=== PATIENT | female | born 1950 | race Two or more races ===

== ENCOUNTER 2018-05-22 12:09 | Inpatient (IN) | payer MEDICARE, MEDICAID ==
[~2018-05-22] VITALS: Ht 152.4 cm; Wt 59.0 kg
[2018-05-22 14:00] VITALS: BP 118/68
[2018-05-22 14:36] LABS: HEMATOCRIT 35.3 % (37.0-47.0); HEMOGLOBIN 11.3 G/DL (12.0-16.0); MEAN CORPUSCULAR VOLUME 72 FL (80-99); PLATELET COUNT 372 K/UL (150-450); RED BLOOD COUNT 4.89 M/UL (4.20-5.40); RED CELL DISTRIBUTION WIDTH 15.4 % (11.6-14.8); WHITE BLOOD COUNT 19.4 K/UL (4.8-10.8)
[2018-05-22 14:47] LABS: ANION GAP 14 mmol/L (5-15); BLOOD UREA NITROGEN 39 mg/dL (7-18); CALCIUM 9.2 MG/DL (8.5-10.1); CARBON DIOXIDE 22 MMOL/L (21-32); CHLORIDE 100 MMOL/L (98-107); CREATININE 1.3 MG/DL (0.55-1.30); POTASSIUM 4.2 MMOL/L (3.5-5.1); SODIUM 136 MMOL/L (136-145)
[2018-05-22 14:55] LABS: APPEARANCE,URINE SLIGHTLY CLOUDY; BILIRUBIN, URINE 1+ (NEGATIVE); COLOR,URINE BROWN; GLUCOSE, URINE (UA) 1+ (NEGATIVE); KETONES,URINE 4+ (NEGATIVE); LEUKOCYTE ESTERASE ,URINE 2+ (NEGATIVE); NITRITE,URINE NEGATIVE (NEGATIVE); PH,URINE 5 (4.5-8.0); PROTEIN,URINE 1+ (NEGATIVE); UROBILINOGEN,URINE 4 MG/DL (0.0-1.0)
[2018-05-22 15:03] LABS: ALANINE AMINOTRANSFERASE 20 U/L (12-78); ALBUMIN 2.8 G/DL (3.4-5.0); ALBUMIN/GLOBULIN RATIO 0.6 (1.0-2.7); ALKALINE PHOSPHATASE 122 U/L (46-116); ASPARTATE AMINO TRANSFERASE 12 U/L (15-37); BILIRUBIN,TOTAL 0.7 MG/DL (0.2-1.0); CKMB 0.8 NG/ML (0.0-3.6); CREATINE KINASE 18 U/L (26-308)
[2018-05-22] MEDS ORDERED: Meropenem 1 GM in NS 55 ML IVPB ONE (15:30)
--- NOTE | 2018-05-22 16:00 | Emergency Room Report ---
History of Present Illness General Chief Complaint: General Complaint Source: Patient, EMS Present Illness HPI This patient presents from a half-way facility. History is obtained from EMS and from the patient's medical record. The patient is unable to give any type of history. The patient does have a history of schizophrenia. Patient presents for altered mental status from baseline, congestion and generalized weakness. The patient is confused and unable to give any sort of history. Allergies: Coded Allergies: No Known Allergies (Unverified , 05/22/18) Patient History Past Medical History: see triage record, old chart reviewed, GERD, dementia, psych hx - schizophrenia, other - HLP Social History: Denies: smoking, alcohol use, drug use Last Menstrual Period: N/A Reviewed Nursing Documentation: PMH: Agreed; PSxH: Agreed Nursing Documentation-PMH Past Medical History: No History, Except For Hx Hypertension: Yes Hx Pacemaker: No - HYPERLIPIDEMIA, DYSPHAGIA, ANEMIA, GERD, CATARAT, Hx Diabetes: Yes History Of Psychiatric Problem: Yes - BIPOLAR, ANXIETY, MAJOR DEPRESSIVE DISORDER Review of Systems All Other Systems: limited Physical Exam Vital Signs Date Time Temp Pulse Resp B/P (MAP) Pulse Ox O2 Delivery O2 Flow Rate FiO2 05/22/18 12:24 96.9 80 18 118/68 90 Room Air 97.0 Sp02 EP Interpretation: reviewed, normal General Appearance: no apparent distress, alert, GCS 15, non-toxic Head: normocephalic, atraumatic Eyes: bilateral eye normal inspection, bilateral eye PERRL ENT: hearing grossly normal, normal pharynx, no angioedema, normal voice Neck: full range of motion, supple/symm/no masses Respiratory: chest non-tender, lungs clear, normal breath sounds, no respiratory distress, no retraction, no accessory muscle use Cardiovascular #1: regular rate, rhythm, no edema Gastrointestinal: normal bowel sounds, non tender, soft, non-distended, no guarding, no rebound Rectal: deferred Musculoskeletal: back normal, gait/station normal, normal range of motion, non- tender Neurologic: alert, responsive, speech normal, other - unable to fully assess, overall non-focal., grossly normal Psychiatric: anxious Skin: normal color, no rash, warm/dry, well hydrated Medical Decision Making Diagnostic Impression: Primary Impression: Sepsis ER Course This patient with schizophrenia and inability to give any type of focused history, is found to have an elevated white blood cell count at 19. Also, per report the patient is more confused than usual. I am unsure of this patient's baseline. There is no evidence of pneumonia or urinary tract infection. Possibly this patient could have bacteremia or viral syndrome some sort. There is report of congestion. Regardless, given the patient's baseline and inability to localize symptoms I felt that this patient should be admitted for observation and monitoring. Patient was given broad-spectrum antibiotics and IV fluids as a precaution. She is admitted for further evaluation and treatment. See electronic medical record EKG Diagnostic Results Rate: normal Rhythm: NSR ST Segments: no acute changes Rhythm Strip Diag. Results EP Interpretation: yes Rate: 80's Rhythm: NSR, no PVC's, no ectopy Chest X-Ray Diagnostic Results Chest X-Ray Diagnostic Results : Chest X-Ray Ordered: Yes # of Views/Limited/Complete: 1 View Indication: Other Interpretation: no consolidation, no effusion, no pneumothorax, no acute cardiopulmonary disease Impression: No acute disease Electronically Signed by: Amanda Last Vital Signs Date Time Temp Pulse Resp B/P (MAP) Pulse Ox O2 Delivery O2 Flow Rate FiO2 05/22/18 14:00 97.0 18 118/68 90 Room Air 97.0 05/22/18 12:24 80 Disposition: ADMITTED INPATIENT Condition: Stable Referrals: Jose Cortés DO (PCP) Santa Al DO May 22, 2018 16:00
[2018-05-22 16:05] VITALS: BP 123/70
[2018-05-22] MEDS ORDERED: Aspirin Baby 81mg ORAL ONE (16:15)
[2018-05-22] MEDS ORDERED: Albuterol/Ipratropium 3ml neb HHN PRN (17:00)
[2018-05-22] MEDS ORDERED: Morphine Sulfate 2mg/ml Inj IVP PRN (17:00)
[2018-05-22] MEDS ORDERED: Miralax 17gm pkt ORAL PRN (17:00)
[2018-05-22] MEDS ORDERED: Nitroglycerin Subl 0.4mg tab SL PRN (17:00)
--- NOTE | 2018-05-22 17:36 | Diagnostic Imaging Report ---
Indication: Altered mental status Technique: One view of the chest Comparison: none Findings: No acute infiltrates, effusions, or congestion. Tortuous calcified aorta. Normal heart size. Upper mediastinum unremarkable. Impression: No acute process.
[2018-05-22 18:00] VITALS: BP 122/75
[2018-05-22] MEDS ORDERED: OXYBUTYNIN CHLOR5 M1 ORAL (18:26)
[2018-05-22] MEDS ORDERED: DEPAKOTE250 MG PO (18:26)
[2018-05-22] MEDS ORDERED: ASPIRIN81 MG ORAL (18:26)
[2018-05-22] MEDS ORDERED: DOCUSATE SODIU100 MG ORAL (18:26)
[2018-05-22] MEDS ORDERED: FERROUS SULFAT325 MG ORAL (18:27)
[2018-05-22] MEDS ORDERED: METFORMIN HCL500 M1 ORAL (18:27)
[2018-05-22] MEDS ORDERED: Vancomycin 1250mg/D5W 250ml IVPB ONE (18:30)
[2018-05-22] MEDS ORDERED: AMLODIPINE BESY10 MG ORAL (18:32)
[2018-05-22] MEDS ORDERED: ATORVASTATIN CA10 MG ORAL (18:32)
[2018-05-22] MEDS ORDERED: ACETAMINOPHEN325 M1 ORAL (18:32)
[2018-05-22] MEDS ORDERED: PROBIOTIC1 EAC2 PO (18:32)
[2018-05-22] MEDS ORDERED: VITAMIN D1000 UNI1 ORAL (18:33)
[2018-05-22] MEDS ORDERED: SERTRALINE HCL25 MG ORAL (18:33)
[2018-05-22] MEDS ORDERED: ADVANCED ANTAC355 ML ORAL (18:36)
[2018-05-22] MEDS ORDERED: MILK OF MA400 MG/51 ORAL (18:38)
[2018-05-22] MEDS ORDERED: BISACODYL10 M1 RC (18:38)
[2018-05-22] MEDS ORDERED: ABILIFY10 MG ORAL (18:38)
[2018-05-22] MEDS ORDERED: BENZTROPINE ME0.5 MG HEMO (18:40)
[2018-05-22] MEDS ORDERED: [UNRECOGNIZED DRUG - OTHER] IVPB ONE (18:41)
[2018-05-22] MEDS ORDERED: VANCOMYCIN IVPB ONE (18:41)
[2018-05-22 19:00] VITALS: BP 134/42
[2018-05-22 20:00] VITALS: BP 167/87
--- NOTE | 2018-05-22 20:05 | Cardiology Progress Note ---
Assessment/Plan Assessment/Plan The patient is seen and examined, full consult note will be dictated shortly. Objective Last 24 Hour Vital Signs Date Time Temp Pulse Resp B/P (MAP) Pulse Ox O2 Delivery O2 Flow Rate FiO2 05/22/18 19:00 98.2 82 20 134/42 95 Room Air 98.2 05/22/18 19:00 98.2 82 20 134/42 95 Room Air 98.2 05/22/18 18:00 98.2 75 23 122/75 96 Room Air 98.2 05/22/18 16:05 97.9 88 16 123/70 98 Room Air 97.9 05/22/18 14:00 97.0 18 118/68 90 Room Air 97.0 05/22/18 12:24 96.9 80 18 118/68 90 Room Air 97.0 Laboratory Tests Test 05/22/18 14:15 05/22/18 14:35 05/22/18 15:30 White Blood Count 19.4 K/UL (4.8-10.8) H Red Blood Count 4.89 M/UL (4.20-5.40) Hemoglobin 11.3 G/DL (12.0-16.0) L Hematocrit 35.3 % (37.0-47.0) L Mean Corpuscular Volume 72 FL (80-99) L Mean Corpuscular Hemoglobin 23.2 PG (27.0-31.0) L Mean Corpuscular Hemoglobin Concent 32.1 G/DL (32.0-36.0) Red Cell Distribution Width 15.4 % (11.6-14.8) H Platelet Count 372 K/UL (150-450) Mean Platelet Volume 6.6 FL (6.5-10.1) Neutrophils (%) (Auto) % (45.0-75.0) Lymphocytes (%) (Auto) % (20.0-45.0) Monocytes (%) (Auto) % (1.0-10.0) Eosinophils (%) (Auto) % (0.0-3.0) Basophils (%) (Auto) % (0.0-2.0) Differential Total Cells Counted 100 Neutrophils % (Manual) 94 % (45-75) H Lymphocytes % (Manual) 3 % (20-45) L Monocytes % (Manual) 2 % (1-10) Eosinophils % (Manual) 0 % (0-3) Basophils % (Manual) 1 % (0-2) Band Neutrophils 0 % (0-8) Platelet Estimate Adequate Platelet Morphology Normal Polychromasia 1+ Poikilocytosis 1+ Anisocytosis 1+ Microcytosis 1+ Prothrombin Time 10.5 SEC (9.30-11.50) Prothromb Time International Ratio 1.0 (0.9-1.1) Activated Partial Thromboplast Time 28 SEC (23-33) Sodium Level 136 MMOL/L (136-145) Potassium Level 4.2 MMOL/L (3.5-5.1) Chloride Level 100 MMOL/L (98-107) Carbon Dioxide Level 22 MMOL/L (21-32) Anion Gap 14 mmol/L (5-15) Blood Urea Nitrogen 39 mg/dL (7-18) H Creatinine 1.3 MG/DL (0.55-1.30) Estimat Glomerular Filtration Rate 40.5 mL/min (>60) Glucose Level 115 MG/DL (74-106) H Lactic Acid Level 2.10 mmol/L (0.4-2.0) H 1.70 mmol/L (0.66-2.22) Calcium Level 9.2 MG/DL (8.5-10.1) Total Bilirubin 0.7 MG/DL (0.2-1.0) Aspartate Amino Transf (AST/SGOT) 12 U/L (15-37) L Alanine Aminotransferase (ALT/SGPT) 20 U/L (12-78) Alkaline Phosphatase 122 U/L (46-116) H Total Creatine Kinase 18 U/L (26-308) L Creatine Kinase MB 0.8 NG/ML (0.0-3.6) Creatine Kinase MB Relative Index 4.4 Troponin I 0.108 ng/mL (0.000-0.056) Total Protein 7.3 G/DL (6.4-8.2) Albumin 2.8 G/DL (3.4-5.0) L Globulin 4.5 g/dL Albumin/Globulin Ratio 0.6 (1.0-2.7) L Urine Color Brown Urine Appearance Slightly cloudy Urine pH 5 (4.5-8.0) Urine Specific [place] 1.020 (1.005-1.035) Urine Protein 1+ (NEGATIVE) H Urine Glucose (UA) 1+ (NEGATIVE) H Urine Ketones 4+ (NEGATIVE) H Urine Blood 1+ (NEGATIVE) H Urine Nitrite Negative (NEGATIVE) Urine Bilirubin 1+ (NEGATIVE) H Urine Ictotest Positive (NEGATIVE) Urine Urobilinogen 4 MG/DL (0.0-1.0) H Urine Leukocyte Esterase 2+ (NEGATIVE) H Urine RBC 0-2 /HPF (0 - 2) Urine WBC 5-10 /HPF (0 - 2) H Urine Squamous Epithelial Cells Occasional /LPF Urine Bacteria Few /HPF (NONE) Urine Mucus Occasional /LPF Microbiology Date/Time Source Procedure Growth Status 05/22/18 15:35 Nasal Nares Influenza Types A,B Antigen (TIESHA) - Final Complete Tristan Yanes MD May 22, 2018 20:05
[2018-05-22] MEDS: Atorvastatin 20mg tab ORAL SCH (21:00)
[2018-05-22] MEDS: Metoprolol 25mg tab ORAL SCH (21:00)
[2018-05-22] MEDS: Aspirin Baby 81mg ORAL SCH (21:00)
[2018-05-22] MEDS: Heparin 5000 units/ml inj SUBQ SCH (21:07)
[2018-05-22] MEDS: LORazepam Inj 2mg/ml 1ml IV PRN (22:43)
[2018-05-23] VITALS: BP 130/59
[2018-05-23] MEDS ORDERED: Vancomycin 1 GM in D5W 275 ML IV SCH (00:30)
[2018-05-23] MEDS: Cefepime HCl 2 GM in D5W 110 ML IV SCH ×2 (01:04→21:44)
[2018-05-23 04:00] VITALS: BP 127/45
--- NOTE | 2018-05-23 04:00 | Consultation ---
DATE OF CONSULTATION: 05/22/2018 CONSULTING PHYSICIAN: Tristan Yanes M.D. REFERRING PHYSICIAN: Jose Cortés D.O. REASON FOR CONSULTATION: Management of [id number] myocardial infarction. HISTORY OF PRESENT ILLNESS: The patient is a very unfortunate 68-year-old female, who is nonverbal, who was brought in to this facility by private ambulance from [facility] with generalized weakness, chest congestion, and increased confusion. The patient is under care of Dr. Jose Cortés in that facility. At time of arrival to the hospital, blood pressure was 118/68 mmHg and heart rate was 80. A 12-lead electrocardiogram did not show any acute ST and T-wave abnormalities. The initial laboratory finding was significant for elevation of troponin I level at 0.108 as well as evidence of BUN and creatinine elevation of 39 and 1.3 respectively. The patient was admitted to telemetry for further evaluation and management. She also showed evidence of urinary tract infection with associated leukocytosis and left shift. Cardiology consultation was made at request of Dr. Cortés. PAST MEDICAL HISTORY: Includes, 1. History of hyperlipidemia. 2. History of dysphagia. 3. History of anemia. 4. History of GERD. 5. History of cataract. 6. History of hypertension. 7. History of bipolar disorder. 8. History of anxiety. 9. History of major depressive disorder. 10. History of diabetes mellitus. 11. History of psychiatric problems. SOCIAL HISTORY: No history of tobacco, alcohol, or illicit drug use. PAST SURGICAL HISTORY: None. ALLERGIES: No known drug allergies. LIST OF MEDICATIONS FROM THE FACILITY: Include, acetaminophen 650 mg oral q.4 h. p.r.n. pain and temperature above 100.5 degrees Fahrenheit, aspirin 81 mg p.o. daily, Abilify 5 mg p.o. twice daily, amlodipine 10 mg p.o. daily, atorvastatin 10 mg p.o. nightly, Cogentin 1 mg twice daily, bisacodyl 10 mg rectal daily p.r.n. constipation, vitamin D 2000 units p.o. daily, Depakote 250 mg twice daily, Colace 100 mg twice daily, ferrous sulfate 325 mg daily, probiotic one tablet p.o. twice daily, milk of magnesia 30 mL oral q.4 h. p.r.n. GI upset, milk of magnesia 30 mL nightly p.r.n. constipation, metformin 500 mg twice daily, oxybutynin 5 mg p.o. daily p.r.n. bladder spasm, and sertraline 25 mg p.o. daily. REVIEW OF SYSTEMS: A 12-system review cannot be done due to the patient's nonverbal status. PHYSICAL EXAMINATION: VITAL SIGNS: Blood pressure at time of arrival to the hospital 118/68, pulse of 80, respirations of 18, O2 saturation 90% on room air, and temperature 96.9 degrees Fahrenheit. GENERAL: The patient is a very unfortunate 68-year-old female, in no apparent respiratory distress, moaning, and nonverbal. HEENT: Atraumatic and normocephalic. Anicteric. Pupils are equal, round, and reactive to light and accommodation. Extraocular muscles intact. NECK: JVP less than 5 cm. No carotid bruit. Carotid upstrokes 2+ bilaterally CARDIOVASCULAR: Normal S1 and S2. Regular rate and rhythm, distant. I do not appreciate any murmur, gallop, or rubs. LUNGS: Clear to auscultation bilaterally. ABDOMEN: Soft, nontender, and nondistended. No hepatosplenomegaly. Positive bowel sounds. EXTREMITIES: No evidence of edema, clubbing, or cyanosis. LABORATORY FINDINGS: WBC was 19.4, hemoglobin of 11.3, hematocrit of 35.3, and platelet count is 372,000. Chemistry showed sodium 136, potassium was 4.2, chloride 100, bicarbonate 22, BUN 39, creatinine 1.3, glucose 115, and calcium was 9.2. Troponin I was 0.108. INR was 1.0. IMAGING STUDY: Showed chest x-ray, which showed no acute cardiopulmonary disease. A 12-lead electrocardiogram, sinus rhythm at [address] and T-wave abnormalities. ASSESSMENT AND PLAN: The patient is a very unfortunate 68-year-old lady, who is seen in Cardiology consultation at request of Dr. Cortés. 1. [id number] myocardial infarction. I would like to start the patient on aspirin, metoprolol, and atorvastatin 80 mg. I do not believe that the patient has acute coronary syndrome, but we will protect her with standard anti-ischemic medication. No heparin derivatives indicated at this point. We will continue with serial troponin I level measurements and 2D echocardiography versus LV systolic function. 2. Dementia. 3. History of diabetes mellitus. 4. History of hypertension. We will start with beta-son. If needed, the patient will be placed on ACACIA inhibitors. I would like to thank, Dr. Cortés, for allowing me to participate in the care of this patient. Tristan Yanes M.D. DR: JAVED JOB#: [id number] CC:
[2018-05-23] MEDS: LORazepam Inj 2mg/ml 1ml IV PRN (05:21)
[2018-05-23 08:00] VITALS: BP 122/53
--- NOTE | 2018-05-23 08:46 | Diagnostic Imaging Report ---
Indication: Dyspnea Technique: One view of the chest Comparison: 05/22/2018 Findings: No acute infiltrates, effusions, or congestion. Tortuous calcified aorta. Normal heart size. Upper mediastinum unremarkable. That the patient's chin obscures the upper most mediastinum. There is no significant interim change Impression: No acute process.
[2018-05-23] MEDS: Heparin 5000 units/ml inj SUBQ SCH ×4 (08:54→21:58)
[2018-05-23] MEDS: Aspirin Baby 81mg ORAL SCH (08:54)
[2018-05-23] MEDS: Metoprolol 25mg tab ORAL SCH ×2 (08:58→21:00)
[2018-05-23] MEDS ORDERED: LORazepam Inj 2mg/ml 1ml IV PRN ×2 (10:45→14:20)
--- NOTE | 2018-05-23 11:24 | Consultation ---
History of Present Illness General Date patient seen: May 23, 2018 Chief Complaint: General Complaint Present Illness HPI 68 y/o F with hx of HLD, dysphagia, anemia, Dementia, GERD, cataract, HTN, Bipolar disorder, Anxiety/MDD, DM2, non verbal presents to ED on 05/22 with generalized weakness, chest congestion, increased confusion. Upon admission found to have elevated troponin, BUN and Cr and WBC. ID consulted for concern for UTI. Allergies: Coded Allergies: No Known Allergies (Unverified , 05/22/18) Medication History Scheduled Amlodipine Besylate* (Amlodipine Besylate*), 10 MG ORAL DAILY, (Reported) Aripiprazole* (Abilify*), 5 MG ORAL BID, (Reported) Aspirin* (Aspirin*), 81 MG ORAL DAILY, (Reported) Atorvastatin Calcium* (Lipitor*), 10 MG ORAL BEDTIME, (Reported) Benztropine Mesylate* (Cogentin*), 1 MG HEMO BID, (Reported) Cholecalciferol (Vitamin D3)* (Vitamin D*), 2,000 UNITS ORAL DAILY, (Reported) Divalproex Sodium* (Depakote*), 250 MG PO BID, (Reported) Docusate Sodium* (Docusate Sodium*), 100 MG ORAL TWICE A DAY, (Reported) Ferrous Sulfate* (Ferrous Sulfate*), 325 MG ORAL DAILY, (Reported) Lactobacillus Acidophilus (Probiotic), 1 EACH PO BID, (Reported) Metformin Hcl* (Metformin Hcl*), 500 MG ORAL TWICE A DAY, (Reported) Sertraline Hcl* (Sertraline Hcl*), 25 MG ORAL DAILY, (Reported) Scheduled PRN Acetaminophen* (Acetaminophen 325MG Tablet*), 650 MG ORAL Q4H PRN for Mild Pain/ Temp > 100.5, (Reported) Bisacodyl (Bisacodyl), 10 MG RC DAILY PRN for Constipation, (Reported) Mag Hydrox/Al Hydrox/Simeth* (Advanced Antacid Liquid*), 30 ML ORAL Q4HR PRN for GI UPSET, (Reported) Magnesium Hydroxide* (Milk Of Magnesia*), 30 ML ORAL QHS PRN for Constipation, ( Reported) Oxybutynin Chloride (Oxybutynin Chloride), 5 MG ORAL DAILY PRN for BLADDER SPASM , (Reported) Patient History Healthcare decision maker Resuscitation status Full Code Advanced Directive on File No Patient History Narrative Pmhx: as above Shx: No history of tobacco, alcohol, or illicit drug use. Fhx: non contributory Review of Systems ROS Narrative unable to obtain Physical Exam Physical Exam Narrative GENERAL: The patient is a very unfortunate 68-year-old female, in no apparent respiratory distress, moaning, and nonverbal. HEENT: Atraumatic and normocephalic. Anicteric. Pupils are equal, round, and reactive to light and accommodation. Extraocular muscles intact. NECK: JVP less than 5 cm. No carotid bruit. Carotid upstrokes 2+ bilaterally CARDIOVASCULAR: Normal S1 and S2. Regular rate and rhythm, distant. I do not appreciate any murmur, gallop, or rubs. LUNGS: Clear to auscultation bilaterally. ABDOMEN: Soft, nontender, and nondistended. No hepatosplenomegaly. Positive bowel sounds. EXTREMITIES: No evidence of edema, clubbing, or cyanosis. L plantar foot blister Last 24 Hour Vital Signs Date Time Temp Pulse Resp B/P (MAP) Pulse Ox O2 Delivery O2 Flow Rate FiO2 05/23/18 09:00 Room Air 05/23/18 08:58 66 122/53 05/23/18 08:00 97.0 69 18 122/53 (76) 97 97.0 05/23/18 04:00 68 05/23/18 04:00 97.0 70 20 127/45 (72) 96 97.0 05/23/18 00:00 98.0 78 20 130/59 (82) 99 98.0 05/23/18 00:00 68 05/22/18 20:00 60 05/22/18 20:00 97.0 71 20 167/87 (113) 100 97.0 05/22/18 19:23 83 05/22/18 19:00 Room Air 05/22/18 19:00 98.2 82 20 134/42 95 Room Air 98.2 05/22/18 19:00 98.2 82 20 134/42 95 Room Air 98.2 05/22/18 18:00 98.2 75 23 122/75 96 Room Air 98.2 05/22/18 16:05 97.9 88 16 123/70 98 Room Air 97.9 05/22/18 14:00 97.0 18 118/68 90 Room Air 97.0 05/22/18 12:24 96.9 80 18 68 90 Room Air 97.0 Intake and Output 05/22/18 05/23/18 19:00 07:00 Intake Total 1855 ml 480 ml Balance 1855 ml 480 ml Intake Oral 120 ml IV Total 1855 ml 360 ml # Voids 1 2 Laboratory Tests Test 05/22/18 14:15 05/22/18 14:35 05/22/18 15:30 White Blood Count 19.4 K/UL (4.8-10.8) H Red Blood Count 4.89 M/UL (4.20-5.40) Hemoglobin 11.3 G/DL (12.0-16.0) L Hematocrit 35.3 % (37.0-47.0) L Mean Corpuscular Volume 72 FL (80-99) L Mean Corpuscular Hemoglobin 23.2 PG (27.0-31.0) L Mean Corpuscular Hemoglobin Concent 32.1 G/DL (32.0-36.0) Red Cell Distribution Width 15.4 % (11.6-14.8) H Platelet Count 372 K/UL (150-450) Mean Platelet Volume 6.6 FL (6.5-10.1) Neutrophils (%) (Auto) % (45.0-75.0) Lymphocytes (%) (Auto) % (20.0-45.0) Monocytes (%) (Auto) % (1.0-10.0) Eosinophils (%) (Auto) % (0.0-3.0) Basophils (%) (Auto) % (0.0-2.0) Differential Total Cells Counted 100 Neutrophils % (Manual) 94 % (45-75) H Lymphocytes % (Manual) 3 % (20-45) L Monocytes % (Manual) 2 % (1-10) Eosinophils % (Manual) 0 % (0-3) Basophils % (Manual) 1 % (0-2) Band Neutrophils 0 % (0-8) Platelet Estimate Adequate Platelet Morphology Normal Polychromasia 1+ Poikilocytosis 1+ Anisocytosis 1+ Microcytosis 1+ Prothrombin Time 10.5 SEC (9.30-11.50) Prothromb Time International Ratio 1.0 (0.9-1.1) Activated Partial Thromboplast Time 28 SEC (23-33) Sodium Level 136 MMOL/L (136-145) Potassium Level 4.2 MMOL/L (3.5-5.1) Chloride Level 100 MMOL/L (98-107) Carbon Dioxide Level 22 MMOL/L (21-32) Anion Gap 14 mmol/L (5-15) Blood Urea Nitrogen 39 mg/dL (7-18) H Creatinine 1.3 MG/DL (0.55-1.30) Estimat Glomerular Filtration Rate 40.5 mL/min (>60) Glucose Level 115 MG/DL (74-106) H Lactic Acid Level 2.10 mmol/L (0.4-2.0) H 1.70 mmol/L (0.66-2.22) Calcium Level 9.2 MG/DL (8.5-10.1) Total Bilirubin 0.7 MG/DL (0.2-1.0) Aspartate Amino Transf (AST/SGOT) 12 U/L (15-37) L Alanine Aminotransferase (ALT/SGPT) 20 U/L (12-78) Alkaline Phosphatase 122 U/L (46-116) H Total Creatine Kinase 18 U/L (26-308) L Creatine Kinase MB 0.8 NG/ML (0.0-3.6) Creatine Kinase MB Relative Index 4.4 Troponin I 0.108 ng/mL (0.000-0.056) Total Protein 7.3 G/DL (6.4-8.2) Albumin 2.8 G/DL (3.4-5.0) L Globulin 4.5 g/dL Albumin/Globulin Ratio 0.6 (1.0-2.7) L Urine Color Brown Urine Appearance Slightly cloudy Urine pH 5 (4.5-8.0) Urine Specific [place] 1.020 (1.005-1.035) Urine Protein 1+ (NEGATIVE) H Urine Glucose (UA) 1+ (NEGATIVE) H Urine Ketones 4+ (NEGATIVE) H Urine Blood 1+ (NEGATIVE) H Urine Nitrite Negative (NEGATIVE) Urine Bilirubin 1+ (NEGATIVE) H Urine Ictotest Positive (NEGATIVE) Urine Urobilinogen 4 MG/DL (0.0-1.0) H Urine Leukocyte Esterase 2+ (NEGATIVE) H Urine RBC 0-2 /HPF (0 - 2) Urine WBC 5-10 /HPF (0 - 2) H Urine Squamous Epithelial Cells Occasional /LPF Urine Bacteria Few /HPF (NONE) Urine Mucus Occasional /LPF Microbiology Date/Time Source Procedure Growth Status 05/22/18 15:35 Nasal Nares Influenza Types A,B Antigen (TIESHA) - Final Complete Height (Feet): 5 Weight (Pounds): 130 Medications Current Medications Medications (Trade) Dose Ordered Sig/Analilia Route PRN Reason Start Time Stop Time Status Last Admin Dose Admin Acetaminophen (Tylenol) 650 mg Q4H PRN ORAL fever 05/22/18 17:00 06/21/18 16:59 Albuterol/ Ipratropium (Albuterol/ Ipratropium) 3 ml Q4H PRN HHN Shortness of Breath 05/22/18 17:00 05/27/18 16:59 Aspirin (ASA) 81 mg DAILY ORAL 05/22/18 21:00 06/21/18 20:59 05/23/18 08:54 Atorvastatin Calcium (Lipitor) 20 mg BEDTIME ORAL 05/22/18 21:00 06/21/18 20:59 Cefepime HCl 2 gm/ Dextrose 110 ml @ 220 mls/hr Q24H IV 05/22/18 21:00 05/29/18 20:59 05/23/18 01:04 Fluphenazine Decanoate (Prolixin Deconate) 25 mg ONCE ONCE IM 05/23/18 12:00 05/23/18 12:01 Heparin Sodium (Porcine) (Heparin 5000 units/ml) 5,000 units EVERY 12 HOURS SUBQ 05/22/18 21:00 06/21/18 20:59 05/22/18 21:07 Lorazepam (Ativan 2mg/ml 1ml) 2 mg Q4H PRN IV Agitation 05/23/18 10:45 05/30/18 10:44 05/23/18 10:50 Metoprolol Tartrate (Lopressor) 25 mg Q12HR ORAL 05/22/18 21:00 06/21/18 20:59 05/23/18 08:58 Morphine Sulfate (Morphine Sulfate) 2 mg Q4H PRN IVP Moderate Pain (Pain Scale 4-6) 05/22/18 17:00 05/29/18 16:59 Nitroglycerin (Ntg) 0.4 mg Q5M PRN SL Prn Chest Pain 05/22/18 17:00 06/21/18 16:59 Ondansetron HCl (Zofran) 4 mg Q6H PRN IVP Nausea & Vomiting 05/22/18 17:00 06/21/18 16:59 Polyethylene Glycol (Miralax) 17 gm DAILYPRN PRN ORAL Constipation 05/22/18 17:00 06/21/18 16:59 Risperidone (RisperDAL) 2 mg BEDTIME ORAL 05/23/18 21:00 06/22/18 20:59 Valproic Acid (Depakene) 1,000 mg BEDTIME ORAL 05/23/18 21:00 06/22/18 20:59 Vancomycin HCl (Vanco rx to dose) 1 ea DAILY PRN MISC . 05/22/18 17:30 06/21/18 17:29 Vancomycin HCl 500 mg/Dextrose 110 ml @ 110 mls/hr Q24H IVPB 05/23/18 18:00 05/28/18 17:59 Assessment/Plan Assessment/Plan Abx: IV Vanco 05/22- Cefepime 05/22- Meropenem x1 05/22 Assessment: Probable UTI -u/a wbc 5-10,nit neg, leuk +2; ucx p LEukocytosis -CXR: no acute cardiopulmonary -Bcx p NSTEMI CAMRON L plantar foot blister HLD dysphagia anemia Dementia GERD cataract HTN Bipolar disorder Anxiety/MDD DM2 non verbal Plan: -D/c IV vanco #2 and continue Cefepime #2 pending urine culture -f/u cx -Monitor CBC/CMP, temperatures -CBC, CMP am -aspiration precautions -wound care/prevention per hospital protocol Thank you for this consultation. Will continue to follow along with you. Discussed with Shanda Patel M.D. May 23, 2018 11:24
[2018-05-23 11:57] VITALS: BP 112/51
[2018-05-23] MEDS ORDERED: FLUPHENAZINE DECANOATE 25 MG/ML IM ONE ×2 (12:00→13:30)
--- NOTE | 2018-05-23 12:03 | Consultation ---
History of Present Illness General Date patient seen: May 23, 2018 Chief Complaint: General Complaint Present Illness HPI 68 year old female with hx of DM, bipoar, brought in by ambulance from [facility] with CC of weakness, confusion and congestion. Pt was awake but confused, doesn't follow commands. No respiratory distress. She was diagnosed to have sepsis and admitted to telemetry for further evaluation. Allergies: Coded Allergies: No Known Allergies (Unverified , 05/22/18) Medication History Scheduled Amlodipine Besylate* (Amlodipine Besylate*), 10 MG ORAL DAILY, (Reported) Aripiprazole* (Abilify*), 5 MG ORAL BID, (Reported) Aspirin* (Aspirin*), 81 MG ORAL DAILY, (Reported) Atorvastatin Calcium* (Lipitor*), 10 MG ORAL BEDTIME, (Reported) Benztropine Mesylate* (Cogentin*), 1 MG HEMO BID, (Reported) Cholecalciferol (Vitamin D3)* (Vitamin D*), 2,000 UNITS ORAL DAILY, (Reported) Divalproex Sodium* (Depakote*), 250 MG PO BID, (Reported) Docusate Sodium* (Docusate Sodium*), 100 MG ORAL TWICE A DAY, (Reported) Ferrous Sulfate* (Ferrous Sulfate*), 325 MG ORAL DAILY, (Reported) Lactobacillus Acidophilus (Probiotic), 1 EACH PO BID, (Reported) Metformin Hcl* (Metformin Hcl*), 500 MG ORAL TWICE A DAY, (Reported) Sertraline Hcl* (Sertraline Hcl*), 25 MG ORAL DAILY, (Reported) Scheduled PRN Acetaminophen* (Acetaminophen 325MG Tablet*), 650 MG ORAL Q4H PRN for Mild Pain/ Temp > 100.5, (Reported) Bisacodyl (Bisacodyl), 10 MG RC DAILY PRN for Constipation, (Reported) Mag Hydrox/Al Hydrox/Simeth* (Advanced Antacid Liquid*), 30 ML ORAL Q4HR PRN for GI UPSET, (Reported) Magnesium Hydroxide* (Milk Of Magnesia*), 30 ML ORAL QHS PRN for Constipation, ( Reported) Oxybutynin Chloride (Oxybutynin Chloride), 5 MG ORAL DAILY PRN for BLADDER SPASM , (Reported) Patient History Healthcare decision maker Resuscitation status Full Code Advanced Directive on File No Past Medical/Surgical History Past Medical/Surgical History: (1) Depression (2) Anxiety (3) Dysphagia (4) Bipolar disorder (5) Schizophrenia (6) Essential hypertension (7) Diabetes mellitus Review of Systems All Other Systems: negative except mentioned in HPI Physical Exam General Appearance: WD/WN, no apparent distress Lines, tubes and drains: peripheral HEENT: normocephalic, atraumatic Neck: non-tender, normal alignment Respiratory/Chest: chest wall non-tender, lungs clear Cardiovascular/Chest: normal peripheral pulses, normal rate Abdomen: normal bowel sounds, non tender Genitourinary/Rectal: normal genital exam Extremities: normal range of motion Skin Exam: normal pigmentation Last 24 Hour Vital Signs Date Time Temp Pulse Resp B/P (MAP) Pulse Ox O2 Delivery O2 Flow Rate FiO2 05/23/18 09:00 Room Air 05/23/18 08:58 66 122/53 05/23/18 08:00 97.0 69 18 122/53 (76) 97 97.0 05/23/18 04:00 68 05/23/18 04:00 97.0 70 20 127/45 (72) 96 97.0 05/23/18 00:00 98.0 78 20 130/59 (82) 99 98.0 05/23/18 00:00 68 05/22/18 20:00 60 05/22/18 20:00 97.0 71 20 167/87 (113) 100 97.0 05/22/18 19:23 83 05/22/18 19:00 Room Air 05/22/18 19:00 98.2 82 20 134/42 95 Room Air 98.2 05/22/18 19:00 98.2 82 20 134/42 95 Room Air 98.2 05/22/18 18:00 98.2 75 23 122/75 96 Room Air 98.2 05/22/18 16:05 97.9 88 16 123/70 98 Room Air 97.9 05/22/18 14:00 97.0 18 118/68 90 Room Air 97.0 05/22/18 12:24 96.9 80 18 118/68 90 Room Air 97.0 Intake and Output 05/22/18 05/23/18 19:00 07:00 Intake Total 1855 ml 480 ml Balance 1855 ml 480 ml Intake Oral 120 ml IV Total 1855 ml 360 ml # Voids 1 2 Laboratory Tests Test 05/22/18 14:15 05/22/18 14:35 05/22/18 15:30 White Blood Count 19.4 K/UL (4.8-10.8) H Red Blood Count 4.89 M/UL (4.20-5.40) Hemoglobin 11.3 G/DL (12.0-16.0) L Hematocrit 35.3 % (37.0-47.0) L Mean Corpuscular Volume 72 FL (80-99) L Mean Corpuscular Hemoglobin 23.2 PG (27.0-31.0) L Mean Corpuscular Hemoglobin Concent 32.1 G/DL (32.0-36.0) Red Cell Distribution Width 15.4 % (11.6-14.8) H Platelet Count 372 K/UL (150-450) Mean Platelet Volume 6.6 FL (6.5-10.1) Neutrophils (%) (Auto) % (45.0-75.0) Lymphocytes (%) (Auto) % (20.0-45.0) Monocytes (%) (Auto) % (1.0-10.0) Eosinophils (%) (Auto) % (0.0-3.0) Basophils (%) (Auto) % (0.0-2.0) Differential Total Cells Counted 100 Neutrophils % (Manual) 94 % (45-75) H Lymphocytes % (Manual) 3 % (20-45) L Monocytes % (Manual) 2 % (1-10) Eosinophils % (Manual) 0 % (0-3) Basophils % (Manual) 1 % (0-2) Band Neutrophils 0 % (0-8) Platelet Estimate Adequate Platelet Morphology Normal Polychromasia 1+ Poikilocytosis 1+ Anisocytosis 1+ Microcytosis 1+ Prothrombin Time 10.5 SEC (9.30-11.50) Prothromb Time International Ratio 1.0 (0.9-1.1) Activated Partial Thromboplast Time 28 SEC (23-33) Sodium Level 136 MMOL/L (136-145) Potassium Level 4.2 MMOL/L (3.5-5.1) Chloride Level 100 MMOL/L (98-107) Carbon Dioxide Level 22 MMOL/L (21-32) Anion Gap 14 mmol/L (5-15) Blood Urea Nitrogen 39 mg/dL (7-18) H Creatinine 1.3 MG/DL (0.55-1.30) Estimat Glomerular Filtration Rate 40.5 mL/min (>60) Glucose Level 115 MG/DL (74-106) H Lactic Acid Level 2.10 mmol/L (0.4-2.0) H 1.70 mmol/L (0.66-2.22) Calcium Level 9.2 MG/DL (8.5-10.1) Total Bilirubin 0.7 MG/DL (0.2-1.0) Aspartate Amino Transf (AST/SGOT) 12 U/L (15-37) L Alanine Aminotransferase (ALT/SGPT) 20 U/L (12-78) Alkaline Phosphatase 122 U/L (46-116) H Total Creatine Kinase 18 U/L (26-308) L Creatine Kinase MB 0.8 NG/ML (0.0-3.6) Creatine Kinase MB Relative Index 4.4 Troponin I 0.108 ng/mL (0.000-0.056) Total Protein 7.3 G/DL (6.4-8.2) Albumin 2.8 G/DL (3.4-5.0) L Globulin 4.5 g/dL Albumin/Globulin Ratio 0.6 (1.0-2.7) L Urine Color Brown Urine Appearance Slightly cloudy Urine pH 5 (4.5-8.0) Urine Specific [place] 1.020 (1.005-1.035) Urine Protein 1+ (NEGATIVE) H Urine Glucose (UA) 1+ (NEGATIVE) H Urine Ketones 4+ (NEGATIVE) H Urine Blood 1+ (NEGATIVE) H Urine Nitrite Negative (NEGATIVE) Urine Bilirubin 1+ (NEGATIVE) H Urine Ictotest Positive (NEGATIVE) Urine Urobilinogen 4 MG/DL (0.0-1.0) H Urine Leukocyte Esterase 2+ (NEGATIVE) H Urine RBC 0-2 /HPF (0 - 2) Urine WBC 5-10 /HPF (0 - 2) H Urine Squamous Epithelial Cells Occasional /LPF Urine Bacteria Few /HPF (NONE) Urine Mucus Occasional /LPF Microbiology Date/Time Source Procedure Growth Status 05/22/18 15:35 Nasal Nares Influenza Types A,B Antigen (TIESHA) - Final Complete Height (Feet): 5 Weight (Pounds): 130 Medications Current Medications Medications (Trade) Dose Ordered Sig/Analilia Route PRN Reason Start Time Stop Time Status Last Admin Dose Admin Acetaminophen (Tylenol) 650 mg Q4H PRN ORAL fever 05/22/18 17:00 06/21/18 16:59 Albuterol/ Ipratropium (Albuterol/ Ipratropium) 3 ml Q4H PRN HHN Shortness of Breath 05/22/18 17:00 05/27/18 16:59 Aspirin (ASA) 81 mg DAILY ORAL 05/22/18 21:00 06/21/18 20:59 05/23/18 08:54 Atorvastatin Calcium (Lipitor) 20 mg BEDTIME ORAL 05/22/18 21:00 06/21/18 20:59 Cefepime HCl 2 gm/ Dextrose 110 ml @ 220 mls/hr Q24H IV 05/22/18 21:00 05/29/18 20:59 05/23/18 01:04 Fluphenazine Decanoate (Prolixin Deconate) 25 mg ONCE ONCE IM 05/23/18 12:00 05/23/18 12:01 Heparin Sodium (Porcine) (Heparin 5000 units/ml) 5,000 units EVERY 12 HOURS SUBQ 05/22/18 21:00 06/21/18 20:59 05/22/18 21:07 Lorazepam (Ativan 2mg/ml 1ml) 2 mg Q4H PRN IV Agitation 05/23/18 10:45 05/30/18 10:44 05/23/18 10:50 Metoprolol Tartrate (Lopressor) 25 mg Q12HR ORAL 05/22/18 21:00 06/21/18 20:59 05/23/18 08:58 Morphine Sulfate (Morphine Sulfate) 2 mg Q4H PRN IVP Moderate Pain (Pain Scale 4-6) 05/22/18 17:00 05/29/18 16:59 Nitroglycerin (Ntg) 0.4 mg Q5M PRN SL Prn Chest Pain 05/22/18 17:00 06/21/18 16:59 Ondansetron HCl (Zofran) 4 mg Q6H PRN IVP Nausea & Vomiting 05/22/18 17:00 06/21/18 16:59 Polyethylene Glycol (Miralax) 17 gm DAILYPRN PRN ORAL Constipation 05/22/18 17:00 10/31/18 16:59 Risperidone (RisperDAL) 2 mg BEDTIME ORAL 05/23/18 21:00 06/22/18 20:59 Valproic Acid (Depakene) 1,000 mg BEDTIME ORAL 05/23/18 21:00 06/22/18 20:59 Assessment/Plan Problem List: (1) Sepsis ICD Codes: A41.9 - Sepsis, unspecified organism SNOMED: 91068204 (2) Diabetes mellitus ICD Codes: E11.9 - Type 2 diabetes mellitus without complications SNOMED: 82568646 (3) Essential hypertension ICD Codes: I10 - Essential (primary) hypertension SNOMED: 80975071 (4) Schizophrenia ICD Codes: F20.9 - Schizophrenia, unspecified SNOMED: 60439849 (5) Bipolar disorder ICD Codes: F31.9 - Bipolar disorder, unspecified SNOMED: 65210259 (6) Dysphagia ICD Codes: R13.10 - Dysphagia, unspecified SNOMED: 26896105, 630722244 (7) Anxiety ICD Codes: F41.9 - Anxiety disorder, unspecified SNOMED: 83106509 (8) Depression ICD Codes: F32.9 - Major depressive disorder, single episode, unspecified SNOMED: 16067992 Assessment/Plan iv fluids iv abx check electrolytes echo cardiac monitoring dvt prophylaxis Jaimie Delacruz MD May 23, 2018 12:03
--- NOTE | 2018-05-23 13:27 | Consultation ---
History of Present Illness General Date patient seen: May 23, 2018 Chief Complaint: General Complaint Present Illness HPI 68-year-old female, with hx of schizoaffective or bipolar to er. the pt has been agitated and hypersexual. the pt is delusional and confused. the pt was wandering around the unit and was unable to provide hx. Allergies: Coded Allergies: No Known Allergies (Unverified , 05/22/18) Medication History Scheduled Amlodipine Besylate* (Amlodipine Besylate*), 10 MG ORAL DAILY, (Reported) Aripiprazole* (Abilify*), 5 MG ORAL BID, (Reported) Aspirin* (Aspirin*), 81 MG ORAL DAILY, (Reported) Atorvastatin Calcium* (Lipitor*), 10 MG ORAL BEDTIME, (Reported) Benztropine Mesylate* (Cogentin*), 1 MG HEMO BID, (Reported) Cholecalciferol (Vitamin D3)* (Vitamin D*), 2,000 UNITS ORAL DAILY, (Reported) Divalproex Sodium* (Depakote*), 250 MG PO BID, (Reported) Docusate Sodium* (Docusate Sodium*), 100 MG ORAL TWICE A DAY, (Reported) Ferrous Sulfate* (Ferrous Sulfate*), 325 MG ORAL DAILY, (Reported) Lactobacillus Acidophilus (Probiotic), 1 EACH PO BID, (Reported) Metformin Hcl* (Metformin Hcl*), 500 MG ORAL TWICE A DAY, (Reported) Sertraline Hcl* (Sertraline Hcl*), 25 MG ORAL DAILY, (Reported) Scheduled PRN Acetaminophen* (Acetaminophen 325MG Tablet*), 650 MG ORAL Q4H PRN for Mild Pain/ Temp > 100.5, (Reported) Bisacodyl (Bisacodyl), 10 MG RC DAILY PRN for Constipation, (Reported) Mag Hydrox/Al Hydrox/Simeth* (Advanced Antacid Liquid*), 30 ML ORAL Q4HR PRN for GI UPSET, (Reported) Magnesium Hydroxide* (Milk Of Magnesia*), 30 ML ORAL QHS PRN for Constipation, ( Reported) Oxybutynin Chloride (Oxybutynin Chloride), 5 MG ORAL DAILY PRN for BLADDER SPASM , (Reported) Patient History Limited by: medical condition History Provided By: Patient, Medical Record Healthcare decision maker Resuscitation status Full Code Advanced Directive on File No Past Medical/Surgical History Past Medical/Surgical History: (1) Sepsis (2) Diabetes mellitus (3) Essential hypertension (4) Anemia (5) Schizophrenia (6) Bipolar disorder (7) Dysphagia (8) Anxiety (9) Depression Review of Systems Psychiatric: Reports: prior hx, anxiety, depressed feelings, hallucinations Physical Exam General Appearance: alert, confused, severe distress, agitated Last 24 Hour Vital Signs Date Time Temp Pulse Resp B/P (MAP) Pulse Ox O2 Delivery O2 Flow Rate FiO2 05/23/18 11:57 97.2 68 18 112/51 (71) 96 97.2 05/23/18 09:00 Room Air 05/23/18 08:58 66 122/53 05/23/18 08:00 97.0 69 18 122/53 (76) 97 97.0 05/23/18 04:00 68 05/23/18 04:00 97.0 70 20 127/45 (72) 96 97.0 05/23/18 00:00 98.0 78 20 130/59 (82) 99 98.0 05/23/18 00:00 68 05/22/18 20:00 60 05/22/18 20:00 97.0 71 20 167/87 (113) 100 97.0 05/22/18 19:23 83 05/22/18 19:00 Room Air 05/22/18 19:00 98.2 82 20 134/42 95 Room Air 98.2 05/22/18 19:00 98.2 82 20 134/42 95 Room Air 98.2 05/22/18 18:00 98.2 75 23 122/75 96 Room Air 98.2 05/22/18 16:05 97.9 88 16 123/70 98 Room Air 97.9 05/22/18 14:00 97.0 18 118/68 90 Room Air 97.0 Intake and Output 05/22/18 05/23/18 19:00 07:00 Intake Total 1855 ml 480 ml Balance 1855 ml 480 ml Intake Oral 120 ml IV Total 1855 ml 360 ml # Voids 1 2 Laboratory Tests Test 05/22/18 14:15 05/22/18 14:35 05/22/18 15:30 White Blood Count 19.4 K/UL (4.8-10.8) H Red Blood Count 4.89 M/UL (4.20-5.40) Hemoglobin 11.3 G/DL (12.0-16.0) L Hematocrit 35.3 % (37.0-47.0) L Mean Corpuscular Volume 72 FL (80-99) L Mean Corpuscular Hemoglobin 23.2 PG (27.0-31.0) L Mean Corpuscular Hemoglobin Concent 32.1 G/DL (32.0-36.0) Red Cell Distribution Width 15.4 % (11.6-14.8) H Platelet Count 372 K/UL (150-450) Mean Platelet Volume 6.6 FL (6.5-10.1) Neutrophils (%) (Auto) % (45.0-75.0) Lymphocytes (%) (Auto) % (20.0-45.0) Monocytes (%) (Auto) % (1.0-10.0) Eosinophils (%) (Auto) % (0.0-3.0) Basophils (%) (Auto) % (0.0-2.0) Differential Total Cells Counted 100 Neutrophils % (Manual) 94 % (45-75) H Lymphocytes % (Manual) 3 % (20-45) L Monocytes % (Manual) 2 % (1-10) Eosinophils % (Manual) 0 % (0-3) Basophils % (Manual) 1 % (0-2) Band Neutrophils 0 % (0-8) Platelet Estimate Adequate Platelet Morphology Normal Polychromasia 1+ Poikilocytosis 1+ Anisocytosis 1+ Microcytosis 1+ Prothrombin Time 10.5 SEC (9.30-11.50) Prothromb Time International Ratio 1.0 (0.9-1.1) Activated Partial Thromboplast Time 28 SEC (23-33) Sodium Level 136 MMOL/L (136-145) Potassium Level 4.2 MMOL/L (3.5-5.1) Chloride Level 100 MMOL/L (98-107) Carbon Dioxide Level 22 MMOL/L (21-32) Anion Gap 14 mmol/L (5-15) Blood Urea Nitrogen 39 mg/dL (7-18) H Creatinine 1.3 MG/DL (0.55-1.30) Estimat Glomerular Filtration Rate 40.5 mL/min (>60) Glucose Level 115 MG/DL (74-106) H Lactic Acid Level 2.10 mmol/L (0.4-2.0) H 1.70 mmol/L (0.66-2.22) Calcium Level 9.2 MG/DL (8.5-10.1) Total Bilirubin 0.7 MG/DL (0.2-1.0) Aspartate Amino Transf (AST/SGOT) 12 U/L (15-37) L Alanine Aminotransferase (ALT/SGPT) 20 U/L (12-78) Alkaline Phosphatase 122 U/L (46-116) H Total Creatine Kinase 18 U/L (26-308) L Creatine Kinase MB 0.8 NG/ML (0.0-3.6) Creatine Kinase MB Relative Index 4.4 Troponin I 0.108 ng/mL (0.000-0.056) Total Protein 7.3 G/DL (6.4-8.2) Albumin 2.8 G/DL (3.4-5.0) L Globulin 4.5 g/dL Albumin/Globulin Ratio 0.6 (1.0-2.7) L Urine Color Brown Urine Appearance Slightly cloudy Urine pH 5 (4.5-8.0) Urine Specific [place] 1.020 (1.005-1.035) Urine Protein 1+ (NEGATIVE) H Urine Glucose (UA) 1+ (NEGATIVE) H Urine Ketones 4+ (NEGATIVE) H Urine Blood 1+ (NEGATIVE) H Urine Nitrite Negative (NEGATIVE) Urine Bilirubin 1+ (NEGATIVE) H Urine Ictotest Positive (NEGATIVE) Urine Urobilinogen 4 MG/DL (0.0-1.0) H Urine Leukocyte Esterase 2+ (NEGATIVE) H Urine RBC 0-2 /HPF (0 - 2) Urine WBC 5-10 /HPF (0 - 2) H Urine Squamous Epithelial Cells Occasional /LPF Urine Bacteria Few /HPF (NONE) Urine Mucus Occasional /LPF Microbiology Date/Time Source Procedure Growth Status 05/22/18 15:35 Nasal Nares Influenza Types A,B Antigen (TIESHA) - Final Complete Height (Feet): 5 Weight (Pounds): 130 Medications Current Medications Medications (Trade) Dose Ordered Sig/Analilia Route PRN Reason Start Time Stop Time Status Last Admin Dose Admin Acetaminophen (Tylenol) 650 mg Q4H PRN ORAL fever 05/22/18 17:00 06/21/18 16:59 Albuterol/ Ipratropium (Albuterol/ Ipratropium) 3 ml Q4H PRN HHN Shortness of Breath 05/22/18 17:00 05/27/18 16:59 Aspirin (ASA) 81 mg DAILY ORAL 05/22/18 21:00 06/21/18 20:59 05/23/18 08:54 Atorvastatin Calcium (Lipitor) 20 mg BEDTIME ORAL 05/22/18 21:00 06/21/18 20:59 Cefepime HCl 2 gm/ Dextrose 110 ml @ 220 mls/hr Q24H IV 05/22/18 21:00 05/29/18 20:59 05/23/18 01:04 Fluphenazine Decanoate (Prolixin Deconate) 25 mg ONCE ONCE IM 05/23/18 13:30 05/23/18 13:31 05/23/18 12:52 Heparin Sodium (Porcine) (Heparin 5000 units/ml) 5,000 units EVERY 12 HOURS SUBQ 05/22/18 21:00 06/21/18 20:59 05/22/18 21:07 Lorazepam (Ativan 2mg/ml 1ml) 2 mg Q4H PRN IV Agitation 05/23/18 10:45 05/30/18 10:44 05/23/18 10:50 Metoprolol Tartrate (Lopressor) 25 mg Q12HR ORAL 05/22/18 21:00 06/21/18 20:59 05/23/18 08:58 Morphine Sulfate (Morphine Sulfate) 2 mg Q4H PRN IVP Moderate Pain (Pain Scale 4-6) 05/22/18 17:00 05/29/18 16:59 Nitroglycerin (Ntg) 0.4 mg Q5M PRN SL Prn Chest Pain 05/22/18 17:00 06/21/18 16:59 Ondansetron HCl (Zofran) 4 mg Q6H PRN IVP Nausea & Vomiting 05/22/18 17:00 06/21/18 16:59 Permethrin (Elimite) 1 applic ONCE TOPIC 05/23/18 12:15 05/23/18 23:59 Polyethylene Glycol (Miralax) 17 gm DAILYPRN PRN ORAL Constipation 05/22/18 17:00 06/21/18 16:59 Risperidone (RisperDAL) 2 mg BEDTIME ORAL 05/23/18 21:00 06/22/18 20:59 Valproic Acid (Depakene) 1,000 mg BEDTIME ORAL 05/23/18 21:00 06/22/18 20:59 Assessment/Plan Status: unchanged Assessment/Plan schizoaffective d/o bipolar type depakote 1000mg qhs risperdal 2mg qhs ativan prn prolexin Urvashi Zuniga MD May 23, 2018 13:27
[2018-05-23 16:00] VITALS: BP 104/51
[2018-05-23] MEDS ORDERED: Vancomycin 500mg/D5W 110ml IVPB SCH ×2 (18:00)
--- NOTE | 2018-05-23 18:57 | Cardiology Report ---
APPROVED REPORT EXAM: Two-dimensional and M-mode echocardiogram with Doppler and color Doppler. INDICATION Acute OK M-Mode DIMENSIONS IVSd1.0 (0.7-1.1cm)Left Atrium (MM)2.5 (1.6-4.0cm) LVDd3.9 (3.5-5.6cm)Aortic Root2.7 (2.0-3.7cm) PWd1.2 (0.7-1.1cm)Aortic Cusp Exc.1.6 (1.5-2.0cm) LVDs2.2 (2.5-4.0cm) PWs1.7 cm Limited 2-D Echo study due to pts strong resistance. No apicla images to evaluate spaulding Normal left ventricular chamber size, hyperdynamic systolic function and wall motion septum and posterioir wall Left ventricular ejection fraction cannot be estimated Study quality precludes accurate assessment of regional wall motion. No evidence of left ventricular hypertrophy. Anterior Echo-free space, may be due to pericardial fat or effusion. All other cardiac chamber sizes appear to be within normal limits. Anterior Echo-free space, may be due to pericardial fat or effusion. Mild focal aortic valve sclerosis with adequate cusp excursion. Mildly thickened mitral valve leaflets with normal excursion. Mitral annulus and aortic root calcification.
--- NOTE | 2018-05-23 19:04 | Cardiology Report ---
APPROVED REPORT EKG Measurement Heart [id number] Normal sinus rhythm Normal ECG
[2018-05-23 20:00] VITALS: BP 104/41
[2018-05-23] MEDS: Atorvastatin 20mg tab ORAL SCH (21:00)
--- NOTE | 2018-05-23 23:34 | Cardiology Progress Note ---
Assessment/Plan Assessment/Plan 1. [id number] myocardial infarction, continue aspirin, metoprolol, and atorvastatin 80 mg. Echo demonstrated normal LV systolic function. 2. Dementia. 3. History of diabetes mellitus. 4. History of hypertension, well controlled, continue blockers. Objective Last 24 Hour Vital Signs Date Time Temp Pulse Resp B/P (MAP) Pulse Ox O2 Delivery O2 Flow Rate FiO2 05/23/18 21:00 53 104/41 05/23/18 21:00 Room Air 05/23/18 20:00 55 05/23/18 20:00 98.2 53 18 104/41 (62) 96 98.2 05/23/18 16:00 68 05/23/18 16:00 97.0 59 18 104/51 (68) 97 97.0 05/23/18 11:57 97.2 68 18 112/51 (71) 96 97.2 05/23/18 09:00 Room Air 05/23/18 08:58 66 122/53 05/23/18 08:00 97.0 69 18 122/53 (76) 97 97.0 05/23/18 04:00 68 05/23/18 04:00 97.0 70 20 127/45 (72) 96 97.0 05/23/18 00:00 98.0 78 20 130/59 (82) 99 98.0 05/23/18 00:00 68 Intake and Output 05/22/18 05/23/18 19:00 07:00 Intake Total 1855 ml 480 ml Balance 1855 ml 480 ml Intake Oral 120 ml IV Total 1855 ml 360 ml # Voids 1 2 Microbiology Date/Time Source Procedure Growth Status 05/22/18 15:35 Nasal Nares Influenza Types A,B Antigen (TIESHA) - Final Complete Objective HEENT: Atraumatic and normocephalic. Anicteric. Pupils are equal, round, and reactive to light and accommodation. Extraocular muscles intact. NECK: JVP less than 5 cm. No carotid bruit. Carotid upstrokes 2+ bilaterally CARDIOVASCULAR: Normal S1 and S2. Regular rate and rhythm, distant. I do not appreciate any murmur, gallop, or rubs. LUNGS: Clear to auscultation bilaterally. ABDOMEN: Soft, nontender, and nondistended. No hepatosplenomegaly. Positive bowel sounds. EXTREMITIES: No evidence of edema, clubbing, or cyanosis. Tristan Yanes MD May 23, 2018 23:33
[2018-05-24] VITALS: BP 101/43
--- NOTE | 2018-05-24 01:30 | History and Physical Report ---
DATE OF ADMISSION: 05/23/2018 TIME SEEN: At 2 p.m. CONSULTANTS: 1. Jaimie Delacruz M.D. 2. Ronnie Christianson M.D. 3. Tristan Yanes M.D. 4. Bibi Rodriguez M.D. CHIEF COMPLAINT: Weakness, sepsis, elevated troponin, and confusion. BRIEF HISTORY: This is a 68-year-old female from [facility], who presented with the above-mentioned diagnoses, admitted to telemetry for further care. Currently, confused in bed, not talking much. PAST MEDICAL HISTORY: Includes hypertension, schizophrenia, anemia, diabetes, and depression. PAST SURGICAL HISTORY: Unknown. ALLERGIES: Denies. MEDICATIONS: Depakene, Risperdal, vancomycin, Ativan, cefepime, heparin, aspirin, metoprolol, atorvastatin, albuterol, morphine, and Zofran. SOCIAL HISTORY: Unable to obtain secondary to the patient's condition. REVIEW OF SYSTEMS: Unavailable. PHYSICAL EXAMINATION: GENERAL: Confused in bed, disoriented x3, in no acute distress. VITAL SIGNS: Temperature is 97 degrees, pulse 60, respirations 18, and blood pressure 112/51. CARDIOVASCULAR: No murmur. LUNGS: Poor air exchange. ABDOMEN: Bowel sounds distant. EXTREMITIES: No cyanosis, clubbing, or edema. NEUROLOGIC: The patient moves all extremities and slightly weak. LABORATORY DATA: Labs at this time show hemoglobin 11.3, white count 19.4, otherwise CBC is normal. BMP shows BUN 39, glucose 112, lactic acid 2.1, alkaline phosphatase 112. Troponin 0.108. Albumin 2.8. INR is 1.0, PTT is 28. Urinalysis shows 2+ leukocyte esterase. ASSESSMENT: 1. Weakness. 2. UTI. 3. Sepsis. 4. Elevated troponin. 5. Malnutrition. 6. Confusion. 7. Anemia. 8. Hypertension. 9. Schizophrenia. 10. Diabetes. 11. Depression. PLAN: 1. Continue previous medications. 2. Blood pressure and blood sugar control. 3. Antibiotics per Infectious Disease. 4. Dietary followup. 5. Wound care. 6. CBC and BMP in the morning. Jose Cortés D.O. DR: YARELIS JOB#: [id number] CC:
--- NOTE | 2018-05-24 02:15 | Consultation ---
DATE OF CONSULTATION: 05/23/2018 CONSULTING PHYSICIAN: Michael Mtz M.D. HISTORY OF PRESENT ILLNESS: This is a 68-year-old female patient who was admitted to [facility] secondary to sepsis and generalized weakness. She originally came to the hospital complaining of sepsis and generalized weakness, but she has a diagnosis of schizoaffective, bipolar type, and this patient came in confused, disorganized, and mood labile. She has no logical plan for her own self-care. The patient is a 68-year-old female patient, seen and assessed in her room. The reason for her admission into the hospital is she came in basically for sepsis and generalized weakness but she also had altered mental status and confusion. Her cognition had declined below baseline. Her attending physician has requested daily psychiatric consultation as she has confusion, has disorganized thought process and her cognition has declined below baseline. ALLERGIES: She has no known drug allergies. PAST MEDICAL HISTORY: She has history of diabetes, hyperlipidemia, and hypertension. SUBSTANCE ABUSE HISTORY: No known history of any drug or alcohol use. FAMILY PSYCHIATRIC HISTORY: Denies. PAIN ASSESSMENT: 0/10. DEVELOPMENTAL PROBLEMS: Denies. SOCIAL HISTORY: The patient lives in [facility]. She is financially supported by [employer] and Medicare. STRENGTHS: She is motivated to get better and she has a place to live. WEAKNESSES: Impulsive and has no support system. MENTAL STATUS EXAMINATION: This is a 68-year-old female. Appearance is disheveled. Attitude, irritable and agitated. Affect, guarded and restricted. Intellect poor because she has no current events. Mood, depressed and anxious. Motor activity, psychomotor retardation. Attention span is poor because she is unable to spell the word world backwards, that is how I tested it. Orientation x2, she is oriented to person and place, but not to time or situation. Speech is low volume and slurred. Thought process, disorganized. Perception is poor, she has perceptual disturbances. Abstract reasoning is poor. She is unable to understand proverbs. Insight is poor because she does not recognize her mental disorder. Judgment is poor because she does not recognize consequences of her behavior and actions. Short-term memory is 0/3 after 3-word recall, so poor short-term memory. Long-term memory is poor because she is unable to recall long-term events in her life such as high school that she went to. DIAGNOSES: 1. Major depressive disorder with psychotic features. Rule out dementia with psychosis. 2. Schizoaffective, bipolar type. Rule out depression with psychotic features. Rule out pseudodementia. PLAN: Treated with medication regimen consisting of actually Prolixin 25 mg IM every month, Risperdal 2 mg nightly, Depakote 1000 mg nightly, and Ativan 1 mg every 4 hours IV p.r.n. anxiety and agitation. Provided 20 minutes of supportive psychotherapy and encouraged to interact appropriately with staff and other patients. Chart reviewed. Discussed with staff. Dr. Bibi Rodriguez, attending physician, is doing a consultation. Psychiatric consultation from Dr. Hernandez at the request of Dr. Jose Cortés. The patient's attending physician has requested the patient to be followed daily by Psychiatry, requested by Dr. Jose Cortés. I would like to thank Dr. Jose Cortés for this interesting consultation. Chart reviewed and discussed with staff. The patient is seen and assessed at bedside. Bibi Rodriguez M.D. DR: EPIFANIO JOB#: [id number] CC:
[2018-05-24 04:00] VITALS: BP 110/55
[2018-05-24 05:31] LABS: BASOPHILS % (AUTO) 1.3 % (0.0-2.0); EOSINOPHILS % (AUTO) 4.9 % (0.0-3.0); HEMATOCRIT 32.7 % (37.0-47.0); LYMPHOCYTES % (AUTO) 20.9 % (20.0-45.0); MEAN CORPUSCULAR VOLUME 73 FL (80-99); MONOCYTES % (AUTO) 4.2 % (1.0-10.0); NEUTROPHILS % (AUTO) 68.8 % (45.0-75.0); PLATELET COUNT 251 K/UL (150-450); RED BLOOD COUNT 4.48 M/UL (4.20-5.40); RED CELL DISTRIBUTION WIDTH 15.4 % (11.6-14.8); WHITE BLOOD COUNT 9.4 K/UL (4.8-10.8)
[2018-05-24 05:43] LABS: ALANINE AMINOTRANSFERASE 14 U/L (12-78); ALBUMIN 2.3 G/DL (3.4-5.0); ALBUMIN/GLOBULIN RATIO 0.6 (1.0-2.7); ALKALINE PHOSPHATASE 101 U/L (46-116); ANION GAP 11 mmol/L (5-15); ASPARTATE AMINO TRANSFERASE 15 U/L (15-37); BILIRUBIN,TOTAL 0.5 MG/DL (0.2-1.0); BLOOD UREA NITROGEN 34 mg/dL (7-18); CALCIUM 8.9 MG/DL (8.5-10.1); CARBON DIOXIDE 21 MMOL/L (21-32); CHLORIDE 107 MMOL/L (98-107); CREATININE 0.9 MG/DL (0.55-1.30); POTASSIUM 4.1 MMOL/L (3.5-5.1); SODIUM 139 MMOL/L (136-145)
[2018-05-24 08:00] VITALS: BP 125/58
[2018-05-24] MEDS: Metoprolol 25mg tab ORAL SCH ×2 (09:00→20:52)
[2018-05-24] MEDS: Heparin 5000 units/ml inj SUBQ SCH ×2 (09:00→20:54)
[2018-05-24] MEDS: Aspirin Baby 81mg ORAL SCH (09:34)
--- NOTE | 2018-05-24 11:57 | Pulmonology Progress Note ---
Assessment/Plan Problems: (1) Sepsis (2) Diabetes mellitus (3) Essential hypertension (4) Schizophrenia (5) Bipolar disorder (6) Dysphagia (7) Anxiety (8) Depression Assessment/Plan doing better sliding scale monitor BP f/u cardio recommendations psych f/u dvt prophylaxis Subjective ROS Limited/Unobtainable: No Constitutional: Reports: no symptoms HEENT: Repors: no symptoms Respiratory: Reports: no symptoms Allergies: Coded Allergies: No Known Allergies (Unverified , 05/22/18) Objective Last 24 Hour Vital Signs Date Time Temp Pulse Resp B/P (MAP) Pulse Ox O2 Delivery O2 Flow Rate FiO2 05/24/18 09:00 56 125/58 05/24/18 08:00 46 05/24/18 08:00 97.5 57 18 125/58 (80) 95 97.5 05/24/18 04:00 97.7 47 18 110/55 (73) 94 97.7 05/24/18 03:38 50 05/24/18 00:00 96.6 58 18 101/43 (62) 95 96.6 05/23/18 23:44 50 05/23/18 21:00 53 104/41 05/23/18 21:00 Room Air 05/23/18 20:00 55 05/23/18 20:00 98.2 53 18 104/41 (62) 96 98.2 05/23/18 16:00 68 05/23/18 16:00 97.0 59 18 104/51 (68) 97 97.0 05/23/18 11:57 97.2 68 18 112/51 (71) 96 97.2 Intake and Output 05/23/18 05/24/18 19:00 07:00 Intake Total 120 ml 110 ml Balance 120 ml 110 ml Intake Oral 120 ml IV Total 110 ml # Voids 2 2 General Appearance: WD/WN HEENT: normocephalic, atraumatic Respiratory/Chest: chest wall non-tender, lungs clear Breasts: no masses Cardiovascular: normal peripheral pulses Abdomen: normal bowel sounds, no organomegaly Genitourinary: normal external genitalia Extremities: no clubbing Skin: no rash Microbiology Date/Time Source Procedure Growth Status 05/22/18 14:20 Blood Blood Culture - Preliminary NO GROWTH AFTER 24 HOURS Resulted 05/22/18 14:15 Blood Blood Culture - Preliminary NO GROWTH AFTER 24 HOURS Resulted 05/22/18 15:35 Nasal Nares Influenza Types A,B Antigen (TIESHA) - Final Complete 05/22/18 14:58 Nasal Nares MRSA Culture - Final NO METHICILLIN RESISTANT STAPH AUREUS... Complete 05/22/18 14:58 Rectum VRE Culture - Final NO VANCOMYCIN RESISTANT ENTEROCOCCUS ... Complete 05/22/18 14:58 Rectum - Final NO CARBAPENEM-RESISTANT ENTEROBACTERI... Complete Laboratory Tests 05/24/18 00:18: White Blood Count 9.4#, Red Blood Count 4.48, Hemoglobin 10.0L, Hematocrit 32.7L , Mean Corpuscular Volume 73L, Mean Corpuscular Hemoglobin 22.4L, Mean Corpuscular Hemoglobin Concent 30.6L, Red Cell Distribution Width 15.4H, Platelet Count 251, Mean Platelet Volume 5.4L, Neutrophils (%) (Auto) 68.8, Lymphocytes (%) (Auto) 20.9, Monocytes (%) (Auto) 4.2, Eosinophils (%) (Auto) 4.9H, Basophils (%) (Auto) 1.3, Sodium Level 139, Potassium Level 4.1, Chloride Level 107, Carbon Dioxide Level 21, Anion Gap 11, Blood Urea Nitrogen 34H, Creatinine 0.9, Estimat Glomerular Filtration Rate > 60, Glucose Level 143H, Calcium Level 8.9, Total Bilirubin 0.5, Aspartate Amino Transf (AST/SGOT) 15, Alanine Aminotransferase (ALT/SGPT) 14, Alkaline Phosphatase 101, Total Protein 6.2L, Albumin 2.3L, Globulin 3.9, Albumin/Globulin Ratio 0.6L, Valproic Acid ( Depakene) Level < 3L 05/24/18 01:01: Troponin I 0.022 Current Medications Medications (Trade) Dose Ordered Sig/Analilia Route PRN Reason Start Time Stop Time Status Last Admin Dose Admin Acetaminophen (Tylenol) 650 mg Q4H PRN ORAL fever 05/22/18 17:00 06/21/18 16:59 Albuterol/ Ipratropium (Albuterol/ Ipratropium) 3 ml Q4H PRN HHN Shortness of Breath 05/22/18 17:00 05/27/18 16:59 Aspirin (ASA) 81 mg DAILY ORAL 05/22/18 21:00 06/21/18 20:59 05/24/18 09:34 Atorvastatin Calcium (Lipitor) 20 mg BEDTIME ORAL 05/22/18 21:00 06/21/18 20:59 Cefepime HCl 2 gm/ Dextrose 110 ml @ 220 mls/hr Q24H IV 05/22/18 21:00 05/29/18 20:59 05/23/18 21:44 Heparin Sodium (Porcine) (Heparin 5000 units/ml) 5,000 units EVERY 12 HOURS SUBQ 05/22/18 21:00 06/21/18 20:59 05/23/18 21:58 Lorazepam (Ativan 2mg/ml 1ml) 1 mg Q4H PRN IV Agitation 05/23/18 14:20 05/30/18 14:19 Metoprolol Tartrate (Lopressor) 25 mg Q12HR ORAL 05/22/18 21:00 06/21/18 20:59 05/23/18 08:58 Morphine Sulfate (Morphine Sulfate) 2 mg Q4H PRN IVP Moderate Pain (Pain Scale 4-6) 05/22/18 17:00 05/29/18 16:59 Nitroglycerin (Ntg) 0.4 mg Q5M PRN SL Prn Chest Pain 05/22/18 17:00 06/21/18 16:59 Ondansetron HCl (Zofran) 4 mg Q6H PRN IVP Nausea & Vomiting 05/22/18 17:00 06/21/18 16:59 Polyethylene Glycol (Miralax) 17 gm DAILYPRN PRN ORAL Constipation 05/22/18 17:00 06/21/18 16:59 Risperidone (RisperDAL) 2 mg BEDTIME ORAL 05/23/18 21:00 06/22/18 20:59 Valproic Acid (Depakene) 1,000 mg BEDTIME ORAL 05/23/18 21:00 06/22/18 20:59 Jaimie Delacruz MD May 24, 2018 11:57
[2018-05-24 12:00] VITALS: BP 101/59
--- NOTE | 2018-05-24 13:38 | General Progress Note ---
Assessment/Plan Problem List: (1) Malnutrition ICD Codes: E46 - Unspecified protein-calorie malnutrition SNOMED: 95433939 (2) Elevated troponin ICD Codes: R74.8 - Abnormal levels of other serum enzymes SNOMED: 449702817, 808586423, 718942561 (3) Sepsis ICD Codes: A41.9 - Sepsis, unspecified organism SNOMED: 26583751 (4) Diabetes mellitus ICD Codes: E11.9 - Type 2 diabetes mellitus without complications SNOMED: 11603215 (5) Essential hypertension ICD Codes: I10 - Essential (primary) hypertension SNOMED: 02734167 (6) Anemia ICD Codes: D64.9 - Anemia, unspecified SNOMED: 480889584 (7) Schizophrenia ICD Codes: F20.9 - Schizophrenia, unspecified SNOMED: 28937979 Status: unchanged Assessment/Plan ot pt diet abx cardio f/u psyc tx cbc bmp am Subjective Constitutional: Reports: weakness Allergies: Coded Allergies: No Known Allergies (Unverified , 05/22/18) All Systems: reviewed and negative except above Subjective sleepy calm Objective Last 24 Hour Vital Signs Date Time Temp Pulse Resp B/P (MAP) Pulse Ox O2 Delivery O2 Flow Rate FiO2 05/24/18 12:00 51 05/24/18 09:00 56 125/58 05/24/18 08:00 46 05/24/18 08:00 97.5 57 18 125/58 (80) 95 97.5 05/24/18 04:00 97.7 47 18 110/55 (73) 94 97.7 05/24/18 03:38 50 05/24/18 00:00 96.6 58 18 101/43 (62) 95 96.6 05/23/18 23:44 50 05/23/18 21:00 53 104/41 05/23/18 21:00 Room Air 05/23/18 20:00 55 05/23/18 20:00 98.2 53 18 104/41 (62) 96 98.2 05/23/18 16:00 68 05/23/18 16:00 97.0 59 18 104/51 (68) 97 97.0 Intake and Output 05/23/18 05/24/18 19:00 07:00 Intake Total 120 ml 110 ml Balance 120 ml 110 ml Intake Oral 120 ml IV Total 110 ml # Voids 2 2 Laboratory Tests 05/24/18 00:18: White Blood Count 9.4#, Red Blood Count 4.48, Hemoglobin 10.0L, Hematocrit 32.7L , Mean Corpuscular Volume 73L, Mean Corpuscular Hemoglobin 22.4L, Mean Corpuscular Hemoglobin Concent 30.6L, Red Cell Distribution Width 15.4H, Platelet Count 251, Mean Platelet Volume 5.4L, Neutrophils (%) (Auto) 68.8, Lymphocytes (%) (Auto) 20.9, Monocytes (%) (Auto) 4.2, Eosinophils (%) (Auto) 4.9H, Basophils (%) (Auto) 1.3, Sodium Level 139, Potassium Level 4.1, Chloride Level 107, Carbon Dioxide Level 21, Anion Gap 11, Blood Urea Nitrogen 34H, Creatinine 0.9, Estimat Glomerular Filtration Rate > 60, Glucose Level 143H, Calcium Level 8.9, Total Bilirubin 0.5, Aspartate Amino Transf (AST/SGOT) 15, Alanine Aminotransferase (ALT/SGPT) 14, Alkaline Phosphatase 101, Total Protein 6.2L, Albumin 2.3L, Globulin 3.9, Albumin/Globulin Ratio 0.6L, Valproic Acid ( Depakene) Level < 3L 05/24/18 01:01: Troponin I 0.022 Height (Feet): 5 Weight (Pounds): 130 General Appearance: lethargic Neck: normal alignment Cardiovascular: normal peripheral pulses, normal rate, regular rhythm Respiratory/Chest: chest wall non-tender, lungs clear, normal breath sounds Abdomen: normal bowel sounds, non tender, soft Extremities: normal inspection Edema: no edema noted Arm (L), no edema noted Arm (R), no edema noted Leg (L), no edema noted Leg (R), no edema noted Pedal (L), no edema noted Pedal (R), no edema noted Generalized Neurologic: motor weakness Skin: normal pigmentation, warm/dry Jose Cortés DO May 24, 2018 13:38
--- NOTE | 2018-05-24 15:05 | Infectious Diseases Prog Note ---
Assessment/Plan Assessment/Plan Abx: IV Vanco 05/22- Cefepime 05/22- Meropenem x1 05/22 Assessment: Probable UTI -u/a wbc 5-10,nit neg, leuk +2; ucx p LEukocytosis -CXR: no acute cardiopulmonary -Bcx p NSTEMI CAMRON L plantar foot blister HLD dysphagia anemia Dementia GERD cataract HTN Bipolar disorder Anxiety/MDD DM2 non verbal Plan: -Continue Cefepime #3 pending urine culture -05/23 SP IV vanco #2 -05/22 SP Meropenem x1 -f/u cx -Monitor CBC/CMP, temperatures -aspiration precautions -wound care/prevention per hospital protocol Thank you for this consultation. Will continue to follow along with you. Discussed with RN. Subjective Allergies: Coded Allergies: No Known Allergies (Unverified , 05/22/18) Subjective afebrile leukocytosis resolved Bcx NTD ucx p Objective Vital Signs Last 24 Hour Vital Signs Date Time Temp Pulse Resp B/P (MAP) Pulse Ox O2 Delivery O2 Flow Rate FiO2 05/24/18 12:00 51 05/24/18 09:00 56 125/58 05/24/18 09:00 Room Air 05/24/18 08:00 46 05/24/18 08:00 97.5 57 18 125/58 (80) 95 97.5 05/24/18 04:00 97.7 47 18 110/55 (73) 94 97.7 05/24/18 03:38 50 05/24/18 00:00 96.6 58 18 101/43 (62) 95 96.6 05/23/18 23:44 50 05/23/18 21:00 53 104/41 05/23/18 21:00 Room Air 05/23/18 20:00 55 05/23/18 20:00 98.2 53 18 104/41 (62) 96 98.2 05/23/18 16:00 68 05/23/18 16:00 97.0 59 18 104/51 (68) 97 97.0 Height (Feet): 5 Weight (Pounds): 130 Objective GENERAL: The patient is a very unfortunate 68-year-old female, in no apparent respiratory distress, moaning, and nonverbal. HEENT: Atraumatic and normocephalic. Anicteric. Pupils are equal, round, and reactive to light and accommodation. Extraocular muscles intact. NECK: JVP less than 5 cm. No carotid bruit. Carotid upstrokes 2+ bilaterally CARDIOVASCULAR: Normal S1 and S2. Regular rate and rhythm, distant. I do not appreciate any murmur, gallop, or rubs. LUNGS: Clear to auscultation bilaterally. ABDOMEN: Soft, nontender, and nondistended. No hepatosplenomegaly. Positive bowel sounds. EXTREMITIES: No evidence of edema, clubbing, or cyanosis. L plantar foot blister Microbiology Date/Time Source Procedure Growth Status 05/22/18 14:20 Blood Blood Culture - Preliminary NO GROWTH AFTER 24 HOURS Resulted 05/22/18 14:15 Blood Blood Culture - Preliminary NO GROWTH AFTER 24 HOURS Resulted 05/22/18 15:35 Nasal Nares Influenza Types A,B Antigen (TIESHA) - Final Complete 05/22/18 14:58 Nasal Nares MRSA Culture - Final NO METHICILLIN RESISTANT STAPH AUREUS... Complete 05/22/18 14:58 Rectum VRE Culture - Final NO VANCOMYCIN RESISTANT ENTEROCOCCUS ... Complete 05/22/18 14:58 Rectum - Final NO CARBAPENEM-RESISTANT ENTEROBACTERI... Complete Laboratory Tests Test 05/24/18 00:18 05/24/18 01:01 White Blood Count 9.4 K/UL (4.8-10.8) # Red Blood Count 4.48 M/UL (4.20-5.40) Hemoglobin 10.0 G/DL (12.0-16.0) L Hematocrit 32.7 % (37.0-47.0) L Mean Corpuscular Volume 73 FL (80-99) L Mean Corpuscular Hemoglobin 22.4 PG (27.0-31.0) L Mean Corpuscular Hemoglobin Concent 30.6 G/DL (32.0-36.0) L Red Cell Distribution Width 15.4 % (11.6-14.8) H Platelet Count 251 K/UL (150-450) Mean Platelet Volume 5.4 FL (6.5-10.1) L Neutrophils (%) (Auto) 68.8 % (45.0-75.0) Lymphocytes (%) (Auto) 20.9 % (20.0-45.0) Monocytes (%) (Auto) 4.2 % (1.0-10.0) Eosinophils (%) (Auto) 4.9 % (0.0-3.0) H Basophils (%) (Auto) 1.3 % (0.0-2.0) Sodium Level 139 MMOL/L (136-145) Potassium Level 4.1 MMOL/L (3.5-5.1) Chloride Level 107 MMOL/L (98-107) Carbon Dioxide Level 21 MMOL/L (21-32) Anion Gap 11 mmol/L (5-15) Blood Urea Nitrogen 34 mg/dL (7-18) H Creatinine 0.9 MG/DL (0.55-1.30) Estimat Glomerular Filtration Rate > 60 mL/min (>60) Glucose Level 143 MG/DL (74-106) H Calcium Level 8.9 MG/DL (8.5-10.1) Total Bilirubin 0.5 MG/DL (0.2-1.0) Aspartate Amino Transf (AST/SGOT) 15 U/L (15-37) Alanine Aminotransferase (ALT/SGPT) 14 U/L (12-78) Alkaline Phosphatase 101 U/L (46-116) Total Protein 6.2 G/DL (6.4-8.2) L Albumin 2.3 G/DL (3.4-5.0) L Globulin 3.9 g/dL Albumin/Globulin Ratio 0.6 (1.0-2.7) L Valproic Acid (Depakene) Level < 3 MCG/ML (50-100) L Troponin I 0.022 ng/mL (0.000-0.056) Current Medications Medications (Trade) Dose Ordered Sig/Analilia Route PRN Reason Start Time Stop Time Status Last Admin Dose Admin Acetaminophen (Tylenol) 650 mg Q4H PRN ORAL fever 05/22/18 17:00 06/21/18 16:59 Albuterol/ Ipratropium (Albuterol/ Ipratropium) 3 ml Q4H PRN HHN Shortness of Breath 05/22/18 17:00 05/27/18 16:59 Aspirin (ASA) 81 mg DAILY ORAL 05/22/18 21:00 06/21/18 20:59 05/24/18 09:34 Atorvastatin Calcium (Lipitor) 20 mg BEDTIME ORAL 05/22/18 21:00 06/21/18 20:59 Cefepime HCl 2 gm/ Dextrose 110 ml @ 220 mls/hr Q24H IV 05/22/18 21:00 05/29/18 20:59 05/23/18 21:44 Heparin Sodium (Porcine) (Heparin 5000 units/ml) 5,000 units EVERY 12 HOURS SUBQ 05/22/18 21:00 06/21/18 20:59 05/23/18 21:58 Lorazepam (Ativan 2mg/ml 1ml) 1 mg Q4H PRN IV Agitation 05/23/18 14:20 05/30/18 14:19 Metoprolol Tartrate (Lopressor) 25 mg Q12HR ORAL 05/22/18 21:00 06/21/18 20:59 05/23/18 08:58 Morphine Sulfate (Morphine Sulfate) 2 mg Q4H PRN IVP Moderate Pain (Pain Scale 4-6) 05/22/18 17:00 05/29/18 16:59 Nitroglycerin (Ntg) 0.4 mg Q5M PRN SL Prn Chest Pain 05/22/18 17:00 06/21/18 16:59 Ondansetron HCl (Zofran) 4 mg Q6H PRN IVP Nausea & Vomiting 05/22/18 17:00 06/21/18 16:59 Polyethylene Glycol (Miralax) 17 gm DAILYPRN PRN ORAL Constipation 05/22/18 17:00 06/21/18 16:59 Risperidone (RisperDAL) 2 mg BEDTIME ORAL 05/23/18 21:00 06/22/18 20:59 Valproic Acid (Depakene) 1,000 mg BEDTIME ORAL 05/23/18 21:00 06/22/18 20:59 Shanda Murphy M.D. May 24, 2018 15:05
[2018-05-24 16:00] VITALS: BP 115/60
[2018-05-24 20:00] VITALS: BP 104/40
[2018-05-24] MEDS: Cefepime HCl 2 GM in D5W 110 ML IV SCH (20:50)
[2018-05-24] MEDS: Atorvastatin 20mg tab ORAL SCH (20:51)
--- NOTE | 2018-05-24 23:32 | Cardiology Progress Note ---
Assessment/Plan Assessment/Plan 1. [id number] myocardial infarction, continue aspirin, metoprolol, and atorvastatin 80 mg. Echo demonstrated normal LV systolic function. 2. Dementia. 3. History of diabetes mellitus. 4. History of hypertension, well controlled, continue blockers. Subjective Subjective Sinus rhythm at 65. Objective Last 24 Hour Vital Signs Date Time Temp Pulse Resp B/P (MAP) Pulse Ox O2 Delivery O2 Flow Rate FiO2 05/24/18 21:00 Room Air 05/24/18 20:52 64 110/56 05/24/18 20:00 97.3 65 20 104/40 (61) 95 97.3 05/24/18 19:00 64 05/24/18 16:00 98.0 59 18 115/60 (78) 96 98.0 05/24/18 16:00 61 05/24/18 12:00 51 05/24/18 12:00 98.1 58 18 101/59 (73) 100 98.1 05/24/18 09:00 56 125/58 05/24/18 09:00 Room Air 05/24/18 08:00 46 05/24/18 08:00 97.5 57 18 125/58 (80) 95 97.5 05/24/18 04:00 97.7 47 18 110/55 (73) 94 97.7 05/24/18 03:38 50 05/24/18 00:00 96.6 58 18 101/43 (62) 95 96.6 05/23/18 23:44 50 Intake and Output 05/23/18 05/24/18 19:00 07:00 Intake Total 120 ml 110 ml Balance 120 ml 110 ml Intake Oral 120 ml IV Total 110 ml # Voids 2 2 2D Echo: Normal LVEF, limited images. Laboratory Tests Test 05/24/18 00:18 05/24/18 01:01 White Blood Count 9.4 K/UL (4.8-10.8) # Red Blood Count 4.48 M/UL (4.20-5.40) Hemoglobin 10.0 G/DL (12.0-16.0) L Hematocrit 32.7 % (37.0-47.0) L Mean Corpuscular Volume 73 FL (80-99) L Mean Corpuscular Hemoglobin 22.4 PG (27.0-31.0) L Mean Corpuscular Hemoglobin Concent 30.6 G/DL (32.0-36.0) L Red Cell Distribution Width 15.4 % (11.6-14.8) H Platelet Count 251 K/UL (150-450) Mean Platelet Volume 5.4 FL (6.5-10.1) L Neutrophils (%) (Auto) 68.8 % (45.0-75.0) Lymphocytes (%) (Auto) 20.9 % (20.0-45.0) Monocytes (%) (Auto) 4.2 % (1.0-10.0) Eosinophils (%) (Auto) 4.9 % (0.0-3.0) H Basophils (%) (Auto) 1.3 % (0.0-2.0) Sodium Level 139 MMOL/L (136-145) Potassium Level 4.1 MMOL/L (3.5-5.1) Chloride Level 107 MMOL/L (98-107) Carbon Dioxide Level 21 MMOL/L (21-32) Anion Gap 11 mmol/L (5-15) Blood Urea Nitrogen 34 mg/dL (7-18) H Creatinine 0.9 MG/DL (0.55-1.30) Estimat Glomerular Filtration Rate > 60 mL/min (>60) Glucose Level 143 MG/DL (74-106) H Calcium Level 8.9 MG/DL (8.5-10.1) Total Bilirubin 0.5 MG/DL (0.2-1.0) Aspartate Amino Transf (AST/SGOT) 15 U/L (15-37) Alanine Aminotransferase (ALT/SGPT) 14 U/L (12-78) Alkaline Phosphatase 101 U/L (46-116) Total Protein 6.2 G/DL (6.4-8.2) L Albumin 2.3 G/DL (3.4-5.0) L Globulin 3.9 g/dL Albumin/Globulin Ratio 0.6 (1.0-2.7) L Valproic Acid (Depakene) Level < 3 MCG/ML (50-100) L Troponin I 0.022 ng/mL (0.000-0.056) Microbiology Date/Time Source Procedure Growth Status 05/22/18 14:20 Blood Blood Culture - Preliminary NO GROWTH AFTER 24 HOURS Resulted 05/22/18 14:15 Blood Blood Culture - Preliminary NO GROWTH AFTER 24 HOURS Resulted 05/22/18 15:35 Nasal Nares Influenza Types A,B Antigen (TIESHA) - Final Complete 05/22/18 14:58 Nasal Nares MRSA Culture - Final NO METHICILLIN RESISTANT STAPH AUREUS... Complete 05/22/18 14:58 Rectum VRE Culture - Final NO VANCOMYCIN RESISTANT ENTEROCOCCUS ... Complete 05/22/18 14:58 Rectum - Final NO CARBAPENEM-RESISTANT ENTEROBACTERI... Complete Objective HEENT: Atraumatic and normocephalic. Anicteric. Pupils are equal, round, and reactive to light and accommodation. Extraocular muscles intact. NECK: JVP less than 5 cm. No carotid bruit. Carotid upstrokes 2+ bilaterally CARDIOVASCULAR: Normal S1 and S2. Regular rate and rhythm, distant. I do not appreciate any murmur, gallop, or rubs. LUNGS: Clear to auscultation bilaterally. ABDOMEN: Soft, nontender, and nondistended. No hepatosplenomegaly. Positive bowel sounds. EXTREMITIES: No evidence of edema, clubbing, or cyanosis. Tristan Yanes MD May 24, 2018 23:32
[2018-05-25] VITALS: BP 121/56
[2018-05-25 04:00] VITALS: BP 129/69
--- NOTE | 2018-05-25 06:45 | Progress Note ---
DATE: 05/24/2018 NOTE: "VERY POOR AUDIO QUALITY" SUBJECTIVE: The patient is a 68-year-old female patient. She has sepsis, respiratory insufficiency, but this is causing her to have increased mood lability, agitation, and decline in cognition below baseline. That is why her attending has requested this consultation for this patient mood lability, excessive irritability, so that is why she does require inpatient psychiatric consultation. MENTAL STATUS EXAMINATION: The patient is a 68-year-old female patient. Appearance disheveled. Attitude, irritable and agitated. Affect, guarded and restricted. Intellect poor. Mood depressed and anxious. Motor activity, psychomotor agitation. Orientation x2. Speech is low volume and slurred. Thought process, disorganized and illogical. Thought content, she auditory hallucinations and paranoid delusions. Insight and judgment is poor. DIAGNOSIS: Schizoaffective, bipolar type. PLAN: Treat with Prolixin 25 mg IM q.month, Risperdal 2 mg nightly, and Depakote 1000 mg nightly. Provided 20 minutes of supportive psychotherapy and encouraged to interact appropriately with staff and other patients. Chart reviewed. Discussed which staff. The patient was seen and assessed in her room. Bibi Rodriguez M.D. DR: Eriberto JOB#: [id number] CC:
[2018-05-25 07:28] LABS: BASOPHILS % (AUTO) 1.1 % (0.0-2.0); EOSINOPHILS % (AUTO) 3.9 % (0.0-3.0); HEMATOCRIT 33.3 % (37.0-47.0); HEMOGLOBIN 10.4 G/DL (12.0-16.0); LYMPHOCYTES % (AUTO) 24.9 % (20.0-45.0); MEAN CORPUSCULAR VOLUME 73 FL (80-99); MONOCYTES % (AUTO) 3.6 % (1.0-10.0); NEUTROPHILS % (AUTO) 66.5 % (45.0-75.0); PLATELET COUNT 291 K/UL (150-450); RED BLOOD COUNT 4.56 M/UL (4.20-5.40); RED CELL DISTRIBUTION WIDTH 15.1 % (11.6-14.8); WHITE BLOOD COUNT 8.2 K/UL (4.8-10.8)
--- NOTE | 2018-05-25 07:31 | Infectious Diseases Prog Note ---
Assessment/Plan Assessment/Plan Assessment: Probable UTI -u/a wbc 5-10,nit neg, leuk +2; ucx p Leukocytosis, SP flu Sc : neg NSTEMI CAMRON L plantar foot blister HLD dysphagia anemia Dementia GERD cataract HTN Bipolar disorder Anxiety/MDD DM2 non verbal Plan: -Continue Cefepime # 4 / pending urine culture -05/23 SP IV vanco #2 -05/22 SP Meropenem x1 -f/u cx ( Bl, Ur ) -Monitor CBC/CMP, temperatures -aspiration precautions -wound care/prevention per hospital protocol Subjective Allergies: Coded Allergies: No Known Allergies (Unverified , 05/22/18) Subjective comfortable Afebrile Objective Vital Signs Last 24 Hour Vital Signs Date Time Temp Pulse Resp B/P (MAP) Pulse Ox O2 Delivery O2 Flow Rate FiO2 05/25/18 04:00 97.0 67 21 129/69 (89) 98 97.0 05/25/18 03:34 44 05/25/18 00:00 97.2 61 20 121/56 (77) 98 97.2 05/24/18 23:31 56 05/24/18 21:00 Room Air 05/24/18 20:52 64 110/56 05/24/18 20:00 97.3 65 20 104/40 (61) 95 97.3 05/24/18 19:00 64 05/24/18 16:00 98.0 59 18 115/60 (78) 96 98.0 05/24/18 16:00 61 05/24/18 12:00 51 05/24/18 12:00 98.1 58 18 101/59 (73) 100 98.1 05/24/18 09:00 56 125/58 05/24/18 09:00 Room Air 05/24/18 08:00 46 05/24/18 08:00 97.5 57 18 125/58 (80) 95 97.5 Height (Feet): 5 Weight (Pounds): 130 HEENT: anicteric Respiratory/Chest: normal breath sounds Cardiovascular: normal rate Abdomen: no organomegaly Microbiology Date/Time Source Procedure Growth Status 05/22/18 14:20 Blood Blood Culture - Preliminary NO GROWTH AFTER 48 HOURS Resulted 05/22/18 14:15 Blood Blood Culture - Preliminary NO GROWTH AFTER 48 HOURS Resulted 05/22/18 15:35 Nasal Nares Influenza Types A,B Antigen (TIESHA) - Final Complete 05/22/18 14:58 Nasal Nares MRSA Culture - Final NO METHICILLIN RESISTANT STAPH AUREUS... Complete 05/22/18 14:58 Rectum VRE Culture - Final NO VANCOMYCIN RESISTANT ENTEROCOCCUS ... Complete 05/22/18 14:58 Rectum - Final NO CARBAPENEM-RESISTANT ENTEROBACTERI... Complete Laboratory Tests Test 05/25/18 06:10 White Blood Count Pending Red Blood Count Pending Hemoglobin Pending Hematocrit Pending Mean Corpuscular Volume Pending Mean Corpuscular Hemoglobin Pending Mean Corpuscular Hemoglobin Concent Pending Red Cell Distribution Width Pending Platelet Count Pending Mean Platelet Volume Pending Neutrophils (%) (Auto) Pending Lymphocytes (%) (Auto) Pending Monocytes (%) (Auto) Pending Eosinophils (%) (Auto) Pending Basophils (%) (Auto) Pending Erythrocyte Sedimentation Rate Pending Sodium Level Pending Potassium Level Pending Chloride Level Pending Carbon Dioxide Level Pending Blood Urea Nitrogen Pending Creatinine Pending Estimat Glomerular Filtration Rate Pending Glucose Level Pending Calcium Level Pending Phosphorus Level Pending Magnesium Level Pending Total Bilirubin Pending Aspartate Amino Transf (AST/SGOT) Pending Alanine Aminotransferase (ALT/SGPT) Pending Alkaline Phosphatase Pending C-Reactive Protein, Quantitative Pending Total Protein Pending Albumin Pending Globulin Pending Current Medications Medications (Trade) Dose Ordered Sig/Analilia Route PRN Reason Start Time Stop Time Status Last Admin Dose Admin Acetaminophen (Tylenol) 650 mg Q4H PRN ORAL fever 05/22/18 17:00 06/21/18 16:59 Albuterol/ Ipratropium (Albuterol/ Ipratropium) 3 ml Q4H PRN HHN Shortness of Breath 05/22/18 17:00 05/27/18 16:59 Aspirin (ASA) 81 mg DAILY ORAL 05/22/18 21:00 06/21/18 20:59 05/24/18 09:34 Atorvastatin Calcium (Lipitor) 20 mg BEDTIME ORAL 05/22/18 21:00 06/21/18 20:59 05/24/18 20:51 Cefepime HCl 2 gm/ Dextrose 110 ml @ 220 mls/hr Q24H IV 05/22/18 21:00 05/29/18 20:59 05/24/18 20:50 Heparin Sodium (Porcine) (Heparin 5000 units/ml) 5,000 units EVERY 12 HOURS SUBQ 05/22/18 21:00 06/21/18 20:59 05/24/18 20:54 Lorazepam (Ativan 2mg/ml 1ml) 1 mg Q4H PRN IV Agitation 05/23/18 14:20 05/30/18 14:19 Metoprolol Tartrate (Lopressor) 25 mg Q12HR ORAL 05/22/18 21:00 06/21/18 20:59 05/24/18 20:52 Morphine Sulfate (Morphine Sulfate) 2 mg Q4H PRN IVP Moderate Pain (Pain Scale 4-6) 05/22/18 17:00 05/29/18 16:59 Nitroglycerin (Ntg) 0.4 mg Q5M PRN SL Prn Chest Pain 05/22/18 17:00 06/21/18 16:59 Ondansetron HCl (Zofran) 4 mg Q6H PRN IVP Nausea & Vomiting 05/22/18 17:00 06/21/18 16:59 Polyethylene Glycol (Miralax) 17 gm DAILYPRN PRN ORAL Constipation 05/22/18 17:00 06/21/18 16:59 Risperidone (RisperDAL) 2 mg BEDTIME ORAL 05/23/18 21:00 06/22/18 20:59 05/24/18 20:52 Valproic Acid (Depakene) 1,000 mg BEDTIME ORAL 05/23/18 21:00 06/22/18 20:59 05/24/18 20:53 Ronnie Christianson MD May 25, 2018 07:30
[2018-05-25 07:46] LABS: ALANINE AMINOTRANSFERASE 14 U/L (12-78); ALBUMIN 2.2 G/DL (3.4-5.0); ALBUMIN/GLOBULIN RATIO 0.6 (1.0-2.7); ALKALINE PHOSPHATASE 98 U/L (46-116); ANION GAP 8 mmol/L (5-15); ASPARTATE AMINO TRANSFERASE 9 U/L (15-37); BILIRUBIN,TOTAL 0.3 MG/DL (0.2-1.0); BLOOD UREA NITROGEN 26 mg/dL (7-18); CALCIUM 8.5 MG/DL (8.5-10.1); CARBON DIOXIDE 26 MMOL/L (21-32); CHLORIDE 106 MMOL/L (98-107); CREATININE 0.8 MG/DL (0.55-1.30); PHOSPHORUS 2.1 MG/DL (2.5-4.9); POTASSIUM 4.1 MMOL/L (3.5-5.1); SODIUM 139 MMOL/L (136-145)
[2018-05-25 08:00] VITALS: BP 129/54
[2018-05-25] MEDS: Heparin 5000 units/ml inj SUBQ SCH ×3 (09:00→22:34)
[2018-05-25] MEDS: Metoprolol 25mg tab ORAL SCH ×2 (09:00→22:33)
[2018-05-25] MEDS: Aspirin Baby 81mg ORAL SCH (10:23)
[2018-05-25 12:00] VITALS: BP 129/61
--- NOTE | 2018-05-25 12:19 | Pulmonology Progress Note ---
Assessment/Plan Problems: (1) Sepsis (2) Diabetes mellitus (3) Essential hypertension (4) Schizophrenia (5) Bipolar disorder (6) Dysphagia (7) Anxiety (8) Depression Assessment/Plan doing better sliding scale monitor BP f/u cardio recommendations psych f/u dvt prophylaxis all noted, med/surg Subjective ROS Limited/Unobtainable: No Interval Events: awake, comfortrable Allergies: Coded Allergies: No Known Allergies (Unverified , 05/22/18) Objective Last 24 Hour Vital Signs Date Time Temp Pulse Resp B/P (MAP) Pulse Ox O2 Delivery O2 Flow Rate FiO2 05/25/18 09:00 59 129/54 05/25/18 04:00 97.0 67 21 129/69 (89) 98 97.0 05/25/18 03:34 44 05/25/18 00:00 97.2 61 20 121/56 (77) 98 97.2 05/24/18 23:31 56 05/24/18 21:00 Room Air 05/24/18 20:52 64 110/56 05/24/18 20:00 97.3 65 20 104/40 (61) 95 97.3 05/24/18 19:00 64 05/24/18 16:00 98.0 59 18 115/60 (78) 96 98.0 05/24/18 16:00 61 Intake and Output 05/24/18 05/25/18 19:00 07:00 Intake Total 240 ml 220 ml Output Total 0 ml Balance 240 ml 220 ml IV Total 220 ml Other 240 ml Output Urine Total 0 ml # Voids 2 General Appearance: WD/WN HEENT: normocephalic, atraumatic Respiratory/Chest: chest wall non-tender, lungs clear Cardiovascular: normal peripheral pulses, normal rate Abdomen: normal bowel sounds, soft, non tender Genitourinary: normal external genitalia Extremities: no cyanosis Skin: no ulcers Neurologic/Psychiatric: no motor/sensory deficits, abnormal gait Microbiology Date/Time Source Procedure Growth Status 05/22/18 14:20 Blood Blood Culture - Preliminary NO GROWTH AFTER 48 HOURS Resulted 05/22/18 14:15 Blood Blood Culture - Preliminary NO GROWTH AFTER 48 HOURS Resulted 05/22/18 15:35 Nasal Nares Influenza Types A,B Antigen (TIESHA) - Final Complete 05/22/18 14:58 Nasal Nares MRSA Culture - Final NO METHICILLIN RESISTANT STAPH AUREUS... Complete 05/22/18 14:58 Rectum VRE Culture - Final NO VANCOMYCIN RESISTANT ENTEROCOCCUS ... Complete 05/22/18 14:58 Rectum - Final NO CARBAPENEM-RESISTANT ENTEROBACTERI... Complete Laboratory Tests 05/25/18 06:10: White Blood Count 8.2, Red Blood Count 4.56, Hemoglobin 10.4L, Hematocrit 33.3L , Mean Corpuscular Volume 73L, Mean Corpuscular Hemoglobin 22.7L, Mean Corpuscular Hemoglobin Concent 31.1L, Red Cell Distribution Width 15.1H, Platelet Count 291, Mean Platelet Volume 6.5, Neutrophils (%) (Auto) 66.5, Lymphocytes (%) (Auto) 24.9, Monocytes (%) (Auto) 3.6, Eosinophils (%) (Auto) 3.9H, Basophils (%) (Auto) 1.1, Erythrocyte Sedimentation Rate 33H, Sodium Level 139, Potassium Level 4.1, Chloride Level 106, Carbon Dioxide Level 26, Anion Gap 8, Blood Urea Nitrogen 26H, Creatinine 0.8, Estimat Glomerular Filtration Rate > 60, Glucose Level 148H, Calcium Level 8.5, Phosphorus Level 2.1L, Magnesium Level 1.7L, Total Bilirubin 0.3, Aspartate Amino Transf (AST/ SGOT) 9L, Alanine Aminotransferase (ALT/SGPT) 14, Alkaline Phosphatase 98, C- Reactive Protein, Quantitative 2.5H, Total Protein 6.1L, Albumin 2.2L, Globulin 3.9, Albumin/Globulin Ratio 0.6L Current Medications Medications (Trade) Dose Ordered Sig/Analilia Route PRN Reason Start Time Stop Time Status Last Admin Dose Admin Acetaminophen (Tylenol) 650 mg Q4H PRN ORAL fever 05/22/18 17:00 06/21/18 16:59 Albuterol/ Ipratropium (Albuterol/ Ipratropium) 3 ml Q4H PRN HHN Shortness of Breath 05/22/18 17:00 05/27/18 16:59 Aspirin (ASA) 81 mg DAILY ORAL 05/22/18 21:00 06/21/18 20:59 05/25/18 10:23 Atorvastatin Calcium (Lipitor) 20 mg BEDTIME ORAL 05/22/18 21:00 06/21/18 20:59 05/24/18 20:51 Cefepime HCl 2 gm/ Dextrose 110 ml @ 220 mls/hr Q24H IV 05/22/18 21:00 05/29/18 20:59 05/24/18 20:50 Heparin Sodium (Porcine) (Heparin 5000 units/ml) 5,000 units EVERY 12 HOURS SUBQ 05/22/18 21:00 06/21/18 20:59 05/24/18 20:54 Lorazepam (Ativan 2mg/ml 1ml) 1 mg Q4H PRN IV Agitation 05/23/18 14:20 05/30/18 14:19 Magnesium Sulfate 100 ml @ 100 mls/hr Q1H IVPB 05/25/18 13:00 05/25/18 14:59 Metoprolol Tartrate (Lopressor) 25 mg Q12HR ORAL 05/22/18 21:00 06/21/18 20:59 05/24/18 20:52 Morphine Sulfate (Morphine Sulfate) 2 mg Q4H PRN IVP Moderate Pain (Pain Scale 4-6) 05/22/18 17:00 05/29/18 16:59 Nitroglycerin (Ntg) 0.4 mg Q5M PRN SL Prn Chest Pain 05/22/18 17:00 06/21/18 16:59 Ondansetron HCl (Zofran) 4 mg Q6H PRN IVP Nausea & Vomiting 05/22/18 17:00 06/21/18 16:59 Polyethylene Glycol (Miralax) 17 gm DAILYPRN PRN ORAL Constipation 05/22/18 17:00 06/21/18 16:59 Risperidone (RisperDAL) 2 mg BEDTIME ORAL 05/23/18 21:00 06/22/18 20:59 05/24/18 20:52 Valproic Acid (Depakene) 1,000 mg BEDTIME ORAL 05/23/18 21:00 06/22/18 20:59 05/24/18 20:53 Jaimie Delacruz MD May 25, 2018 12:19
--- NOTE | 2018-05-25 14:15 | General Progress Note ---
Assessment/Plan Problem List: (1) Malnutrition ICD Codes: E46 - Unspecified protein-calorie malnutrition SNOMED: 29800168 (2) Elevated troponin ICD Codes: R74.8 - Abnormal levels of other serum enzymes SNOMED: 644706391, 445269660, 634973786 (3) Sepsis ICD Codes: A41.9 - Sepsis, unspecified organism SNOMED: 66486414 (4) Diabetes mellitus ICD Codes: E11.9 - Type 2 diabetes mellitus without complications SNOMED: 14140589 (5) Essential hypertension ICD Codes: I10 - Essential (primary) hypertension SNOMED: 69951622 (6) Anemia ICD Codes: D64.9 - Anemia, unspecified SNOMED: 973655485 (7) Schizophrenia ICD Codes: F20.9 - Schizophrenia, unspecified SNOMED: 48009712 Status: stable, progressing Assessment/Plan ot pt diet abx cardio f/u psyc tx cbc bmp am dc plan Subjective Constitutional: Reports: weakness Allergies: Coded Allergies: No Known Allergies (Unverified , 05/22/18) All Systems: reviewed and negative except above Subjective sleepy calm Objective Last 24 Hour Vital Signs Date Time Temp Pulse Resp B/P (MAP) Pulse Ox O2 Delivery O2 Flow Rate FiO2 05/25/18 12:00 97.6 77 18 129/61 (83) 97 97.6 05/25/18 09:00 59 129/54 05/25/18 08:00 97.5 59 18 129/54 (79) 97 97.5 05/25/18 04:00 97.0 67 21 129/69 (89) 98 97.0 05/25/18 03:34 44 05/25/18 00:00 97.2 61 20 121/56 (77) 98 97.2 05/24/18 23:31 56 05/24/18 21:00 Room Air 05/24/18 20:52 64 110/56 05/24/18 20:00 97.3 65 20 104/40 (61) 95 97.3 05/24/18 19:00 64 05/24/18 16:00 98.0 59 18 115/60 (78) 96 98.0 05/24/18 16:00 61 Intake and Output 05/24/18 05/25/18 19:00 07:00 Intake Total 240 ml 220 ml Output Total 0 ml Balance 240 ml 220 ml IV Total 220 ml Other 240 ml Output Urine Total 0 ml # Voids 2 Laboratory Tests 05/25/18 06:10: White Blood Count 8.2, Red Blood Count 4.56, Hemoglobin 10.4L, Hematocrit 33.3L , Mean Corpuscular Volume 73L, Mean Corpuscular Hemoglobin 22.7L, Mean Corpuscular Hemoglobin Concent 31.1L, Red Cell Distribution Width 15.1H, Platelet Count 291, Mean Platelet Volume 6.5, Neutrophils (%) (Auto) 66.5, Lymphocytes (%) (Auto) 24.9, Monocytes (%) (Auto) 3.6, Eosinophils (%) (Auto) 3.9H, Basophils (%) (Auto) 1.1, Erythrocyte Sedimentation Rate 33H, Sodium Level 139, Potassium Level 4.1, Chloride Level 106, Carbon Dioxide Level 26, Anion Gap 8, Blood Urea Nitrogen 26H, Creatinine 0.8, Estimat Glomerular Filtration Rate > 60, Glucose Level 148H, Calcium Level 8.5, Phosphorus Level 2.1L, Magnesium Level 1.7L, Total Bilirubin 0.3, Aspartate Amino Transf (AST/ SGOT) 9L, Alanine Aminotransferase (ALT/SGPT) 14, Alkaline Phosphatase 98, C- Reactive Protein, Quantitative 2.5H, Total Protein 6.1L, Albumin 2.2L, Globulin 3.9, Albumin/Globulin Ratio 0.6L Height (Feet): 5 Weight (Pounds): 130 General Appearance: lethargic EENT: normal ENT inspection Neck: normal alignment Cardiovascular: normal peripheral pulses, normal rate, regular rhythm Respiratory/Chest: chest wall non-tender, lungs clear, normal breath sounds Abdomen: normal bowel sounds, non tender, soft Extremities: normal inspection Edema: no edema noted Arm (L), no edema noted Arm (R), no edema noted Leg (L), no edema noted Leg (R), no edema noted Pedal (L), no edema noted Pedal (R), no edema noted Generalized Neurologic: motor weakness Skin: normal pigmentation, warm/dry Jose Cortés DO May 25, 2018 14:15
[2018-05-25 16:00] VITALS: BP 135/65
--- NOTE | 2018-05-25 18:30 | Progress Note ---
SUBJECTIVE: The patient is a female patient, 68 years old. Still confused, disorganized, and mood labile. She has no logical plan for her own self-care due to sepsis, confusion, and altered mental status. MENTAL STATUS EXAMINATION: The patient is a 68-year-old female speech and altered mental status suicidal ideations. Thought process, no logical plan for her own self-care. DIAGNOSIS: Schizoaffective, bipolar type. PLAN: Plan is to treat her with Prolixin 25 mg IM q.month, Risperdal 2 mg nightly, and Depakote 1000 mg nightly. Provided 20 minutes of supportive psychotherapy. . Chart reviewed. Discussed which staff. Seen and assessed at the bedside. Bibi Rodriguez M.D. DR: AMPARO JOB#: [id number] CC:
[2018-05-25 20:00] VITALS: BP 142/65
[2018-05-25] MEDS ORDERED: Nitroglycerin Subl 0.4mg tab SL PRN (21:05)
--- NOTE | 2018-05-25 22:29 | Cardiology Progress Note ---
Assessment/Plan Assessment/Plan 1. [id number] myocardial infarction, continue aspirin, metoprolol, and atorvastatin 80 mg. Echo demonstrated normal LV systolic function. 2. Dementia. 3. History of diabetes mellitus. 4. History of hypertension, well controlled, continue blockers. Subjective Subjective Transferred to the med-surg unit. No cardiac events noted. Objective Last 24 Hour Vital Signs Date Time Temp Pulse Resp B/P (MAP) Pulse Ox O2 Delivery O2 Flow Rate FiO2 05/25/18 21:30 Room Air 05/25/18 20:00 97.3 69 21 142/65 (90) 98 97.3 05/25/18 16:00 56 05/25/18 16:00 97.5 67 20 135/65 (88) 95 97.5 05/25/18 12:00 58 05/25/18 12:00 97.6 77 18 129/61 (83) 97 97.6 05/25/18 09:00 59 129/54 05/25/18 09:00 Room Air 05/25/18 08:00 87 05/25/18 08:00 97.5 59 18 129/54 (79) 97 97.5 05/25/18 04:00 97.0 67 21 129/69 (89) 98 97.0 05/25/18 03:34 44 05/25/18 00:00 97.2 61 20 121/56 (77) 98 97.2 05/24/18 23:31 56 Intake and Output 05/24/18 05/25/18 19:00 07:00 Intake Total 240 ml 220 ml Output Total 0 ml Balance 240 ml 220 ml IV Total 220 ml Other 240 ml Output Urine Total 0 ml # Voids 2 2D Echo: Normal LVEF, limited images. Laboratory Tests Test 05/25/18 06:10 White Blood Count 8.2 K/UL (4.8-10.8) Red Blood Count 4.56 M/UL (4.20-5.40) Hemoglobin 10.4 G/DL (12.0-16.0) L Hematocrit 33.3 % (37.0-47.0) L Mean Corpuscular Volume 73 FL (80-99) L Mean Corpuscular Hemoglobin 22.7 PG (27.0-31.0) L Mean Corpuscular Hemoglobin Concent 31.1 G/DL (32.0-36.0) L Red Cell Distribution Width 15.1 % (11.6-14.8) H Platelet Count 291 K/UL (150-450) Mean Platelet Volume 6.5 FL (6.5-10.1) Neutrophils (%) (Auto) 66.5 % (45.0-75.0) Lymphocytes (%) (Auto) 24.9 % (20.0-45.0) Monocytes (%) (Auto) 3.6 % (1.0-10.0) Eosinophils (%) (Auto) 3.9 % (0.0-3.0) H Basophils (%) (Auto) 1.1 % (0.0-2.0) Erythrocyte Sedimentation Rate 33 MM/HR (0-30) H Sodium Level 139 MMOL/L (136-145) Potassium Level 4.1 MMOL/L (3.5-5.1) Chloride Level 106 MMOL/L (98-107) Carbon Dioxide Level 26 MMOL/L (21-32) Anion Gap 8 mmol/L (5-15) Blood Urea Nitrogen 26 mg/dL (7-18) H Creatinine 0.8 MG/DL (0.55-1.30) Estimat Glomerular Filtration Rate > 60 mL/min (>60) Glucose Level 148 MG/DL (74-106) H Calcium Level 8.5 MG/DL (8.5-10.1) Phosphorus Level 2.1 MG/DL (2.5-4.9) L Magnesium Level 1.7 MG/DL (1.8-2.4) L Total Bilirubin 0.3 MG/DL (0.2-1.0) Aspartate Amino Transf (AST/SGOT) 9 U/L (15-37) L Alanine Aminotransferase (ALT/SGPT) 14 U/L (12-78) Alkaline Phosphatase 98 U/L (46-116) C-Reactive Protein, Quantitative 2.5 mg/dL (0.00-0.90) H Total Protein 6.1 G/DL (6.4-8.2) L Albumin 2.2 G/DL (3.4-5.0) L Globulin 3.9 g/dL Albumin/Globulin Ratio 0.6 (1.0-2.7) L Objective HEENT: Atraumatic and normocephalic. Anicteric. Pupils are equal, round, and reactive to light and accommodation. Extraocular muscles intact. NECK: JVP less than 5 cm. No carotid bruit. Carotid upstrokes 2+ bilaterally CARDIOVASCULAR: Normal S1 and S2. Regular rate and rhythm, distant. I do not appreciate any murmur, gallop, or rubs. LUNGS: Clear to auscultation bilaterally. ABDOMEN: Soft, nontender, and nondistended. No hepatosplenomegaly. Positive bowel sounds. EXTREMITIES: No evidence of edema, clubbing, or cyanosis. Tristan Yanes MD May 25, 2018 22:29
[2018-05-25] MEDS ORDERED: LORazepam Inj 2mg/ml 1ml IV PRN (22:30)
[2018-05-25] MEDS: Atorvastatin 20mg tab ORAL SCH (22:33)
[2018-05-26] VITALS (7 sets, daily range): BP systolic 117–158; BP diastolic 58–75
[2018-05-26] MEDS ORDERED: Albuterol/Ipratropium 3ml neb HHN PRN (01:00)
[2018-05-26] MEDS ORDERED: Morphine Sulfate 2mg/ml Inj IVP PRN (01:00)
[2018-05-26 08:27] LABS: BASOPHILS % (AUTO) 1.1 % (0.0-2.0); EOSINOPHILS % (AUTO) 1.6 % (0.0-3.0); HEMATOCRIT 38.4 % (37.0-47.0); HEMOGLOBIN 11.9 G/DL (12.0-16.0); LYMPHOCYTES % (AUTO) 18.1 % (20.0-45.0); MEAN CORPUSCULAR VOLUME 73 FL (80-99); MONOCYTES % (AUTO) 3.7 % (1.0-10.0); NEUTROPHILS % (AUTO) 75.6 % (45.0-75.0); PLATELET COUNT 341 K/UL (150-450); RED BLOOD COUNT 5.26 M/UL (4.20-5.40); RED CELL DISTRIBUTION WIDTH 15.2 % (11.6-14.8); WHITE BLOOD COUNT 9.3 K/UL (4.8-10.8)
[2018-05-26 08:49] LABS: ANION GAP 5 mmol/L (5-15); BLOOD UREA NITROGEN 25 mg/dL (7-18); CALCIUM 9.1 MG/DL (8.5-10.1); CARBON DIOXIDE 27 MMOL/L (21-32); CHLORIDE 104 MMOL/L (98-107); CREATININE 0.9 MG/DL (0.55-1.30); POTASSIUM 4.5 MMOL/L (3.5-5.1); SODIUM 136 MMOL/L (136-145)
[2018-05-26] MEDS ORDERED: Aspirin Baby 81mg ORAL SCH (09:00)
[2018-05-26] MEDS: Metoprolol 25mg tab ORAL SCH ×2 (09:58→22:15)
[2018-05-26] MEDS: Heparin 5000 units/ml inj SUBQ SCH ×2 (09:59→20:52)
--- NOTE | 2018-05-26 11:31 | Infectious Diseases Prog Note ---
Assessment/Plan Assessment/Plan Assessment: Probable UTI -u/a wbc 5-10,nit neg, leuk +2; ucx p Leukocytosis, SP flu Sc : neg NSTEMI CAMRON L plantar foot blister HLD dysphagia anemia Dementia GERD cataract HTN Bipolar disorder Anxiety/MDD DM2 non verbal Plan: -Continue Cefepime # pending urine culture -05/23 SP IV vanco #2 -05/22 SP Meropenem x1 -f/u cx ( Bl, Ur ) -Monitor CBC/CMP, temperatures -aspiration precautions -wound care/prevention per hospital protocol Subjective Allergies: Coded Allergies: No Known Allergies (Unverified , 05/22/18) Subjective no new complain Objective Vital Signs Last 24 Hour Vital Signs Date Time Temp Pulse Resp B/P (MAP) Pulse Ox O2 Delivery O2 Flow Rate FiO2 05/26/18 09:58 65 134/70 05/26/18 08:33 69 18 Room Air 21 05/26/18 08:00 97.9 68 19 137/74 (95) 97 97.9 05/26/18 04:00 98.4 62 17 158/75 (102) 97 98.4 05/26/18 00:00 98.0 77 21 147/73 (97) 97 98.0 05/25/18 22:33 66 142/65 05/25/18 21:30 Room Air 05/25/18 20:39 66 05/25/18 20:00 97.3 69 21 142/65 (90) 98 97.3 05/25/18 16:00 56 05/25/18 16:00 97.5 67 20 135/65 (88) 95 97.5 05/25/18 12:00 58 05/25/18 12:00 97.6 77 18 129/61 (83) 97 97.6 Height (Feet): 5 Weight (Pounds): 130 HEENT: anicteric Respiratory/Chest: no accessory muscle use Cardiovascular: regular rhythm Abdomen: normal bowel sounds Laboratory Tests Test 05/26/18 07:40 White Blood Count 9.3 K/UL (4.8-10.8) Red Blood Count 5.26 M/UL (4.20-5.40) Hemoglobin 11.9 G/DL (12.0-16.0) L Hematocrit 38.4 % (37.0-47.0) Mean Corpuscular Volume 73 FL (80-99) L Mean Corpuscular Hemoglobin 22.6 PG (27.0-31.0) L Mean Corpuscular Hemoglobin Concent 31.0 G/DL (32.0-36.0) L Red Cell Distribution Width 15.2 % (11.6-14.8) H Platelet Count 341 K/UL (150-450) Mean Platelet Volume 6.1 FL (6.5-10.1) L Neutrophils (%) (Auto) 75.6 % (45.0-75.0) H Lymphocytes (%) (Auto) 18.1 % (20.0-45.0) L Monocytes (%) (Auto) 3.7 % (1.0-10.0) Eosinophils (%) (Auto) 1.6 % (0.0-3.0) Basophils (%) (Auto) 1.1 % (0.0-2.0) Sodium Level 136 MMOL/L (136-145) Potassium Level 4.5 MMOL/L (3.5-5.1) Chloride Level 104 MMOL/L (98-107) Carbon Dioxide Level 27 MMOL/L (21-32) Anion Gap 5 mmol/L (5-15) Blood Urea Nitrogen 25 mg/dL (7-18) H Creatinine 0.9 MG/DL (0.55-1.30) Estimat Glomerular Filtration Rate > 60 mL/min (>60) Glucose Level 164 MG/DL (74-106) H Calcium Level 9.1 MG/DL (8.5-10.1) Current Medications Medications (Trade) Dose Ordered Sig/Analilia Route PRN Reason Start Time Stop Time Status Last Admin Dose Admin Acetaminophen (Tylenol) 650 mg Q4H PRN ORAL fever 05/25/18 22:00 06/24/18 21:59 Albuterol/ Ipratropium (Albuterol/ Ipratropium) 3 ml Q4H PRN HHN Shortness of Breath 05/26/18 01:00 05/27/18 16:59 Aspirin (ASA) 81 mg DAILY ORAL 05/26/18 09:00 06/21/18 20:59 05/26/18 09:56 Atorvastatin Calcium (Lipitor) 20 mg BEDTIME ORAL 05/25/18 22:21 06/21/18 22:20 05/25/18 22:33 Cefepime HCl 2 gm/ Dextrose 110 ml @ 220 mls/hr Q24H IV 05/26/18 21:00 05/29/18 20:59 Heparin Sodium (Porcine) (Heparin 5000 units/ml) 5,000 units EVERY 12 HOURS SUBQ 05/25/18 22:22 06/21/18 22:21 05/26/18 09:59 Lorazepam (Ativan 2mg/ml 1ml) 1 mg Q4H PRN IV Agitation 05/25/18 22:30 05/30/18 14:19 Metoprolol Tartrate (Lopressor) 25 mg Q12HR ORAL 05/25/18 22:30 06/21/18 22:29 05/26/18 09:58 Morphine Sulfate (Morphine Sulfate) 2 mg Q4H PRN IVP Moderate Pain (Pain Scale 4-6) 05/26/18 01:00 05/29/18 16:59 Nitroglycerin (Ntg) 0.4 mg Q5M PRN SL Prn Chest Pain 05/25/18 21:05 06/21/18 16:59 Ondansetron HCl (Zofran) 4 mg Q6H PRN IVP Nausea & Vomiting 05/25/18 23:00 06/21/18 16:59 Polyethylene Glycol (Miralax) 17 gm DAILYPRN PRN ORAL Constipation 05/26/18 17:00 06/21/18 16:59 Risperidone (RisperDAL) 2 mg BEDTIME ORAL 05/25/18 22:30 06/22/18 22:29 05/25/18 22:33 Valproic Acid (Depakene) 1,000 mg BEDTIME ORAL 05/25/18 22:30 06/22/18 22:29 05/25/18 22:33 Ronnie Christianson MD May 26, 2018 11:31
--- NOTE | 2018-05-26 13:15 | Progress Note ---
DATE: 05/26/2018 SUBJECTIVE: The patient is a 68-year-old female with sepsis and generalized weakness. She is currently on the med/surg unit at [facility], 68-year-old female patient. She is confused, disorganized, and she has altered mental status and intermittent agitation, that is why her attending has requested daily psychiatric consultation. As far as her she is still confused, disorganized, and mood labile. MENTAL STATUS EXAMINATION: This is a 68-year-old female, confused, disorganized, mood labile. She has got no logical plan for own self-care. Also has feelings of helplessness, hopelessness, and psychomotor agitation as well. Appearance is disheveled. Attitude, irritable and agitated. Affect, guarded and restricted. Intellect poor. Mood depressed and anxious. Motor activity, psychomotor agitation. Attention is poor. Orientation x2. Speech is low volume and slurred. Thought process disorganized logical. Insight, judgment is poor. Short-term memory, one out of 3/3 word recall is a poor short-term memory. Long-term memory is poor. The patient cannot recall long-term events in her life such as high school that she went to. DIAGNOSIS: Schizoaffective, bipolar type. PLAN: Plan for this patient is I am going to treat her with medication regimen consisting of Ativan 1 IV every 4 hours p.r.n. anxiety and agitation and then also treat her with Risperdal 2 mg at bedtime, Depakote 1000 mg at bedtime, and provided with 20 minutes of cognitive behavioral therapy to identify her automatic negative thoughts and help her to convert those negative thoughts to more positive thoughts to reduce depression and anxiety and also transfer to [facility] psychiatric unit when she is medically cleared. She was transferred to [place] psychiatric unit if okay with Dr. Jose Cortés. The patient was seen and assisted at bedside. Chart reviewed. Discussed with staff. Bibi Rodriguez M.D. DR: MANASA JOB#: [id number] CC:
--- NOTE | 2018-05-26 13:19 | Pulmonology Progress Note ---
Assessment/Plan Problems: (1) Sepsis (2) Diabetes mellitus (3) Essential hypertension (4) Schizophrenia (5) Bipolar disorder (6) Dysphagia (7) Anxiety (8) Depression Assessment/Plan doing better sliding scale monitor BP f/u cardio recommendations psych f/u dvt prophylaxis dc planning all noted, med/surg Subjective ROS Limited/Unobtainable: No Constitutional: Reports: no symptoms HEENT: Repors: no symptoms Respiratory: Reports: no symptoms Allergies: Coded Allergies: No Known Allergies (Unverified , 05/22/18) Objective Last 24 Hour Vital Signs Date Time Temp Pulse Resp B/P (MAP) Pulse Ox O2 Delivery O2 Flow Rate FiO2 05/26/18 12:00 98.1 60 18 117/59 (78) 98 98.1 05/26/18 09:58 65 134/70 05/26/18 09:00 Room Air 05/26/18 08:33 69 18 Room Air 21 05/26/18 08:00 97.9 68 19 137/74 (95) 97 97.9 05/26/18 04:00 98.4 62 17 158/75 (102) 97 98.4 05/26/18 00:00 98.0 77 21 147/73 (97) 97 98.0 05/25/18 22:33 66 142/65 05/25/18 21:30 Room Air 05/25/18 20:39 66 05/25/18 20:00 97.3 69 21 142/65 (90) 98 97.3 05/25/18 16:00 56 05/25/18 16:00 97.5 67 20 135/65 (88) 95 97.5 Intake and Output 05/25/18 05/26/18 19:00 07:00 Intake Total 480 ml Balance 480 ml Intake Oral 480 ml # Voids 4 2 General Appearance: WD/WN HEENT: normocephalic, atraumatic Respiratory/Chest: chest wall non-tender, lungs clear Cardiovascular: normal peripheral pulses Abdomen: normal bowel sounds, soft, non tender Genitourinary: normal external genitalia Skin: no rash Laboratory Tests 05/26/18 07:40: White Blood Count 9.3, Red Blood Count 5.26, Hemoglobin 11.9L, Hematocrit 38.4, Mean Corpuscular Volume 73L, Mean Corpuscular Hemoglobin 22.6L, Mean Corpuscular Hemoglobin Concent 31.0L, Red Cell Distribution Width 15.2H, Platelet Count 341, Mean Platelet Volume 6.1L, Neutrophils (%) (Auto) 75.6H, Lymphocytes (%) (Auto) 18.1L, Monocytes (%) (Auto) 3.7, Eosinophils (%) (Auto) 1.6, Basophils (%) (Auto) 1.1, Sodium Level 136, Potassium Level 4.5, Chloride Level 104, Carbon Dioxide Level 27, Anion Gap 5, Blood Urea Nitrogen 25H, Creatinine 0.9, Estimat Glomerular Filtration Rate > 60, Glucose Level 164H, Calcium Level 9.1 Current Medications Medications (Trade) Dose Ordered Sig/Naalilia Route PRN Reason Start Time Stop Time Status Last Admin Dose Admin Acetaminophen (Tylenol) 650 mg Q4H PRN ORAL fever 05/25/18 22:00 06/24/18 21:59 Albuterol/ Ipratropium (Albuterol/ Ipratropium) 3 ml Q4H PRN HHN Shortness of Breath 05/26/18 01:00 05/27/18 16:59 Aspirin (ASA) 81 mg DAILY ORAL 05/26/18 09:00 06/21/18 20:59 05/26/18 09:56 Atorvastatin Calcium (Lipitor) 20 mg BEDTIME ORAL 05/25/18 22:21 06/21/18 22:20 05/25/18 22:33 Cefepime HCl 2 gm/ Dextrose 110 ml @ 220 mls/hr Q24H IV 05/26/18 21:00 05/29/18 20:59 Heparin Sodium (Porcine) (Heparin 5000 units/ml) 5,000 units EVERY 12 HOURS SUBQ 05/25/18 22:22 06/21/18 22:21 05/26/18 09:59 Lorazepam (Ativan 2mg/ml 1ml) 1 mg Q4H PRN IV Agitation 05/25/18 22:30 05/30/18 14:19 Metoprolol Tartrate (Lopressor) 25 mg Q12HR ORAL 05/25/18 22:30 06/21/18 22:29 05/26/18 09:58 Morphine Sulfate (Morphine Sulfate) 2 mg Q4H PRN IVP Moderate Pain (Pain Scale 4-6) 05/26/18 01:00 05/29/18 16:59 Nitroglycerin (Ntg) 0.4 mg Q5M PRN SL Prn Chest Pain 05/25/18 21:05 06/21/18 16:59 Ondansetron HCl (Zofran) 4 mg Q6H PRN IVP Nausea & Vomiting 05/25/18 23:00 06/21/18 16:59 Polyethylene Glycol (Miralax) 17 gm DAILYPRN PRN ORAL Constipation 05/26/18 17:00 06/21/18 16:59 Risperidone (RisperDAL) 2 mg BEDTIME ORAL 05/25/18 22:30 06/22/18 22:29 05/25/18 22:33 Valproic Acid (Depakene) 1,000 mg BEDTIME ORAL 05/25/18 22:30 06/22/18 22:29 05/25/18 22:33 Jaimie Delacruz MD May 26, 2018 13:19
--- NOTE | 2018-05-26 13:26 | General Progress Note ---
Assessment/Plan Problem List: (1) Malnutrition ICD Codes: E46 - Unspecified protein-calorie malnutrition SNOMED: 21855729 (2) Elevated troponin ICD Codes: R74.8 - Abnormal levels of other serum enzymes SNOMED: 666737250, 573504482, 542573209 (3) Sepsis ICD Codes: A41.9 - Sepsis, unspecified organism SNOMED: 01971155 (4) Diabetes mellitus ICD Codes: E11.9 - Type 2 diabetes mellitus without complications SNOMED: 00841776 (5) Essential hypertension ICD Codes: I10 - Essential (primary) hypertension SNOMED: 05523065 (6) Anemia ICD Codes: D64.9 - Anemia, unspecified SNOMED: 623651763 (7) Schizophrenia ICD Codes: F20.9 - Schizophrenia, unspecified SNOMED: 06968925 Status: stable, progressing Assessment/Plan ot pt diet abx cardio f/u psyc tx dc if clear Subjective Constitutional: Reports: weakness Allergies: Coded Allergies: No Known Allergies (Unverified , 05/22/18) All Systems: reviewed and negative except above Subjective sleepy calm Objective Last 24 Hour Vital Signs Date Time Temp Pulse Resp B/P (MAP) Pulse Ox O2 Delivery O2 Flow Rate FiO2 05/26/18 12:00 98.1 60 18 117/59 (78) 98 98.1 05/26/18 09:58 65 134/70 05/26/18 09:00 Room Air 05/26/18 08:33 69 18 Room Air 21 05/26/18 08:00 97.9 68 19 137/74 (95) 97 97.9 05/26/18 04:00 98.4 62 17 158/75 (102) 97 98.4 05/26/18 00:00 98.0 77 21 147/73 (97) 97 98.0 05/25/18 22:33 66 142/65 05/25/18 21:30 Room Air 05/25/18 20:39 66 05/25/18 20:00 97.3 69 21 142/65 (90) 98 97.3 05/25/18 16:00 56 05/25/18 16:00 97.5 67 20 135/65 (88) 95 97.5 Intake and Output 05/25/18 05/26/18 19:00 07:00 Intake Total 480 ml Balance 480 ml Intake Oral 480 ml # Voids 4 2 Laboratory Tests 05/26/18 07:40: White Blood Count 9.3, Red Blood Count 5.26, Hemoglobin 11.9L, Hematocrit 38.4, Mean Corpuscular Volume 73L, Mean Corpuscular Hemoglobin 22.6L, Mean Corpuscular Hemoglobin Concent 31.0L, Red Cell Distribution Width 15.2H, Platelet Count 341, Mean Platelet Volume 6.1L, Neutrophils (%) (Auto) 75.6H, Lymphocytes (%) (Auto) 18.1L, Monocytes (%) (Auto) 3.7, Eosinophils (%) (Auto) 1.6, Basophils (%) (Auto) 1.1, Sodium Level 136, Potassium Level 4.5, Chloride Level 104, Carbon Dioxide Level 27, Anion Gap 5, Blood Urea Nitrogen 25H, Creatinine 0.9, Estimat Glomerular Filtration Rate > 60, Glucose Level 164H, Calcium Level 9.1 Height (Feet): 5 Weight (Pounds): 130 General Appearance: lethargic, confused EENT: normal ENT inspection Neck: normal alignment Cardiovascular: normal peripheral pulses, normal rate, regular rhythm Respiratory/Chest: chest wall non-tender, lungs clear, normal breath sounds Abdomen: normal bowel sounds, non tender, soft Extremities: normal inspection Edema: no edema noted Arm (L), no edema noted Arm (R), no edema noted Leg (L), no edema noted Leg (R), no edema noted Pedal (L), no edema noted Pedal (R), no edema noted Generalized Neurologic: motor weakness Skin: normal pigmentation, warm/dry Jose Cortés DO May 26, 2018 13:26
[2018-05-26] MEDS ORDERED: Miralax 17gm pkt ORAL PRN (17:00)
[2018-05-26] MEDS ORDERED: ACETAMINOPHEN325 M1 ORAL (19:47)
[2018-05-26] MEDS ORDERED: ATORVASTATIN CA20 MG ORAL (19:48)
[2018-05-26] MEDS ORDERED: CEFEPIME-D2 GM/50 ML IVPB (19:49)
[2018-05-26] MEDS ORDERED: DUONEB 0.5-3(2.53 ML HHN (19:50)
[2018-05-26] MEDS ORDERED: HEPARIN SO5000 UNIT2 SUBQ (19:51)
[2018-05-26] MEDS ORDERED: LORAZEPAM2 MG/1 M1 IV (19:51)
[2018-05-26] MEDS ORDERED: METOPROLOL TART25 MG ORAL (19:52)
[2018-05-26] MEDS ORDERED: MORPHINE 22 MG/1 ML IVP (19:54)
[2018-05-26] MEDS ORDERED: NITROGLYCERIN2.5 MG SL (19:55)
[2018-05-26] MEDS ORDERED: MIRALAX17 G2 ORAL (19:56)
[2018-05-26] MEDS ORDERED: ZOFRAN 4 MG4 MG/2 ML IV (19:56)
[2018-05-26] MEDS ORDERED: RISPERDAL2 MG ORAL (19:57)
[2018-05-26] MEDS ORDERED: DEPAKOTE250 MG PO (19:58)
[2018-05-26] MEDS ORDERED: DEPAKENE250 MG ORAL (20:00)
[2018-05-26] MEDS: Atorvastatin 20mg tab ORAL SCH (20:40)
[2018-05-26] MEDS ORDERED: Cefepime HCl 2 GM in D5W 110 ML IV SCH (21:00)
[2018-05-26] MEDS ORDERED: Influenza Vaccine Quadrivalent 0.5ml IM ONE (21:00)
--- NOTE | 2018-05-26 21:23 | Cardiology Progress Note ---
Assessment/Plan Assessment/Plan 1. [id number] myocardial infarction, continue aspirin, metoprolol, and atorvastatin 80 mg. Echo demonstrated normal LV systolic function. 2. Dementia. 3. History of diabetes mellitus. 4. History of hypertension, well controlled, continue blockers. Subjective Subjective No cardiac events noted. Objective Last 24 Hour Vital Signs Date Time Temp Pulse Resp B/P (MAP) Pulse Ox O2 Delivery O2 Flow Rate FiO2 05/26/18 16:00 98.7 65 19 149/59 (89) 98 98.7 05/26/18 12:00 98.1 60 18 117/59 (78) 98 98.1 05/26/18 09:58 65 134/70 05/26/18 09:00 Room Air 05/26/18 08:33 69 18 Room Air 21 05/26/18 08:00 97.9 68 19 137/74 (95) 97 97.9 05/26/18 04:00 98.4 62 17 158/75 (102) 97 98.4 05/26/18 00:00 98.0 77 21 147/73 (97) 97 98.0 05/25/18 22:33 66 142/65 05/25/18 21:30 Room Air Intake and Output 05/25/18 05/26/18 19:00 07:00 Intake Total 480 ml Balance 480 ml Intake Oral 480 ml # Voids 4 2 2D Echo: Normal LVEF, limited images. Laboratory Tests Test 05/26/18 07:40 White Blood Count 9.3 K/UL (4.8-10.8) Red Blood Count 5.26 M/UL (4.20-5.40) Hemoglobin 11.9 G/DL (12.0-16.0) L Hematocrit 38.4 % (37.0-47.0) Mean Corpuscular Volume 73 FL (80-99) L Mean Corpuscular Hemoglobin 22.6 PG (27.0-31.0) L Mean Corpuscular Hemoglobin Concent 31.0 G/DL (32.0-36.0) L Red Cell Distribution Width 15.2 % (11.6-14.8) H Platelet Count 341 K/UL (150-450) Mean Platelet Volume 6.1 FL (6.5-10.1) L Neutrophils (%) (Auto) 75.6 % (45.0-75.0) H Lymphocytes (%) (Auto) 18.1 % (20.0-45.0) L Monocytes (%) (Auto) 3.7 % (1.0-10.0) Eosinophils (%) (Auto) 1.6 % (0.0-3.0) Basophils (%) (Auto) 1.1 % (0.0-2.0) Sodium Level 136 MMOL/L (136-145) Potassium Level 4.5 MMOL/L (3.5-5.1) Chloride Level 104 MMOL/L (98-107) Carbon Dioxide Level 27 MMOL/L (21-32) Anion Gap 5 mmol/L (5-15) Blood Urea Nitrogen 25 mg/dL (7-18) H Creatinine 0.9 MG/DL (0.55-1.30) Estimat Glomerular Filtration Rate > 60 mL/min (>60) Glucose Level 164 MG/DL (74-106) H Calcium Level 9.1 MG/DL (8.5-10.1) Objective HEENT: Atraumatic and normocephalic. Anicteric. Pupils are equal, round, and reactive to light and accommodation. Extraocular muscles intact. NECK: JVP less than 5 cm. No carotid bruit. Carotid upstrokes 2+ bilaterally CARDIOVASCULAR: Normal S1 and S2. Regular rate and rhythm, distant. I do not appreciate any murmur, gallop, or rubs. LUNGS: Clear to auscultation bilaterally. ABDOMEN: Soft, nontender, and nondistended. No hepatosplenomegaly. Positive bowel sounds. EXTREMITIES: No evidence of edema, clubbing, or cyanosis. Tristan Yanes MD May 26, 2018 21:23
[2018-05-27] MEDS ORDERED: Tubing IV Secondary IV ONE (00:04)
[2018-05-27] MEDS ORDERED: NS 275ml ONE (00:04)
--- NOTE | 2018-05-31 10:16 | Discharge Summary ---
Discharge Summary Discharge Summary _ DATE OF ADMISSION: 05/22/2018 DATE OF DISCHARGE: 05/27/2018 REASON FOR ADMISSION: 68 years old female with past medical history of hyperlipidemia, dysphagia, anemia, GERD ,hypertension ,bipolar disorder ,schizophrenia, depression and anxiety, was sent from the [facility] facility for evaluation. Patient by herself was unable to provide any history. Patient presented with congestion and generalized weakness. Vital signs were stable, pulse oximetry 90% on room air . Chest x-ray revealed no acute cardiopulmonary pathology. Laboratory workup revealed leukocytosis WBC 19.4. Hemoglobin 11.3, hematocrit 35.3. BUN 39, creatinine 1.3. Lactic acid 2.1. Glucose 115. Albumin 2.8. Elevated troponin 0.108. EKG revealed sinus rhythm, no acute ischemic changes. Urinalysis revealed mild pyuria , positive leukocyte esterase and only few bacteria. Patient admitted with diagnoses of sepsis, possible UTI, elevated troponin, acute kidney injury, malnutrition, anemia, hypertension, diabetes, dementia. CONSULTANTS: [employer] administrator Dr. Yanes pulmonary Dr. Delacruz ID specialist Dr. Christianson psychiatrist Dr. Rodriguez [facility] COURSE: Patient admitted to telemetry floor . Cardiology consult was requested. According to [employer] administrator, patient had NSTEMI. Patient was started on antiplatelet therapy with aspirin, beta son and statin. Second troponin was already negative. Echocardiogram study was limited secondary to patient's strong resistance. Study precluded accurate assessment of regional wall motion and was unable to estimate left ventricular ejection fraction. Patient started on empiric antibiotics. Blood culture were negative. Influenza screen test was negative. Leukocytosis resolved. Patient likely had urinary tract infection as per ID specialist. Patient status post antibiotics. Supplemental oxygen and pulmonary toilet provided as needed. Pulse oximetry stable on room air prior to discharge. Blood pressure was managed with beta son and remained stable. Blood sugar was managed with sliding scale of insulin on as needed basis. Patient initially received IV fluids. Renal parameters and electrolytes were closely monitored, electrolytes corrected as needed, and nephrotoxins were avoided. Acute kidney injury resolved. Prior to discharge BUN from 39 down to 25, creatinine from 1.3 down to 0.9. Nutritional assessments revealed moderate risk for malnutrition. Puppy Trainer recommendations implemented in plan of care. Patient was working with physical and occupational therapists. Bowel regimen instituted. DVT prophylaxis provided. Strict aspiration /reflux precautions maintained. Pain management was addressed, and pain was controlled. Psychiatrist closely followed and diagnosed patient with schizoaffective disorder bipolar type. Psychiatric medication regimen was optimized by psychiatrist. Patient stabilized and was ready for discharge back to [facility] facility for continuation of care FINAL DIAGNOSES: NSTEMI sepsis probably UTI acute kidney injury diabetes mellitus type 2 hypertension dementia schizoaffective disorder bipolar type dysphagia malnutrition anemia major depressive disorder anxiety disorder DISCHARGE MEDICATIONS: See Medication Reconciliation list. DISCHARGE INSTRUCTIONS: Patient was discharged to the [facility] facility. Follow up with medical doctor at the facility. I have been assigned to dictate discharge summary for this account. I was not involved in the patient's management. Tarah Méndez NP May 31, 2018 10:16
== END 2018-05-27 00:05 | DRG 871 ==
LOC: EDBD 12:09 → EMR 14:16 → 2E 15:23 → EDBEDREQ 16:45 → 2E 18:35 → 4E 05-25 22:18
DX: A41.9 Sepsis, unspecified organism (principal); I21.4 Non-ST elevation (NSTEMI) myocardial infarction; N39.0 Urinary tract infection, site not specified; E46 Unspecified protein-calorie malnutrition; N17.9 Acute kidney failure, unspecified; F32.3 Major depressive disorder, single episode, severe with psychotic features; D64.9 Anemia, unspecified; E11.9 Type 2 diabetes mellitus without complications; I10 Essential (primary) hypertension; E78.5 Hyperlipidemia, unspecified; K21.9 Gastro-esophageal reflux disease without esophagitis; F03.90 Unspecified dementia, unspecified severity, without behavioral disturbance, psychotic disturbance, mood disturbance, and anxiety; S90.822A Blister (nonthermal), left foot, initial encounter; X58.XXXA Exposure to other specified factors, initial encounter; F25.0 Schizoaffective disorder, bipolar type; F41.9 Anxiety disorder, unspecified; R13.10 Dysphagia, unspecified
CPT/HCPCS: 36415; 71045; 80048; 80053; 80164; 81003; 82550; 82553; 83605; 83735; 84100; 84484; 85007; 85025; 85610; 85651; 85730; 86140; 86710; 87040; 87081; 90630; 93005; 93306; 94664; 96365; 97803; 99285

== ENCOUNTER 2018-12-09 09:47 | Inpatient (IN) | payer MEDICARE, MEDICAID ==
[~2018-12-09] VITALS: Ht 162.6 cm; Wt 44.0 kg
[~2018-12-09 09:47] MED LIST: ABILIFY10 MG ORAL; ACETAMINOPHEN325 M1 ORAL; ADVANCED ANTAC355 ML ORAL; AMLODIPINE BESY10 MG ORAL; ASPIRIN81 MG ORAL; ATORVASTATIN CA10 MG ORAL; ATORVASTATIN CA20 MG ORAL; BENZTROPINE ME0.5 MG HEMO; BISACODYL10 M1 RC; CEFEPIME-D2 GM/50 ML IVPB; DEPAKENE250 MG ORAL; DEPAKOTE250 MG PO; DOCUSATE SODIU100 MG ORAL; DUONEB 0.5-3(2.53 ML HHN; FERROUS SULFAT325 MG ORAL; HEPARIN SO5000 UNIT2 SUBQ; LORAZEPAM2 MG/1 M1 IV; METFORMIN HCL500 M1 ORAL; METOPROLOL TART25 MG ORAL; MILK OF MA400 MG/51 ORAL; MIRALAX17 G2 ORAL; MORPHINE 22 MG/1 ML IVP; NITROGLYCERIN2.5 MG SL; OXYBUTYNIN CHLOR5 M1 ORAL; PROBIOTIC1 EAC2 PO; RISPERDAL2 MG ORAL; SERTRALINE HCL25 MG ORAL; VITAMIN D1000 UNI1 ORAL; ZOFRAN 4 MG4 MG/2 ML IV
--- NOTE | 2018-12-09 10:43 | NUR ---
Note undone in EDM - 12/09/18 at 1048 by ELENITA ED Nurse Note: PT BROUGHT IN BY AMBULANCE FROM [facility] DUE TO G-TUBE DISPLACEMENT. PER EMS, PT PULLED OUT HER G-TUBE AT AROUND 0500 THIS AM. PT AOX0 AND NONVERBAL WHICH IS BASELINE PER EMS. STOMA COVERED WITH GAUZE WITHOUT TUBE UPON ARRIVAL. SKIN INTACT. NO PRESSURE UCLERS NOTED. PT HYPOTENSIVE AT ARRIVAL, BP: 88/70. DR KRISS HARDING.
--- NOTE | 2018-12-09 10:43 | NUR ---
ED Nurse Note: PT BROUGHT IN BY AMBULANCE FROM [facility] DUE TO G-TUBE DISPLACEMENT. PER EMS, PT PULLED OUT HER G-TUBE AT AROUND 0500 THIS AM. PT AOX0 AND NONVERBAL WHICH IS BASELINE PER EMS. STOMA COVERED WITH GAUZE WITHOUT TUBE UPON ARRIVAL. SKIN INTACT. NO PRESSURE UCLERS NOTED.
[2018-12-09 10:47] VITALS: BP 119/59
[2018-12-09 10:54] LABS: BASOPHILS % (AUTO) 1.1 % (0.0-2.0); EOSINOPHILS % (AUTO) 1.2 % (0.0-3.0); HEMOGLOBIN 11.3 G/DL (12.0-16.0); LYMPHOCYTES % (AUTO) 14.3 % (20.0-45.0); MEAN CORPUSCULAR VOLUME 76 FL (80-99); MONOCYTES % (AUTO) 3.2 % (1.0-10.0); NEUTROPHILS % (AUTO) 80.1 % (45.0-75.0); PLATELET COUNT 459 K/UL (150-450); RED BLOOD COUNT 4.63 M/UL (4.20-5.40); RED CELL DISTRIBUTION WIDTH 15.5 % (11.6-14.8); WHITE BLOOD COUNT 16.8 K/UL (4.8-10.8)
[2018-12-09 10:57] LABS: INR 0.9 (0.9-1.1)
[2018-12-09 11:07] LABS: ANION GAP 1 mmol/L (5-15); BLOOD UREA NITROGEN 27 mg/dL (7-18); CALCIUM 9.4 MG/DL (8.5-10.1); CARBON DIOXIDE 32 MMOL/L (21-32); CHLORIDE 95 MMOL/L (98-107); CREATININE 0.6 MG/DL (0.55-1.30); POTASSIUM 4.6 MMOL/L (3.5-5.1); SODIUM 128 MMOL/L (136-145)
[2018-12-09 11:13] LABS: ALANINE AMINOTRANSFERASE 24 U/L (12-78); ALBUMIN 2.3 G/DL (3.4-5.0); ALBUMIN/GLOBULIN RATIO 0.5 (1.0-2.7); ALKALINE PHOSPHATASE 151 U/L (46-116); ASPARTATE AMINO TRANSFERASE 18 U/L (15-37); BILIRUBIN,TOTAL 0.6 MG/DL (0.2-1.0); CREATINE KINASE 15 U/L (26-308)
--- NOTE | 2018-12-09 11:29 | NUR ---
ED Nurse Note: CALLED [facility] FOR PT TRANSFER. ANSWERED BUT LEFT ON HOLD >5MINS. WILL CALL BACK AGAIN.
--- NOTE | 2018-12-09 11:37 | NUR ---
ED Nurse Note: [facility] CALLED FOR PT TRANSFER. REPORT GIVEN TO GURINDER FRAZIER. PT TAKEN UP TO [facility] VIA GURNEY WITH ALL BELONGINGS ACCOMPANIED BY EMT. VSS.
[2018-12-09 13:13] VITALS: BP 115/82
--- NOTE | 2018-12-09 13:30 | NUR ---
NURSE NOTES: PT WITH CLOSED GASTROSTOMY. COVERED WITH DRESSING. NO S/S INFECTION. PER REPORT FROM Henrry OBREGON FROM ER, PT HAD PULLED OUT GTUBE AT [facility]ISON.
[2018-12-09] MEDS ORDERED: MULTI-DELYN237 ML GT (15:01)
[2018-12-09] MEDS ORDERED: ASPIRIN325 MG GT (15:01)
[2018-12-09] MEDS ORDERED: ZINC SULFATE220 M1 GT (15:03)
[2018-12-09] MEDS ORDERED: VITAMIN C500 M1 GT (15:03)
--- NOTE | 2018-12-09 15:53 | NUR ---
NURSE NOTES: THIRD MESSAGE LEFT FOR DR MACHUCA REGARDING ADMISSION ORDERS.
--- NOTE | 2018-12-09 16:08 | NUR ---
NURSE NOTES: RN LEFT FOURTH MESSAGE FOR DR MACHUCA WITH NO REPLY. RN MADE HOUSE SUP MISOOK AWARE AND TO CALL DR LAWSON AND MAKE AWARE. RN LEFT MESSAGE FOR DR. LAWSON.
[2018-12-09 16:19] VITALS: BP 131/57
--- NOTE | 2018-12-09 16:51 | NUR ---
NURSE NOTES: DR MACHUCA WITH ORDERS TO FOLLOW POLST FOR CODE STATUS, DVT PROPHYLAXIS: SCDS, D/C HOME MEDS. RN LEFT MESSAGE REGARDING PT'S DM AND SLIDING SCALE, PT PULLED OUT GTUBE AND STOMA CLOSED, NEEDS IVF DUE TO HISTORY OF DYSPHAGIA, AND POSSIBLE GI CONSULT.
--- NOTE | 2018-12-09 18:00 | NUR ---
NURSE NOTES: ORDERS FOR UA AND IVF NOTED. RN SET UP FEMALE EXTERNAL CATHETER TO COLLECT URINE. PT IS INCONTINENT AND UNABLE TO MAKE RN AWARE WHEN SHE NEEDS TO URINATE. PT RESTING IN BED. CALM. PT WAS RESTLESS AND COMBATIVE EARLIER. BED IN LOWEST POSITION WITH HOB ELEVATED. BED IN LOWEST POSITION. WILL CONTINUE TO MONITOR.
--- NOTE | 2018-12-09 18:03 | Consultation ---
Consult Note Consult Note asked to eval for low Na Patient presents with reports that her feeding tube was dislodged previously It is unclear the timing of this however the stoma has closed And is not accessible Patient herself is chronically debilitated attracted not verbal There was no reports of vomiting Patient however relies on her feeding tube There was no other reports of fall or trauma Allergies: Coded Allergies: No Known Allergies (Unverified , 05/22/18) Past Medical History Deferred: Pt Cognitively Impaired Hx Cardiac Problems: Yes Hx Hypertension: Yes Hx Pacemaker: No - HYPERLIPIDEMIA, DYSPHAGIA, ANEMIA, GERD, CATARAT, Hx Diabetes: Yes Hx Cancer: No Hx Gastrointestinal Problems: Yes - DYSPHAGIA, GTUBE PLACEMENT Hx Neurological Problems: No Hx Weakness: Yes - General examined not historian data reviewed Assessment/Plan HypoNatremia : etilogy?? Anemia Dehydration Plan: Slow hydrate Anemia lewis Urine studies Monitor Herrera El MD Dec 09, 2018 18:03
--- NOTE | 2018-12-09 18:45 | NUR ---
NURSE NOTES: PER DR MACHUCA, TO CONTINUE PREVIOUS ORDERS GIVEN.
--- NOTE | 2018-12-09 19:42 | NUR ---
CASE MANAGEMENT: REVIEW 68/F BIBA FROM [facility] CC: MALFUNCTIONING FEEDING TUBE IS: MALFUNCTIONING G-TUBE . DEHYDRATION T 96.6 HR 64 RR 16 BP 119/59 SAT 94% ROOM AIR WBC 16.8 BUN 27 NA 128 IS: NS IVF BOLUS X1 NS IVF BOLUS X1 PATIENT ADMITTED TO MED/SURG UNIT 12/08/2018 DCP: PATIENT IS FROM [facility]
--- NOTE | 2018-12-09 19:50 | NUR ---
HAND-OFF: Report given to William SAMAYOA RN.
--- NOTE | 2018-12-09 20:07 | NUR ---
NURSE NOTES: Received patient from GURINDER Ferreira. Patient is alert and oriented x0. Patient is non-verbal and bed bound. Patient is on room air, no s/s of distress at the moment. Open scalps are noted on patient's upper arms, G-tube stoma is closed covered with gauze. Patient was a patent right AC 20g IV accesss currently running NS 50 ml/hr. Bed is at the lowest position, bed alarms active, call light is within reach. Will continue to monitor.
--- NOTE | 2018-12-09 20:15 | NUR ---
NURSE NOTES: pt is in bed, asleep. No acute distress noted. Vitals stable. Pt is NPO. Old G-tube site is covered with dressing. NS running at 50ml/hr. Pt is on fall precaution. Bed locked low in position,side rails up, call light within reach. Bed alarm on. Pt will be monitored. Mariam Rojas RN ( preceptee) will be assisting in the care of this patient.
--- NOTE | 2018-12-09 23:30 | History and Physical Report ---
DATE OF ADMISSION: 12/09/[address] Jose Cortés. This is Dr. Jose Cortés's patient. HISTORY OF PRESENT ILLNESS: The patient admitted for dehydration, malfunctioning G-tube that needs to be replaced. The patient apparently is diabetic, is also admitted for hyponatremia as well as leukocytosis. The patient denies nausea, vomiting, or diarrhea. Denies shortness of breath. Denies cough. Denies fever or chills. No history of cough. PAST MEDICAL HISTORY: History of anxiety, depression, hypertension, anemia, schizophrenia, bipolar. PAST SURGICAL HISTORY: PEG. ALLERGIES: No known allergies. MEDICATIONS: Psych medications. FAMILY HISTORY: Noncontributory. SOCIAL HISTORY: Does have history of smoking. REVIEW OF SYSTEMS: HEENT: Denies headaches. RESPIRATORY: Denies shortness of breath. Denies cough. . CARDIOVASCULAR: Denies chest pain. GASTROINTESTINAL: Denies nausea, vomiting, or diarrhea. She has poor appetite. CENTRAL NERVOUS SYSTEMS: Denies change in vision or speech pattern PHYSICAL EXAMINATION: VITAL SIGNS: Temperature 96.6, pulse 64, blood pressure 104/64. HEENT: PERRLA. NECK: Supple. No lymphadenopathy. CHEST: Clear to auscultation. CARDIOVASCULAR: Regular rate and rhythm. GASTROINTESTINAL: G-tube site is malfunctioning. Abdomen is soft. EXTREMITIES: No edema. Reflexes equal on both sides. Does have history of wounds, poor skin integrity, please refer to nursing notes. LABORATORY DATA: WBC of 16.8, hemoglobin 9.3, platelets 459. Sodium 128, BUN of 27, creatinine 0.6, glucose of 168. ASSESSMENT: Hyponatremia and leukocytosis due to malfunctioning G-tube site. NG-tube was out. Stoma site was closed. I have asked Dr. Hogan, Dr. Tovar, Dr. Madhav Doty to see the patient for the leukocytosis and G-tube as well as for hyponatremia and dehydration treatment. She was given intravenous fluids . Pita Owusu M.D. DR: Rina JOB#: [id number] CC:
[2018-12-10] VITALS: BP 124/60
[2018-12-10 00:52] LABS: BILIRUBIN, URINE NEGATIVE (NEGATIVE); COLOR,URINE PALE YELLOW; GLUCOSE, URINE (UA) NEGATIVE (NEGATIVE); KETONES,URINE NEGATIVE (NEGATIVE); LEUKOCYTE ESTERASE ,URINE 3+ (NEGATIVE); NITRITE,URINE POSITIVE (NEGATIVE); PH,URINE 8 (4.5-8.0); PROTEIN,URINE 2+ (NEGATIVE); UROBILINOGEN,URINE NORMAL MG/DL (0.0-1.0)
--- NOTE | 2018-12-10 01:00 | NUR ---
NURSE NOTES: Urine sample sent to lab for UA, urine random NA+ and urine osmolality.
[2018-12-10 01:22] LABS: APPEARANCE,URINE CLOUDY
--- NOTE | 2018-12-10 02:53 | NUR ---
NURSE NOTES: Patient is in bed, awake. Patient is restless and scratching herself in the upper right shoulder, chest and groin area. Red velasco noted. Turned, cleaned and changed patient. NS is running at 50 ml/hr. Fall precaution implemented. Bed is at the lowest position and lock, bed alarms are active, call light is within reach. Will continue to monitor.
--- NOTE | 2018-12-10 03:21 | NUR ---
NURSE NOTES: Patient is restless, combative, pulling out IV and scratching self. Left a message and informing Dr. Owusu.
[2018-12-10 04:00] VITALS: BP 152/82
--- NOTE | 2018-12-10 06:30 | NUR ---
NURSE NOTES: called back and asked to call for psych consult. Left message for to call back with orders.
[2018-12-10 07:08] LABS: BASOPHILS % (AUTO) 1.2 % (0.0-2.0); HEMATOCRIT 34.8 % (37.0-47.0); HEMOGLOBIN 11.1 G/DL (12.0-16.0); LYMPHOCYTES % (AUTO) 11.8 % (20.0-45.0); MEAN CORPUSCULAR VOLUME 76 FL (80-99); MONOCYTES % (AUTO) 3.2 % (1.0-10.0); NEUTROPHILS % (AUTO) 82.8 % (45.0-75.0); PLATELET COUNT 413 K/UL (150-450); RED BLOOD COUNT 4.56 M/UL (4.20-5.40); RED CELL DISTRIBUTION WIDTH 15.5 % (11.6-14.8); WHITE BLOOD COUNT 14.9 K/UL (4.8-10.8)
--- NOTE | 2018-12-10 07:18 | Emergency Room Report ---
History of Present Illness General Chief Complaint: Malfunctioning Gastric Tube Source: Medical Record Present Illness HPI Patient presents with reports that her feeding tube was dislodged previously It is unclear the timing of this however the stoma has closed And is not accessible Patient herself is chronically debilitated attracted not verbal There was no reports of vomiting Patient however relies on her feeding tube There was no other reports of fall or trauma Allergies: Coded Allergies: No Known Allergies (Unverified , 05/22/18) Patient History Limited by: medical condition Past Medical History: see triage record Pertinent Family History: none Reviewed Nursing Documentation: PMH: Agreed; PSxH: Agreed Nursing Documentation-PMH Past Medical History Deferred: Pt Cognitively Impaired Hx Cardiac Problems: Yes Hx Hypertension: Yes Hx Pacemaker: No - HYPERLIPIDEMIA, DYSPHAGIA, ANEMIA, GERD, CATARAT, Hx Diabetes: Yes Hx Cancer: No Hx Gastrointestinal Problems: Yes - DYSPHAGIA, GTUBE PLACEMENT Hx Neurological Problems: No Hx Weakness: Yes - General Review of Systems All Other Systems: limited - Other than the ones mentioned in the history of present illness all others are reviewed however they do stay limited due to the patient's mental status Physical Exam Vital Signs Date Time Temp Pulse Resp B/P (MAP) Pulse Ox O2 Delivery O2 Flow Rate FiO2 12/09/18 09:44 96.6 64 18 104/64 94 Room Air Sp02 EP Interpretation: reviewed, normal General Appearance: no apparent distress Head: normocephalic, atraumatic Eyes: bilateral eye PERRL, bilateral eye EOMI ENT: dry mucus membranes Neck: full range of motion, supple Respiratory: no retraction, no accessory muscle use, crackles - Bilaterally Cardiovascular #1: regular rate, rhythm Gastrointestinal: non tender, soft, other - Evidence of previous stoma appears scabbed and closed Musculoskeletal: other - Patient contracted legs are crossed not following commands Neurologic: responsive - To verbal and physical stimuli Skin: normal color Lymphatic: no adenopathy Medical Decision Making Diagnostic Impression: Primary Impression: Malfunction of gastrostomy tube Additional Impression: Dehydration ER Course Given the patient's history and presentation patient is complex requiring extensive blood work Requires further acute intervention with gastroenterology patient relies on the feeding tube for medications and hydration White count is mildly elevated question possible dehydration versus other source of infection And patient requires further inpatient care Labs Test 12/09/18 10:39 12/09/18 18:35 12/10/18 00:15 12/10/18 06:35 White Blood Count 16.8 K/UL (4.8-10.8) 14.9 K/UL (4.8-10.8) Red Blood Count 4.63 M/UL (4.20-5.40) 4.56 M/UL (4.20-5.40) Hemoglobin 11.3 G/DL (12.0-16.0) 11.1 G/DL (12.0-16.0) Hematocrit 35.0 % (37.0-47.0) 34.8 % (37.0-47.0) Mean Corpuscular Volume 76 FL (80-99) 76 FL (80-99) Mean Corpuscular Hemoglobin 24.4 PG (27.0-31.0) 24.4 PG (27.0-31.0) Mean Corpuscular Hemoglobin Concent 32.3 G/DL (32.0-36.0) 32.0 G/DL (32.0-36.0) Red Cell Distribution Width 15.5 % (11.6-14.8) 15.5 % (11.6-14.8) Platelet Count 459 K/UL (150-450) 413 K/UL (150-450) Mean Platelet Volume 5.7 FL (6.5-10.1) 5.9 FL (6.5-10.1) Neutrophils (%) (Auto) 80.1 % (45.0-75.0) 82.8 % (45.0-75.0) Lymphocytes (%) (Auto) 14.3 % (20.0-45.0) 11.8 % (20.0-45.0) Monocytes (%) (Auto) 3.2 % (1.0-10.0) 3.2 % (1.0-10.0) Eosinophils (%) (Auto) 1.2 % (0.0-3.0) 1.0 % (0.0-3.0) Basophils (%) (Auto) 1.1 % (0.0-2.0) 1.2 % (0.0-2.0) Prothrombin Time 10.0 SEC (9.30-11.50) Prothromb Time International Ratio 0.9 (0.9-1.1) Activated Partial Thromboplast Time 28 SEC (23-33) Sodium Level 128 MMOL/L (136-145) Potassium Level 4.6 MMOL/L (3.5-5.1) Chloride Level 95 MMOL/L (98-107) Carbon Dioxide Level 32 MMOL/L (21-32) Anion Gap 1 mmol/L (5-15) Blood Urea Nitrogen 27 mg/dL (7-18) Creatinine 0.6 MG/DL (0.55-1.30) Estimat Glomerular Filtration Rate > 60 mL/min (>60) Glucose Level 168 MG/DL (74-106) Calcium Level 9.4 MG/DL (8.5-10.1) Total Bilirubin 0.6 MG/DL (0.2-1.0) Aspartate Amino Transf (AST/SGOT) 18 U/L (15-37) Alanine Aminotransferase (ALT/SGPT) 24 U/L (12-78) Alkaline Phosphatase 151 U/L (46-116) Total Creatine Kinase 15 U/L (26-308) Total Protein 7.3 G/DL (6.4-8.2) Albumin 2.3 G/DL (3.4-5.0) Globulin 5.0 g/dL Albumin/Globulin Ratio 0.5 (1.0-2.7) Lipase 168 U/L (73-393) Osmolality 298 mOsm/kg (297-317) Uric Acid 3.7 MG/DL (2.6-7.2) Thyroid Stimulating Hormone (TSH) 3.879 uiU/mL (0.358-3.740) Urine Color Pale yellow Urine Appearance Cloudy Urine pH 8 (4.5-8.0) Urine Specific [place] 1.015 (1.005-1.035) Urine Protein 2+ (NEGATIVE) Urine Glucose (UA) Negative (NEGATIVE) Urine Ketones Negative (NEGATIVE) Urine Blood 5+ (NEGATIVE) Urine Nitrite Positive (NEGATIVE) Urine Bilirubin Negative (NEGATIVE) Urine Urobilinogen Normal MG/DL (0.0-1.0) Urine Leukocyte Esterase 3+ (NEGATIVE) Urine RBC Tntc /HPF (0 - 2) Urine WBC Tntc /HPF (0 - 2) Urine Squamous Epithelial Cells None /LPF (NONE/OCC) Urine Bacteria Many /HPF (NONE) Urine Osmolality 431 mOsm/kg (429-449) Urine Random Sodium 81 mmol/L (20-110) Rhythm Strip Diag. Results EP Interpretation: yes Rate: 77 Rhythm: NSR, no PVC's, no ectopy Last Vital Signs Date Time Temp Pulse Resp B/P (MAP) Pulse Ox O2 Delivery O2 Flow Rate FiO2 12/10/18 04:00 97.6 82 17 152/82 (105) 99 12/09/18 21:00 Room Air Status: improved Disposition: ADMITTED INPATIENT Condition: Serious Referrals: Jose Cortés DO (PCP) Pita Manzo DO Dec 10, 2018 07:18
--- NOTE | 2018-12-10 07:25 | NUR ---
HAND-OFF: Report given to Luz Maria Pond LVN. Endorsed to follow up with .
--- NOTE | 2018-12-10 07:53 | NUR ---
NURSE NOTES: BILATERAL WRIST RESTRAINTS APPLIED EMERGENT DUE PATIENT IS SELF-INFLICTED, ATTEMPTED TO PULL OUT DEVICES, AND COMBATIVE. PATIENT IS A/A/O, CONFUSED. PATIENT APPEARS SEVERAL SCRATCHES ON HER BODY. IV ACCESS IS OCCLUDED AND WILL RESITE IV LATER TODAY. NO ACUTE RESP DISTRESS NOTED. WILL CONT TO MONITOR.
[2018-12-10 08:00] VITALS: BP 124/60
[2018-12-10 08:31] LABS: ALANINE AMINOTRANSFERASE 21 U/L (12-78); ALBUMIN 2.2 G/DL (3.4-5.0); ALBUMIN/GLOBULIN RATIO 0.5 (1.0-2.7); ANION GAP 12 mmol/L (5-15); BILIRUBIN,TOTAL 0.6 MG/DL (0.2-1.0); BLOOD UREA NITROGEN 21 mg/dL (7-18); CARBON DIOXIDE 23 MMOL/L (21-32); CHLORIDE 101 MMOL/L (98-107); CREATINE KINASE 27 U/L (26-308); CREATININE 0.4 MG/DL (0.55-1.30); FERRITIN 120 NG/ML (8-388); PHOSPHORUS 3.8 MG/DL (2.5-4.9); POTASSIUM 4.6 MMOL/L (3.5-5.1); SODIUM 136 MMOL/L (136-145)
[2018-12-10 08:58] LABS: ALKALINE PHOSPHATASE 146 U/L (46-116); ASPARTATE AMINO TRANSFERASE 26 U/L (15-37); CALCIUM 9.3 MG/DL (8.5-10.1); GAMMA GLUTAMYL TRANSPEPTIDASE 18 U/L (5-85)
--- NOTE | 2018-12-10 09:26 | NUR ---
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 MALFUNCTIONING FEEDING TUBE VS: BP 119/59, P 60, T 97.2, RR 23, SpO2 100 WBC 14.9, Hgb 11.3, Hct 35.0, Na 128, BUN 27, URINE BACTERIA MANY IS:NS x1L IV NS x500ml IV ADMITTED TO MED/SURG DCP: RETURN TO [facility]
[2018-12-10] MEDS ORDERED: LORazepam Inj 2mg/ml 1ml IVP PRN (10:15)
[2018-12-10 10:47] LABS: FERRITIN 350 NG/ML (8-388)
[2018-12-10 11:01] LABS: % IRON SATURATION 5 % (15-50); IRON 12 ug/dL (50-175); TOTAL IRON BINDING CAPACITY 246 ug/dL (250-450)
--- NOTE | 2018-12-10 11:10 | Nephrology Progress Note ---
Assessment/Plan Problem List: (1) Hyponatremia (2) Dehydration (3) Malfunction of gastrostomy tube (4) Anemia Assessment HypoNatremia : etilogy?? corrected Anemia Dehydration Plan Plan: Slow hydrate Anemia lewis Urine studies Monitor lytes Subjective ROS Limited/Unobtainable: No Objective Objective Last 24 Hour Vital Signs Date Time Temp Pulse Resp B/P (MAP) Pulse Ox O2 Delivery O2 Flow Rate FiO2 12/10/18 09:00 Room Air 12/10/18 04:00 97.6 82 17 152/82 (105) 99 12/10/18 00:00 97.3 69 17 124/60 (81) 99 12/09/18 21:00 Room Air 12/09/18 16:19 98.1 71 19 131/57 (81) 100 12/09/18 14:10 Room Air 12/09/18 13:13 83 16 115/82 (93) 12/09/18 11:37 97.2 67 23 128/57 100 Room Air Intake and Output 12/09/18 12/10/18 18:59 06:59 Intake Total 1500 ml 500 ml Balance 1500 ml 500 ml Intake Oral 0 ml IV Total 1500 ml 500 ml # Voids 1 1 # Bowel Movements 1 1 Laboratory Tests 12/09/18 18:35: Osmolality 298, Uric Acid 3.7, Thyroid Stimulating Hormone (TSH) 3.879H 12/10/18 00:15: Urine Color Pale yellow, Urine Appearance Cloudy, Urine pH 8, Urine Specific [place] 1.015, Urine Protein 2+H, Urine Glucose (UA) Negative, Urine Ketones Negative, Urine Blood 5+H, Urine Nitrite PositiveH, Urine Bilirubin Negative, Urine Urobilinogen Normal, Urine Leukocyte Esterase 3+H, Urine RBC TntcH, Urine WBC TntcH, Urine Squamous Epithelial Cells None, Urine Bacteria ManyH, Urine Osmolality 431, Urine Random Sodium 81 12/10/18 06:35: White Blood Count 14.9H, Red Blood Count 4.56, Hemoglobin 11.1L, Hematocrit 34.8L, Mean Corpuscular Volume 76L, Mean Corpuscular Hemoglobin 24.4L, Mean Corpuscular Hemoglobin Concent 32.0, Red Cell Distribution Width 15.5H, Platelet Count 413, Mean Platelet Volume 5.9L, Neutrophils (%) (Auto) 82.8H, Lymphocytes (%) (Auto) 11.8L, Monocytes (%) (Auto) 3.2, Eosinophils (%) (Auto) 1.0, Basophils (%) (Auto) 1.2, Sodium Level 136, Potassium Level 4.6, Chloride Level 101, Carbon Dioxide Level 23, Anion Gap 12, Blood Urea Nitrogen 21H, Creatinine 0.4L, Estimat Glomerular Filtration Rate > 60, Glucose Level 126H, Hemoglobin A1c 6.0, Calcium Level 9.3, Phosphorus Level 3.8, Magnesium Level 1.8 , Ferritin 120, Total Bilirubin 0.6, Gamma Glutamyl Transpeptidase 18, Aspartate Amino Transf (AST/SGOT) 26, Alanine Aminotransferase (ALT/SGPT) 21, Alkaline Phosphatase 146H, Total Creatine Kinase 27, Troponin I 0.000, C- Reactive Protein, Quantitative 4.6H, Pro-B-Type Natriuretic Peptide 435H, Total Protein 6.9, Albumin 2.2L, Globulin 4.7, Albumin/Globulin Ratio 0.5L 12/10/18 09:50: Ferritin 350, Iron Level 12L, Total Iron Binding Capacity 246L, Percent Iron Saturation 5L, Unsaturated Iron Binding 234, Vitamin B12 Level 1136H, Folate 57.5 Height (Feet): 5 Height (Inches): 4.00 Weight (Pounds): 110 General Appearance: no apparent distress, combative Respiratory/Chest: decreased breath sounds Abdomen: soft, other - GT Herrera Hogan MD Dec 10, 2018 11:10
--- NOTE | 2018-12-10 11:25 | NUR ---
NURSE NOTES: CONVEYED TO DR PEOPLES RE: WITNESSED BLEEDING FROM VAGINAL/ RECTAL. NO NEW ORDER NOTED.
--- NOTE | 2018-12-10 11:29 | General Progress Note ---
Assessment/Plan Assessment: GI CONSULT Dictated Need to locate next of kin for consent of PEG placement Thank you Malina Garcia MD Subjective Allergies: Coded Allergies: No Known Allergies (Unverified , 05/22/18) Objective Last 24 Hour Vital Signs Date Time Temp Pulse Resp B/P (MAP) Pulse Ox O2 Delivery O2 Flow Rate FiO2 12/10/18 09:00 Room Air 12/10/18 04:00 97.6 82 17 152/82 (105) 99 12/10/18 00:00 97.3 69 17 124/60 (81) 99 12/09/18 21:00 Room Air 12/09/18 16:19 98.1 71 19 131/57 (81) 100 12/09/18 14:10 Room Air 12/09/18 13:13 83 16 115/82 (93) 12/09/18 11:37 97.2 67 23 128/57 100 Room Air Intake and Output 12/09/18 12/10/18 19:00 07:00 Intake Total 1500 ml 500 ml Balance 1500 ml 500 ml Intake Oral 0 ml IV Total 1500 ml 500 ml # Voids 1 1 # Bowel Movements 1 1 Laboratory Tests 12/09/18 18:35: Osmolality 298, Uric Acid 3.7, Thyroid Stimulating Hormone (TSH) 3.879H 12/10/18 00:15: Urine Color Pale yellow, Urine Appearance Cloudy, Urine pH 8, Urine Specific [place] 1.015, Urine Protein 2+H, Urine Glucose (UA) Negative, Urine Ketones Negative, Urine Blood 5+H, Urine Nitrite PositiveH, Urine Bilirubin Negative, Urine Urobilinogen Normal, Urine Leukocyte Esterase 3+H, Urine RBC TntcH, Urine WBC TntcH, Urine Squamous Epithelial Cells None, Urine Bacteria ManyH, Urine Osmolality 431, Urine Random Sodium 81 12/10/18 06:35: White Blood Count 14.9H, Red Blood Count 4.56, Hemoglobin 11.1L, Hematocrit 34.8L, Mean Corpuscular Volume 76L, Mean Corpuscular Hemoglobin 24.4L, Mean Corpuscular Hemoglobin Concent 32.0, Red Cell Distribution Width 15.5H, Platelet Count 413, Mean Platelet Volume 5.9L, Neutrophils (%) (Auto) 82.8H, Lymphocytes (%) (Auto) 11.8L, Monocytes (%) (Auto) 3.2, Eosinophils (%) (Auto) 1.0, Basophils (%) (Auto) 1.2, Sodium Level 136, Potassium Level 4.6, Chloride Level 101, Carbon Dioxide Level 23, Anion Gap 12, Blood Urea Nitrogen 21H, Creatinine 0.4L, Estimat Glomerular Filtration Rate > 60, Glucose Level 126H, Hemoglobin A1c 6.0, Calcium Level 9.3, Phosphorus Level 3.8, Magnesium Level 1.8 , Ferritin 120, Total Bilirubin 0.6, Gamma Glutamyl Transpeptidase 18, Aspartate Amino Transf (AST/SGOT) 26, Alanine Aminotransferase (ALT/SGPT) 21, Alkaline Phosphatase 146H, Total Creatine Kinase 27, Troponin I 0.000, C- Reactive Protein, Quantitative 4.6H, Pro-B-Type Natriuretic Peptide 435H, Total Protein 6.9, Albumin 2.2L, Globulin 4.7, Albumin/Globulin Ratio 0.5L 12/10/18 09:50: Ferritin 350, Iron Level 12L, Total Iron Binding Capacity 246L, Percent Iron Saturation 5L, Unsaturated Iron Binding 234, Vitamin B12 Level 1136H, Folate 57.5 Height (Feet): 5 Height (Inches): 4.00 Weight (Pounds): 110 Malina Garcia MD Dec 10, 2018 11:29
[2018-12-10 11:59] VITALS: BP 143/75
--- NOTE | 2018-12-10 12:26 | Infectious Diseases Prog Note ---
Assessment/Plan Assessment/Plan Id consult dictated # [id number] Subjective Allergies: Coded Allergies: No Known Allergies (Unverified , 05/22/18) Objective Vital Signs Last 24 Hour Vital Signs Date Time Temp Pulse Resp B/P (MAP) Pulse Ox O2 Delivery O2 Flow Rate FiO2 12/10/18 11:59 97.7 84 16 143/75 (97) 96 12/10/18 09:00 Room Air 12/10/18 08:00 98.1 84 18 124/60 (81) 96 12/10/18 04:00 97.6 82 17 152/82 (105) 99 12/10/18 00:00 97.3 69 17 124/60 (81) 99 12/09/18 21:00 Room Air 12/09/18 16:19 98.1 71 19 131/57 (81) 100 12/09/18 14:10 Room Air 12/09/18 13:13 83 16 115/82 (93) Height (Feet): 5 Height (Inches): 4.00 Weight (Pounds): 110 Microbiology Date/Time Source Procedure Growth Status 12/09/18 10:00 Rectum Received Laboratory Tests Test 12/09/18 18:35 12/10/18 00:15 12/10/18 06:35 12/10/18 09:50 Osmolality 298 mOsm/kg (297-317) Uric Acid 3.7 MG/DL (2.6-7.2) Thyroid Stimulating Hormone (TSH) 3.879 uiU/mL (0.358-3.740) Urine Color Pale yellow Urine Appearance Cloudy Urine pH 8 (4.5-8.0) Urine Specific [place] 1.015 (1.005-1.035) Urine Protein 2+ (NEGATIVE) H Urine Glucose (UA) Negative (NEGATIVE) Urine Ketones Negative (NEGATIVE) Urine Blood 5+ (NEGATIVE) H Urine Nitrite Positive (NEGATIVE) H Urine Bilirubin Negative (NEGATIVE) Urine Urobilinogen Normal MG/DL (0.0-1.0) Urine Leukocyte Esterase 3+ (NEGATIVE) H Urine RBC Tntc /HPF (0 - 2) H Urine WBC Tntc /HPF (0 - 2) H Urine Squamous Epithelial Cells None /LPF (NONE/OCC) Urine Bacteria Many /HPF (NONE) H Urine Osmolality 431 mOsm/kg (429-449) Urine Random Sodium 81 mmol/L (20-110) White Blood Count 14.9 K/UL (4.8-10.8) H Red Blood Count 4.56 M/UL (4.20-5.40) Hemoglobin 11.1 G/DL (12.0-16.0) L Hematocrit 34.8 % (37.0-47.0) L Mean Corpuscular Volume 76 FL (80-99) L Mean Corpuscular Hemoglobin 24.4 PG (27.0-31.0) L Mean Corpuscular Hemoglobin Concent 32.0 G/DL (32.0-36.0) Red Cell Distribution Width 15.5 % (11.6-14.8) H Platelet Count 413 K/UL (150-450) Mean Platelet Volume 5.9 FL (6.5-10.1) L Neutrophils (%) (Auto) 82.8 % (45.0-75.0) H Lymphocytes (%) (Auto) 11.8 % (20.0-45.0) L Monocytes (%) (Auto) 3.2 % (1.0-10.0) Eosinophils (%) (Auto) 1.0 % (0.0-3.0) Basophils (%) (Auto) 1.2 % (0.0-2.0) Sodium Level 136 MMOL/L (136-145) Potassium Level 4.6 MMOL/L (3.5-5.1) Chloride Level 101 MMOL/L (98-107) Carbon Dioxide Level 23 MMOL/L (21-32) Anion Gap 12 mmol/L (5-15) Blood Urea Nitrogen 21 mg/dL (7-18) H Creatinine 0.4 MG/DL (0.55-1.30) L Estimat Glomerular Filtration Rate > 60 mL/min (>60) Glucose Level 126 MG/DL (74-106) H Hemoglobin A1c 6.0 % (4.3-6.0) Calcium Level 9.3 MG/DL (8.5-10.1) Phosphorus Level 3.8 MG/DL (2.5-4.9) Magnesium Level 1.8 MG/DL (1.8-2.4) Ferritin 120 NG/ML (8-388) 350 NG/ML (8-388) Total Bilirubin 0.6 MG/DL (0.2-1.0) Gamma Glutamyl Transpeptidase 18 U/L (5-85) Aspartate Amino Transf (AST/SGOT) 26 U/L (15-37) Alanine Aminotransferase (ALT/SGPT) 21 U/L (12-78) Alkaline Phosphatase 146 U/L (46-116) H Total Creatine Kinase 27 U/L (26-308) Troponin I 0.000 ng/mL (0.000-0.056) C-Reactive Protein, Quantitative 4.6 mg/dL (0.00-0.90) H Pro-B-Type Natriuretic Peptide 435 pg/mL (0-125) H Total Protein 6.9 G/DL (6.4-8.2) Albumin 2.2 G/DL (3.4-5.0) L Globulin 4.7 g/dL Albumin/Globulin Ratio 0.5 (1.0-2.7) L Iron Level 12 ug/dL (50-175) L Total Iron Binding Capacity 246 ug/dL (250-450) L Percent Iron Saturation 5 % (15-50) L Unsaturated Iron Binding 234 ug/dL (112-346) Vitamin B12 Level 1136 PG/ML (193-986) H Folate 57.5 NG/ML (8.6-58.9) Current Medications Medications (Trade) Dose Ordered Sig/Analilia Route PRN Reason Start Time Stop Time Status Last Admin Dose Admin Ceftriaxone Sodium 1 gm/ Dextrose 55 ml @ 110 mls/hr DAILY IVPB 12/10/18 13:30 12/17/18 13:29 Dextrose (Dextrose 50%) 25 ml Q30M PRN IV Hypoglycemia 12/09/18 19:45 01/08/19 19:44 Dextrose (Dextrose 50%) 50 ml Q30M PRN IV Hypoglycemia 12/09/18 19:45 01/08/19 19:44 Lorazepam (Ativan 2mg/ml 1ml) 1 mg Q6H PRN IVP For Anxiety 12/10/18 10:15 12/17/18 10:14 Risperidone (RisperDAL) 0.5 mg Q8H PRN ORAL Agitation 12/10/18 10:15 01/09/19 10:14 Sodium Chloride 1,000 ml @ 50 mls/hr Q20H IV 12/09/18 18:00 01/08/19 17:59 12/09/18 18:15 Madhav Doty MD Dec 10, 2018 12:26
[2018-12-10] MEDS: cefTRIAXone 1 GM in D5W 55 ML IVPB SCH (13:48)
--- NOTE | 2018-12-10 14:46 | NUR ---
NURSE NOTES: INFORMED DR PEOPLES WHERE THE BLEEDING WAS. APPEARS TO BE FROM THE RECTUM. AWAITS FOR A RESPONSE BACK. PATIENT REMAINS TO BE RESTLESS, AGITATED, CONFUSED AND CONSTANTLY RAISING HER ONE LEG. BILATERAL SOFT WRIST RESTRAINTS APPLIED @ ALL TIMES. CIRCULATIONS AND SENSATION ASSESSED. BED ALARM ACTIVATED AND SIDERAILS ARE UP X3. NO ACUTE RESP DISTRESS NOTED. WILL CONT TO MONITOR.
--- NOTE | 2018-12-10 15:28 | NUR ---
HAND-OFF: Report given to GURINDER Felipe.
[2018-12-10 16:00] VITALS: BP 134/56
--- NOTE | 2018-12-10 17:00 | Consultation ---
DATE OF CONSULTATION: 12/10/2018 INFECTIOUS DISEASES CONSULTATION CONSULTING PHYSICIAN: Madhav Doty M.D. PRIMARY ATTENDING PHYSICIAN: Jose Cortés D.O. covered by Dr. Pita Owusu M.D. REASON FOR CONSULTATION: Urinary tract infection. HISTORY OF PRESENT ILLNESS: This is a 68-year-old white female who is a jail resident admitted yesterday because of dislodgement of G-tube. The patient had a recent hospitalization in [facility] with similar problem. In addition, the patient was found to have leukocytosis and pyuria. She is not a source of history. PAST MEDICAL HISTORY: Significant for dementia, schizophrenia, diabetes mellitus, cataracts, hyperlipidemia, dysphagia, hypertension. ALLERGIES: No known drug allergies. MEDICATIONS: Risperdal, lorazepam, sodium chloride. SOCIAL HISTORY: Single, jail resident. No other history can be obtained by the patient. The patient currently is confused on mechanical restraints. PHYSICAL EXAMINATION: VITAL SIGNS: Temperature 97.7, pulse 84, blood pressure 143/71. GENERAL: Seems to be cachectic. HEAD AND NECK: [place] conjunctiva. HEART: S1 and S2, regular. LUNGS: Clear. ABDOMEN: Flat, soft, nontender. EXTREMITIES: No edema. She has muscle atrophy. NEUROLOGIC: Awake, responsive, disoriented, and aphasic. LABORATORY AND DIAGNOSTIC DATA: WBC 14.9, hemoglobin 11.1, hematocrit 34.8, platelet 413. WBC at the time of admission was 16.8. Sodium 136, potassium 4.6, chloride 101, bicarbonate 23, BUN 21, creatinine 0.4. Albumin is 2.2. UA showed rbc's too numerous to count, wbc's too numerous to count, nitrite positive, bacteria many. IMPRESSION: Pyuria, likely has urinary tract infection. The patient has leukocytosis, dislodgement of the G-tube, diabetes, hypertension, dementia, hyperlipidemia, cachexia. The patient is currently NPO, waiting for consent from next of kin to replace G-tube. RECOMMENDATION: We will start the patient on Rocephin. We will follow urine culture. At the end of my exam, I thank Dr. Owusu for involving me in the care of this patient. Madhav Doty M.D. DR: Jian JOB#: [id number] CC:
--- NOTE | 2018-12-10 19:17 | NUR ---
HAND-OFF: Report given to GURINDER Hernández.
--- NOTE | 2018-12-10 19:39 | NUR ---
NURSE NOTES Received patient from GURINDER Felipe. Patient is in bed, awake, alert and oriented x0. Patient is on room air, no s/s of distress. Patient is on bilateral soft wrist restraints, normal pulses and no discoloration noted. Patient has a patent left FA 24g running NS 50ml/hr. Bed is locked at the lowest position bed alarms active, side rails up x2, and call lights are within reach. Will continue to monitor.
--- NOTE | 2018-12-10 19:45 | Consultation ---
DATE OF CONSULTATION: 12/10/2018 GASTROENTEROLOGY CONSULTATION: CONSULTING PHYSICIAN: Malina Garcia M.D. CHIEF COMPLAINT: I was asked to see this patient by Dr. Jose Cortés and Dr. Pita Owusu for evaluation of gastrostomy tube placement. HISTORY OF PRESENT ILLNESS: The patient is a 68-year-old white woman with advanced dementia and gastrostomy tube, whose gastrostomy tube has fallen out. Site is closed and gastrostomy tube cannot be placed back in. The patient herself is confused and unable to provide any history. Most of the information is only available from the chart. PAST MEDICAL HISTORY: History of the dementia, agitation, anxiety, depression, hypertension, anemia, schizophrenia, bipolar disorder, status post abdominal surgery of unclear type. FAMILY HISTORY: Unavailable and unobtainable. SOCIAL HISTORY: Unavailable and unobtainable. REVIEW OF SYSTEMS: Unavailable and unobtainable. PHYSICAL EXAMINATION: GENERAL: Debilitated, agitated, confused, restrained elderly white woman, seen in her room. HEENT: Normocephalic and atraumatic. Sclerae anicteric. Dentition is poor. NECK: Supple. CHEST: Revealed coarse breath sounds. CARDIOVASCULAR: Revealed a regular rate. ABDOMEN: Soft with gastrostomy site was completely closed. There was a midline scar, which is old. EXTREMITIES: Revealed no edema. NEUROLOGIC: Notable for agitation and dementia. LABORATORY DATA: Noted. ASSESSMENT: This patient presents with gastrostomy tube, which is fallen out and the site is closed, and cannot be replaced. The patient should be kept NPO and another gastrostomy tube can be placed when feasible. The patient also has some degree of anemia and an upper GI tract will be screened for this purpose as well. She has been considered for colonoscopy, which is deferred at a later date especially in lieu of the patient's advanced cognitive dysfunction. RECOMMENDATIONS: Per above discussion and per orders written in the chart. Thank you for asking me to participate in the care this patient. Dr. Tovar will take over the patient's care from gastrointestinal standpoint starting tomorrow. Malina Garcia M.D. DR: CHEVY JOB#: [id number] CC: JUAN M
[2018-12-10 20:00] VITALS: BP 130/79
--- NOTE | 2018-12-10 21:18 | Initial Psychiatric Evaluation ---
Psychiatry Consultation Psychiatry Consultation Chief Complaint: Malfunctioning Gastric Tube History of Present Illness: 68-year-old female with hx of schizoaffective do and dementia and gastrostomy tube, the pt is confused and severely agitated. the pt pulled out g-tube and IV. the pt is npo and is uncooperative. the pt is disoriented and disorganized. the pt is unable to provide any history. the pt has waxing and waning of consciousness. Allergies: Coded Allergies: No Known Allergies (Unverified , 05/22/18) Medication History Scheduled Ascorbic Acid* (Vitamin C*), 500 MG GT DAILY, (Reported) Aspirin* (Aspirin*), 325 MG GT DAILY, (Reported) Multivitamin Liquid* (Multi-Delyn*), 5 ML GT DAILY, (Reported) Zinc Sulfate (Zinc Sulfate*), 220 MG GT DAILY, (Reported) Discontinued Medications Acetaminophen* (Acetaminophen 325MG Tablet*), 650 MG ORAL Q4H PRN for Mild Pain/ Temp > 100.5, (Reported) Discontinued Reason: Pt stopped taking med Acetaminophen* (Acetaminophen 325MG Tablet*), 650 MG ORAL Q4H PRN for fever, ( Reported) Discontinued Reason: Pt stopped taking med Amlodipine Besylate* (Amlodipine Besylate*), 10 MG ORAL DAILY, (Reported) Discontinued Reason: Pt stopped taking med Aripiprazole* (Abilify*), 5 MG ORAL BID, (Reported) Discontinued Reason: Pt stopped taking med Aspirin* (Aspirin*), 81 MG ORAL DAILY, (Reported) Discontinued Reason: Pt stopped taking med Atorvastatin Calcium* (Lipitor*), 10 MG ORAL BEDTIME, (Reported) Discontinued Reason: Pt stopped taking med Atorvastatin Calcium* (Atorvastatin Calcium*), 20 MG ORAL BEDTIME, (Reported) Discontinued Reason: Pt stopped taking med Benztropine Mesylate* (Cogentin*), 1 MG HEMO BID, (Reported) Discontinued Reason: Pt stopped taking med Bisacodyl (Bisacodyl), 10 MG RC DAILY PRN for Constipation, (Reported) Discontinued Reason: Pt stopped taking med Cefepime Hcl/D5w (Cefepime-Dextrose 2 Gm/50 Ml), 2 GM IVPB Q24H, (Reported) Discontinued Reason: Pt stopped taking med Cholecalciferol (Vitamin D3)* (Vitamin D*), 2,000 UNITS ORAL DAILY, (Reported) Discontinued Reason: Pt stopped taking med Divalproex Sodium* (Depakote*), 250 MG PO BID, (Reported) Discontinued Reason: Pt stopped taking med Divalproex Sodium* (Depakote*), 1,000 MG PO BEDTIME, (Reported) Discontinued Reason: Pt stopped taking med Docusate Sodium* (Docusate Sodium*), 100 MG ORAL TWICE A DAY, (Reported) Discontinued Reason: Pt stopped taking med Ferrous Sulfate* (Ferrous Sulfate*), 325 MG ORAL DAILY, (Reported) Discontinued Reason: Pt stopped taking med Heparin Sod (Porcine) (Heparin Sodium*), 5,000 UNITS SUBQ EVERY 12 HOURS, ( Reported) Discontinued Reason: Pt stopped taking med Ipratropium/Albuterol Sulfate (DuoNeb 0.5-3(2.5)mg/3ml), 3 ML HHN EVERY 4 HOURS PRN for Shortness of Breath, (Reported) Discontinued Reason: Pt stopped taking med Lactobacillus Acidophilus (Probiotic), 1 EACH PO BID, (Reported) Discontinued Reason: Pt stopped taking med Lorazepam* (Lorazepam*), 1 MG IV Q4H PRN for Agitation, (Reported) Discontinued Reason: Pt stopped taking med Mag Hydrox/Al Hydrox/Simeth* (Advanced Antacid Liquid*), 30 ML ORAL Q4HR PRN for GI UPSET, (Reported) Discontinued Reason: Pt stopped taking med Magnesium Hydroxide* (Milk Of Magnesia*), 30 ML ORAL QHS PRN for Constipation, ( Reported) Discontinued Reason: Pt stopped taking med Metformin Hcl* (Metformin Hcl*), 500 MG ORAL TWICE A DAY, (Reported) Discontinued Reason: Pt stopped taking med Metoprolol Tartrate* (Metoprolol Tartrate*), 25 MG ORAL EVERY 12 HOURS, ( Reported) Discontinued Reason: Pt stopped taking med Morphine Sulfate* (Morphine Sulfate*), 2 MG IVP EVERY 4 HOURS PRN for Moderate Pain (Pain Scale 4-6), (Reported) Discontinued Reason: Pt stopped taking med Nitroglycerin (Nitroglycerin), 0.4 MG SL for chest pain, (Reported) Discontinued Reason: Pt stopped taking med Ondansetron* (Zofran*), 4 MG IV Q6H PRN for Nausea & Vomiting, (Reported) Discontinued Reason: Pt stopped taking med Oxybutynin Chloride (Oxybutynin Chloride), 5 MG ORAL DAILY PRN for BLADDER SPASM , (Reported) Discontinued Reason: Pt stopped taking med Polyethylene Glycol 3350* (Miralax*), 17 GM ORAL DAILY PRN for Constipation, ( Reported) Discontinued Reason: Pt stopped taking med Risperidone* (Risperdal*), 2 MG ORAL BEDTIME, (Reported) Discontinued Reason: Pt stopped taking med Sertraline Hcl* (Sertraline Hcl*), 25 MG ORAL DAILY, (Reported) Discontinued Reason: Pt stopped taking med Valproic Acid (Depakene), 1,000 MG ORAL BEDTIME, (Reported) Discontinued Reason: Pt stopped taking med Patient History Limited by: medical condition History Provided By: Medical Record, PMD Objective Data Height (Feet): 5 Height (Inches): 4.00 Weight (Pounds): 110 Appearance: disheveled Behavior Mannerisms: poor eye contact Affect: flat Mood: agitated Thought Process: loose association Suicidal Ideation: not present Assessment/Plan Problem List: (1) Schizoaffective disorder, bipolar type ICD Codes: F25.0 - Schizoaffective disorder, bipolar type SNOMED: 61052689 Status: not improved, unchanged Treatment Plan: Risperdal 1mg po tid Ativan IM restrains. Urvashi Duron MD Dec 10, 2018 21:17
[2018-12-11 00:50] VITALS: BP 129/69
--- NOTE | 2018-12-11 03:30 | NUR ---
NURSE NOTES: Patient received Ativan 1 mg at 0100am for agitation, but became more agitated, restless, and combative. Patient pulled out IV, took off restraints, screamed and kicked staff. Attempted to reorient patient to reality but patient is uncooperative. Called and left a message to inform Dr. Duron. Waiting for call back. Will follow up.
[2018-12-11 04:00] VITALS: BP 140/70
--- NOTE | 2018-12-11 07:11 | NUR ---
NURSE NOTES: RN received pt in bed. Pt A&O x 1 with multiple scratches on skin - self scratching. Pt restless / agitated. No IV; pt removed. RN to f/u with Dr. Duron. Bed in low, locked position. Call light within reach. Will continue to monitor.
--- NOTE | 2018-12-11 07:17 | NUR ---
NURSE NOTES: HAND-OFF: Report given to GURINDER Correa. Endorse to follow up with . Patient is in bed, resting. Bed is lock at the lowest position. Side rails up x2. Call light is within reach.
--- NOTE | 2018-12-11 07:53 | NUR ---
NURSE NOTES: RN received message from micro; pt positive for VRE rectum. RN sent message to Dr. Cortés. Dr. Cortés replied to contact Dr. Ruzi. RN sent message to Dr. Owusu. Waiting for call back / orders.
[2018-12-11 08:00] VITALS: BP 118/74
--- NOTE | 2018-12-11 09:39 | NUR ---
[employer] REP[employer] SI:MALFUNCTION OF G-TUBE . DEHYDRATION VS: BP 140/70, P 98, T 97.2, RR 18, SpO2 96 IS:LORAZEPAM 1mg IVP CEFTRIAXONE 55ml IVPB NS x1L IV MED/SURG STATUS
--- NOTE | 2018-12-11 10:53 | NUR ---
NURSE NOTES: IV attempted by charge nurse 3 x; pt restless. Seen by Dr. Muller. Morning medication not given. Will re-attempt IV.
[2018-12-11] MEDS ORDERED: LORazepam Inj 2mg/ml 1ml IM PRN (10:56)
--- NOTE | 2018-12-11 11:16 | GI Progress Note ---
Assessment/Plan Problems: (1) Depression ICD Codes: F32.9 - Major depressive disorder, single episode, unspecified SNOMED: 17512157 (2) Anxiety ICD Codes: F41.9 - Anxiety disorder, unspecified SNOMED: 94379461 (3) Dysphagia ICD Codes: R13.10 - Dysphagia, unspecified SNOMED: 98503179, 887400275 (4) Bipolar disorder ICD Codes: F31.9 - Bipolar disorder, unspecified SNOMED: 64343324 (5) Schizophrenia ICD Codes: F20.9 - Schizophrenia, unspecified SNOMED: 16479907 (6) Anemia ICD Codes: D64.9 - Anemia, unspecified SNOMED: 668989914 (7) Malfunction of gastrostomy tube ICD Codes: K94.23 - Gastrostomy malfunction SNOMED: 560375869 (8) Gastrostomy tube dysfunction ICD Codes: K94.23 - Gastrostomy malfunction SNOMED: 810631173 Status: unchanged Status Narrative Discussed with Dr. Tovar Assessment/Plan Need to find next of kin to consent patient for PEG, bilingual social worker ordered We will consider NGT placement for temporary feeding Iron supplementation PRN transfusions PPI We will follow with additional recommendations postprocedure The patient was seen and examined at bedside and all new and available data was reviewed in the patients chart. I agree with the above findings, impression and plan. (Patient seen earlier today. Signature stamp does not reflect patient encounter time.). - Hamzah Tovar MD Subjective Gastrointestinal/Abdominal: Reports: no symptoms Objective Last 24 Hour Vital Signs Date Time Temp Pulse Resp B/P (MAP) Pulse Ox O2 Delivery O2 Flow Rate FiO2 12/11/18 08:00 97.2 85 18 118/74 (89) 96 98 12/11/18 04:00 97.6 98 18 140/70 (93) 99 98 12/11/18 00:50 97.6 83 17 129/69 (89) 96 83 12/10/18 21:00 Room Air 12/10/18 20:00 97.1 95 19 130/79 (96) 97 12/10/18 16:00 97.4 89 16 134/56 (82) 100 12/10/18 11:59 97.7 84 16 143/75 (97) 96 Intake and Output 12/10/18 12/11/18 18:59 06:59 Intake Total 160 ml 400 ml Output Total 350 ml Balance -190 ml 400 ml IV Total 160 ml 400 ml Output Urine Total 350 ml # Bowel Movements 1 1 Height (Feet): 5 Height (Inches): 4.00 Weight (Pounds): 110 General Appearance: WD/WN, no apparent distress, alert, thin Cardiovascular: normal rate Respiratory/Chest: normal breath sounds, no respiratory distress Abdominal Exam: normal bowel sounds, non tender, soft Extremities: non-tender Abhijeet Weston NP Dec 11, 2018 11:16
[2018-12-11 12:00] VITALS: BP_SYST 120; BP_SYST 136; BP_DIAS 72; BP_DIAS 77
--- NOTE | 2018-12-11 12:00 | NUR ---
NURSE NOTES: Chart error: vital signs - 2nd set of vital signs at 1200 correct.
--- NOTE | 2018-12-11 12:37 | Consultation ---
History of Present Illness General Date patient seen: Dec 11, 2018 Chief Complaint: Malfunctioning Gastric Tube Present Illness HPI 68 year old female with hx of extensive psychiatric disorder, DM, dementia, half-way resident brought in with CC of dislodged Gtube. Pt can't provide any history. She looks chronically ill and cachectic. Pt is admitted for potential gtube placement. She was found to have leukocytosis with possible urosepsis and admitted for further work up. Allergies: Coded Allergies: No Known Allergies (Unverified , 05/22/18) Medication History Scheduled Ascorbic Acid* (Vitamin C*), 500 MG GT DAILY, (Reported) Aspirin* (Aspirin*), 325 MG GT DAILY, (Reported) Multivitamin Liquid* (Multi-Delyn*), 5 ML GT DAILY, (Reported) Zinc Sulfate (Zinc Sulfate*), 220 MG GT DAILY, (Reported) Discontinued Medications Acetaminophen* (Acetaminophen 325MG Tablet*), 650 MG ORAL Q4H PRN for Mild Pain/ Temp > 100.5, (Reported) Discontinued Reason: Pt stopped taking med Acetaminophen* (Acetaminophen 325MG Tablet*), 650 MG ORAL Q4H PRN for fever, ( Reported) Discontinued Reason: Pt stopped taking med Amlodipine Besylate* (Amlodipine Besylate*), 10 MG ORAL DAILY, (Reported) Discontinued Reason: Pt stopped taking med Aripiprazole* (Abilify*), 5 MG ORAL BID, (Reported) Discontinued Reason: Pt stopped taking med Aspirin* (Aspirin*), 81 MG ORAL DAILY, (Reported) Discontinued Reason: Pt stopped taking med Atorvastatin Calcium* (Lipitor*), 10 MG ORAL BEDTIME, (Reported) Discontinued Reason: Pt stopped taking med Atorvastatin Calcium* (Atorvastatin Calcium*), 20 MG ORAL BEDTIME, (Reported) Discontinued Reason: Pt stopped taking med Benztropine Mesylate* (Cogentin*), 1 MG HEMO BID, (Reported) Discontinued Reason: Pt stopped taking med Bisacodyl (Bisacodyl), 10 MG RC DAILY PRN for Constipation, (Reported) Discontinued Reason: Pt stopped taking med Cefepime Hcl/D5w (Cefepime-Dextrose 2 Gm/50 Ml), 2 GM IVPB Q24H, (Reported) Discontinued Reason: Pt stopped taking med Cholecalciferol (Vitamin D3)* (Vitamin D*), 2,000 UNITS ORAL DAILY, (Reported) Discontinued Reason: Pt stopped taking med Divalproex Sodium* (Depakote*), 250 MG PO BID, (Reported) Discontinued Reason: Pt stopped taking med Divalproex Sodium* (Depakote*), 1,000 MG PO BEDTIME, (Reported) Discontinued Reason: Pt stopped taking med Docusate Sodium* (Docusate Sodium*), 100 MG ORAL TWICE A DAY, (Reported) Discontinued Reason: Pt stopped taking med Ferrous Sulfate* (Ferrous Sulfate*), 325 MG ORAL DAILY, (Reported) Discontinued Reason: Pt stopped taking med Heparin Sod (Porcine) (Heparin Sodium*), 5,000 UNITS SUBQ EVERY 12 HOURS, ( Reported) Discontinued Reason: Pt stopped taking med Ipratropium/Albuterol Sulfate (DuoNeb 0.5-3(2.5)mg/3ml), 3 ML HHN EVERY 4 HOURS PRN for Shortness of Breath, (Reported) Discontinued Reason: Pt stopped taking med Lactobacillus Acidophilus (Probiotic), 1 EACH PO BID, (Reported) Discontinued Reason: Pt stopped taking med Lorazepam* (Lorazepam*), 1 MG IV Q4H PRN for Agitation, (Reported) Discontinued Reason: Pt stopped taking med Mag Hydrox/Al Hydrox/Simeth* (Advanced Antacid Liquid*), 30 ML ORAL Q4HR PRN for GI UPSET, (Reported) Discontinued Reason: Pt stopped taking med Magnesium Hydroxide* (Milk Of Magnesia*), 30 ML ORAL QHS PRN for Constipation, ( Reported) Discontinued Reason: Pt stopped taking med Metformin Hcl* (Metformin Hcl*), 500 MG ORAL TWICE A DAY, (Reported) Discontinued Reason: Pt stopped taking med Metoprolol Tartrate* (Metoprolol Tartrate*), 25 MG ORAL EVERY 12 HOURS, ( Reported) Discontinued Reason: Pt stopped taking med Morphine Sulfate* (Morphine Sulfate*), 2 MG IVP EVERY 4 HOURS PRN for Moderate Pain (Pain Scale 4-6), (Reported) Discontinued Reason: Pt stopped taking med Nitroglycerin (Nitroglycerin), 0.4 MG SL for chest pain, (Reported) Discontinued Reason: Pt stopped taking med Ondansetron* (Zofran*), 4 MG IV Q6H PRN for Nausea & Vomiting, (Reported) Discontinued Reason: Pt stopped taking med Oxybutynin Chloride (Oxybutynin Chloride), 5 MG ORAL DAILY PRN for BLADDER SPASM , (Reported) Discontinued Reason: Pt stopped taking med Polyethylene Glycol 3350* (Miralax*), 17 GM ORAL DAILY PRN for Constipation, ( Reported) Discontinued Reason: Pt stopped taking med Risperidone* (Risperdal*), 2 MG ORAL BEDTIME, (Reported) Discontinued Reason: Pt stopped taking med Sertraline Hcl* (Sertraline Hcl*), 25 MG ORAL DAILY, (Reported) Discontinued Reason: Pt stopped taking med Valproic Acid (Depakene), 1,000 MG ORAL BEDTIME, (Reported) Discontinued Reason: Pt stopped taking med Patient History Healthcare decision maker Resuscitation status Full Code Advanced Directive on File Past Medical/Surgical History Past Medical/Surgical History: (1) Bipolar disorder (2) Schizophrenia (3) Essential hypertension (4) Diabetes mellitus Review of Systems All Other Systems: negative except mentioned in HPI Physical Exam General Appearance: cachetic Lines, tubes and drains: peripheral HEENT: normocephalic, atraumatic Neck: non-tender, normal alignment Respiratory/Chest: chest wall non-tender, normal breath sounds Breasts: no masses Cardiovascular/Chest: normal rate, no JVD Abdomen: normal bowel sounds Genitourinary/Rectal: normal genital exam Last 24 Hour Vital Signs Date Time Temp Pulse Resp B/P (MAP) Pulse Ox O2 Delivery O2 Flow Rate FiO2 12/11/18 08:00 97.2 85 18 118/74 (89) 96 98 12/11/18 04:00 97.6 98 18 140/70 (93) 99 98 12/11/18 00:50 97.6 83 17 129/69 (89) 96 83 12/10/18 21:00 Room Air 12/10/18 20:00 97.1 95 19 130/79 (96) 97 12/10/18 16:00 97.4 89 16 134/56 (82) 100 Intake and Output 12/10/18 12/11/18 18:59 06:59 Intake Total 160 ml 400 ml Output Total 350 ml Balance -190 ml 400 ml IV Total 160 ml 400 ml Output Urine Total 350 ml # Bowel Movements 1 1 Height (Feet): 5 Height (Inches): 4.00 Weight (Pounds): 110 Medications Current Medications Medications (Trade) Dose Ordered Sig/Analilia Route PRN Reason Start Time Stop Time Status Last Admin Dose Admin Ceftriaxone Sodium 1 gm/ Dextrose 55 ml @ 110 mls/hr DAILY IVPB 12/10/18 13:30 12/17/18 13:29 12/10/18 13:48 Dextrose (Dextrose 50%) 25 ml Q30M PRN IV Hypoglycemia 12/09/18 19:45 01/08/19 19:44 Dextrose (Dextrose 50%) 50 ml Q30M PRN IV Hypoglycemia 12/09/18 19:45 01/08/19 19:44 Haloperidol Lactate (Haldol) 5 mg Q6H PRN IM Agitation 12/11/18 11:30 01/10/19 11:29 Lorazepam (Ativan 2mg/ml 1ml) 2 mg Q6H PRN IM For Anxiety 12/11/18 10:56 12/18/18 10:55 12/11/18 11:25 Risperidone (RisperDAL) 1 mg Q8HR ORAL 12/11/18 14:00 01/10/19 13:59 Sodium Chloride 1,000 ml @ 50 mls/hr Q20H IV 12/09/18 18:00 01/08/19 17:59 12/10/18 14:14 Assessment/Plan Problem List: (1) Sepsis ICD Codes: A41.9 - Sepsis, unspecified organism SNOMED: 89414598 (2) At high risk for aspiration ICD Codes: Z91.89 - Other specified personal risk factors, not elsewhere classified SNOMED: 743023131 (3) Severe protein-calorie malnutrition ICD Codes: E43 - Unspecified severe protein-calorie malnutrition SNOMED: 275447732, 101333378, 133530377 (4) Diabetes mellitus ICD Codes: E11.9 - Type 2 diabetes mellitus without complications SNOMED: 90903948 (5) Essential hypertension ICD Codes: I10 - Essential (primary) hypertension SNOMED: 46756650 (6) Schizophrenia ICD Codes: F20.9 - Schizophrenia, unspecified SNOMED: 12046519 (7) Bipolar disorder ICD Codes: F31.9 - Bipolar disorder, unspecified SNOMED: 13445345 Diagnosis [place] I: NPO swallow evaluation iv fluids iv abx check cultures aspiration precaution dvt prophylaxis sliding scale with insulin coverage. Jaimie Delacruz MD Dec 11, 2018 12:37
--- NOTE | 2018-12-11 12:42 | Psych Consult Progress Note ---
Psychiatry Progress Note Psychiatry Progress Note Medications Current Medications Medications (Trade) Dose Ordered Sig/Analilia Route PRN Reason Start Time Stop Time Status Last Admin Dose Admin Ceftriaxone Sodium 1 gm/ Dextrose 55 ml @ 110 mls/hr DAILY IVPB 12/10/18 13:30 12/17/18 13:29 12/10/18 13:48 Dextrose (Dextrose 50%) 25 ml Q30M PRN IV Hypoglycemia 12/09/18 19:45 01/08/19 19:44 Dextrose (Dextrose 50%) 50 ml Q30M PRN IV Hypoglycemia 12/09/18 19:45 01/08/19 19:44 Haloperidol Lactate (Haldol) 5 mg Q6H PRN IM Agitation 12/11/18 11:30 01/10/19 11:29 Lorazepam (Ativan 2mg/ml 1ml) 2 mg Q6H PRN IM For Anxiety 12/11/18 10:56 12/18/18 10:55 12/11/18 11:25 Risperidone (RisperDAL) 1 mg Q8HR ORAL 12/11/18 14:00 01/10/19 13:59 Sodium Chloride 1,000 ml @ 50 mls/hr Q20H IV 12/09/18 18:00 01/08/19 17:59 12/10/18 14:14 Problems: (1) Schizoaffective disorder, bipolar type Neurological/Psychiatric: Reports: anxiety, emotional problems Allergies: Coded Allergies: No Known Allergies (Unverified , 05/22/18) Objective Data Height (Feet): 5 Height (Inches): 4.00 Weight (Pounds): 110 General Appearance: alert, confused, severe distress, agitated, combative, thin Appearance: disheveled Mental Status Exam - Affect: labile Mental Status Exam - Mood: agitated Mental Status Exam - Thought P: confusion, disorganized, loose association Mental Status Exam - Suicidal: not present Assessment/Plan Problem List: (1) Schizoaffective disorder, bipolar type ICD Codes: F25.0 - Schizoaffective disorder, bipolar type SNOMED: 16416919 Status: not improved Plan: risperdal 1mg po tid ativan Im cont restraints. Urvashi Duron MD Dec 11, 2018 12:42
--- NOTE | 2018-12-11 12:47 | Nephrology Progress Note ---
Assessment/Plan Problem List: (1) Hyponatremia (2) Anemia (3) Schizoaffective disorder, bipolar type (4) Severe protein-calorie malnutrition Assessment: low BMI Assessment HypoNatremia : etilogy?? corrected Anemia Dehydration Plan Plan: Slow hydrate Anemia lewis Urine studies Monitor lytes Subjective ROS Limited/Unobtainable: Yes Constitutional: Reports: malaise, weakness Objective Objective Last 24 Hour Vital Signs Date Time Temp Pulse Resp B/P (MAP) Pulse Ox O2 Delivery O2 Flow Rate FiO2 12/11/18 08:00 97.2 85 18 118/74 (89) 96 98 12/11/18 04:00 97.6 98 18 140/70 (93) 99 98 12/11/18 00:50 97.6 83 17 129/69 (89) 96 83 12/10/18 21:00 Room Air 12/10/18 20:00 97.1 95 19 130/79 (96) 97 12/10/18 16:00 97.4 89 16 134/56 (82) 100 Intake and Output 12/10/18 12/11/18 18:59 06:59 Intake Total 160 ml 400 ml Output Total 350 ml Balance -190 ml 400 ml IV Total 160 ml 400 ml Output Urine Total 350 ml # Bowel Movements 1 1 Height (Feet): 5 Height (Inches): 4.00 Weight (Pounds): 110 General Appearance: no apparent distress, agitated Neck: limited range of motion Cardiovascular: tachycardia Respiratory/Chest: decreased breath sounds Abdomen: distended Neurologic: other - stiffness Herrera Hogan MD Dec 11, 2018 12:47
--- NOTE | 2018-12-11 13:07 | NUR ---
NURSE NOTES: RN unable to get IV in pt. Multiple attempts. RN left message for Dr. Owusu. Awaiting call back / orders.
--- NOTE | 2018-12-11 13:31 | Infectious Diseases Prog Note ---
Assessment/Plan Assessment/Plan IMPRESSION: Pyuria, urinary tract infection. leukocytosis, dislodgement of the G-tube, diabetes, hypertension, dementia, hyperlipidemia, cachexia. VRE carrier RECOMMENDATION: Continue Rocephin. Will f/u urine cul;ture waiting for consent from next of kin to replace G-tube. Subjective ROS Limited/Unobtainable: Yes Neurologic: Reports: confusion, other - on restraint Allergies: Coded Allergies: No Known Allergies (Unverified , 05/22/18) Objective Vital Signs Last 24 Hour Vital Signs Date Time Temp Pulse Resp B/P (MAP) Pulse Ox O2 Delivery O2 Flow Rate FiO2 12/11/18 08:00 97.2 85 18 118/74 (89) 96 98 12/11/18 04:00 97.6 98 18 140/70 (93) 99 98 12/11/18 00:50 97.6 83 17 129/69 (89) 96 83 12/10/18 21:00 Room Air 12/10/18 20:00 97.1 95 19 130/79 (96) 97 12/10/18 16:00 97.4 89 16 134/56 (82) 100 Height (Feet): 5 Height (Inches): 4.00 Weight (Pounds): 110 General Appearance: cachetic HEENT: mucous membranes moist Respiratory/Chest: lungs clear Cardiovascular: normal rate Abdomen: soft, non tender Extremities: no edema Neurologic/Psychiatric: disoriented Musculoskeletal: atrophy Microbiology Date/Time Source Procedure Growth Status 12/09/18 10:00 Nasal Nares MRSA Culture - Final NO METHICILLIN RESISTANT STAPH AUREUS... Complete 12/10/18 00:15 Urine,Clean Catch Urine Culture - Preliminary Gram Negative Rolando Resulted 12/09/18 10:00 Rectum VRE Culture - Final Enterococcus Faecium - Vre Complete 12/09/18 10:00 Rectum Received Current Medications Medications (Trade) Dose Ordered Sig/Analilia Route PRN Reason Start Time Stop Time Status Last Admin Dose Admin Ceftriaxone Sodium 1 gm/ Dextrose 55 ml @ 110 mls/hr DAILY IVPB 12/10/18 13:30 12/17/18 13:29 12/10/18 13:48 Dextrose (Dextrose 50%) 25 ml Q30M PRN IV Hypoglycemia 12/09/18 19:45 01/08/19 19:44 Dextrose (Dextrose 50%) 50 ml Q30M PRN IV Hypoglycemia 12/09/18 19:45 01/08/19 19:44 Haloperidol Lactate (Haldol) 5 mg Q6H PRN IM Agitation 12/11/18 11:30 01/10/19 11:29 Lorazepam (Ativan 2mg/ml 1ml) 2 mg Q6H PRN IM For Anxiety 12/11/18 10:56 12/18/18 10:55 12/11/18 11:25 Risperidone (RisperDAL) 1 mg Q8HR ORAL 12/11/18 14:00 01/10/19 13:59 Sodium Chloride 1,000 ml @ 50 mls/hr Q20H IV 12/09/18 18:00 01/08/19 17:59 12/10/18 14:14 Madhav Doty MD Dec 11, 2018 13:31
--- NOTE | 2018-12-11 14:01 | NUR ---
RD ASSESSMENT & RECOMMENDATIONS SEE CARE ACTIVITY FOR COMPLETE ASSESSMENT DAILY ESTIMATED NEEDS: Needs based on DM, cardia, underweight / 49kg abw 30-35 kcals/kg 6643-8699 total kcals 1-1.3 g protein/kg 49-64 g total protein 25-30 mL/kg 1585-2984 total fluid mLs NUTRITION DIAGNOSIS: Swallowing difficulty R/T dysphagia as evidenced by pt is PEG dep, NPO at this time for dislodged TF, pending ELECTRICAL LINE SPLICER eval and NGT insertion until consent is signed for GT replacement. CURRENT TF: NPO PO DIET RECOMMENDATIONS: IF SAFE FOR PO -> CCHO MED/texture per ELECTRICAL LINE SPLICER ENTERAL NUTRITION RECOMMENDATIONS: Glucerna 1.2 @ 55ml/hr x 24 hrs to provide 1320ml, 1584kcal, 79g prot, 1063ml free water * W/ GI access, rec Glucerna 1.2 @ 15ml/hr x 6hrs * Advance 10ml q 4-6 hrs as tolerated to goal rate * HOB over 30 degrees/ water flush per MD ADDITIONAL RECOMMENDATIONS: * Calibrated bedscale wt for accurate CBW * Monitor BGs closely, need for hypoglycemic agent -> no coverage at this time, NPO * Monitor lytes, replete as needed * F/up w/ ELECTRICAL LINE SPLICER, need to adjust TF rec w/ oral feeds
[2018-12-11] MEDS: Haloperidol 5mg/ml Inj IM PRN (14:34)
--- NOTE | 2018-12-11 15:01 | Consultation ---
History of Present Illness General Date patient seen: Dec 11, 2018 Chief Complaint: Malfunctioning Gastric Tube Reason for Consultation: venous access Present Illness HPI 68F currently admitted for malfunctioning feeding tube and dehydration. Patient unable to participate in exam and not cooperative. very difficult peripheral venous access and unable to obtain for fluids and meds for patient by multiple staff. surgery called to assist with venous access. patient seen, chart reviewed, patient examined. she is awake and says few words. she is not combative. does move around a lot. tries to remove clothing and anything on her. Allergies: Coded Allergies: No Known Allergies (Unverified , 05/22/18) Medication History Scheduled Ascorbic Acid* (Vitamin C*), 500 MG GT DAILY, (Reported) Aspirin* (Aspirin*), 325 MG GT DAILY, (Reported) Multivitamin Liquid* (Multi-Delyn*), 5 ML GT DAILY, (Reported) Zinc Sulfate (Zinc Sulfate*), 220 MG GT DAILY, (Reported) Discontinued Medications Acetaminophen* (Acetaminophen 325MG Tablet*), 650 MG ORAL Q4H PRN for Mild Pain/ Temp > 100.5, (Reported) Discontinued Reason: Pt stopped taking med Acetaminophen* (Acetaminophen 325MG Tablet*), 650 MG ORAL Q4H PRN for fever, ( Reported) Discontinued Reason: Pt stopped taking med Amlodipine Besylate* (Amlodipine Besylate*), 10 MG ORAL DAILY, (Reported) Discontinued Reason: Pt stopped taking med Aripiprazole* (Abilify*), 5 MG ORAL BID, (Reported) Discontinued Reason: Pt stopped taking med Aspirin* (Aspirin*), 81 MG ORAL DAILY, (Reported) Discontinued Reason: Pt stopped taking med Atorvastatin Calcium* (Lipitor*), 10 MG ORAL BEDTIME, (Reported) Discontinued Reason: Pt stopped taking med Atorvastatin Calcium* (Atorvastatin Calcium*), 20 MG ORAL BEDTIME, (Reported) Discontinued Reason: Pt stopped taking med Benztropine Mesylate* (Cogentin*), 1 MG HEMO BID, (Reported) Discontinued Reason: Pt stopped taking med Bisacodyl (Bisacodyl), 10 MG RC DAILY PRN for Constipation, (Reported) Discontinued Reason: Pt stopped taking med Cefepime Hcl/D5w (Cefepime-Dextrose 2 Gm/50 Ml), 2 GM IVPB Q24H, (Reported) Discontinued Reason: Pt stopped taking med Cholecalciferol (Vitamin D3)* (Vitamin D*), 2,000 UNITS ORAL DAILY, (Reported) Discontinued Reason: Pt stopped taking med Divalproex Sodium* (Depakote*), 250 MG PO BID, (Reported) Discontinued Reason: Pt stopped taking med Divalproex Sodium* (Depakote*), 1,000 MG PO BEDTIME, (Reported) Discontinued Reason: Pt stopped taking med Docusate Sodium* (Docusate Sodium*), 100 MG ORAL TWICE A DAY, (Reported) Discontinued Reason: Pt stopped taking med Ferrous Sulfate* (Ferrous Sulfate*), 325 MG ORAL DAILY, (Reported) Discontinued Reason: Pt stopped taking med Heparin Sod (Porcine) (Heparin Sodium*), 5,000 UNITS SUBQ EVERY 12 HOURS, ( Reported) Discontinued Reason: Pt stopped taking med Ipratropium/Albuterol Sulfate (DuoNeb 0.5-3(2.5)mg/3ml), 3 ML HHN EVERY 4 HOURS PRN for Shortness of Breath, (Reported) Discontinued Reason: Pt stopped taking med Lactobacillus Acidophilus (Probiotic), 1 EACH PO BID, (Reported) Discontinued Reason: Pt stopped taking med Lorazepam* (Lorazepam*), 1 MG IV Q4H PRN for Agitation, (Reported) Discontinued Reason: Pt stopped taking med Mag Hydrox/Al Hydrox/Simeth* (Advanced Antacid Liquid*), 30 ML ORAL Q4HR PRN for GI UPSET, (Reported) Discontinued Reason: Pt stopped taking med Magnesium Hydroxide* (Milk Of Magnesia*), 30 ML ORAL QHS PRN for Constipation, ( Reported) Discontinued Reason: Pt stopped taking med Metformin Hcl* (Metformin Hcl*), 500 MG ORAL TWICE A DAY, (Reported) Discontinued Reason: Pt stopped taking med Metoprolol Tartrate* (Metoprolol Tartrate*), 25 MG ORAL EVERY 12 HOURS, ( Reported) Discontinued Reason: Pt stopped taking med Morphine Sulfate* (Morphine Sulfate*), 2 MG IVP EVERY 4 HOURS PRN for Moderate Pain (Pain Scale 4-6), (Reported) Discontinued Reason: Pt stopped taking med Nitroglycerin (Nitroglycerin), 0.4 MG SL for chest pain, (Reported) Discontinued Reason: Pt stopped taking med Ondansetron* (Zofran*), 4 MG IV Q6H PRN for Nausea & Vomiting, (Reported) Discontinued Reason: Pt stopped taking med Oxybutynin Chloride (Oxybutynin Chloride), 5 MG ORAL DAILY PRN for BLADDER SPASM , (Reported) Discontinued Reason: Pt stopped taking med Polyethylene Glycol 3350* (Miralax*), 17 GM ORAL DAILY PRN for Constipation, ( Reported) Discontinued Reason: Pt stopped taking med Risperidone* (Risperdal*), 2 MG ORAL BEDTIME, (Reported) Discontinued Reason: Pt stopped taking med Sertraline Hcl* (Sertraline Hcl*), 25 MG ORAL DAILY, (Reported) Discontinued Reason: Pt stopped taking med Valproic Acid (Depakene), 1,000 MG ORAL BEDTIME, (Reported) Discontinued Reason: Pt stopped taking med Patient History Limited by: medical condition History Provided By: Medical Record, PMD Healthcare decision maker Resuscitation status Full Code Advanced Directive on File Past Medical/Surgical History Past Medical/Surgical History: (1) Severe protein-calorie malnutrition (2) At high risk for aspiration (3) Schizoaffective disorder, bipolar type (4) Sepsis (5) Diabetes mellitus (6) Essential hypertension (7) Anemia (8) Schizophrenia (9) Bipolar disorder (10) Hyponatremia Review of Systems ROS Narrative cannot obtain given medical condition Physical Exam General Appearance: no apparent distress Lines, tubes and drains: other HEENT: normocephalic, atraumatic Neck: normal inspection Respiratory/Chest: normal breath sounds, no respiratory distress, no accessory muscle use Cardiovascular/Chest: regular rhythm Abdomen: soft, no organomegaly, no mass, other Extremities: normal inspection, no calf tenderness Skin Exam: warm/dry Neurologic: alert Last 24 Hour Vital Signs Date Time Temp Pulse Resp B/P (MAP) Pulse Ox O2 Delivery O2 Flow Rate FiO2 12/11/18 08:00 97.2 85 18 118/74 (89) 96 98 12/11/18 04:00 97.6 98 18 140/70 (93) 99 98 12/11/18 00:50 97.6 83 17 129/69 (89) 96 83 12/10/18 21:00 Room Air 12/10/18 20:00 97.1 95 19 130/79 (96) 97 12/10/18 16:00 97.4 89 16 134/56 (82) 100 Intake and Output 12/10/18 12/11/18 19:00 07:00 Intake Total 210 ml 350 ml Output Total 350 ml Balance -140 ml 350 ml IV Total 210 ml 350 ml Output Urine Total 350 ml # Bowel Movements 1 1 Height (Feet): 5 Height (Inches): 4.00 Weight (Pounds): 110 Medications Current Medications Medications (Trade) Dose Ordered Sig/Analilia Route PRN Reason Start Time Stop Time Status Last Admin Dose Admin Ceftriaxone Sodium 1 gm/ Dextrose 55 ml @ 110 mls/hr DAILY IVPB 12/10/18 13:30 12/17/18 13:29 12/10/18 13:48 Dextrose (Dextrose 50%) 25 ml Q30M PRN IV Hypoglycemia 12/09/18 19:45 01/08/19 19:44 Dextrose (Dextrose 50%) 50 ml Q30M PRN IV Hypoglycemia 12/09/18 19:45 01/08/19 19:44 Haloperidol Lactate (Haldol) 5 mg Q6H PRN IM Agitation 12/11/18 11:30 01/10/19 11:29 12/11/18 14:34 Lorazepam (Ativan 2mg/ml 1ml) 2 mg Q6H PRN IM For Anxiety 12/11/18 10:56 12/18/18 10:55 12/11/18 11:25 Risperidone (RisperDAL) 1 mg Q8HR ORAL 12/11/18 14:00 01/10/19 13:59 Sodium Chloride 1,000 ml @ 50 mls/hr Q20H IV 12/09/18 18:00 01/08/19 17:59 12/10/18 14:14 Assessment/Plan Problem List: (1) Severe protein-calorie malnutrition Assessment & Plan: needs venous access for meds and fluids very dehydrated. no feeding tube access currently cannot obtain peripheral line using ultrasound guidance a right IJ small 20g catheter placed for temporary venous access medically necessary given patients condition and lack of enteral or venous access. will plan for tube change then can remove catheter does not need central line at this time as only IV fluids and meds being given through line. thank you will follow with recs ICD Codes: E43 - Unspecified severe protein-calorie malnutrition SNOMED: 938623650, 925429302, 889604318 (2) At high risk for aspiration ICD Codes: Z91.89 - Other specified personal risk factors, not elsewhere classified SNOMED: 292151282 (3) Schizoaffective disorder, bipolar type ICD Codes: F25.0 - Schizoaffective disorder, bipolar type SNOMED: 27273397 (4) Sepsis ICD Codes: A41.9 - Sepsis, unspecified organism SNOMED: 16141180 (5) Diabetes mellitus ICD Codes: E11.9 - Type 2 diabetes mellitus without complications SNOMED: 71794198 (6) Essential hypertension ICD Codes: I10 - Essential (primary) hypertension SNOMED: 51910056 (7) Anemia ICD Codes: D64.9 - Anemia, unspecified SNOMED: 124934559 (8) Schizophrenia ICD Codes: F20.9 - Schizophrenia, unspecified SNOMED: 94528667 (9) Bipolar disorder ICD Codes: F31.9 - Bipolar disorder, unspecified SNOMED: 72254677 (10) Hyponatremia ICD Codes: E87.1 - Hypo-osmolality and hyponatremia SNOMED: 76739820 Wili Leger Dec 11, 2018 15:01
--- NOTE | 2018-12-11 15:16 | NUR ---
CHARGE NURSE NOTES: OBTAINED ORDER FROM DR. Kuldip SAMAYOA FOR IJ LINE INSERTION FOR ATB THERAPY. NOTED 1400 IJ LINE INSERTED BY DR. FALCON. INTACT. RESTRAINTS SECURED. AT THIS TIME .RESTLESS. AGITATED. 1530 PATIENT PULLED OUT IJ LINE. MADE AWARE. FF UP WITH MOTOR COACH DRIVERMGR PADRON REGARDING LOCATION OF FAMILY . PER HER, WILL CALL SNF TO VERIFY.
[2018-12-11 16:00] VITALS: BP 120/77
[2018-12-11] MEDS: cefTRIAXone 1 GM in D5W 55 ML IVPB SCH (16:08)
--- NOTE | 2018-12-11 16:39 | NUR ---
CHARGE NURSE NOTES: FF UP WITH DR. GUERRA REGARDING PEG PLACEMENT. PER MD, FF UP CONSENT/LOCATE FAMILY WITH SOC SVS. SPOKE WITH NEREIDA, PER HER, ON THE PROCESS OF LOCATING.
--- NOTE | 2018-12-11 17:21 | NUR ---
NURSE NOTES: Pt confused, agitated, restless. Observed removing IV, scratching at skin, kicking / hitting staff. Pt NPO x 2 days pending consent for g-tube placement. Case management to locate family. Charge nurse and TAX DIRECTOR Rudy made aware.
--- NOTE | 2018-12-11 18:26 | NUR ---
NURSE NOTES: RN left message for STITCH BONDING MACHINE TENDER HELPER Rudy re swallow eval. Recommended for a video swallow eval based on hx of dysphagia / pneumonia.
--- NOTE | 2018-12-11 19:05 | NUR ---
HAND-OFF: Report given to GURINDER Mo and GURINDER Becerra.
[2018-12-11 20:00] VITALS: BP 139/81
--- NOTE | 2018-12-11 20:00 | NUR ---
NURSE NOTES: Received patient from GURINDER Lacey. Patient is in bed, with bilateral wrist restraints. Pulses present and no signs of discoloration of the wrists from restraints. Patient is on room air, no s/s of pain Addendum: 12/12/18 at 0721 by Mariam Rojas RN Lacerations noted on patient's chest and shoulders and wrists. Patient has a stoma on the lower left abdomen, closed, open to air. Patient has a patent right upper arm 24g IV access. Bed is locked at lowest position, side rails up x2, call light is within reach. Will continue to monitor.
--- NOTE | 2018-12-11 22:13 | NUR ---
NURSE NOTES: Patient is combative and uncooperative. Hold NG tube insertion per Rudy Weston ALUMINUM SHINGLE ROOFER.
--- NOTE | 2018-12-11 23:26 | General Progress Note ---
Assessment/Plan Problem List: (1) Severe protein-calorie malnutrition ICD Codes: E43 - Unspecified severe protein-calorie malnutrition SNOMED: 203502209, 398563137, 833193111 (2) Schizoaffective disorder, bipolar type ICD Codes: F25.0 - Schizoaffective disorder, bipolar type SNOMED: 03290760 (3) Diabetes mellitus ICD Codes: E11.9 - Type 2 diabetes mellitus without complications SNOMED: 34422457 (4) Sepsis ICD Codes: A41.9 - Sepsis, unspecified organism SNOMED: 25252167 (5) Essential hypertension ICD Codes: I10 - Essential (primary) hypertension SNOMED: 97887249 (6) Anemia ICD Codes: D64.9 - Anemia, unspecified SNOMED: 306060312 (7) Schizophrenia ICD Codes: F20.9 - Schizophrenia, unspecified SNOMED: 17370021 (8) Bipolar disorder ICD Codes: F31.9 - Bipolar disorder, unspecified SNOMED: 54780351 (9) Hyponatremia ICD Codes: E87.1 - Hypo-osmolality and hyponatremia SNOMED: 76599331 Status: progressing Assessment: reviewed chart and labs afebrile psych pt abx per id reviewd chart and labs and meds no acute events Subjective ROS Limited/Unobtainable: Yes Allergies: Coded Allergies: No Known Allergies (Unverified , 05/22/18) Objective Last 24 Hour Vital Signs Date Time Temp Pulse Resp B/P (MAP) Pulse Ox O2 Delivery O2 Flow Rate FiO2 12/11/18 20:00 97.5 74 19 139/81 (100) 92 74 12/11/18 16:00 97.3 78 20 120/77 (91) 100 98 12/11/18 12:00 97.5 83 20 136/72 (93) 100 98 12/11/18 12:00 97.3 78 20 120/77 (91) 100 98 12/11/18 09:00 Room Air 12/11/18 08:00 97.2 85 18 118/74 (89) 96 98 12/11/18 04:00 97.6 98 18 140/70 (93) 99 98 12/11/18 00:50 97.6 83 17 129/69 (89) 96 83 Intake and Output 12/10/18 12/11/18 19:00 07:00 Intake Total 210 ml 350 ml Output Total 350 ml Balance -140 ml 350 ml IV Total 210 ml 350 ml Output Urine Total 350 ml # Bowel Movements 1 1 Height (Feet): 5 Height (Inches): 4.00 Weight (Pounds): 110 Neck: supple Cardiovascular: normal rate Respiratory/Chest: lungs clear Abdomen: soft Pita Owusu MD Dec 11, 2018 23:26
[2018-12-12] MEDS: D5NS 1,000 ML IV SCH ×2 (00:36→12:54)
[2018-12-12 00:55] VITALS: BP_SYST 105; BP_SYST 169; BP_DIAS 50; BP_DIAS 96
[2018-12-12 04:42] VITALS: BP 124/65
--- NOTE | 2018-12-12 07:30 | NUR ---
HAND-OFF: Report given to MANSI SAINI RN.
--- NOTE | 2018-12-12 07:50 | NUR ---
NURSE NOTES: Patient asleep, on room air, no sign of shortness of breath, no sign of distress; no sign of chest pain; ecchymosis on upper extremities; soft wrist restrain of both hands; IV Right upper arm, fluid is running at 75cc; bed at lowest position, side rails up x2, breaks engaged. will keep monitoring.
[2018-12-12 08:00] VITALS: BP 127/77
[2018-12-12] MEDS: cefTRIAXone 1 GM in D5W 55 ML IVPB SCH (09:50)
--- NOTE | 2018-12-12 10:46 | NUR ---
NURSE NOTES: Patent had vaginal bleeding, MD Cortés notified.
--- NOTE | 2018-12-12 10:48 | GI Progress Note ---
Assessment/Plan Problems: (1) Bipolar disorder ICD Codes: F31.9 - Bipolar disorder, unspecified SNOMED: 64809771 (2) Schizophrenia ICD Codes: F20.9 - Schizophrenia, unspecified SNOMED: 96443345 (3) Anemia ICD Codes: D64.9 - Anemia, unspecified SNOMED: 007845307 Status: unchanged Status Narrative Discussed with Dr. Tovar. Assessment/Plan social media developer note reviewed, PEG to be scheduled tomorrow. - NPO @ ID - IVFs - hold all blood thinners tonight. unable to place NGT due to patient agitation, will reattempt today NGTFs per RD Iron supplementation PRN transfusions PPI We will follow with additional recommendations postprocedure The patient was seen and examined at bedside and all new and available data was reviewed in the patients chart. I agree with the above findings, impression and plan. (Patient seen earlier today. Signature stamp does not reflect patient encounter time.). - Hamzah Tovar MD Subjective Subjective limited Objective Last 24 Hour Vital Signs Date Time Temp Pulse Resp B/P (MAP) Pulse Ox O2 Delivery O2 Flow Rate FiO2 12/12/18 09:00 Room Air 12/12/18 08:00 98.0 93 14 127/77 (94) 100 12/12/18 04:42 97.8 92 18 124/65 (84) 97 12/12/18 00:55 97.6 69 16 105/50 (68) 98 12/11/18 21:00 Room Air 12/11/18 20:00 97.5 74 19 139/81 (100) 92 74 12/11/18 16:00 97.3 78 20 120/77 (91) 100 98 12/11/18 12:00 97.5 83 20 136/72 (93) 100 98 12/11/18 12:00 97.3 78 20 120/77 (91) 100 98 Intake and Output 12/11/18 12/12/18 19:00 07:00 Intake Total 450 ml Balance 450 ml IV Total 450 ml # Voids 3 2 # Bowel Movements 5 1 Height (Feet): 5 Height (Inches): 4.00 Weight (Pounds): 110 General Appearance: no apparent distress, thin Cardiovascular: normal rate Respiratory/Chest: normal breath sounds, no respiratory distress Abdominal Exam: normal bowel sounds, non tender, soft Extremities: non-tender Abhijeet Weston NP Dec 12, 2018 10:48
--- NOTE | 2018-12-12 11:03 | NUR ---
Social Service Note Patient requires a G-tube replacement and is non-represented. JUDY discussed with bioethics career services officer Dr. Gates and Dr. Mcdermott. Bioethics meeting is not required. to document necessity, risks and benefits, then proceed with g-tube replacement. Charge nurse notified. Patient is a detention custodial resident. Previous stay at [facility] and currently at [facility]. No next of kin indicated in either facility. Patient with a history of schizophrenia. JUDY contacted the [facility] [phone] who states case was rejected 03/2017 due to patient's needs being met at a facility and that patient would require [facility] paperwork and not a Probate referral. Will continue to be available as needed.
--- NOTE | 2018-12-12 11:20 | NUR ---
NURSE NOTES: Notified MAGNO Grant reg the Windows Support Engineer's note about the bioethic discussion and possible need for the Gtube placement. L/M
--- NOTE | 2018-12-12 11:45 | NUR ---
RECORDS OFFICERCHLORINATOR SI; DEHYDRATION,MALFUNCTION GT T. 98.0 HR 93 RR 14 B/P 124/65 RA 98% IS; IVF D5NS @ 75ML/HR CEFTRIAXONE IV RISPERDAL PO MED/SURG STATUS
[2018-12-12 12:00] VITALS: BP 128/59
--- NOTE | 2018-12-12 12:30 | Infectious Diseases Prog Note ---
Assessment/Plan Assessment/Plan IMPRESSION: Pseudomonas urinary tract infection. leukocytosis, dislodgement of the G-tube, diabetes, hypertension, dementia, hyperlipidemia, cachexia. VRE carrier RECOMMENDATION: Change Rocephin to Cefepime f/u CBC Subjective ROS Limited/Unobtainable: Yes Neurologic: Reports: confusion, other - on restraint Allergies: Coded Allergies: No Known Allergies (Unverified , 05/22/18) Objective Vital Signs Last 24 Hour Vital Signs Date Time Temp Pulse Resp B/P (MAP) Pulse Ox O2 Delivery O2 Flow Rate FiO2 12/12/18 09:00 Room Air 12/12/18 08:00 98.0 93 14 127/77 (94) 100 12/12/18 04:42 97.8 92 18 124/65 (84) 97 12/12/18 00:55 97.6 69 16 105/50 (68) 98 12/11/18 21:00 Room Air 12/11/18 20:00 97.5 74 19 139/81 (100) 92 74 12/11/18 16:00 97.3 78 20 120/77 (91) 100 98 Height (Feet): 5 Height (Inches): 4.00 Weight (Pounds): 110 General Appearance: no acute distress HEENT: mucous membranes moist Respiratory/Chest: lungs clear Cardiovascular: normal rate Abdomen: soft, non tender Extremities: no edema Skin: other - multiple small bruises Neurologic/Psychiatric: other - sleeping Microbiology Date/Time Source Procedure Growth Status 12/10/18 00:15 Urine,Clean Catch Urine Culture - Final Pseudomonas Aeruginosa Staphylococcus Sp Coag Neg Complete Current Medications Medications (Trade) Dose Ordered Sig/Analilia Route PRN Reason Start Time Stop Time Status Last Admin Dose Admin Ceftriaxone Sodium 1 gm/ Dextrose 55 ml @ 110 mls/hr DAILY IVPB 12/10/18 13:30 12/17/18 13:29 12/12/18 09:50 Dextrose (Dextrose 50%) 25 ml Q30M PRN IV Hypoglycemia 12/09/18 19:45 01/08/19 19:44 Dextrose (Dextrose 50%) 50 ml Q30M PRN IV Hypoglycemia 12/09/18 19:45 01/08/19 19:44 Dextrose/Sodium Chloride 1,000 ml @ 75 mls/hr [id number] IV 12/11/18 22:30 01/10/19 22:29 12/12/18 00:36 Haloperidol Lactate (Haldol) 5 mg Q6H PRN IM Agitation 12/11/18 11:30 01/10/19 11:29 12/11/18 14:34 Lorazepam (Ativan 2mg/ml 1ml) 2 mg Q6H PRN IM For Anxiety 12/11/18 10:56 12/18/18 10:55 12/11/18 11:25 Risperidone (RisperDAL) 1 mg Q8HR ORAL 12/11/18 14:00 01/10/19 13:59 Madhav Doty MD Dec 12, 2018 12:30
--- NOTE | 2018-12-12 13:09 | NUR ---
SWALLOW/SPEECH THERAPY NOTE: SWALLOW STATUS AND SWALLOW SCREEN W/O PO INTAKE: PATIENT REFERRED FOR SWALLOW EVAL BY SABAS BRINK HAND HOSE CUTTER YESTERDAY. PATIENT NOT ALERT AT THAT TIME AND AT THIS TIME. DYSPHAGIA RISK FACTORS FOR THIS 68 Y.O.F.: ACUTE DEHYDRATION AND PULLED OUT GT, AND NOT ALERT FOR PO TRIALS NOR MOD BARIUMS SWALLOW STUDY. LUNGS ARE CLEAR NOT. H/O DYSPHAGIA NO PO INTAKE ? TIME, SCHIZOPHRENIA, BIPOLAR D/O, PNA, GERD, AND RESP D/O. PER RN, PATIENT TO HAVE PEG REPLACED SOON. WILL HAVE NGT PRIOR TO PEG IF INDICATED (SMALL BORE NGT RECOMMENDED). PLAN: WILL COMPLETE FORMAL SWALLOW EVAL ( IP OR AT SNF) AND/OR MODIFIED BARIUM SWALLOW STUDY ( IP OR OP) AND AFTER PLACEMENT OF PEG. CONTINUE WITH ORAL CARE D/W GURINDER GONZALEZ AND GREY LEFT MESSAGE WITH SABAS
--- NOTE | 2018-12-12 13:11 | Diagnostic Imaging Report ---
APPROVED REPORT CPT Code: 37332 Present Symptoms Comments: AMS BILATERAL: Imaging reveals a patent deep venous system bilaterally. There is no evidence of thrombus within the common femoral, superficial femoral, popliteal or tibial segments. The greater saphenous veins are within normal limits. Doppler indicates normal spontaneous flow within these segments.
--- NOTE | 2018-12-12 13:36 | Pulmonology Progress Note ---
Assessment/Plan Problems: (1) Sepsis (2) At high risk for aspiration (3) Severe protein-calorie malnutrition (4) Diabetes mellitus (5) Essential hypertension (6) Schizophrenia (7) Bipolar disorder Assessment/Plan improving continue abx check cultures sliding scale might need Gtube Subjective ROS Limited/Unobtainable: No Constitutional: Reports: no symptoms HEENT: Repors: no symptoms Allergies: Coded Allergies: No Known Allergies (Unverified , 05/22/18) Objective Last 24 Hour Vital Signs Date Time Temp Pulse Resp B/P (MAP) Pulse Ox O2 Delivery O2 Flow Rate FiO2 12/12/18 12:00 97.1 92 14 128/59 (82) 99 12/12/18 09:00 Room Air 12/12/18 08:00 98.0 93 14 127/77 (94) 100 12/12/18 04:42 97.8 92 18 124/65 (84) 97 12/12/18 00:55 97.6 69 16 105/50 (68) 98 12/11/18 21:00 Room Air 12/11/18 20:00 97.5 74 19 139/81 (100) 92 74 12/11/18 16:00 97.3 78 20 120/77 (91) 100 98 Intake and Output 12/11/18 12/12/18 18:59 06:59 Intake Total 450 ml Balance 450 ml IV Total 450 ml # Voids 3 2 # Bowel Movements 5 1 General Appearance: WD/WN HEENT: normocephalic Respiratory/Chest: chest wall non-tender, lungs clear Cardiovascular: normal peripheral pulses, normal rate Abdomen: normal bowel sounds, soft, non tender Genitourinary: normal external genitalia Neurologic/Psychiatric: licensed weigher II-XII grossly normal Microbiology Date/Time Source Procedure Growth Status 12/10/18 00:15 Urine,Clean Catch Urine Culture - Final Pseudomonas Aeruginosa Staphylococcus Sp Coag Neg Complete Current Medications Medications (Trade) Dose Ordered Sig/Analilia Route PRN Reason Start Time Stop Time Status Last Admin Dose Admin Cefepime HCl 1 gm/ Dextrose 55 ml @ 110 mls/hr EVERY 12 HOURS IVPB 12/12/18 21:00 12/19/18 20:59 Dextrose (Dextrose 50%) 25 ml Q30M PRN IV Hypoglycemia 12/09/18 19:45 01/08/19 19:44 Dextrose (Dextrose 50%) 50 ml Q30M PRN IV Hypoglycemia 12/09/18 19:45 01/08/19 19:44 Dextrose/Sodium Chloride 1,000 ml @ 75 mls/hr [id number] IV 12/11/18 22:30 01/10/19 22:29 12/12/18 12:54 Haloperidol Lactate (Haldol) 5 mg Q6H PRN IM Agitation 12/11/18 11:30 01/10/19 11:29 12/11/18 14:34 Lorazepam (Ativan 2mg/ml 1ml) 2 mg Q6H PRN IM For Anxiety 12/11/18 10:56 12/18/18 10:55 12/11/18 11:25 Risperidone (RisperDAL) 1 mg Q8HR ORAL 12/11/18 14:00 01/10/19 13:59 Jaimie Delacruz MD Dec 12, 2018 13:36
--- NOTE | 2018-12-12 13:38 | Surgery Progress Note ---
Surgery Progress Note Subjective Additional Comments pulled out line placed yesterday. was able to have a new line placed. more relaxed today Objective Last 24 Hour Vital Signs Date Time Temp Pulse Resp B/P (MAP) Pulse Ox O2 Delivery O2 Flow Rate FiO2 12/12/18 12:00 97.1 92 14 128/59 (82) 99 12/12/18 09:00 Room Air 12/12/18 08:00 98.0 93 14 127/77 (94) 100 12/12/18 04:42 97.8 92 18 124/65 (84) 97 12/12/18 00:55 97.6 69 16 105/50 (68) 98 12/11/18 21:00 Room Air 12/11/18 20:00 97.5 74 19 139/81 (100) 92 74 12/11/18 16:00 97.3 78 20 120/77 (91) 100 98 I&O Intake and Output 12/11/18 12/12/18 18:59 06:59 Intake Total 450 ml Balance 450 ml IV Total 450 ml # Voids 3 2 # Bowel Movements 5 1 Dressing: dry Wound: clean Drains: none Cardiovascular: RSR Respiratory: clear Abdomen: soft, present bowel sounds, non-distended Extremities: no tenderness, no cyanosis Plan Problems: (1) Severe protein-calorie malnutrition Assessment & Plan: needs venous access for meds and fluids very dehydrated. no feeding tube access currently cannot obtain peripheral line pulled out line placed yesterday new peripheral was placed fortunately thank you will follow with recs (2) At high risk for aspiration (3) Schizoaffective disorder, bipolar type (4) Sepsis (5) Diabetes mellitus (6) Essential hypertension (7) Anemia (8) Schizophrenia (9) Bipolar disorder (10) Hyponatremia Wili Leger Dec 12, 2018 13:38
--- NOTE | 2018-12-12 14:16 | NUR ---
NURSE NOTES:WOUND CARE NOTES:Pt presented with an area of non-blanchable erythema R sacrum (L)1.5cm x (W)2cm. Erythema noted to perianal area. Small amt vaginal bleeding noted. Reported to Primary nurse.Non-blanchable erythema noted to R and L heels .Both heels are fluctuant when palpated. Numerous small scratch velasco noted to Phalanges and web spaces of R hand.Pt resistive to care.Scratches and pinches staff during skin assessment. Recommendations:Apply Triad Paste to buttocks. Cover with Optifoam drsg. Change every 3 days and prn. Apply Cavilon Skin Barrier to R and L heels. Cover each heel with Optifoam drsg. Change every 7 days and PRN. Reposition at least every 2hours or as tolerated. Off-load heels with pillow.
--- NOTE | 2018-12-12 14:28 | Psych Consult Progress Note ---
Psychiatry Progress Note Psychiatry Progress Note Medications Current Medications Medications (Trade) Dose Ordered Sig/Analilia Route PRN Reason Start Time Stop Time Status Last Admin Dose Admin Cefepime HCl 1 gm/ Dextrose 55 ml @ 110 mls/hr EVERY 12 HOURS IVPB 12/12/18 21:00 12/19/18 20:59 Dextrose (Dextrose 50%) 25 ml Q30M PRN IV Hypoglycemia 12/09/18 19:45 01/08/19 19:44 Dextrose (Dextrose 50%) 50 ml Q30M PRN IV Hypoglycemia 12/09/18 19:45 01/08/19 19:44 Dextrose/Sodium Chloride 1,000 ml @ 75 mls/hr [id number] IV 12/11/18 22:30 01/10/19 22:29 12/12/18 12:54 Haloperidol Lactate (Haldol) 5 mg Q6H PRN IM Agitation 12/11/18 11:30 01/10/19 11:29 12/11/18 14:34 Lorazepam (Ativan 2mg/ml 1ml) 2 mg Q6H PRN IM For Anxiety 12/11/18 10:56 12/18/18 10:55 12/11/18 11:25 Risperidone (RisperDAL) 1 mg Q8HR ORAL 12/11/18 14:00 01/10/19 13:59 Neurological/Psychiatric: Reports: anxiety, depressed, emotional problems Allergies: Coded Allergies: No Known Allergies (Unverified , 05/22/18) Objective Data Height (Feet): 5 Height (Inches): 4.00 Weight (Pounds): 110 Appearance: disheveled Behavior Mannerisms: poor eye contact Mental Status Exam - Affect: flat Mental Status Exam - Mood: agitated Mental Status Exam - Thought P: illogical Assessment/Plan Problem List: (1) Schizoaffective disorder, bipolar type ICD Codes: F25.0 - Schizoaffective disorder, bipolar type SNOMED: 87019532 Status: unchanged Assessment: Risperdal 1mg po tid Ativan IM restrains. tamardoUrvashi Matthew MD Dec 12, 2018 14:28
--- NOTE | 2018-12-12 14:45 | Nephrology Progress Note ---
Assessment/Plan Problem List: (1) Hyponatremia (2) Anemia (3) Schizoaffective disorder, bipolar type (4) Severe protein-calorie malnutrition Assessment: low BMI Assessment HypoNatremia : etilogy?? corrected Anemia Dehydration Plan Plan: no labs , patient fights back and has poor veins Slow hydrate Anemia lewis Urine studies Monitor lytes Subjective ROS Limited/Unobtainable: Yes Objective Objective Last 24 Hour Vital Signs Date Time Temp Pulse Resp B/P (MAP) Pulse Ox O2 Delivery O2 Flow Rate FiO2 12/12/18 12:00 97.1 92 14 128/59 (82) 99 12/12/18 09:00 Room Air 12/12/18 08:00 98.0 93 14 127/77 (94) 100 12/12/18 04:42 97.8 92 18 124/65 (84) 97 12/12/18 00:55 97.6 69 16 105/50 (68) 98 12/11/18 21:00 Room Air 12/11/18 20:00 97.5 74 19 139/81 (100) 92 74 12/11/18 16:00 97.3 78 20 120/77 (91) 100 98 Intake and Output 12/11/18 12/12/18 18:59 06:59 Intake Total 450 ml Balance 450 ml IV Total 450 ml # Voids 3 2 # Bowel Movements 5 1 Height (Feet): 5 Height (Inches): 4.00 Weight (Pounds): 110 General Appearance: no apparent distress, lethargic Neck: limited range of motion Cardiovascular: tachycardia Respiratory/Chest: decreased breath sounds Abdomen: soft Herrera Hogan MD Dec 12, 2018 14:45
[2018-12-12 16:00] VITALS: BP 114/70
--- NOTE | 2018-12-12 19:17 | NUR ---
HAND-OFF: Report given to GURINDER Fields.
--- NOTE | 2018-12-12 19:48 | NUR ---
NURSE NOTES: Received patient in bed, asleep, non verbal, total care, unable to make her needs known, no acute distress noted, VSS, afebrile. Call light is within reach, bed is in low position, locked and alarm is on. Will ensure safety and comfort. Day shift RN reports vaginal spotting upon changing patient, MD will be notified.
--- NOTE | 2018-12-12 19:51 | NUR ---
NURSE NOTES: MD Cortés just replied regarding the vaginal bleeding, he ordered to communicate MD Owusu about the vaginal bleeding. PM nurse, Diamond is aware.
[2018-12-12 20:00] VITALS: BP 135/57
--- NOTE | 2018-12-12 20:34 | General Progress Note ---
Assessment/Plan Problem List: (1) Severe protein-calorie malnutrition ICD Codes: E43 - Unspecified severe protein-calorie malnutrition SNOMED: 755076433, 952806890, 629662271 (2) Schizoaffective disorder, bipolar type ICD Codes: F25.0 - Schizoaffective disorder, bipolar type SNOMED: 88461340 (3) Diabetes mellitus ICD Codes: E11.9 - Type 2 diabetes mellitus without complications SNOMED: 59388792 (4) Sepsis ICD Codes: A41.9 - Sepsis, unspecified organism SNOMED: 50671126 (5) Essential hypertension ICD Codes: I10 - Essential (primary) hypertension SNOMED: 86755925 (6) Anemia ICD Codes: D64.9 - Anemia, unspecified SNOMED: 117476746 (7) Schizophrenia ICD Codes: F20.9 - Schizophrenia, unspecified SNOMED: 51169059 (8) Bipolar disorder ICD Codes: F31.9 - Bipolar disorder, unspecified SNOMED: 49517375 (9) Hyponatremia ICD Codes: E87.1 - Hypo-osmolality and hyponatremia SNOMED: 74163252 Status: progressing Assessment: no wheezing psych patient afebrile anemia abx per id seen chart and labs and meds Subjective ROS Limited/Unobtainable: Yes Allergies: Coded Allergies: No Known Allergies (Unverified , 05/22/18) Objective Last 24 Hour Vital Signs Date Time Temp Pulse Resp B/P (MAP) Pulse Ox O2 Delivery O2 Flow Rate FiO2 12/12/18 16:00 97.8 93 18 114/70 (85) 96 12/12/18 12:00 97.1 92 14 128/59 (82) 99 12/12/18 09:00 Room Air 12/12/18 08:00 98.0 93 14 127/77 (94) 100 12/12/18 04:42 97.8 92 18 124/65 (84) 97 12/12/18 00:55 97.6 69 16 105/50 (68) 98 12/11/18 21:00 Room Air Intake and Output 12/11/18 12/12/18 19:00 07:00 Intake Total 450 ml Balance 450 ml IV Total 450 ml # Voids 3 2 # Bowel Movements 5 1 Height (Feet): 5 Height (Inches): 4.00 Weight (Pounds): 110 Neck: supple Cardiovascular: normal rate Respiratory/Chest: lungs clear Abdomen: soft Pita Owusu MD Dec 12, 2018 20:34
[2018-12-12] MEDS: Cefepime HCl 1 GM in D5W 55 ML IVPB SCH (21:20)
[2018-12-13] VITALS (9 sets, daily range): BP systolic 122–141; BP diastolic 56–66
[2018-12-13] MEDS: D5NS 1,000 ML IV SCH ×2 (01:10→02:54)
[2018-12-13 05:37] LABS: BASOPHILS % (AUTO) 0.9 % (0.0-2.0); EOSINOPHILS % (AUTO) 2.1 % (0.0-3.0); HEMATOCRIT 29.4 % (37.0-47.0); HEMOGLOBIN 9.4 G/DL (12.0-16.0); LYMPHOCYTES % (AUTO) 12.8 % (20.0-45.0); MEAN CORPUSCULAR VOLUME 75 FL (80-99); MONOCYTES % (AUTO) 3.9 % (1.0-10.0); NEUTROPHILS % (AUTO) 80.2 % (45.0-75.0); PLATELET COUNT 345 K/UL (150-450); RED CELL DISTRIBUTION WIDTH 15.3 % (11.6-14.8); WHITE BLOOD COUNT 9.6 K/UL (4.8-10.8)
[2018-12-13 05:51] LABS: INR 1.1 (0.9-1.1)
[2018-12-13 05:59] LABS: ANION GAP 8 mmol/L (5-15); BLOOD UREA NITROGEN 14 mg/dL (7-18); CALCIUM 8.5 MG/DL (8.5-10.1); CARBON DIOXIDE 27 MMOL/L (21-32); CHLORIDE 108 MMOL/L (98-107); CREATININE 0.5 MG/DL (0.55-1.30); POTASSIUM 3.2 MMOL/L (3.5-5.1); SODIUM 143 MMOL/L (136-145)
--- NOTE | 2018-12-13 06:47 | NUR ---
HAND-OFF: Report given to Kassie FAIRCHILD.
--- NOTE | 2018-12-13 07:08 | NUR ---
NURSE NOTES: Patient awake, confused, on room air, no sign of shortness of breath; no sign of chest pain; soft wrist restrain in place; echemosis on both hands; IV Right-Upper arm, D5NS running at 75cc; patient in NPO for EGD and PEG scheduled for today, will follow up on that; side rails up x2, bed at lowest position, breaks engaged. will keep monitoring.
--- NOTE | 2018-12-13 07:36 | NUR ---
NURSE NOTES: Patient's K is 3.2, I communicated MD Cortés, waiting for order.
[2018-12-13] MEDS ORDERED: LR 1000ml 1,000 ML IVLG SCH (07:55)
--- NOTE | 2018-12-13 07:55 | Anethesia Preoperative Eval ---
Anesthesia Pre-op PMH/ROS General Date of Evaluation: Dec 13, 2018 Anesthesiologist: Mike ASA Score: ASA 3 Mallampati Score Class I : Soft palate, uvula, fauces, pillars visible Class II: Soft palate, uvula, fauces visible Class III: Soft palate, base of uvula visible Class IV: Only hard plate visible Mallampati Classification: Class III Surgeon: Guy Diagnosis: Peg failure Surgical Procedure: EGD/PEG placement Anesthesia History: none Family History: no anesthesia problems Allergies: Coded Allergies: No Known Allergies (Unverified , 05/22/18) Medications: see eMAR Patient NPO?: Yes NPO Date: Dec 12, 2018 NPO Time: 23:59 Past Medical History Cardiovascular: Reports: HTN, arrhythmia - pacemaker, other - HLD; Denies: CAD, [place], valve dz Pulmonary: Denies: asthma, COPD, TUAN, other Gastrointestinal/Genitourinary: Reports: GERD; Denies: CRI, ESRD, other Neurologic/Psychiatric: Reports: dementia, depression/anxiety, other - schizoaffective d/o-bipolar; Denies: CVA, TIA Endocrine: Denies: DM, hypothyroidism, steroids, other HEENT: Reports: cataract (L), cataract (R), other - dysphagia; Denies: glaucoma, JAMUL (L), JAMUL (R) Hematology/Immune: Reports: anemia - chronic; Denies: DVT, bleeding disorder, other Musculoskeletal/Integumentary: Denies: OA, RA, DJD, DDD, edema, other PSxH Narrative: Unable to obtain due to mental status Anesthesia Pre-op Phys. Exam Physician Exam Last Vital Signs Date Time Temp Pulse Resp B/P (MAP) Pulse Ox O2 Delivery O2 Flow Rate FiO2 12/13/18 04:00 97.7 75 18 125/58 (80) 12/12/18 21:00 Room Air 12/12/18 16:00 96 Constitutional: other - severely agitated Cardiovascular: RRR Respiratory: CTA Airway Exam Mallampati Score: Class III MO: limited ROM: limited Anesthesia Pre-op A/P Labs Hematology Test 12/13/18 05:09 White Blood Count 9.6 K/UL (4.8-10.8) Red Blood Count 3.90 M/UL (4.20-5.40) L Hemoglobin 9.4 G/DL (12.0-16.0) L Hematocrit 29.4 % (37.0-47.0) L Mean Corpuscular Volume 75 FL (80-99) L Mean Corpuscular Hemoglobin 24.0 PG (27.0-31.0) L Mean Corpuscular Hemoglobin Concent 31.8 G/DL (32.0-36.0) L Red Cell Distribution Width 15.3 % (11.6-14.8) H Platelet Count 345 K/UL (150-450) Mean Platelet Volume 5.6 FL (6.5-10.1) L Neutrophils (%) (Auto) 80.2 % (45.0-75.0) H Lymphocytes (%) (Auto) 12.8 % (20.0-45.0) L Monocytes (%) (Auto) 3.9 % (1.0-10.0) Eosinophils (%) (Auto) 2.1 % (0.0-3.0) Basophils (%) (Auto) 0.9 % (0.0-2.0) Coagulation Test 12/13/18 05:09 Prothrombin Time 11.1 SEC (9.30-11.50) Prothromb Time International Ratio 1.1 (0.9-1.1) Activated Partial Thromboplast Time 31 SEC (23-33) Chemistry Test 12/13/18 05:09 Sodium Level 143 MMOL/L (136-145) Potassium Level 3.2 MMOL/L (3.5-5.1) L Chloride Level 108 MMOL/L (98-107) H Carbon Dioxide Level 27 MMOL/L (21-32) Anion Gap 8 mmol/L (5-15) Blood Urea Nitrogen 14 mg/dL (7-18) Creatinine 0.5 MG/DL (0.55-1.30) L Estimat Glomerular Filtration Rate > 60 mL/min (>60) Glucose Level 204 MG/DL (74-106) H Calcium Level 8.5 MG/DL (8.5-10.1) Studies Pre-op Studies: EKG - sr Risk Assessment & Plan Assessment: ASA III Plan: MAC Status Change Before Surgery: No Pre-Antibiotics Drug: N/A Sophie Gonzalez MD Dec 13, 2018 07:55
[2018-12-13] MEDS ORDERED: DiphenhydrAMINE 50mg/ml Inj IVP PRN (08:00)
[2018-12-13] MEDS ORDERED: LORazepam Inj 2mg/ml 1ml IV PRN (08:00)
[2018-12-13] MEDS ORDERED: Midazolam 2mg/2ml Inj IVP PRN (08:00)
--- NOTE | 2018-12-13 08:03 | NUR ---
NURSE NOTES: I called and left a voice message regarding patient's K 3.2. Waiting for order.
[2018-12-13] MEDS: Cefepime HCl 1 GM in D5W 55 ML IVPB SCH ×2 (09:03→20:39)
--- NOTE | 2018-12-13 10:00 | Diagnostic Imaging Report ---
Indication: Post nasogastric tube placement Technique: Supine view of the abdomen Comparison: none Findings: There is a nasogastric tube in place, tip projected level gastric body, proximal port at or just beyond the expected level of the gastroesophageal junction. There is an endobiliary metal stent an evidence of pneumobilia related to such. Prominent gas-filled small bowel loop is seen in the left upper quadrant. Impression: Borderline adequate position of nasogastric tube, proximal side port at or just beyond the gastroesophageal junction. Slight advancement would be prudent. Findings discussed with patient's nurse at the time exam is very Other findings as noted Findings discussed by phone with patient's nurse at the time of interpretation
--- NOTE | 2018-12-13 10:40 | Pre-Procedure Note/Attestation ---
Pre-Procedure Note/Attestation Complete Prior to Procedure Planned Procedure: not applicable Procedure Narrative: egd/peg Indications for Procedure Pre-Operative Diagnosis: dysphagia Attestation I attest that I discussed the nature of the procedure; its benefits; risks and complications; and alternatives (and the risks and benefits of such alternatives ), prior to the procedure, with the patient (or the patient's legal circulation representative). I attest that, if there was a reasonable possibility of needing a blood transfusion, the patient (or the patient's legal circulation representative) was given the [facility] standardized written summary, pursuant to the Pancho Vicky Blood Safety Act ([place] Health and Safety Code # 1645, as amended). I attest that I re-evaluated the patient just prior to the surgery and that there has been no change in the patient's H&P, except as documented below: Hamzah Tovar MD Dec 13, 2018 10:40
[2018-12-13] MEDS ORDERED: NS 500ML IVPB ONE (10:55)
[2018-12-13] MEDS ORDERED: Propofol 200mg/20ml IV ONE (11:00)
[2018-12-13] MEDS ORDERED: Lidocaine 1% MPF 10mg/ml 5ml ONE (11:00)
--- NOTE | 2018-12-13 11:00 | Endoscopy Procedure Note ---
Endoscopy Procedure Note General Indication for Procedure: dysphagia Procedures Performed: EGD, PEG Operative Findings/Diagnosis: same Specimen: none Pt Tolerated Procedure Well: Yes Estimated Blood Loss: none Anesthesia Anesthesiologist: tran Anesthesia: MAC Inserted Devices Implant(s) used?: No GI Core Measures 50 yrs or older w/o bx or poly: Not Applicable 10yrs. F/U not recommended: Not Applicable Hamzah Tovar MD Dec 13, 2018 11:00
--- NOTE | 2018-12-13 11:03 | GI Progress Note ---
Assessment/Plan Problems: (1) Bipolar disorder ICD Codes: F31.9 - Bipolar disorder, unspecified SNOMED: 27261674 (2) Schizophrenia ICD Codes: F20.9 - Schizophrenia, unspecified SNOMED: 42352091 (3) Anemia ICD Codes: D64.9 - Anemia, unspecified SNOMED: 580269245 (4) Diabetes mellitus ICD Codes: E11.9 - Type 2 diabetes mellitus without complications SNOMED: 31933154 Assessment/Plan patient needs PEG no family to sign consent bioethics ok with MD consent will proceed with peg Subjective Gastrointestinal/Abdominal: Reports: no symptoms Objective Last 24 Hour Vital Signs Date Time Temp Pulse Resp B/P (MAP) Pulse Ox O2 Delivery O2 Flow Rate FiO2 12/13/18 09:00 Room Air 12/13/18 08:00 95.0 77 18 128/62 (84) 95 12/13/18 04:00 97.7 75 18 125/58 (80) 12/13/18 00:00 98.0 83 18 127/56 (79) 12/12/18 21:00 Room Air 12/12/18 20:00 97.4 81 19 135/57 (83) 12/12/18 16:00 97.8 93 18 114/70 (85) 96 12/12/18 12:00 97.1 92 14 128/59 (82) 99 Intake and Output 12/12/18 12/13/18 19:00 07:00 Intake Total 825 ml Balance 825 ml IV Total 825 ml # Voids 2 # Bowel Movements 1 1 Laboratory Tests Test 12/13/18 05:09 White Blood Count 9.6 K/UL (4.8-10.8) Red Blood Count 3.90 M/UL (4.20-5.40) L Hemoglobin 9.4 G/DL (12.0-16.0) L Hematocrit 29.4 % (37.0-47.0) L Mean Corpuscular Volume 75 FL (80-99) L Mean Corpuscular Hemoglobin 24.0 PG (27.0-31.0) L Mean Corpuscular Hemoglobin Concent 31.8 G/DL (32.0-36.0) L Red Cell Distribution Width 15.3 % (11.6-14.8) H Platelet Count 345 K/UL (150-450) Mean Platelet Volume 5.6 FL (6.5-10.1) L Neutrophils (%) (Auto) 80.2 % (45.0-75.0) H Lymphocytes (%) (Auto) 12.8 % (20.0-45.0) L Monocytes (%) (Auto) 3.9 % (1.0-10.0) Eosinophils (%) (Auto) 2.1 % (0.0-3.0) Basophils (%) (Auto) 0.9 % (0.0-2.0) Prothrombin Time 11.1 SEC (9.30-11.50) Prothromb Time International Ratio 1.1 (0.9-1.1) Activated Partial Thromboplast Time 31 SEC (23-33) Sodium Level 143 MMOL/L (136-145) Potassium Level 3.2 MMOL/L (3.5-5.1) L Chloride Level 108 MMOL/L (98-107) H Carbon Dioxide Level 27 MMOL/L (21-32) Anion Gap 8 mmol/L (5-15) Blood Urea Nitrogen 14 mg/dL (7-18) Creatinine 0.5 MG/DL (0.55-1.30) L Estimat Glomerular Filtration Rate > 60 mL/min (>60) Glucose Level 204 MG/DL (74-106) H Calcium Level 8.5 MG/DL (8.5-10.1) Height (Feet): 5 Height (Inches): 4.00 Weight (Pounds): 110 General Appearance: lethargic Cardiovascular: normal rate Respiratory/Chest: lungs clear Abdominal Exam: normal bowel sounds, non tender, soft Extremities: non-tender Hamzah Tovar MD Dec 13, 2018 11:03
--- NOTE | 2018-12-13 11:23 | 48 Hour Post Anesthesia Eval ---
Post Anesthesia Evaluation Procedure: EGd and PEG Date of Evaluation: Dec 13, 2018 Airway: patent Nausea: No Vomiting: No Pain Intensity: 0 Hydration Status: adequate Cardiopulmonary Status: at baseline Mental Status/LOC: patient returned to baseline Post-Anesthesia Complications: 0 Follow-up care needed: N/A - further care as per primary team Sophie Gonzalez MD Dec 13, 2018 11:23
--- NOTE | 2018-12-13 11:23 | Immediate Post-Op Evaluation ---
Immediate Post-Op Evalulation Immediate Post-Op Evalulation Procedure: EGd and PEG Date of Evaluation: Dec 13, 2018 Time of Evaluation: 11:23 IV Fluids: 100 Blood Products: 0 Estimated Blood Loss: 0 Urinary Output: 0 Blood Pressure Systolic: 131 Blood Pressure Diastolic: 63 Pulse Rate: 58 Respiratory Rate: 16 O2 Sat by Pulse Oximetry: 98 Temperature (Fahrenheit): 97.8 Pain Score (1-10): 0 Nausea: No Vomiting: No Complications 0 Patient Status: awake, reacts, patent, none Hydration Status: adequate Drug: Cefepime Given Within 1 Hr of Incision: Sophie Argueta MD Dec 13, 2018 11:23
--- NOTE | 2018-12-13 11:39 | NUR ---
RD ASSESSMENT & RECOMMENDATIONS SEE CARE ACTIVITY FOR COMPLETE ASSESSMENT DAILY ESTIMATED NEEDS: Needs based on DM, cardia, underweight, wound / 49kg abw 30-35 kcals/kg 4167-9485 total kcals 1.25-1.5 g protein/kg 61-74 g total protein 25-30 mL/kg 9802-3765 total fluid mLs NUTRITION DIAGNOSIS: Swallowing difficulty R/T dysphagia as evidenced by pt is PEG dep, pending GT replacement. CURRENT TF: Glucerna 1.2 @ 55ml/hr x 24 hrs -> not yet initiated, pending PEG placement ENTERAL NUTRITION RECOMMENDATIONS: Glucerna 1.2 @ 55ml/hr x 24 hrs to provide 1320ml, 1584kcal, 79g prot, 1063ml free water * W/ GI access, initiate Glucerna 1.2 SLOWLY @ 15ml/hr x 6hrs * Advance 10ml q 4-6 hrs as tolerated to goal rate * HOB over 30 degrees/ water flush per MD ADDITIONAL RECOMMENDATIONS: * Calibrated bedscale wt for accurate CBW * Monitor BGs closely w/ TF initiation, need for long acting insulin -> Fasting POC glu in the high 100's and 200's. * Monitor lytes, replete as needed * Skin integrity: add Cedrick 1pkt BID (multiple non-blanchable erythema)
--- NOTE | 2018-12-13 12:10 | NUR ---
NURSE NOTES: Patient came back from GI lab, G-Tube in place, dressing dry and intact. will keep monitoring.
--- NOTE | 2018-12-13 13:11 | Pulmonology Progress Note ---
Assessment/Plan Problems: (1) Sepsis (2) At high risk for aspiration (3) Severe protein-calorie malnutrition (4) Diabetes mellitus (5) Essential hypertension (6) Schizophrenia (7) Bipolar disorder Assessment/Plan got the PEG improving continue abx check cultures sliding scale Subjective ROS Limited/Unobtainable: No Interval Events: got the PEG Allergies: Coded Allergies: No Known Allergies (Unverified , 05/22/18) Objective Last 24 Hour Vital Signs Date Time Temp Pulse Resp B/P (MAP) Pulse Ox O2 Delivery O2 Flow Rate FiO2 12/13/18 11:45 97.9 60 18 140/66 98 Nasal Cannula 3 12/13/18 11:28 56 16 137/64 98 Nasal Cannula 3 12/13/18 11:23 56 18 129/66 98 Nasal Cannula 3 12/13/18 11:23 58 16 98 12/13/18 11:18 97.5 58 16 131/63 98 Nasal Cannula 3 12/13/18 09:00 Room Air 12/13/18 08:00 95.0 77 18 128/62 (84) 95 12/13/18 04:00 97.7 75 18 125/58 (80) 12/13/18 00:00 98.0 83 18 127/56 (79) 12/12/18 21:00 Room Air 12/12/18 20:00 97.4 81 19 135/57 (83) 12/12/18 16:00 97.8 93 18 114/70 (85) 96 Intake and Output 12/12/18 12/13/18 19:00 07:00 Intake Total 825 ml Balance 825 ml IV Total 825 ml # Voids 2 # Bowel Movements 1 1 General Appearance: WD/WN HEENT: normocephalic, atraumatic Respiratory/Chest: chest wall non-tender, lungs clear Breasts: no masses Cardiovascular: normal rate Abdomen: normal bowel sounds, non distended Extremities: no cyanosis Laboratory Tests 12/13/18 05:09: White Blood Count 9.6, Red Blood Count 3.90L, Hemoglobin 9.4L, Hematocrit 29.4L , Mean Corpuscular Volume 75L, Mean Corpuscular Hemoglobin 24.0L, Mean Corpuscular Hemoglobin Concent 31.8L, Red Cell Distribution Width 15.3H, Platelet Count 345, Mean Platelet Volume 5.6L, Neutrophils (%) (Auto) 80.2H, Lymphocytes (%) (Auto) 12.8L, Monocytes (%) (Auto) 3.9, Eosinophils (%) (Auto) 2.1, Basophils (%) (Auto) 0.9, Prothrombin Time 11.1, Prothromb Time International Ratio 1.1, Activated Partial Thromboplast Time 31, Sodium Level 143, Potassium Level 3.2L, Chloride Level 108H, Carbon Dioxide Level 27, Anion Gap 8, Blood Urea Nitrogen 14, Creatinine 0.5L, Estimat Glomerular Filtration Rate > 60, Glucose Level 204H, Calcium Level 8.5 Current Medications Medications (Trade) Dose Ordered Sig/Analilia Route PRN Reason Start Time Stop Time Status Last Admin Dose Admin Acetaminophen (Tylenol) 650 mg Q4H PRN ORAL Mild Pain (Pain Scale 1-3) 12/13/18 08:00 12/13/18 18:00 Cefepime HCl 1 gm/ Dextrose 55 ml @ 110 mls/hr EVERY 12 HOURS IVPB 12/12/18 21:00 12/19/18 20:59 12/13/18 09:03 Dextrose (Dextrose 50%) 25 ml Q30M PRN IV Hypoglycemia 12/09/18 19:45 01/08/19 19:44 Dextrose (Dextrose 50%) 50 ml Q30M PRN IV Hypoglycemia 12/09/18 19:45 01/08/19 19:44 Dextrose/Sodium Chloride 1,000 ml @ 75 mls/hr [id number] IV 12/11/18 22:30 01/10/19 22:29 12/13/18 02:54 Diphenhydramine HCl (Benadryl) 25 mg Q15M PRN IVP Itching 12/13/18 08:00 12/13/18 18:00 Haloperidol Lactate (Haldol) 5 mg Q6H PRN IM Agitation 12/11/18 11:30 01/10/19 11:29 12/11/18 14:34 Hydralazine HCl (Apresoline) 5 mg Q30M PRN IV SBP>160 OR___/DBP>90 OR___ 12/13/18 08:00 12/13/18 18:00 Lorazepam (Ativan 2mg/ml 1ml) 1 mg Q15M PRN IV For Anxiety 12/13/18 08:00 12/13/18 18:00 Lorazepam (Ativan 2mg/ml 1ml) 2 mg Q6H PRN IM For Anxiety 12/11/18 10:56 12/18/18 10:55 12/11/18 11:25 Midazolam HCl (Versed 2mg/2ml vial) 1 mg Q15M PRN IVP For Anxiety 12/13/18 08:00 12/13/18 18:00 Risperidone (RisperDAL) 1 mg Q8HR ORAL 12/11/18 14:00 01/10/19 13:59 12/13/18 06:21 Jaimie Delacruz MD Dec 13, 2018 13:11
--- NOTE | 2018-12-13 13:14 | NUR ---
NURSE NOTES: Tube feeding Glucerna 1.2 20cc started around 1300, will advance the rate as tolerated.
--- NOTE | 2018-12-13 14:09 | Nephrology Progress Note ---
Assessment/Plan Problem List: (1) Hyponatremia (2) Anemia (3) Schizoaffective disorder, bipolar type (4) Severe protein-calorie malnutrition Assessment: low BMI Assessment HypoNatremia : etilogy?? corrected Anemia Dehydration Plan Plan: low K, IV K ordered Slow hydrate Anemia lewis Urine studies Monitor lytes per GI DC planning Subjective ROS Limited/Unobtainable: No Constitutional: Reports: malaise, weakness Objective Objective Last 24 Hour Vital Signs Date Time Temp Pulse Resp B/P (MAP) Pulse Ox O2 Delivery O2 Flow Rate FiO2 12/13/18 11:45 97.9 60 18 140/66 98 Nasal Cannula 3 12/13/18 11:28 56 16 137/64 98 Nasal Cannula 3 12/13/18 11:23 56 18 129/66 98 Nasal Cannula 3 12/13/18 11:23 58 16 98 12/13/18 11:18 97.5 58 16 131/63 98 Nasal Cannula 3 12/13/18 09:00 Room Air 12/13/18 08:00 95.0 77 18 128/62 (84) 95 12/13/18 04:00 97.7 75 18 125/58 (80) 12/13/18 00:00 98.0 83 18 127/56 (79) 12/12/18 21:00 Room Air 12/12/18 20:00 97.4 81 19 135/57 (83) 12/12/18 16:00 97.8 93 18 114/70 (85) 96 Intake and Output 12/12/18 12/13/18 18:59 06:59 Intake Total 825 ml Balance 825 ml IV Total 825 ml # Voids 2 # Bowel Movements 1 1 Laboratory Tests 12/13/18 05:09: White Blood Count 9.6, Red Blood Count 3.90L, Hemoglobin 9.4L, Hematocrit 29.4L , Mean Corpuscular Volume 75L, Mean Corpuscular Hemoglobin 24.0L, Mean Corpuscular Hemoglobin Concent 31.8L, Red Cell Distribution Width 15.3H, Platelet Count 345, Mean Platelet Volume 5.6L, Neutrophils (%) (Auto) 80.2H, Lymphocytes (%) (Auto) 12.8L, Monocytes (%) (Auto) 3.9, Eosinophils (%) (Auto) 2.1, Basophils (%) (Auto) 0.9, Prothrombin Time 11.1, Prothromb Time International Ratio 1.1, Activated Partial Thromboplast Time 31, Sodium Level 143, Potassium Level 3.2L, Chloride Level 108H, Carbon Dioxide Level 27, Anion Gap 8, Blood Urea Nitrogen 14, Creatinine 0.5L, Estimat Glomerular Filtration Rate > 60, Glucose Level 204H, Calcium Level 8.5 Height (Feet): 5 Height (Inches): 4.00 Weight (Pounds): 110 General Appearance: no apparent distress Neck: limited range of motion Cardiovascular: normal rate, bradycardia Abdomen: distended Herrera Hogan MD Dec 13, 2018 14:09
--- NOTE | 2018-12-13 14:32 | Infectious Diseases Prog Note ---
Assessment/Plan Assessment/Plan IMPRESSION: Pseudomonas urinary tract infection. leukocytosis, dislodgement of the G-tube, s/p GT replacement diabetes, hypertension, dementia, hyperlipidemia, cachexia. VRE carrier RECOMMENDATION: Continue Cefepime Subjective ROS Limited/Unobtainable: Yes Gastrointestinal/Abdominal: Reports: other - had EGD & PEG placement, started on tube feeding Neurologic: Reports: confusion, other - on restraint Allergies: Coded Allergies: No Known Allergies (Unverified , 05/22/18) Objective Vital Signs Last 24 Hour Vital Signs Date Time Temp Pulse Resp B/P (MAP) Pulse Ox O2 Delivery O2 Flow Rate FiO2 12/13/18 11:45 97.9 60 18 140/66 98 Nasal Cannula 3 12/13/18 11:28 56 16 137/64 98 Nasal Cannula 3 12/13/18 11:23 56 18 129/66 98 Nasal Cannula 3 12/13/18 11:23 58 16 98 12/13/18 11:18 97.5 58 16 131/63 98 Nasal Cannula 3 12/13/18 09:00 Room Air 12/13/18 08:00 95.0 77 18 128/62 (84) 95 12/13/18 04:00 97.7 75 18 125/58 (80) 12/13/18 00:00 98.0 83 18 127/56 (79) 12/12/18 21:00 Room Air 12/12/18 20:00 97.4 81 19 135/57 (83) 12/12/18 16:00 97.8 93 18 114/70 (85) 96 Height (Feet): 5 Height (Inches): 4.00 Weight (Pounds): 110 General Appearance: no acute distress HEENT: mucous membranes moist Respiratory/Chest: lungs clear Cardiovascular: normal rate Abdomen: soft, non tender, other - GT feeding Extremities: no edema Neurologic/Psychiatric: disoriented Laboratory Tests Test 12/13/18 05:09 White Blood Count 9.6 K/UL (4.8-10.8) Red Blood Count 3.90 M/UL (4.20-5.40) L Hemoglobin 9.4 G/DL (12.0-16.0) L Hematocrit 29.4 % (37.0-47.0) L Mean Corpuscular Volume 75 FL (80-99) L Mean Corpuscular Hemoglobin 24.0 PG (27.0-31.0) L Mean Corpuscular Hemoglobin Concent 31.8 G/DL (32.0-36.0) L Red Cell Distribution Width 15.3 % (11.6-14.8) H Platelet Count 345 K/UL (150-450) Mean Platelet Volume 5.6 FL (6.5-10.1) L Neutrophils (%) (Auto) 80.2 % (45.0-75.0) H Lymphocytes (%) (Auto) 12.8 % (20.0-45.0) L Monocytes (%) (Auto) 3.9 % (1.0-10.0) Eosinophils (%) (Auto) 2.1 % (0.0-3.0) Basophils (%) (Auto) 0.9 % (0.0-2.0) Prothrombin Time 11.1 SEC (9.30-11.50) Prothromb Time International Ratio 1.1 (0.9-1.1) Activated Partial Thromboplast Time 31 SEC (23-33) Sodium Level 143 MMOL/L (136-145) Potassium Level 3.2 MMOL/L (3.5-5.1) L Chloride Level 108 MMOL/L (98-107) H Carbon Dioxide Level 27 MMOL/L (21-32) Anion Gap 8 mmol/L (5-15) Blood Urea Nitrogen 14 mg/dL (7-18) Creatinine 0.5 MG/DL (0.55-1.30) L Estimat Glomerular Filtration Rate > 60 mL/min (>60) Glucose Level 204 MG/DL (74-106) H Calcium Level 8.5 MG/DL (8.5-10.1) Current Medications Medications (Trade) Dose Ordered Sig/Analilia Route PRN Reason Start Time Stop Time Status Last Admin Dose Admin Acetaminophen (Tylenol) 650 mg Q4H PRN ORAL Mild Pain (Pain Scale 1-3) 12/13/18 08:00 12/13/18 18:00 Cefepime HCl 1 gm/ Dextrose 55 ml @ 110 mls/hr EVERY 12 HOURS IVPB 12/12/18 21:00 12/19/18 20:59 12/13/18 09:03 Dextrose (Dextrose 50%) 25 ml Q30M PRN IV Hypoglycemia 12/09/18 19:45 01/08/19 19:44 Dextrose (Dextrose 50%) 50 ml Q30M PRN IV Hypoglycemia 12/09/18 19:45 01/08/19 19:44 Dextrose/Sodium Chloride 1,000 ml @ 75 mls/hr [id number] IV 12/11/18 22:30 01/10/19 22:29 12/13/18 02:54 Diphenhydramine HCl (Benadryl) 25 mg Q15M PRN IVP Itching 12/13/18 08:00 12/13/18 18:00 Haloperidol Lactate (Haldol) 5 mg Q6H PRN IM Agitation 12/11/18 11:30 01/10/19 11:29 12/11/18 14:34 Hydralazine HCl (Apresoline) 5 mg Q30M PRN IV SBP>160 OR___/DBP>90 OR___ 12/13/18 08:00 12/13/18 18:00 Lorazepam (Ativan 2mg/ml 1ml) 1 mg Q15M PRN IV For Anxiety 12/13/18 08:00 12/13/18 18:00 Lorazepam (Ativan 2mg/ml 1ml) 2 mg Q6H PRN IM For Anxiety 12/11/18 10:56 12/18/18 10:55 12/11/18 11:25 Midazolam HCl (Versed 2mg/2ml vial) 1 mg Q15M PRN IVP For Anxiety 12/13/18 08:00 12/13/18 18:00 Risperidone (RisperDAL) 1 mg Q8HR ORAL 12/11/18 14:00 01/10/19 13:59 12/13/18 14:26 Madhav Doty MD Dec 13, 2018 14:32
--- NOTE | 2018-12-13 14:40 | General Progress Note ---
Assessment/Plan Problem List: (1) Dehydration ICD Codes: E86.0 - Dehydration SNOMED: 75920998 (2) Attention to G-tube ICD Codes: Z43.1 - Encounter for attention to gastrostomy SNOMED: 465440760, 726507341, 985521043 (3) Schizoaffective disorder, bipolar type ICD Codes: F25.0 - Schizoaffective disorder, bipolar type SNOMED: 69377203 Status: stable, progressing Assessment/Plan: gi neph f/u cbc bmp am Subjective Allergies: Coded Allergies: No Known Allergies (Unverified , 05/22/18) All Systems: reviewed and negative except above Subjective confused sleepy Objective Last 24 Hour Vital Signs Date Time Temp Pulse Resp B/P (MAP) Pulse Ox O2 Delivery O2 Flow Rate FiO2 12/13/18 11:45 97.9 60 18 140/66 98 Nasal Cannula 3 12/13/18 11:28 56 16 137/64 98 Nasal Cannula 3 12/13/18 11:23 56 18 129/66 98 Nasal Cannula 3 12/13/18 11:23 58 16 98 12/13/18 11:18 97.5 58 16 131/63 98 Nasal Cannula 3 12/13/18 09:00 Room Air 12/13/18 08:00 95.0 77 18 128/62 (84) 95 12/13/18 04:00 97.7 75 18 125/58 (80) 12/13/18 00:00 98.0 83 18 127/56 (79) 12/12/18 21:00 Room Air 12/12/18 20:00 97.4 81 19 135/57 (83) 12/12/18 16:00 97.8 93 18 114/70 (85) 96 Intake and Output 12/12/18 12/13/18 19:00 07:00 Intake Total 825 ml Balance 825 ml IV Total 825 ml # Voids 2 # Bowel Movements 1 1 Laboratory Tests 12/13/18 05:09: White Blood Count 9.6, Red Blood Count 3.90L, Hemoglobin 9.4L, Hematocrit 29.4L , Mean Corpuscular Volume 75L, Mean Corpuscular Hemoglobin 24.0L, Mean Corpuscular Hemoglobin Concent 31.8L, Red Cell Distribution Width 15.3H, Platelet Count 345, Mean Platelet Volume 5.6L, Neutrophils (%) (Auto) 80.2H, Lymphocytes (%) (Auto) 12.8L, Monocytes (%) (Auto) 3.9, Eosinophils (%) (Auto) 2.1, Basophils (%) (Auto) 0.9, Prothrombin Time 11.1, Prothromb Time International Ratio 1.1, Activated Partial Thromboplast Time 31, Sodium Level 143, Potassium Level 3.2L, Chloride Level 108H, Carbon Dioxide Level 27, Anion Gap 8, Blood Urea Nitrogen 14, Creatinine 0.5L, Estimat Glomerular Filtration Rate > 60, Glucose Level 204H, Calcium Level 8.5 Height (Feet): 5 Height (Inches): 4.00 Weight (Pounds): 110 General Appearance: lethargic EENT: normal ENT inspection Neck: normal alignment Cardiovascular: normal peripheral pulses, normal rate, regular rhythm Respiratory/Chest: chest wall non-tender, lungs clear, normal breath sounds Abdomen: normal bowel sounds, non tender, soft Extremities: normal inspection Edema: no edema noted Arm (L), no edema noted Arm (R), no edema noted Leg (L), no edema noted Leg (R), no edema noted Pedal (L), no edema noted Pedal (R), no edema noted Generalized Neurologic: motor weakness Skin: normal pigmentation, warm/dry Jose Cortés DO Dec 13, 2018 14:40
--- NOTE | 2018-12-13 16:45 | Surgery Progress Note ---
Surgery Progress Note Subjective Additional Comments more calm but continues to pull at lines and needs restraints. GI plan for PEG tube now so can hold on central line Objective Last 24 Hour Vital Signs Date Time Temp Pulse Resp B/P (MAP) Pulse Ox O2 Delivery O2 Flow Rate FiO2 12/13/18 16:00 97.4 77 17 141/62 (88) 96 12/13/18 11:45 97.9 60 18 140/66 98 Nasal Cannula 3 12/13/18 11:28 56 16 137/64 98 Nasal Cannula 3 12/13/18 11:23 56 18 129/66 98 Nasal Cannula 3 12/13/18 11:23 58 16 98 12/13/18 11:18 97.5 58 16 131/63 98 Nasal Cannula 3 12/13/18 09:00 Room Air 12/13/18 08:00 95.0 77 18 128/62 (84) 95 12/13/18 04:00 97.7 75 18 125/58 (80) 12/13/18 00:00 98.0 83 18 127/56 (79) 12/12/18 21:00 Room Air 12/12/18 20:00 97.4 81 19 135/57 (83) I&O Intake and Output 12/12/18 12/13/18 18:59 06:59 Intake Total 825 ml Balance 825 ml IV Total 825 ml # Voids 2 # Bowel Movements 1 1 Dressing: other Wound: other Drains: other Cardiovascular: RSR Respiratory: clear Abdomen: present bowel sounds, non-distended Extremities: no cyanosis Laboratory Tests Test 12/13/18 05:09 White Blood Count 9.6 K/UL (4.8-10.8) Red Blood Count 3.90 M/UL (4.20-5.40) L Hemoglobin 9.4 G/DL (12.0-16.0) L Hematocrit 29.4 % (37.0-47.0) L Mean Corpuscular Volume 75 FL (80-99) L Mean Corpuscular Hemoglobin 24.0 PG (27.0-31.0) L Mean Corpuscular Hemoglobin Concent 31.8 G/DL (32.0-36.0) L Red Cell Distribution Width 15.3 % (11.6-14.8) H Platelet Count 345 K/UL (150-450) Mean Platelet Volume 5.6 FL (6.5-10.1) L Neutrophils (%) (Auto) 80.2 % (45.0-75.0) H Lymphocytes (%) (Auto) 12.8 % (20.0-45.0) L Monocytes (%) (Auto) 3.9 % (1.0-10.0) Eosinophils (%) (Auto) 2.1 % (0.0-3.0) Basophils (%) (Auto) 0.9 % (0.0-2.0) Prothrombin Time 11.1 SEC (9.30-11.50) Prothromb Time International Ratio 1.1 (0.9-1.1) Activated Partial Thromboplast Time 31 SEC (23-33) Sodium Level 143 MMOL/L (136-145) Potassium Level 3.2 MMOL/L (3.5-5.1) L Chloride Level 108 MMOL/L (98-107) H Carbon Dioxide Level 27 MMOL/L (21-32) Anion Gap 8 mmol/L (5-15) Blood Urea Nitrogen 14 mg/dL (7-18) Creatinine 0.5 MG/DL (0.55-1.30) L Estimat Glomerular Filtration Rate > 60 mL/min (>60) Glucose Level 204 MG/DL (74-106) H Calcium Level 8.5 MG/DL (8.5-10.1) Plan Problems: (1) Severe protein-calorie malnutrition Assessment & Plan: needs venous access for meds and fluids very dehydrated. no feeding tube access currently cannot obtain peripheral line hold on central line plan for PEG tube by GI thank you will follow with recs (2) At high risk for aspiration (3) Schizoaffective disorder, bipolar type (4) Sepsis (5) Diabetes mellitus (6) Essential hypertension (7) Anemia (8) Schizophrenia (9) Bipolar disorder (10) Hyponatremia Wili Leger Dec 13, 2018 16:45
--- NOTE | 2018-12-13 17:00 | Procedure Note ---
DATE OF PROCEDURE: 12/13/2018 SURGEON: Hamzah Tovar M.D. PROCEDURE: Upper endoscopy with biopsy and PEG placement. ANESTHESIA: Per Dr. Mckeon. INSTRUMENT: Olympus adult flexible upper endoscope. INDICATION: Dysphagia. The procedure, risks, benefits, and possible consequences, including hemorrhage, aspiration, perforation and infection, and alternative treatments, were explained to the patient/legal guardian by Dr. Hamzah Tovar and the patient/legal guardian understood and accepted these risks. PROCEDURE IN DETAIL: After informed consent was obtained and the patient was adequately sedated, Olympus upper endoscope was advanced from the mouth into the esophagus and then into the stomach. The patient had evidence of partial antrectomy. There was an anastomotic ulceration, not actively bleeding. Random biopsy from the ulceration was obtained. Then under endoscopic guidance and under sterile condition, a 20-Syriac pull type of G-tube was successfully placed in the epigastric area. SUMMARY OF FINDINGS: 1. Partial antrectomy. 2. Anastomotic ulceration status post biopsy. 3. Status post successful PEG placement. RECOMMENDATIONS: 1. Abdominal binder. 2. Elevate the head of the bed at all times. 3. G-tube flush. 4. G-tube care. 5. Start tube feeding later today. 6. The patient currently on antibiotics. I want to thank, Dr. Jose Cortés, for this kind referral. Hamzah Tovar M.D. DR: GAVINO JOB#: [id number] CC: Jax De La Fuente
--- NOTE | 2018-12-13 19:30 | NUR ---
NURSE NOTES: Patient in bed, with Gtube in place connected to feeding. With bilateral soft wrist restraints. Pulses are present. Call light in reach. Bed in lowest position, lock engaged and alarm on. Will continue to monitor.
--- NOTE | 2018-12-13 19:53 | NUR ---
HAND-OFF: Report given to GURINDER Childress.
--- NOTE | 2018-12-13 21:06 | Psych Consult Progress Note ---
Psychiatry Progress Note Psychiatry Progress Note Medications Current Medications Medications (Trade) Dose Ordered Sig/Analilia Route PRN Reason Start Time Stop Time Status Last Admin Dose Admin Cefepime HCl 1 gm/ Dextrose 55 ml @ 110 mls/hr EVERY 12 HOURS IVPB 12/12/18 21:00 12/19/18 20:59 12/13/18 20:39 Dextrose (Dextrose 50%) 25 ml Q30M PRN IV Hypoglycemia 12/09/18 19:45 01/08/19 19:44 Dextrose (Dextrose 50%) 50 ml Q30M PRN IV Hypoglycemia 12/09/18 19:45 01/08/19 19:44 Dextrose/Sodium Chloride 1,000 ml @ 75 mls/hr [id number] IV 12/11/18 22:30 01/10/19 22:29 12/13/18 02:54 Haloperidol Lactate (Haldol) 5 mg Q6H PRN IM Agitation 12/11/18 11:30 01/10/19 11:29 12/11/18 14:34 Lorazepam (Ativan 2mg/ml 1ml) 2 mg Q6H PRN IM For Anxiety 12/11/18 10:56 12/18/18 10:55 12/11/18 11:25 Risperidone (RisperDAL) 1 mg Q8HR ORAL 12/11/18 14:00 01/10/19 13:59 12/13/18 14:26 Neurological/Psychiatric: Reports: anxiety Allergies: Coded Allergies: No Known Allergies (Unverified , 05/22/18) Objective Data Height (Feet): 5 Height (Inches): 4.00 Weight (Pounds): 110 General Appearance: alert, confused, agitated, combative Appearance: disheveled Behavior Mannerisms: poor eye contact Mental Status Exam - Affect: constricted Mental Status Exam - Mood: anxious, agitated Assessment/Plan Problem List: (1) Schizoaffective disorder, bipolar type ICD Codes: F25.0 - Schizoaffective disorder, bipolar type SNOMED: 61431106 Status: unchanged Assessment/Plan: Risperdal 1mg po tid Ativan IM restrains. juan IM Urvashi Duron MD Dec 13, 2018 21:06
[2018-12-14] VITALS: BP 120/52
[2018-12-14] MEDS: D5NS 1,000 ML IV SCH ×2 (02:12→17:10)
[2018-12-14 04:00] VITALS: BP 125/66
[2018-12-14 07:20] LABS: ANION GAP 8 mmol/L (5-15); BLOOD UREA NITROGEN 14 mg/dL (7-18); CALCIUM 8.5 MG/DL (8.5-10.1); CARBON DIOXIDE 25 MMOL/L (21-32); CHLORIDE 106 MMOL/L (98-107); CREATININE 0.5 MG/DL (0.55-1.30); POTASSIUM 3.2 MMOL/L (3.5-5.1); SODIUM 139 MMOL/L (136-145)
[2018-12-14 07:30] LABS: BASOPHILS % (AUTO) 0.7 % (0.0-2.0); EOSINOPHILS % (AUTO) 1.9 % (0.0-3.0); HEMOGLOBIN 8.9 G/DL (12.0-16.0); LYMPHOCYTES % (AUTO) 13.7 % (20.0-45.0); MEAN CORPUSCULAR VOLUME 76 FL (80-99); MONOCYTES % (AUTO) 3.9 % (1.0-10.0); NEUTROPHILS % (AUTO) 79.8 % (45.0-75.0); PLATELET COUNT 304 K/UL (150-450); RED BLOOD COUNT 3.69 M/UL (4.20-5.40); RED CELL DISTRIBUTION WIDTH 15.6 % (11.6-14.8); WHITE BLOOD COUNT 9.5 K/UL (4.8-10.8)
--- NOTE | 2018-12-14 07:43 | NUR ---
HAND-OFF: Report given to GURINDER Robles.
[2018-12-14 08:00] VITALS: BP 120/64
--- NOTE | 2018-12-14 08:00 | NUR ---
NURSE NOTES: During shift change patient awake alert with out no distress bilateral soft wrist restraints on, GT feeding and IV fluid running well. wound dressing dry and intact will continue to monitor.
[2018-12-14] MEDS: Cefepime HCl 1 GM in D5W 55 ML IVPB SCH (09:48)
--- NOTE | 2018-12-14 10:42 | GI Progress Note ---
Assessment/Plan Problems: (1) Bipolar disorder ICD Codes: F31.9 - Bipolar disorder, unspecified SNOMED: 08276771 (2) Schizophrenia ICD Codes: F20.9 - Schizophrenia, unspecified SNOMED: 37026396 (3) Anemia ICD Codes: D64.9 - Anemia, unspecified SNOMED: 095465767 Status: stable Status Narrative Discussed with Dr. Tovar Assessment/Plan SUMMARY OF FINDINGS: 1. Partial antrectomy. 2. Anastomotic ulceration, status post biopsy. 3. Status post successful PEG placement. RECOMMENDATIONS: 1. Abdominal binder. 2. Elevate the head of the bed at all times. 3. G-tube flush. 4. G-tube care. 5. Start tube feeding later today. 6. The patient currently on antibiotics. dc planning The patient was seen and examined at bedside and all new and available data was reviewed in the patients chart. I agree with the above findings, impression and plan. (Patient seen earlier today. Signature stamp does not reflect patient encounter time.). - Hamzah Tovar MD Subjective Subjective limited Objective Last 24 Hour Vital Signs Date Time Temp Pulse Resp B/P (MAP) Pulse Ox O2 Delivery O2 Flow Rate FiO2 12/14/18 09:00 Room Air 12/14/18 08:00 98.3 80 18 120/64 (82) 99 12/14/18 04:00 97.9 82 18 125/66 (85) 98 12/14/18 00:00 97.9 74 18 120/52 (74) 98 12/13/18 21:00 Room Air 12/13/18 20:00 98.3 80 18 122/65 (84) 99 12/13/18 16:00 97.4 77 17 141/62 (88) 96 12/13/18 11:45 97.9 60 18 140/66 98 Nasal Cannula 3 12/13/18 11:28 56 16 137/64 98 Nasal Cannula 3 12/13/18 11:23 56 18 129/66 98 Nasal Cannula 3 12/13/18 11:23 58 16 98 12/13/18 11:18 97.5 58 16 131/63 98 Nasal Cannula 3 Intake and Output 12/13/18 12/14/18 19:00 07:00 Intake Total 1020 ml 1375 ml Balance 1020 ml 1375 ml Free Water 150 ml 300 ml IV Total 735 ml 655 ml Tube Feeding 135 ml 420 ml # Voids 2 # Bowel Movements 1 1 Laboratory Tests Test 12/14/18 04:39 White Blood Count 9.5 K/UL (4.8-10.8) Red Blood Count 3.69 M/UL (4.20-5.40) L Hemoglobin 8.9 G/DL (12.0-16.0) L Hematocrit 28.0 % (37.0-47.0) L Mean Corpuscular Volume 76 FL (80-99) L Mean Corpuscular Hemoglobin 24.2 PG (27.0-31.0) L Mean Corpuscular Hemoglobin Concent 31.9 G/DL (32.0-36.0) L Red Cell Distribution Width 15.6 % (11.6-14.8) H Platelet Count 304 K/UL (150-450) Mean Platelet Volume 5.3 FL (6.5-10.1) L Neutrophils (%) (Auto) 79.8 % (45.0-75.0) H Lymphocytes (%) (Auto) 13.7 % (20.0-45.0) L Monocytes (%) (Auto) 3.9 % (1.0-10.0) Eosinophils (%) (Auto) 1.9 % (0.0-3.0) Basophils (%) (Auto) 0.7 % (0.0-2.0) Sodium Level 139 MMOL/L (136-145) Potassium Level 3.2 MMOL/L (3.5-5.1) L Chloride Level 106 MMOL/L (98-107) Carbon Dioxide Level 25 MMOL/L (21-32) Anion Gap 8 mmol/L (5-15) Blood Urea Nitrogen 14 mg/dL (7-18) Creatinine 0.5 MG/DL (0.55-1.30) L Estimat Glomerular Filtration Rate > 60 mL/min (>60) Glucose Level 246 MG/DL (74-106) H Calcium Level 8.5 MG/DL (8.5-10.1) Height (Feet): 5 Height (Inches): 4.00 Weight (Pounds): 110 General Appearance: alert, thin Cardiovascular: normal rate Respiratory/Chest: no respiratory distress Abdominal Exam: GT site - Clean dry and intact Abhijeet Weston VAULT ATTENDANT Dec 14, 2018 10:42
[2018-12-14 12:00] VITALS: BP 142/64
--- NOTE | 2018-12-14 12:46 | Psych Consult Progress Note ---
Psychiatry Progress Note Psychiatry Progress Note Subjective the pt is calmer in restraints cont to have episodes of agitation Medications Current Medications Medications (Trade) Dose Ordered Sig/Analilia Route PRN Reason Start Time Stop Time Status Last Admin Dose Admin Cefepime HCl 1 gm/ Dextrose 55 ml @ 110 mls/hr EVERY 12 HOURS IVPB 12/12/18 21:00 12/19/18 20:59 12/14/18 09:48 Dextrose (Dextrose 50%) 25 ml Q30M PRN IV Hypoglycemia 12/09/18 19:45 01/08/19 19:44 Dextrose (Dextrose 50%) 50 ml Q30M PRN IV Hypoglycemia 12/09/18 19:45 01/08/19 19:44 Dextrose/Sodium Chloride 1,000 ml @ 75 mls/hr [id number] IV 12/11/18 22:30 01/10/19 22:29 12/14/18 02:12 Haloperidol Lactate (Haldol) 5 mg Q6H PRN IM Agitation 12/11/18 11:30 01/10/19 11:29 12/11/18 14:34 Lorazepam (Ativan 2mg/ml 1ml) 2 mg Q6H PRN IM For Anxiety 12/11/18 10:56 12/18/18 10:55 12/11/18 11:25 Risperidone (RisperDAL) 1 mg Q8HR ORAL 12/11/18 14:00 01/10/19 13:59 12/14/18 05:01 Allergies: Coded Allergies: No Known Allergies (Unverified , 05/22/18) Objective Data Height (Feet): 5 Height (Inches): 4.00 Weight (Pounds): 110 General Appearance: no apparent distress, alert, confused, agitated Appearance: disheveled Behavior Mannerisms: poor eye contact Mental Status Exam - Affect: flat Mental Status Exam - Mood: agitated Mental Status Exam - Thought P: illogical Mental Status Exam - Suicidal: not present Assessment/Plan Problem List: (1) Schizoaffective disorder, bipolar type ICD Codes: F25.0 - Schizoaffective disorder, bipolar type SNOMED: 30493578 Status: stable Assessment/Plan: Risperdal 1mg po tid Ativan IM restrains. tamardol IM Urvashi Duron MD Dec 14, 2018 12:46
--- NOTE | 2018-12-14 12:59 | Infectious Diseases Prog Note ---
Assessment/Plan Assessment/Plan IMPRESSION: Pseudomonas urinary tract infection. leukocytosis, dislodgement of the G-tube, s/p GT replacement diabetes, hypertension, dementia, hyperlipidemia, cachexia. VRE carrier RECOMMENDATION: Change Cefepime to Cipro Subjective ROS Limited/Unobtainable: Yes Constitutional: Reports: no symptoms Neurologic: Reports: confusion, other - on restraint Allergies: Coded Allergies: No Known Allergies (Unverified , 05/22/18) Objective Vital Signs Last 24 Hour Vital Signs Date Time Temp Pulse Resp B/P (MAP) Pulse Ox O2 Delivery O2 Flow Rate FiO2 12/14/18 09:00 Room Air 12/14/18 08:00 98.3 80 18 120/64 (82) 99 12/14/18 04:00 97.9 82 18 125/66 (85) 98 12/14/18 00:00 97.9 74 18 120/52 (74) 98 12/13/18 21:00 Room Air 12/13/18 20:00 98.3 80 18 122/65 (84) 99 12/13/18 16:00 97.4 77 17 141/62 (88) 96 Height (Feet): 5 Height (Inches): 4.00 Weight (Pounds): 110 General Appearance: no acute distress, cachetic HEENT: mucous membranes moist Respiratory/Chest: lungs clear Cardiovascular: normal rate Abdomen: soft, non tender, other - GT feeding Extremities: no edema Neurologic/Psychiatric: disoriented, aphasia Musculoskeletal: atrophy Laboratory Tests Test 12/14/18 04:39 White Blood Count 9.5 K/UL (4.8-10.8) Red Blood Count 3.69 M/UL (4.20-5.40) L Hemoglobin 8.9 G/DL (12.0-16.0) L Hematocrit 28.0 % (37.0-47.0) L Mean Corpuscular Volume 76 FL (80-99) L Mean Corpuscular Hemoglobin 24.2 PG (27.0-31.0) L Mean Corpuscular Hemoglobin Concent 31.9 G/DL (32.0-36.0) L Red Cell Distribution Width 15.6 % (11.6-14.8) H Platelet Count 304 K/UL (150-450) Mean Platelet Volume 5.3 FL (6.5-10.1) L Neutrophils (%) (Auto) 79.8 % (45.0-75.0) H Lymphocytes (%) (Auto) 13.7 % (20.0-45.0) L Monocytes (%) (Auto) 3.9 % (1.0-10.0) Eosinophils (%) (Auto) 1.9 % (0.0-3.0) Basophils (%) (Auto) 0.7 % (0.0-2.0) Sodium Level 139 MMOL/L (136-145) Potassium Level 3.2 MMOL/L (3.5-5.1) L Chloride Level 106 MMOL/L (98-107) Carbon Dioxide Level 25 MMOL/L (21-32) Anion Gap 8 mmol/L (5-15) Blood Urea Nitrogen 14 mg/dL (7-18) Creatinine 0.5 MG/DL (0.55-1.30) L Estimat Glomerular Filtration Rate > 60 mL/min (>60) Glucose Level 246 MG/DL (74-106) H Calcium Level 8.5 MG/DL (8.5-10.1) Current Medications Medications (Trade) Dose Ordered Sig/Analilia Route PRN Reason Start Time Stop Time Status Last Admin Dose Admin Cefepime HCl 1 gm/ Dextrose 55 ml @ 110 mls/hr EVERY 12 HOURS IVPB 12/12/18 21:00 12/19/18 20:59 12/14/18 09:48 Dextrose (Dextrose 50%) 25 ml Q30M PRN IV Hypoglycemia 12/09/18 19:45 01/08/19 19:44 Dextrose (Dextrose 50%) 50 ml Q30M PRN IV Hypoglycemia 12/09/18 19:45 01/08/19 19:44 Dextrose/Sodium Chloride 1,000 ml @ 75 mls/hr [id number] IV 12/11/18 22:30 01/10/19 22:29 12/14/18 02:12 Haloperidol Lactate (Haldol) 5 mg Q6H PRN IM Agitation 12/11/18 11:30 01/10/19 11:29 12/11/18 14:34 Lorazepam (Ativan 2mg/ml 1ml) 2 mg Q6H PRN IM For Anxiety 12/11/18 10:56 12/18/18 10:55 4/22/19 11:25 Risperidone (RisperDAL) 1 mg Q8HR ORAL 12/11/18 14:00 01/10/19 13:59 12/14/18 05:01 Madhav Doty MD Dec 14, 2018 12:59
--- NOTE | 2018-12-14 13:27 | Pulmonology Progress Note ---
Assessment/Plan Problems: (1) Sepsis (2) At high risk for aspiration (3) Severe protein-calorie malnutrition (4) Diabetes mellitus (5) Essential hypertension (6) Schizophrenia (7) Bipolar disorder Assessment/Plan looks better smiling got the PEG improving continue abx check cultures sliding scale Subjective ROS Limited/Unobtainable: No Constitutional: Reports: no symptoms HEENT: Repors: no symptoms Allergies: Coded Allergies: No Known Allergies (Unverified , 05/22/18) Objective Last 24 Hour Vital Signs Date Time Temp Pulse Resp B/P (MAP) Pulse Ox O2 Delivery O2 Flow Rate FiO2 12/14/18 09:00 Room Air 12/14/18 08:00 98.3 80 18 120/64 (82) 99 12/14/18 04:00 97.9 82 18 125/66 (85) 98 12/14/18 00:00 97.9 74 18 120/52 (74) 98 12/13/18 21:00 Room Air 12/13/18 20:00 98.3 80 18 122/65 (84) 99 12/13/18 16:00 97.4 77 17 141/62 (88) 96 Intake and Output 12/13/18 12/14/18 19:00 07:00 Intake Total 1020 ml 1375 ml Balance 1020 ml 1375 ml Free Water 150 ml 300 ml IV Total 735 ml 655 ml Tube Feeding 135 ml 420 ml # Voids 2 # Bowel Movements 1 1 General Appearance: cachetic HEENT: normocephalic Respiratory/Chest: chest wall non-tender, lungs clear Breasts: no masses Cardiovascular: normal peripheral pulses, regular rhythm Abdomen: normal bowel sounds, no organomegaly, no scars Extremities: no cyanosis Laboratory Tests 12/14/18 04:39: White Blood Count 9.5, Red Blood Count 3.69L, Hemoglobin 8.9L, Hematocrit 28.0L , Mean Corpuscular Volume 76L, Mean Corpuscular Hemoglobin 24.2L, Mean Corpuscular Hemoglobin Concent 31.9L, Red Cell Distribution Width 15.6H, Platelet Count 304, Mean Platelet Volume 5.3L, Neutrophils (%) (Auto) 79.8H, Lymphocytes (%) (Auto) 13.7L, Monocytes (%) (Auto) 3.9, Eosinophils (%) (Auto) 1.9, Basophils (%) (Auto) 0.7, Sodium Level 139, Potassium Level 3.2L, Chloride Level 106, Carbon Dioxide Level 25, Anion Gap 8, Blood Urea Nitrogen 14, Creatinine 0.5L, Estimat Glomerular Filtration Rate > 60, Glucose Level 246H, Calcium Level 8.5 Current Medications Medications (Trade) Dose Ordered Sig/Analilia Route PRN Reason Start Time Stop Time Status Last Admin Dose Admin Ciprofloxacin (Cipro 500mg tab) 500 mg EVERY 12 HOURS GT 12/14/18 21:00 12/21/18 20:59 Dextrose (Dextrose 50%) 25 ml Q30M PRN IV Hypoglycemia 12/09/18 19:45 01/08/19 19:44 Dextrose (Dextrose 50%) 50 ml Q30M PRN IV Hypoglycemia 12/09/18 19:45 01/08/19 19:44 Dextrose/Sodium Chloride 1,000 ml @ 75 mls/hr [id number] IV 12/11/18 22:30 01/10/19 22:29 12/14/18 02:12 Haloperidol Lactate (Haldol) 5 mg Q6H PRN IM Agitation 12/11/18 11:30 01/10/19 11:29 12/11/18 14:34 Lorazepam (Ativan 2mg/ml 1ml) 2 mg Q6H PRN IM For Anxiety 12/11/18 10:56 12/18/18 10:55 12/11/18 11:25 Risperidone (RisperDAL) 1 mg Q8HR ORAL 12/11/18 14:00 01/10/19 13:59 12/14/18 13:03 Jaimie Delacruz MD Dec 14, 2018 13:27
--- NOTE | 2018-12-14 13:44 | Surgery Progress Note ---
Surgery Progress Note Subjective Additional Comments s/p peg. tolerating tube feeds. more comfortable less combative looks well today Objective Last 24 Hour Vital Signs Date Time Temp Pulse Resp B/P (MAP) Pulse Ox O2 Delivery O2 Flow Rate FiO2 12/14/18 09:00 Room Air 12/14/18 08:00 98.3 80 18 120/64 (82) 99 12/14/18 04:00 97.9 82 18 125/66 (85) 98 12/14/18 00:00 97.9 74 18 120/52 (74) 98 12/13/18 21:00 Room Air 12/13/18 20:00 98.3 80 18 122/65 (84) 99 12/13/18 16:00 97.4 77 17 141/62 (88) 96 I&O Intake and Output 12/13/18 12/14/18 19:00 07:00 Intake Total 1020 ml 1375 ml Balance 1020 ml 1375 ml Free Water 150 ml 300 ml IV Total 735 ml 655 ml Tube Feeding 135 ml 420 ml # Voids 2 # Bowel Movements 1 1 Dressing: dry Wound: clean Drains: other Cardiovascular: RSR Respiratory: clear Abdomen: soft, flat, present bowel sounds, non-distended Extremities: no tenderness, no cyanosis Laboratory Tests Test 12/14/18 04:39 White Blood Count 9.5 K/UL (4.8-10.8) Red Blood Count 3.69 M/UL (4.20-5.40) L Hemoglobin 8.9 G/DL (12.0-16.0) L Hematocrit 28.0 % (37.0-47.0) L Mean Corpuscular Volume 76 FL (80-99) L Mean Corpuscular Hemoglobin 24.2 PG (27.0-31.0) L Mean Corpuscular Hemoglobin Concent 31.9 G/DL (32.0-36.0) L Red Cell Distribution Width 15.6 % (11.6-14.8) H Platelet Count 304 K/UL (150-450) Mean Platelet Volume 5.3 FL (6.5-10.1) L Neutrophils (%) (Auto) 79.8 % (45.0-75.0) H Lymphocytes (%) (Auto) 13.7 % (20.0-45.0) L Monocytes (%) (Auto) 3.9 % (1.0-10.0) Eosinophils (%) (Auto) 1.9 % (0.0-3.0) Basophils (%) (Auto) 0.7 % (0.0-2.0) Sodium Level 139 MMOL/L (136-145) Potassium Level 3.2 MMOL/L (3.5-5.1) L Chloride Level 106 MMOL/L (98-107) Carbon Dioxide Level 25 MMOL/L (21-32) Anion Gap 8 mmol/L (5-15) Blood Urea Nitrogen 14 mg/dL (7-18) Creatinine 0.5 MG/DL (0.55-1.30) L Estimat Glomerular Filtration Rate > 60 mL/min (>60) Glucose Level 246 MG/DL (74-106) H Calcium Level 8.5 MG/DL (8.5-10.1) Plan Problems: (1) Severe protein-calorie malnutrition Assessment & Plan: needs venous access for meds and fluids very dehydrated. no feeding tube access currently cannot obtain peripheral line s/p PEG tolerating feeds and meds can be without line now d/c planning thank you will follow with recs (2) At high risk for aspiration (3) Schizoaffective disorder, bipolar type (4) Sepsis (5) Diabetes mellitus (6) Essential hypertension (7) Anemia (8) Schizophrenia (9) Bipolar disorder (10) Hyponatremia Wili Leger Dec 14, 2018 13:44
--- NOTE | 2018-12-14 14:52 | Nephrology Progress Note ---
Assessment/Plan Problem List: (1) Hyponatremia (2) Anemia (3) Schizoaffective disorder, bipolar type (4) Severe protein-calorie malnutrition Assessment: low BMI Assessment HypoNatremia : etilogy?? corrected Anemia Dehydration Plan Plan: low K, IV K ordered Slow hydrate Anemia lewis Urine studies Monitor lytes per GI DC planning Subjective ROS Limited/Unobtainable: No Constitutional: Reports: malaise, weakness Objective Objective Last 24 Hour Vital Signs Date Time Temp Pulse Resp B/P (MAP) Pulse Ox O2 Delivery O2 Flow Rate FiO2 12/14/18 12:00 98.1 75 18 142/64 (90) 99 12/14/18 09:00 Room Air 12/14/18 08:00 98.3 80 18 120/64 (82) 99 12/14/18 04:00 97.9 82 18 125/66 (85) 98 12/14/18 00:00 97.9 74 18 120/52 (74) 98 12/13/18 21:00 Room Air 12/13/18 20:00 98.3 80 18 122/65 (84) 99 12/13/18 16:00 97.4 77 17 141/62 (88) 96 Intake and Output 12/13/18 12/14/18 19:00 07:00 Intake Total 1020 ml 1375 ml Balance 1020 ml 1375 ml Free Water 150 ml 300 ml IV Total 735 ml 655 ml Tube Feeding 135 ml 420 ml # Voids 2 # Bowel Movements 1 1 Laboratory Tests 12/14/18 04:39: White Blood Count 9.5, Red Blood Count 3.69L, Hemoglobin 8.9L, Hematocrit 28.0L , Mean Corpuscular Volume 76L, Mean Corpuscular Hemoglobin 24.2L, Mean Corpuscular Hemoglobin Concent 31.9L, Red Cell Distribution Width 15.6H, Platelet Count 304, Mean Platelet Volume 5.3L, Neutrophils (%) (Auto) 79.8H, Lymphocytes (%) (Auto) 13.7L, Monocytes (%) (Auto) 3.9, Eosinophils (%) (Auto) 1.9, Basophils (%) (Auto) 0.7, Sodium Level 139, Potassium Level 3.2L, Chloride Level 106, Carbon Dioxide Level 25, Anion Gap 8, Blood Urea Nitrogen 14, Creatinine 0.5L, Estimat Glomerular Filtration Rate > 60, Glucose Level 246H, Calcium Level 8.5 Height (Feet): 5 Height (Inches): 4.00 Weight (Pounds): 110 General Appearance: no apparent distress Cardiovascular: normal rate Respiratory/Chest: decreased breath sounds Abdomen: distended, other - PEG, feeding Objective no change Herrera Hogan MD Dec 14, 2018 14:52
--- NOTE | 2018-12-14 15:06 | General Progress Note ---
Assessment/Plan Problem List: (1) Dehydration ICD Codes: E86.0 - Dehydration SNOMED: 55543138 (2) Attention to G-tube ICD Codes: Z43.1 - Encounter for attention to gastrostomy SNOMED: 761038775, 352738898, 731051984 (3) Schizoaffective disorder, bipolar type ICD Codes: F25.0 - Schizoaffective disorder, bipolar type SNOMED: 53328421 Status: stable, progressing Assessment/Plan: gi neph f/u cbc bmp am dc plan snf Subjective Constitutional: Reports: weakness Allergies: Coded Allergies: No Known Allergies (Unverified , 05/22/18) All Systems: reviewed and negative except above Subjective confused sleepy Objective Last 24 Hour Vital Signs Date Time Temp Pulse Resp B/P (MAP) Pulse Ox O2 Delivery O2 Flow Rate FiO2 12/14/18 12:00 98.1 75 18 142/64 (90) 99 12/14/18 09:00 Room Air 12/14/18 08:00 98.3 80 18 120/64 (82) 99 12/14/18 04:00 97.9 82 18 125/66 (85) 98 12/14/18 00:00 97.9 74 18 120/52 (74) 98 12/13/18 21:00 Room Air 12/13/18 20:00 98.3 80 18 122/65 (84) 99 12/13/18 16:00 97.4 77 17 141/62 (88) 96 Intake and Output 12/13/18 12/14/18 19:00 07:00 Intake Total 1020 ml 1375 ml Balance 1020 ml 1375 ml Free Water 150 ml 300 ml IV Total 735 ml 655 ml Tube Feeding 135 ml 420 ml # Voids 2 # Bowel Movements 1 1 Laboratory Tests 12/14/18 04:39: White Blood Count 9.5, Red Blood Count 3.69L, Hemoglobin 8.9L, Hematocrit 28.0L , Mean Corpuscular Volume 76L, Mean Corpuscular Hemoglobin 24.2L, Mean Corpuscular Hemoglobin Concent 31.9L, Red Cell Distribution Width 15.6H, Platelet Count 304, Mean Platelet Volume 5.3L, Neutrophils (%) (Auto) 79.8H, Lymphocytes (%) (Auto) 13.7L, Monocytes (%) (Auto) 3.9, Eosinophils (%) (Auto) 1.9, Basophils (%) (Auto) 0.7, Sodium Level 139, Potassium Level 3.2L, Chloride Level 106, Carbon Dioxide Level 25, Anion Gap 8, Blood Urea Nitrogen 14, Creatinine 0.5L, Estimat Glomerular Filtration Rate > 60, Glucose Level 246H, Calcium Level 8.5 Height (Feet): 5 Height (Inches): 4.00 Weight (Pounds): 110 General Appearance: lethargic EENT: normal ENT inspection Neck: normal alignment Cardiovascular: normal peripheral pulses, normal rate, regular rhythm Respiratory/Chest: chest wall non-tender, lungs clear, normal breath sounds Abdomen: normal bowel sounds, non tender, soft Extremities: normal inspection Edema: no edema noted Arm (L), no edema noted Arm (R), no edema noted Leg (L), no edema noted Leg (R), no edema noted Pedal (L), no edema noted Pedal (R), no edema noted Generalized Neurologic: motor weakness Skin: normal pigmentation, warm/dry Jose Cortés DO Dec 14, 2018 15:06
[2018-12-14 16:00] VITALS: BP 176/84
--- NOTE | 2018-12-14 16:14 | NUR ---
*-* DISCHARGE PLANNING *-* PATIENT HAS BEEN REFERRED TO: [facility] P:[phone] F: [phone]
[2018-12-14] MEDS: NovoLOG Insulin Flexpen SUBQ SCH ×2 (17:40→23:57)
--- NOTE | 2018-12-14 18:44 | NUR ---
NURSE NOTES: Patient remained safe during my shift constantly patient grabbing things around, pulling on the GT, when nurses get close to the patient swinging legs to hit nurses, and try to grab/ scratch nurses. resistive to care. restraint site continuously monitored, no swelling, redness, or sign of circulation problem noted/observed, Tube feeding changed with new tubing, wound dressing changed sacral wound healed barrier skin applied and Optifoam dressing applied for prevention.
--- NOTE | 2018-12-14 19:50 | NUR ---
NURSE NOTES: Received a report from GURINDER Cunningham. Pt is instable condition. Confused. No c/o pain/discomfort. On room air. IV site is patent and intact. HOB elevated. GT feeding is running. Has B soft restraints on. Bed in lowest position. Bed alarm is on. Call light within reach. Will continue to monitor.
[2018-12-14 20:00] VITALS: BP 122/76
--- NOTE | 2018-12-14 20:01 | NUR ---
NURSE NOTES: GURINDER Malhotra patient stable condition, restraint order renewed but not saving, RN aware.
--- NOTE | 2018-12-14 20:14 | NUR ---
NURSE NOTES: Received patient from GURINDER Cunningham. Patient is AAO x1, on room air, no s/s of SOB or labored breathing. Patient appears restless and irritated. Patient is on bilateral soft wrist restraint. Informed by GURINDER Cunningham that restraints renew order did not saved. Will try again later. Patient has a patent 22g IV access on upper left forearm running D5NS at 75ml/hr. Patient has redness on sacral, and bilateral heels DTI with Opitoam dressings dry and intact. Patient has a feeding tube inserted on 12/13/2018 running Glucerna 1.2 at 55ml/hr. Bed is locked at the lowest position with bed alarms, side rails up x2, yellow socks implemented, and call light is within reach. Will continue to monitor.
[2018-12-14] MEDS: Ciprofloxacin 500mg tab GT SCH (21:43)
--- NOTE | 2018-12-14 22:30 | NUR ---
NURSE NOTES: Ernestina FAIRCHILD just renewed the order for B soft wrist restraints.
[2018-12-15] VITALS (7 sets, daily range): BP systolic 118–164; BP diastolic 58–82
--- NOTE | 2018-12-15 00:59 | NUR ---
NURSE NOTES: Patient is in bed, asleep, no s/s of distress or pain, unlabored breathing. HOB > 35 degrees. Bed is locked at the lowest position, bed alarms active, side rails up x2, and call light is within reach. Will continue to monitor.
[2018-12-15] MEDS: NovoLOG Insulin Flexpen SUBQ SCH ×3 (05:39→17:17)
[2018-12-15] MEDS: D5NS 1,000 ML IV SCH (05:41)
[2018-12-15 06:58] LABS: BASOPHILS % (AUTO) 0.7 % (0.0-2.0); EOSINOPHILS % (AUTO) 4.1 % (0.0-3.0); HEMATOCRIT 32.2 % (37.0-47.0); HEMOGLOBIN 10.3 G/DL (12.0-16.0); MEAN CORPUSCULAR VOLUME 75 FL (80-99); MONOCYTES % (AUTO) 2.6 % (1.0-10.0); NEUTROPHILS % (AUTO) 75.7 % (45.0-75.0); PLATELET COUNT 217 K/UL (150-450); RED BLOOD COUNT 4.29 M/UL (4.20-5.40); RED CELL DISTRIBUTION WIDTH 15.3 % (11.6-14.8); WHITE BLOOD COUNT 10.4 K/UL (4.8-10.8)
[2018-12-15 07:04] LABS: ANION GAP 9 mmol/L (5-15); BLOOD UREA NITROGEN 14 mg/dL (7-18); CALCIUM 8.4 MG/DL (8.5-10.1); CARBON DIOXIDE 24 MMOL/L (21-32); CHLORIDE 103 MMOL/L (98-107); CREATININE 0.4 MG/DL (0.55-1.30); POTASSIUM 4.2 MMOL/L (3.5-5.1); SODIUM 136 MMOL/L (136-145)
--- NOTE | 2018-12-15 07:30 | NUR ---
NURSE NOTES: Received pt from RN NGOZI/ABDIAS. pt is confused and orient x1. pt is in RA. no SOB or acute respiratory distress noted. pt has intact iv access GEOVANNA 22G is running well. Pt has g tube in place is running well. all needs attended, bed is locked and is in the lowest position, call light within easy reach. will continue to monitor.
--- NOTE | 2018-12-15 07:44 | NUR ---
HAND-OFF: Report given to GURINDER Pacheco. Patient is in bed, asleep, in stable condition, no s/s of distress.
[2018-12-15] MEDS: Ciprofloxacin 500mg tab GT SCH ×2 (09:50→21:23)
--- NOTE | 2018-12-15 10:05 | NUR ---
NURSE NOTES: pt has 125 ml g tube residual, SPRAYER HAND SABAS and kisha are aware. will continue to monitor.
--- NOTE | 2018-12-15 10:59 | NUR ---
RD ASSESSMENT & RECOMMENDATIONS SEE CARE ACTIVITY FOR COMPLETE ASSESSMENT DAILY ESTIMATED NEEDS: Needs based on DM, cardia, underweight, wound / 49kg abw 30-35 kcals/kg 0093-2427 total kcals 1.25-1.5 g protein/kg 61-74 g total protein 25-30 mL/kg 8649-7219 total fluid mLs NUTRITION DIAGNOSIS: * Swallowing difficulty R/T dysphagia as evidenced by pt is PEG dep, s/p GT replacement. * Altered nutrition related lab values R/T diabetes as evidenced by elev POC glu ([phone]) CURRENT TF:Glucerna 1.2 @ 55ml/hr x 24 hrs -held at this time for residuals ENTERAL NUTRITION RECOMMENDATIONS: Glucerna 1.2 @ 55ml/hr x 24 hrs to provide 1320ml, 1584kcal, 79g prot, 1063ml free water * As able, resume @ 25ml/hr, advance 10ml q 4-6 hrs as tolerated to goal rate. * HOB over 30 degrees/ water flush per MD * Monitor TF tolerance closely, need for TF change ADDITIONAL RECOMMENDATIONS: * Calibrated bedscale wt for accurate CBW * DC D5 IVF- Pt on TF, elev BGs * Consider long acting insulin for improved BG control- BGs in the 200's * Monitor lytes, replete as needed * Skin integrity: add Cedrick 1pkt BID (multiple non-blanchable erythema) * Monitor TF tolerance closely, need for TF change Addendum: 12/15/18 at [address] Per GI WATER REGISTRAR, will add Christian JANE
--- NOTE | 2018-12-15 11:07 | NUR ---
ROLL UP OPERATOR NOTES SPOKE WITH THIERNO JOSEPH, PT NOT ACCEPTED. MADE AWARE.
--- NOTE | 2018-12-15 11:11 | GI Progress Note ---
Assessment/Plan Problems: (1) Bipolar disorder ICD Codes: F31.9 - Bipolar disorder, unspecified SNOMED: 77171024 (2) Schizophrenia ICD Codes: F20.9 - Schizophrenia, unspecified SNOMED: 87049090 (3) Anemia ICD Codes: D64.9 - Anemia, unspecified SNOMED: 017844391 Status: stable Status Narrative Discussed with Dr. Tovar Assessment/Plan SUMMARY OF FINDINGS: 1. Partial antrectomy. 2. Anastomotic ulceration, status post biopsy. 3. Status post successful PEG placement. RECOMMENDATIONS: Continue G-tube feedings per RD Elevate head of bed at all times GT site care daily and as needed We will consider low-dose erythromycin for GI motility if patient has persistent high residuals given Reglan has a drug interaction. PPI PRN transfusions Electrolyte correction dc planning The patient was seen and examined at bedside and all new and available data was reviewed in the patients chart. I agree with the above findings, impression and plan. (Patient seen earlier today. Signature stamp does not reflect patient encounter time.). - Hamzah Tovar MD Subjective Subjective limited Objective Last 24 Hour Vital Signs Date Time Temp Pulse Resp B/P (MAP) Pulse Ox O2 Delivery O2 Flow Rate FiO2 12/15/18 09:00 Room Air 12/15/18 08:00 97.4 84 18 164/82 (109) 97 12/15/18 04:00 97.6 70 17 126/62 (83) 93 12/15/18 00:00 98.1 85 17 125/73 (90) 93 12/14/18 21:00 Room Air 12/14/18 20:00 98.3 81 19 122/76 (91) 93 12/14/18 16:00 98.8 84 18 176/84 (114) 99 12/14/18 12:00 98.1 75 18 142/64 (90) 99 Intake and Output 12/14/18 12/15/18 18:59 06:59 Intake Total 900 ml Output Total 800 ml Balance 100 ml IV Total 900 ml Output Urine Total 800 ml # Voids 5 1 # Bowel Movements 1 Laboratory Tests Test 12/15/18 06:00 White Blood Count 10.4 K/UL (4.8-10.8) Red Blood Count 4.29 M/UL (4.20-5.40) Hemoglobin 10.3 G/DL (12.0-16.0) L Hematocrit 32.2 % (37.0-47.0) L Mean Corpuscular Volume 75 FL (80-99) L Mean Corpuscular Hemoglobin 24.0 PG (27.0-31.0) L Mean Corpuscular Hemoglobin Concent 32.0 G/DL (32.0-36.0) Red Cell Distribution Width 15.3 % (11.6-14.8) H Platelet Count 217 K/UL (150-450) Mean Platelet Volume 5.5 FL (6.5-10.1) L Neutrophils (%) (Auto) 75.7 % (45.0-75.0) H Lymphocytes (%) (Auto) 17.0 % (20.0-45.0) L Monocytes (%) (Auto) 2.6 % (1.0-10.0) Eosinophils (%) (Auto) 4.1 % (0.0-3.0) H Basophils (%) (Auto) 0.7 % (0.0-2.0) Sodium Level 136 MMOL/L (136-145) Potassium Level 4.2 MMOL/L (3.5-5.1) Chloride Level 103 MMOL/L (98-107) Carbon Dioxide Level 24 MMOL/L (21-32) Anion Gap 9 mmol/L (5-15) Blood Urea Nitrogen 14 mg/dL (7-18) Creatinine 0.4 MG/DL (0.55-1.30) L Estimat Glomerular Filtration Rate > 60 mL/min (>60) Glucose Level 172 MG/DL (74-106) H Calcium Level 8.4 MG/DL (8.5-10.1) L Height (Feet): 5 Height (Inches): 4.00 Weight (Pounds): 110 General Appearance: WD/WN, no apparent distress, alert Cardiovascular: normal rate Respiratory/Chest: normal breath sounds, no respiratory distress Abdominal Exam: normal bowel sounds, non tender, soft, GT site - Clean dry and intact Extremities: non-tender Abhijeet Weston NP Dec 15, 2018 11:11
--- NOTE | 2018-12-15 12:37 | Nephrology Progress Note ---
Assessment/Plan Problem List: (1) Hyponatremia (2) Anemia (3) Schizoaffective disorder, bipolar type (4) Severe protein-calorie malnutrition Assessment: low BMI Assessment HypoNatremia : etilogy?? corrected Anemia Dehydration Plan Plan: DC IV fluids- Reglan GT low K, IV K ordered Anemia lewis Urine studies Monitor lytes per GI DC planning Subjective ROS Limited/Unobtainable: No Constitutional: Reports: malaise Objective Objective Last 24 Hour Vital Signs Date Time Temp Pulse Resp B/P (MAP) Pulse Ox O2 Delivery O2 Flow Rate FiO2 12/15/18 09:00 Room Air 12/15/18 08:00 97.4 84 18 164/82 (109) 97 12/15/18 04:00 97.6 70 17 126/62 (83) 93 12/15/18 00:00 98.1 85 17 125/73 (90) 93 12/14/18 21:00 Room Air 12/14/18 20:00 98.3 81 19 122/76 (91) 93 12/14/18 16:00 98.8 84 18 176/84 (114) 99 Intake and Output 12/14/18 12/15/18 19:00 07:00 Intake Total 900 ml Output Total 800 ml Balance 100 ml IV Total 900 ml Output Urine Total 800 ml # Voids 5 1 # Bowel Movements 1 Laboratory Tests 12/15/18 06:00: White Blood Count 10.4, Red Blood Count 4.29, Hemoglobin 10.3L, Hematocrit 32.2L , Mean Corpuscular Volume 75L, Mean Corpuscular Hemoglobin 24.0L, Mean Corpuscular Hemoglobin Concent 32.0, Red Cell Distribution Width 15.3H, Platelet Count 217, Mean Platelet Volume 5.5L, Neutrophils (%) (Auto) 75.7H, Lymphocytes (%) (Auto) 17.0L, Monocytes (%) (Auto) 2.6, Eosinophils (%) (Auto) 4.1H, Basophils (%) (Auto) 0.7, Sodium Level 136, Potassium Level 4.2, Chloride Level 103, Carbon Dioxide Level 24, Anion Gap 9, Blood Urea Nitrogen 14, Creatinine 0.4L, Estimat Glomerular Filtration Rate > 60, Glucose Level 172H, Calcium Level 8.4L Height (Feet): 5 Height (Inches): 4.00 Weight (Pounds): 110 General Appearance: no apparent distress Neck: limited range of motion Cardiovascular: normal rate Respiratory/Chest: decreased breath sounds Abdomen: soft, distended Objective no change Herrera Hogan MD Dec 15, 2018 12:37
--- NOTE | 2018-12-15 12:40 | Infectious Diseases Prog Note ---
Assessment/Plan Assessment/Plan IMPRESSION: Pseudomonas urinary tract infection. leukocytosis, dislodgement of the G-tube, s/p GT replacement diabetes, hypertension, dementia, hyperlipidemia, cachexia. VRE carrier RECOMMENDATION: Continue Cipro until tomorrow Subjective ROS Limited/Unobtainable: Yes Neurologic: Reports: confusion, other - on restraint Allergies: Coded Allergies: No Known Allergies (Unverified , 05/22/18) Objective Vital Signs Last 24 Hour Vital Signs Date Time Temp Pulse Resp B/P (MAP) Pulse Ox O2 Delivery O2 Flow Rate FiO2 12/15/18 09:00 Room Air 12/15/18 08:00 97.4 84 18 164/82 (109) 97 12/15/18 04:00 97.6 70 17 126/62 (83) 93 12/15/18 00:00 98.1 85 17 125/73 (90) 93 12/14/18 21:00 Room Air 12/14/18 20:00 98.3 81 19 122/76 (91) 93 12/14/18 16:00 98.8 84 18 176/84 (114) 99 Height (Feet): 5 Height (Inches): 4.00 Weight (Pounds): 110 General Appearance: no acute distress HEENT: mucous membranes moist Respiratory/Chest: lungs clear Cardiovascular: normal rate Abdomen: soft, non tender, other - GT feeding Extremities: no edema Neurologic/Psychiatric: disoriented, aphasia Laboratory Tests Test 12/15/18 06:00 White Blood Count 10.4 K/UL (4.8-10.8) Red Blood Count 4.29 M/UL (4.20-5.40) Hemoglobin 10.3 G/DL (12.0-16.0) L Hematocrit 32.2 % (37.0-47.0) L Mean Corpuscular Volume 75 FL (80-99) L Mean Corpuscular Hemoglobin 24.0 PG (27.0-31.0) L Mean Corpuscular Hemoglobin Concent 32.0 G/DL (32.0-36.0) Red Cell Distribution Width 15.3 % (11.6-14.8) H Platelet Count 217 K/UL (150-450) Mean Platelet Volume 5.5 FL (6.5-10.1) L Neutrophils (%) (Auto) 75.7 % (45.0-75.0) H Lymphocytes (%) (Auto) 17.0 % (20.0-45.0) L Monocytes (%) (Auto) 2.6 % (1.0-10.0) Eosinophils (%) (Auto) 4.1 % (0.0-3.0) H Basophils (%) (Auto) 0.7 % (0.0-2.0) Sodium Level 136 MMOL/L (136-145) Potassium Level 4.2 MMOL/L (3.5-5.1) Chloride Level 103 MMOL/L (98-107) Carbon Dioxide Level 24 MMOL/L (21-32) Anion Gap 9 mmol/L (5-15) Blood Urea Nitrogen 14 mg/dL (7-18) Creatinine 0.4 MG/DL (0.55-1.30) L Estimat Glomerular Filtration Rate > 60 mL/min (>60) Glucose Level 172 MG/DL (74-106) H Calcium Level 8.4 MG/DL (8.5-10.1) L Current Medications Medications (Trade) Dose Ordered Sig/Analilia Route PRN Reason Start Time Stop Time Status Last Admin Dose Admin Ciprofloxacin (Cipro 500mg tab) 500 mg EVERY 12 HOURS GT 12/14/18 21:00 12/21/18 20:59 12/15/18 09:50 Dextrose (Dextrose 50%) 25 ml Q30M PRN IV Hypoglycemia 12/14/18 14:15 01/13/19 14:14 Dextrose (Dextrose 50%) 50 ml Q30M PRN IV Hypoglycemia 12/14/18 14:15 01/13/19 14:14 Dextrose/Sodium Chloride 1,000 ml @ 75 mls/hr [id number] IV 12/11/18 22:30 01/10/19 22:29 12/15/18 05:41 Docusate Sodium (Colace) 100 mg THREE TIMES A DAY ORAL 12/15/18 13:00 01/14/19 12:59 Haloperidol Lactate (Haldol) 5 mg Q6H PRN IM Agitation 12/11/18 11:30 01/10/19 11:29 12/11/18 14:34 Insulin Aspart (NovoLOG) EVERY 6 HOURS SUBQ 12/14/18 18:00 01/13/19 17:59 12/15/18 12:13 Lansoprazole (Prevacid) 30 mg DAILY GT 12/16/18 09:00 01/15/19 08:59 Lorazepam (Ativan 2mg/ml 1ml) 2 mg Q6H PRN IM For Anxiety 12/11/18 10:56 12/18/18 10:55 12/11/18 11:25 Polyethylene Glycol (Miralax) 17 gm BEDTIME GT 12/15/18 21:00 01/14/19 20:59 Risperidone (RisperDAL) 1 mg Q8HR ORAL 12/11/18 14:00 01/10/19 13:59 12/15/18 05:34 Madhav Doty MD Dec 15, 2018 12:40
--- NOTE | 2018-12-15 12:54 | Surgery Progress Note ---
Surgery Progress Note Subjective Additional Comments comfortable. no acute events. tolerating diet. last day of abx pending d/c Objective Last 24 Hour Vital Signs Date Time Temp Pulse Resp B/P (MAP) Pulse Ox O2 Delivery O2 Flow Rate FiO2 12/15/18 09:00 Room Air 12/15/18 08:00 97.4 84 18 164/82 (109) 97 12/15/18 04:00 97.6 70 17 126/62 (83) 93 12/15/18 00:00 98.1 85 17 125/73 (90) 93 12/14/18 21:00 Room Air 12/14/18 20:00 98.3 81 19 122/76 (91) 93 12/14/18 16:00 98.8 84 18 176/84 (114) 99 I&O Intake and Output 12/14/18 12/15/18 19:00 07:00 Intake Total 900 ml Output Total 800 ml Balance 100 ml IV Total 900 ml Output Urine Total 800 ml # Voids 5 1 # Bowel Movements 1 Wound: clean Cardiovascular: RSR Respiratory: clear Abdomen: soft, flat, non-tender, present bowel sounds Extremities: no tenderness, no cyanosis Laboratory Tests Test 12/15/18 06:00 White Blood Count 10.4 K/UL (4.8-10.8) Red Blood Count 4.29 M/UL (4.20-5.40) Hemoglobin 10.3 G/DL (12.0-16.0) L Hematocrit 32.2 % (37.0-47.0) L Mean Corpuscular Volume 75 FL (80-99) L Mean Corpuscular Hemoglobin 24.0 PG (27.0-31.0) L Mean Corpuscular Hemoglobin Concent 32.0 G/DL (32.0-36.0) Red Cell Distribution Width 15.3 % (11.6-14.8) H Platelet Count 217 K/UL (150-450) Mean Platelet Volume 5.5 FL (6.5-10.1) L Neutrophils (%) (Auto) 75.7 % (45.0-75.0) H Lymphocytes (%) (Auto) 17.0 % (20.0-45.0) L Monocytes (%) (Auto) 2.6 % (1.0-10.0) Eosinophils (%) (Auto) 4.1 % (0.0-3.0) H Basophils (%) (Auto) 0.7 % (0.0-2.0) Sodium Level 136 MMOL/L (136-145) Potassium Level 4.2 MMOL/L (3.5-5.1) Chloride Level 103 MMOL/L (98-107) Carbon Dioxide Level 24 MMOL/L (21-32) Anion Gap 9 mmol/L (5-15) Blood Urea Nitrogen 14 mg/dL (7-18) Creatinine 0.4 MG/DL (0.55-1.30) L Estimat Glomerular Filtration Rate > 60 mL/min (>60) Glucose Level 172 MG/DL (74-106) H Calcium Level 8.4 MG/DL (8.5-10.1) L Plan Problems: (1) Severe protein-calorie malnutrition Assessment & Plan: needs venous access for meds and fluids very dehydrated. no feeding tube access currently cannot obtain peripheral line s/p PEG tolerating feeds and meds can be without line now d/c planning thank you will follow with recs (2) At high risk for aspiration (3) Schizoaffective disorder, bipolar type (4) Sepsis (5) Diabetes mellitus (6) Essential hypertension (7) Anemia (8) Schizophrenia (9) Bipolar disorder (10) Hyponatremia Wili Leger Dec 15, 2018 12:54
[2018-12-15] MEDS: Docusate 100mg cap ORAL SCH ×2 (13:24→17:13)
--- NOTE | 2018-12-15 14:01 | General Progress Note ---
Assessment/Plan Problem List: (1) Dehydration ICD Codes: E86.0 - Dehydration SNOMED: 80159064 (2) Attention to G-tube ICD Codes: Z43.1 - Encounter for attention to gastrostomy SNOMED: 423855284, 042695439, 319061225 (3) Schizoaffective disorder, bipolar type ICD Codes: F25.0 - Schizoaffective disorder, bipolar type SNOMED: 25906996 Status: stable, progressing Assessment/Plan: gi neph f/u cbc bmp am aru eval transfer Subjective Constitutional: Reports: weakness Allergies: Coded Allergies: No Known Allergies (Unverified , 05/22/18) All Systems: reviewed and negative except above Subjective confused sleepy Objective Last 24 Hour Vital Signs Date Time Temp Pulse Resp B/P (MAP) Pulse Ox O2 Delivery O2 Flow Rate FiO2 12/15/18 12:00 98.1 81 18 124/58 (80) 96 12/15/18 10:00 144/75 (98) 12/15/18 09:00 Room Air 12/15/18 08:00 97.4 84 18 164/82 (109) 97 12/15/18 04:00 97.6 70 17 126/62 (83) 93 12/15/18 00:00 98.1 85 17 125/73 (90) 93 12/14/18 21:00 Room Air 12/14/18 20:00 98.3 81 19 122/76 (91) 93 12/14/18 16:00 98.8 84 18 176/84 (114) 99 Intake and Output 12/14/18 12/15/18 19:00 07:00 Intake Total 900 ml Output Total 800 ml Balance 100 ml IV Total 900 ml Output Urine Total 800 ml # Voids 5 1 # Bowel Movements 1 Laboratory Tests 12/15/18 06:00: White Blood Count 10.4, Red Blood Count 4.29, Hemoglobin 10.3L, Hematocrit 32.2L , Mean Corpuscular Volume 75L, Mean Corpuscular Hemoglobin 24.0L, Mean Corpuscular Hemoglobin Concent 32.0, Red Cell Distribution Width 15.3H, Platelet Count 217, Mean Platelet Volume 5.5L, Neutrophils (%) (Auto) 75.7H, Lymphocytes (%) (Auto) 17.0L, Monocytes (%) (Auto) 2.6, Eosinophils (%) (Auto) 4.1H, Basophils (%) (Auto) 0.7, Sodium Level 136, Potassium Level 4.2, Chloride Level 103, Carbon Dioxide Level 24, Anion Gap 9, Blood Urea Nitrogen 14, Creatinine 0.4L, Estimat Glomerular Filtration Rate > 60, Glucose Level 172H, Calcium Level 8.4L Height (Feet): 5 Height (Inches): 4.00 Weight (Pounds): 110 General Appearance: lethargic EENT: normal ENT inspection Neck: normal alignment Cardiovascular: normal peripheral pulses, normal rate, regular rhythm Respiratory/Chest: chest wall non-tender, lungs clear, normal breath sounds Abdomen: normal bowel sounds, non tender, soft Extremities: normal inspection Edema: no edema noted Arm (L), no edema noted Arm (R), no edema noted Leg (L), no edema noted Leg (R), no edema noted Pedal (L), no edema noted Pedal (R), no edema noted Generalized Neurologic: motor weakness Skin: normal pigmentation, warm/dry Jose Cortés DO Dec 15, 2018 14:01
--- NOTE | 2018-12-15 14:07 | NUR ---
ST NOTE: REFERRAL BY A [facility] FOR A SWALLOW EVAL BUT NOT AVAILABLE UNTIL NOW. SEE LIMITED SWALLOW EVAL ATTEMPT. DYSPHAGIA RISK FACTORS FOR THIS 68 Y.O.F.: ACUTE MALFUNCTION OF PEG (PATIENT PULLED OUT GT) AND DEHYDRATION. H/O PNA, DYSPHAGIA, DEMENTIA, DM, BIPOLAR/SCHIZOPHRENIA, GERD, RESP D/O. NOW S/P PEG (GLUCERNA) REPLACEMENT 12/14/18. AT [facility] – [place] 2018 WAS ON A REG TEXTURE DIET AND THIN LIQUIDS (CCHO-MED LOW NA) PER POLST OK FOR LT TF. NO PO ONLY HAD PEG AT [facility]. NOW ONLY GETTING PEG GLUCENA FEEDINGS. ALERT ON ROOM AIR. NONVERBAL ? BASELINE, WILL NOT FOLLOW ORAL NOR VISUAL COMMANDS. INITIAL IMPRESSIONS: HIGH RISK FOR PERSISTENT OROPHARYNGEAL DYSPHAGIA ALERT BUT NOT FOLLOWING ORAL COMMANDS EVEN WITH VISUAL CUES NOT RECEPTIVE TO PO INTAKE TRIAL OF TSP NECTAR THICK WATER TO SEE IF SHE WILL COMPLY WITH MOD BARIUM SWALLOW STUDY. NO NEED FOR ORAL SUCTION. NEEDS DENTAL HYGIENE AND UNABLE TO SEE TONGUE MAY HAVE SILENT ASPIRATION RISK. EDUCATED/TRAINED RN IN POSTED ORAL CARE IF PT IS RECEPTIVE. RECOMMENDATIONS: CONTINUE WITH ORAL CARE SHE IS RECEPTIVE (POSTED SIGN) CONTINUE WITH PEG FEEDINGS. WILL ATTEMPT TRIAL PO ON TUESDAY IF STILL HERE TO SEE IF SHE WILL COMPLY WITH MOD BARIUM SWALLOW STUDY. F/UP AT DC SETTING OP IF DC, DO NOT HOLD UP D/C FOR THIS STUDY. D/C WITH RN (DHAVAL) AND SABAS REGARDING ABOVE Addendum: 12/15/18 at 1409 by ROBBY FRAZIER CHAIN SAW MECHANIC PER LUNGS ARE CLEAR TODAY.
--- NOTE | 2018-12-15 16:05 | NUR ---
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 ANEMIA VS: BP 164/82, P 81, T 97.4, RR 18, SpO2 96 Hgb 10.3, Hct 32.2, Cr 0.4 IS:REGLAN 5mg CIPROFLOXACIN 500mg NOVOLOG SUBQ D5/NS x1L IV MED/SURG STATUS
--- NOTE | 2018-12-15 16:32 | Pulmonology Progress Note ---
Assessment/Plan Problems: (1) Sepsis (2) At high risk for aspiration (3) Severe protein-calorie malnutrition (4) Diabetes mellitus (5) Essential hypertension (6) Schizophrenia (7) Bipolar disorder Assessment/Plan looks better smiling got the PEG tolerating feeding improving continue abx check cultures sliding scale dc planning. Subjective ROS Limited/Unobtainable: No Constitutional: Reports: no symptoms Allergies: Coded Allergies: No Known Allergies (Unverified , 05/22/18) Objective Last 24 Hour Vital Signs Date Time Temp Pulse Resp B/P (MAP) Pulse Ox O2 Delivery O2 Flow Rate FiO2 12/15/18 12:00 98.1 81 18 124/58 (80) 96 12/15/18 10:00 144/75 (98) 12/15/18 09:00 Room Air 12/15/18 08:00 97.4 84 18 164/82 (109) 97 12/15/18 04:00 97.6 70 17 126/62 (83) 93 12/15/18 00:00 98.1 85 17 125/73 (90) 93 12/14/18 21:00 Room Air 12/14/18 20:00 98.3 81 19 122/76 (91) 93 Intake and Output 12/14/18 12/15/18 19:00 07:00 Intake Total 900 ml Output Total 800 ml Balance 100 ml IV Total 900 ml Output Urine Total 800 ml # Voids 5 1 # Bowel Movements 1 Objective General Appearance: WD/WN HEENT: normocephalic, atraumatic Respiratory/Chest: chest wall non-tender, normal breath sounds Cardiovascular: normal peripheral pulses, normal rate Abdomen: normal bowel sounds, soft, non tender, no organomegaly, non distended Extremities: no cyanosis Skin: no rash, no lesions, no ulcers Laboratory Tests 12/15/18 06:00: White Blood Count 10.4, Red Blood Count 4.29, Hemoglobin 10.3L, Hematocrit 32.2L , Mean Corpuscular Volume 75L, Mean Corpuscular Hemoglobin 24.0L, Mean Corpuscular Hemoglobin Concent 32.0, Red Cell Distribution Width 15.3H, Platelet Count 217, Mean Platelet Volume 5.5L, Neutrophils (%) (Auto) 75.7H, Lymphocytes (%) (Auto) 17.0L, Monocytes (%) (Auto) 2.6, Eosinophils (%) (Auto) 4.1H, Basophils (%) (Auto) 0.7, Sodium Level 136, Potassium Level 4.2, Chloride Level 103, Carbon Dioxide Level 24, Anion Gap 9, Blood Urea Nitrogen 14, Creatinine 0.4L, Estimat Glomerular Filtration Rate > 60, Glucose Level 172H, Calcium Level 8.4L Current Medications Medications (Trade) Dose Ordered Sig/Analilia Route PRN Reason Start Time Stop Time Status Last Admin Dose Admin Ciprofloxacin (Cipro 500mg tab) 500 mg EVERY 12 HOURS GT 12/14/18 21:00 12/16/18 22:00 12/15/18 09:50 Dextrose (Dextrose 50%) 25 ml Q30M PRN IV Hypoglycemia 12/14/18 14:15 01/13/19 14:14 Dextrose (Dextrose 50%) 50 ml Q30M PRN IV Hypoglycemia 12/14/18 14:15 01/13/19 14:14 Docusate Sodium (Colace) 100 mg THREE TIMES A DAY ORAL 12/15/18 13:00 01/14/19 12:59 12/15/18 13:24 Haloperidol Lactate (Haldol) 5 mg Q6H PRN IM Agitation 12/11/18 11:30 01/10/19 11:29 12/11/18 14:34 Insulin Aspart (NovoLOG) EVERY 6 HOURS SUBQ 12/14/18 18:00 01/13/19 17:59 12/15/18 12:13 Lansoprazole (Prevacid) 30 mg DAILY GT 12/16/18 09:00 01/15/19 08:59 Lorazepam (Ativan 2mg/ml 1ml) 2 mg Q6H PRN IM For Anxiety 12/11/18 10:56 12/18/18 10:55 12/11/18 11:25 Metoclopramide HCl (Reglan) 5 mg EVERY 6 HOURS GT 12/15/18 18:00 01/14/19 17:59 Polyethylene Glycol (Miralax) 17 gm BEDTIME GT 12/15/18 21:00 01/14/19 20:59 Risperidone (RisperDAL) 1 mg Q8HR ORAL 12/11/18 14:00 01/10/19 13:59 12/15/18 13:23 Jaimie Delacruz MD Dec 15, 2018 16:32
[2018-12-15] MEDS ORDERED: LANSOPRAZOLE30 MG GT (16:34)
[2018-12-15] MEDS ORDERED: NOVOLOG100 UNITS1 SUBQ (16:34)
[2018-12-15] MEDS ORDERED: RISPERDAL1 MG ORAL (16:34)
--- NOTE | 2018-12-15 19:38 | NUR ---
HAND-OFF: Report given to RN MY.
--- NOTE | 2018-12-15 20:05 | NUR ---
NURSE NOTES: Received pt. and report from GURINDER Pacheco. Observe pt. resting in bed and both eyes open. Pt. is A/Ox1, respond only to name. IV site intact, asymptomatic, and patent. Pt. has G-tube feeding of Glucerna 1.2 @ 55cc/hr. No residual noted. Bed is in the lowest position and locked, call light within reach. No signs/symptoms of acute distress noted at this time. Will continue plan of care.
[2018-12-15] MEDS: Miralax 17gm pkt GT SCH (21:23)
--- NOTE | 2018-12-15 21:45 | Psych Consult Progress Note ---
Psychiatry Progress Note Psychiatry Progress Note Medications Current Medications Medications (Trade) Dose Ordered Sig/Analilia Route PRN Reason Start Time Stop Time Status Last Admin Dose Admin Ciprofloxacin (Cipro 500mg tab) 500 mg EVERY 12 HOURS GT 12/14/18 21:00 12/16/18 22:00 12/15/18 21:23 Dextrose (Dextrose 50%) 25 ml Q30M PRN IV Hypoglycemia 12/14/18 14:15 01/13/19 14:14 Dextrose (Dextrose 50%) 50 ml Q30M PRN IV Hypoglycemia 12/14/18 14:15 01/13/19 14:14 Docusate Sodium (Colace) 100 mg THREE TIMES A DAY ORAL 12/15/18 13:00 01/14/19 12:59 12/15/18 17:13 Haloperidol Lactate (Haldol) 5 mg Q6H PRN IM Agitation 12/11/18 11:30 01/10/19 11:29 12/11/18 14:34 Insulin Aspart (NovoLOG) EVERY 6 HOURS SUBQ 12/14/18 18:00 01/13/19 17:59 12/15/18 17:17 Lansoprazole (Prevacid) 30 mg DAILY GT 12/16/18 09:00 01/15/19 08:59 Lorazepam (Ativan 2mg/ml 1ml) 2 mg Q6H PRN IM For Anxiety 12/11/18 10:56 12/18/18 10:55 12/11/18 11:25 Metoclopramide HCl (Reglan) 5 mg EVERY 6 HOURS GT 12/15/18 18:00 01/14/19 17:59 12/15/18 17:13 Polyethylene Glycol (Miralax) 17 gm BEDTIME GT 12/15/18 21:00 01/14/19 20:59 12/15/18 21:23 Risperidone (RisperDAL) 1 mg Q8HR ORAL 12/11/18 14:00 01/10/19 13:59 12/15/18 21:23 Neurological/Psychiatric: Reports: anxiety, depressed, emotional problems Allergies: Coded Allergies: No Known Allergies (Unverified , 05/22/18) Objective Data Height (Feet): 5 Height (Inches): 4.00 Weight (Pounds): 110 Appearance: disheveled Behavior Mannerisms: poor eye contact Mental Status Exam - Affect: constricted Mental Status Exam - Mood: anxious, agitated Speech: aphasic Mental Status Exam - Thought P: confusion, loose association Assessment/Plan Problem List: (1) Schizoaffective disorder, bipolar type ICD Codes: F25.0 - Schizoaffective disorder, bipolar type SNOMED: 45656911 Status: stable, progressing Assessment/Plan: Risperdal 1mg po tid Ativan IM restrains. Urvashi Ash MD Dec 15, 2018 21:45
[2018-12-16] VITALS: BP 123/60
[2018-12-16] MEDS: NovoLOG Insulin Flexpen SUBQ SCH ×4 (00:15→17:29)
--- NOTE | 2018-12-16 01:22 | NUR ---
HAND-OFF: Report given to GURINDER Scruggs.
[2018-12-16 04:00] VITALS: BP 140/69
--- NOTE | 2018-12-16 06:20 | NUR ---
NURSE NOTES: MONITORED BLOOD GLUCOSE LEVEL VIA GLUCOMETER WITH RESULT 147MG/DL, ASYMPTOMATIC, ADMINISTERED 3 UNITS NOVOLOG INSULIN SUBCUT, NO ADVERSE REACTION NOTED AFTER 15 MINUTES. NAD.
[2018-12-16 07:43] LABS: BASOPHILS % (AUTO) 0.7 % (0.0-2.0); EOSINOPHILS % (AUTO) 5.3 % (0.0-3.0); HEMATOCRIT 29.7 % (37.0-47.0); HEMOGLOBIN 9.3 G/DL (12.0-16.0); LYMPHOCYTES % (AUTO) 13.7 % (20.0-45.0); MEAN CORPUSCULAR VOLUME 75 FL (80-99); MONOCYTES % (AUTO) 2.5 % (1.0-10.0); NEUTROPHILS % (AUTO) 77.9 % (45.0-75.0); PLATELET COUNT 289 K/UL (150-450); RED BLOOD COUNT 3.94 M/UL (4.20-5.40); RED CELL DISTRIBUTION WIDTH 15.1 % (11.6-14.8); WHITE BLOOD COUNT 11.6 K/UL (4.8-10.8)
--- NOTE | 2018-12-16 07:52 | NUR ---
NURSE NOTES: Patient alert x1, confused; on room air, no sign of shortness of breath; no sign of distress; bilateral restrain in place; IV Left-Upper arm flushes well; Tube feeding Glucerna 1.2 running at 55cc; patient had vaginal bleeding; head of the bed elevated at 30 degree; side rails up x2, breaks engaged, bed at lowest position. will keep monitoring.
[2018-12-16 08:00] VITALS: BP 139/69
[2018-12-16 08:15] LABS: ANION GAP 8 mmol/L (5-15); BLOOD UREA NITROGEN 17 mg/dL (7-18); CALCIUM 8.5 MG/DL (8.5-10.1); CARBON DIOXIDE 27 MMOL/L (21-32); CHLORIDE 102 MMOL/L (98-107); CREATININE 0.4 MG/DL (0.55-1.30); PHOSPHORUS 3.4 MG/DL (2.5-4.9); POTASSIUM 4.8 MMOL/L (3.5-5.1); SODIUM 137 MMOL/L (136-145)
[2018-12-16] MEDS: Ciprofloxacin 500mg tab GT SCH ×2 (08:28→21:00)
[2018-12-16] MEDS: Docusate 100mg cap ORAL SCH ×3 (08:29→17:28)
--- NOTE | 2018-12-16 08:48 | General Progress Note ---
Assessment/Plan Problem List: (1) Dehydration ICD Codes: E86.0 - Dehydration SNOMED: 42275446 (2) Attention to G-tube ICD Codes: Z43.1 - Encounter for attention to gastrostomy SNOMED: 806104067, 963337106, 209839831 (3) Schizoaffective disorder, bipolar type ICD Codes: F25.0 - Schizoaffective disorder, bipolar type SNOMED: 39016155 Status: stable, progressing Assessment/Plan: gi neph f/u cbc bmp am aru eval transfer Subjective Constitutional: Reports: weakness Allergies: Coded Allergies: No Known Allergies (Unverified , 05/22/18) All Systems: reviewed and negative except above Subjective confused sleepy Objective Last 24 Hour Vital Signs Date Time Temp Pulse Resp B/P (MAP) Pulse Ox O2 Delivery O2 Flow Rate FiO2 12/16/18 04:00 98.0 101 17 140/69 (92) 95 12/16/18 00:00 97.9 75 17 123/60 (81) 93 12/15/18 21:00 Room Air 12/15/18 20:00 98.1 71 19 132/62 (85) 95 12/15/18 16:00 98.6 86 17 126/62 (83) 97 12/15/18 12:00 98.1 81 18 124/58 (80) 96 12/15/18 10:00 144/75 (98) 12/15/18 09:00 Room Air Intake and Output 12/15/18 12/16/18 19:00 07:00 Intake Total 375 ml 430 ml Output Total 150 ml Balance 375 ml 280 ml Free Water 100 ml IV Total 375 ml Tube Feeding 330 ml Output Urine Total 150 ml Laboratory Tests 12/16/18 06:30: White Blood Count 11.6H, Red Blood Count 3.94L, Hemoglobin 9.3L, Hematocrit 29.7L, Mean Corpuscular Volume 75L, Mean Corpuscular Hemoglobin 23.7L, Mean Corpuscular Hemoglobin Concent 31.5L, Red Cell Distribution Width 15.1H, Platelet Count 289, Mean Platelet Volume 5.5L, Neutrophils (%) (Auto) 77.9H, Lymphocytes (%) (Auto) 13.7L, Monocytes (%) (Auto) 2.5, Eosinophils (%) (Auto) 5.3H, Basophils (%) (Auto) 0.7, Sodium Level 137, Potassium Level 4.8, Chloride Level 102, Carbon Dioxide Level 27, Anion Gap 8, Blood Urea Nitrogen 17, Creatinine 0.4L, Estimat Glomerular Filtration Rate > 60, Glucose Level 210H, Calcium Level 8.5, Phosphorus Level 3.4, Magnesium Level 1.7L Height (Feet): 5 Height (Inches): 4.00 Weight (Pounds): 110 General Appearance: lethargic EENT: normal ENT inspection Neck: normal alignment Cardiovascular: normal peripheral pulses, normal rate, regular rhythm Respiratory/Chest: chest wall non-tender, lungs clear, normal breath sounds Abdomen: normal bowel sounds, non tender, soft Extremities: normal inspection Edema: no edema noted Arm (L), no edema noted Arm (R), no edema noted Leg (L), no edema noted Leg (R), no edema noted Pedal (L), no edema noted Pedal (R), no edema noted Generalized Neurologic: motor weakness Skin: normal pigmentation, warm/dry Jose Cortés DO Dec 16, 2018 08:48
--- NOTE | 2018-12-16 09:48 | General Progress Note ---
Assessment/Plan Problem List: (1) Bipolar disorder ICD Codes: F31.9 - Bipolar disorder, unspecified SNOMED: 65413845 (2) Schizophrenia ICD Codes: F20.9 - Schizophrenia, unspecified SNOMED: 75100802 (3) Anemia ICD Codes: D64.9 - Anemia, unspecified SNOMED: 452812692 (4) Diabetes mellitus ICD Codes: E11.9 - Type 2 diabetes mellitus without complications SNOMED: 83962074 Status: stable, progressing Assessment/Plan: SUMMARY OF FINDINGS: 1. Partial antrectomy. 2. Anastomotic ulceration, status post biopsy. 3. Status post successful PEG placement. RECOMMENDATIONS: Continue G-tube feedings per RD Elevate head of bed at all times GT site care daily and as needed We will consider low-dose erythromycin for GI motility if patient has persistent high residuals given Reglan has a drug interaction. PPI PRN transfusions Electrolyte correction dc planning Subjective ROS Limited/Unobtainable: Yes Allergies: Coded Allergies: No Known Allergies (Unverified , 05/22/18) Objective Last 24 Hour Vital Signs Date Time Temp Pulse Resp B/P (MAP) Pulse Ox O2 Delivery O2 Flow Rate FiO2 12/16/18 09:00 Room Air 12/16/18 08:00 98.1 86 19 139/69 (92) 97 12/16/18 04:00 98.0 101 17 140/69 (92) 95 12/16/18 00:00 97.9 75 17 123/60 (81) 93 12/15/18 21:00 Room Air 12/15/18 20:00 98.1 71 19 132/62 (85) 95 12/15/18 16:00 98.6 86 17 126/62 (83) 97 12/15/18 12:00 98.1 81 18 124/58 (80) 96 12/15/18 10:00 144/75 (98) Intake and Output 12/15/18 12/16/18 19:00 07:00 Intake Total 375 ml 430 ml Output Total 150 ml Balance 375 ml 280 ml Free Water 100 ml IV Total 375 ml Tube Feeding 330 ml Output Urine Total 150 ml Laboratory Tests 12/16/18 06:30: White Blood Count 11.6H, Red Blood Count 3.94L, Hemoglobin 9.3L, Hematocrit 29.7L, Mean Corpuscular Volume 75L, Mean Corpuscular Hemoglobin 23.7L, Mean Corpuscular Hemoglobin Concent 31.5L, Red Cell Distribution Width 15.1H, Platelet Count 289, Mean Platelet Volume 5.5L, Neutrophils (%) (Auto) 77.9H, Lymphocytes (%) (Auto) 13.7L, Monocytes (%) (Auto) 2.5, Eosinophils (%) (Auto) 5.3H, Basophils (%) (Auto) 0.7, Sodium Level 137, Potassium Level 4.8, Chloride Level 102, Carbon Dioxide Level 27, Anion Gap 8, Blood Urea Nitrogen 17, Creatinine 0.4L, Estimat Glomerular Filtration Rate > 60, Glucose Level 210H, Calcium Level 8.5, Phosphorus Level 3.4, Magnesium Level 1.7L Height (Feet): 5 Height (Inches): 4.00 Weight (Pounds): 110 General Appearance: no apparent distress EENT: normal ENT inspection Neck: supple Cardiovascular: normal rate Respiratory/Chest: decreased breath sounds Abdomen: soft, other - post surgical Extremities: non-tender Hamzah Tovar MD Dec 16, 2018 09:48
--- NOTE | 2018-12-16 10:09 | NUR ---
NURSE NOTES: Patient's Mg 1.7 and MD Cortés and MD Mejia is aware, waiting for order.
[2018-12-16 12:00] VITALS: BP 130/70
--- NOTE | 2018-12-16 13:14 | Surgery Progress Note ---
Surgery Progress Note Subjective Additional Comments comfortable. no complaints no n/v/f/c. tolerating feeds Objective Last 24 Hour Vital Signs Date Time Temp Pulse Resp B/P (MAP) Pulse Ox O2 Delivery O2 Flow Rate FiO2 12/16/18 12:00 98.6 76 18 130/70 (90) 96 12/16/18 09:00 Room Air 12/16/18 08:00 98.1 86 19 139/69 (92) 97 12/16/18 04:00 98.0 101 17 140/69 (92) 95 12/16/18 00:00 97.9 75 17 123/60 (81) 93 12/15/18 21:00 Room Air 12/15/18 20:00 98.1 71 19 132/62 (85) 95 12/15/18 16:00 98.6 86 17 126/62 (83) 97 I&O Intake and Output 12/15/18 12/16/18 19:00 07:00 Intake Total 375 ml 430 ml Output Total 150 ml Balance 375 ml 280 ml Free Water 100 ml IV Total 375 ml Tube Feeding 330 ml Output Urine Total 150 ml Dressing: dry Wound: clean Drains: other Cardiovascular: RSR Respiratory: clear Abdomen: soft, flat, present bowel sounds Extremities: no cyanosis Laboratory Tests Test 12/16/18 06:30 White Blood Count 11.6 K/UL (4.8-10.8) H Red Blood Count 3.94 M/UL (4.20-5.40) L Hemoglobin 9.3 G/DL (12.0-16.0) L Hematocrit 29.7 % (37.0-47.0) L Mean Corpuscular Volume 75 FL (80-99) L Mean Corpuscular Hemoglobin 23.7 PG (27.0-31.0) L Mean Corpuscular Hemoglobin Concent 31.5 G/DL (32.0-36.0) L Red Cell Distribution Width 15.1 % (11.6-14.8) H Platelet Count 289 K/UL (150-450) Mean Platelet Volume 5.5 FL (6.5-10.1) L Neutrophils (%) (Auto) 77.9 % (45.0-75.0) H Lymphocytes (%) (Auto) 13.7 % (20.0-45.0) L Monocytes (%) (Auto) 2.5 % (1.0-10.0) Eosinophils (%) (Auto) 5.3 % (0.0-3.0) H Basophils (%) (Auto) 0.7 % (0.0-2.0) Sodium Level 137 MMOL/L (136-145) Potassium Level 4.8 MMOL/L (3.5-5.1) Chloride Level 102 MMOL/L (98-107) Carbon Dioxide Level 27 MMOL/L (21-32) Anion Gap 8 mmol/L (5-15) Blood Urea Nitrogen 17 mg/dL (7-18) Creatinine 0.4 MG/DL (0.55-1.30) L Estimat Glomerular Filtration Rate > 60 mL/min (>60) Glucose Level 210 MG/DL (74-106) H Calcium Level 8.5 MG/DL (8.5-10.1) Phosphorus Level 3.4 MG/DL (2.5-4.9) Magnesium Level 1.7 MG/DL (1.8-2.4) L Plan Problems: (1) Severe protein-calorie malnutrition Assessment & Plan: needs venous access for meds and fluids very dehydrated. no feeding tube access currently cannot obtain peripheral line s/p PEG tolerating feeds and meds can be without line now d/c planning okay to d/c from surgical standpoint pending placement thank you will follow with recs (2) At high risk for aspiration (3) Schizoaffective disorder, bipolar type (4) Sepsis (5) Diabetes mellitus (6) Essential hypertension (7) Anemia (8) Schizophrenia (9) Bipolar disorder (10) Hyponatremia Wili Leger Dec 16, 2018 13:14
--- NOTE | 2018-12-16 13:15 | Nephrology Progress Note ---
Assessment/Plan Problem List: (1) Hyponatremia (2) Anemia (3) Schizoaffective disorder, bipolar type (4) Severe protein-calorie malnutrition Assessment: low BMI Assessment HypoNatremia : etilogy?? corrected Anemia Dehydration Plan Plan: DC IV fluids- Reglan GT low K, IV K ordered Anemia lewis Urine studies Monitor lytes per GI DC planning Subjective ROS Limited/Unobtainable: Yes Objective Objective Last 24 Hour Vital Signs Date Time Temp Pulse Resp B/P (MAP) Pulse Ox O2 Delivery O2 Flow Rate FiO2 12/16/18 12:00 98.6 76 18 130/70 (90) 96 12/16/18 09:00 Room Air 12/16/18 08:00 98.1 86 19 139/69 (92) 97 12/16/18 04:00 98.0 101 17 140/69 (92) 95 12/16/18 00:00 97.9 75 17 123/60 (81) 93 12/15/18 21:00 Room Air 12/15/18 20:00 98.1 71 19 132/62 (85) 95 12/15/18 16:00 98.6 86 17 126/62 (83) 97 Intake and Output 12/15/18 12/16/18 19:00 07:00 Intake Total 375 ml 430 ml Output Total 150 ml Balance 375 ml 280 ml Free Water 100 ml IV Total 375 ml Tube Feeding 330 ml Output Urine Total 150 ml Laboratory Tests 12/16/18 06:30: White Blood Count 11.6H, Red Blood Count 3.94L, Hemoglobin 9.3L, Hematocrit 29.7L, Mean Corpuscular Volume 75L, Mean Corpuscular Hemoglobin 23.7L, Mean Corpuscular Hemoglobin Concent 31.5L, Red Cell Distribution Width 15.1H, Platelet Count 289, Mean Platelet Volume 5.5L, Neutrophils (%) (Auto) 77.9H, Lymphocytes (%) (Auto) 13.7L, Monocytes (%) (Auto) 2.5, Eosinophils (%) (Auto) 5.3H, Basophils (%) (Auto) 0.7, Sodium Level 137, Potassium Level 4.8, Chloride Level 102, Carbon Dioxide Level 27, Anion Gap 8, Blood Urea Nitrogen 17, Creatinine 0.4L, Estimat Glomerular Filtration Rate > 60, Glucose Level 210H, Calcium Level 8.5, Phosphorus Level 3.4, Magnesium Level 1.7L Height (Feet): 5 Height (Inches): 4.00 Weight (Pounds): 110 General Appearance: no apparent distress Objective no change Herrera Hogan MD Dec 16, 2018 13:15
[2018-12-16 16:00] VITALS: BP 126/74
[2018-12-16] MEDS: Magnesium Oxide 400mg tab GT SCH (17:29)
--- NOTE | 2018-12-16 19:43 | NUR ---
HAND-OFF: Report given to GURINDER Garza.
[2018-12-16 20:00] VITALS: BP 132/58
--- NOTE | 2018-12-16 20:17 | NUR ---
NURSE NOTES: Pt is in bed, awake and restless.Vitals stable. Pt continues to pull at feeding tube line and observed scratching self. Pt has bilat soft wrist restraints; restraints sites asymptomatic. Pt was released from restraints for ROM. Pt was turned and cleaned. Glucerna 1.2 running at 55ml/hr; no residual. G-tube flushed. HOB elevated. Wound dressing was changed during last shift and pictures uploaded according previous shift RN. Bed locked low in position,side rails up and call light within reach. Fall precaution in place. Bed alarm on. Pt will be monitored.
[2018-12-16] MEDS: Miralax 17gm pkt GT SCH (21:00)
--- NOTE | 2018-12-16 22:10 | Psych Consult Progress Note ---
Psychiatry Progress Note Psychiatry Progress Note Medications Current Medications Medications (Trade) Dose Ordered Sig/Analilia Route PRN Reason Start Time Stop Time Status Last Admin Dose Admin Dextrose (Dextrose 50%) 25 ml Q30M PRN IV Hypoglycemia 12/14/18 14:15 01/13/19 14:14 Dextrose (Dextrose 50%) 50 ml Q30M PRN IV Hypoglycemia 12/14/18 14:15 01/13/19 14:14 Docusate Sodium (Colace) 100 mg THREE TIMES A DAY ORAL 12/15/18 13:00 01/14/19 12:59 12/16/18 17:28 Haloperidol Lactate (Haldol) 5 mg Q6H PRN IM Agitation 12/11/18 11:30 01/10/19 11:29 12/11/18 14:34 Insulin Aspart (NovoLOG) EVERY 6 HOURS SUBQ 12/14/18 18:00 01/13/19 17:59 12/16/18 17:29 Lansoprazole (Prevacid) 30 mg DAILY GT 12/16/18 09:00 01/15/19 08:59 12/16/18 08:28 Lorazepam (Ativan 2mg/ml 1ml) 2 mg Q6H PRN IM For Anxiety 12/11/18 10:56 12/18/18 10:55 12/11/18 11:25 Magnesium Oxide (Mag-Ox 400mg) 400 mg THREE TIMES A DAY GT 12/16/18 18:00 01/15/19 17:59 12/16/18 17:29 Metoclopramide HCl (Reglan) 5 mg EVERY 6 HOURS GT 12/15/18 18:00 01/14/19 17:59 12/16/18 17:29 Polyethylene Glycol (Miralax) 17 gm BEDTIME GT 12/15/18 21:00 01/14/19 20:59 12/16/18 21:00 Risperidone (RisperDAL) 1 mg Q8HR ORAL 12/11/18 14:00 01/10/19 13:59 12/16/18 21:00 Neurological/Psychiatric: Reports: anxiety Allergies: Coded Allergies: No Known Allergies (Unverified , 05/22/18) Objective Data Height (Feet): 5 Height (Inches): 4.00 Weight (Pounds): 110 General Appearance: alert, confused, agitated, cachetic Appearance: disheveled Behavior Mannerisms: poor eye contact Mental Status Exam - Affect: blunted Mental Status Exam - Mood: agitated Speech: aphasic Mental Status Exam - Thought P: confusion Mental Status Exam - Suicidal: no plan Assessment/Plan Problem List: (1) Schizoaffective disorder, bipolar type ICD Codes: F25.0 - Schizoaffective disorder, bipolar type SNOMED: 52986830 Status: stable Assessment/Plan: Risperdal 1mg po tid Ativan IM restrains. Urvashi Ash MD Dec 16, 2018 22:10
[2018-12-17] VITALS: BP 151/75
[2018-12-17] MEDS: NovoLOG Insulin Flexpen SUBQ SCH ×5 (01:07→23:55)
--- NOTE | 2018-12-17 02:44 | NUR ---
NURSE NOTES: Pt is awake and restless, time to time screaming. Looking for opportunity to get out of restraints. Pt was given a bed bath. HOB elevated. Glucerna running at 55ml/hr. No residual. G-tube flushed with 150ml water. Restraints site asymptomatic. BS 267, NovoLog insulin given per sliding scale.
[2018-12-17 04:00] VITALS: BP 149/75
[2018-12-17 06:59] LABS: ANION GAP 4 mmol/L (5-15); BLOOD UREA NITROGEN 14 mg/dL (7-18); CARBON DIOXIDE 31 MMOL/L (21-32); CHLORIDE 101 MMOL/L (98-107); CREATININE 0.5 MG/DL (0.55-1.30); POTASSIUM 4.9 MMOL/L (3.5-5.1); SODIUM 136 MMOL/L (136-145)
[2018-12-17 07:02] LABS: BASOPHILS % (AUTO) 0.8 % (0.0-2.0); EOSINOPHILS % (AUTO) 3.4 % (0.0-3.0); HEMATOCRIT 30.6 % (37.0-47.0); HEMOGLOBIN 9.9 G/DL (12.0-16.0); LYMPHOCYTES % (AUTO) 18.6 % (20.0-45.0); MEAN CORPUSCULAR VOLUME 74 FL (80-99); NEUTROPHILS % (AUTO) 74.2 % (45.0-75.0); PLATELET COUNT 298 K/UL (150-450); RED BLOOD COUNT 4.15 M/UL (4.20-5.40); RED CELL DISTRIBUTION WIDTH 15.1 % (11.6-14.8); WHITE BLOOD COUNT 9.2 K/UL (4.8-10.8)
--- NOTE | 2018-12-17 07:16 | NUR ---
HAND-OFF: Report given to Ruchi Bedoya RN.
--- NOTE | 2018-12-17 07:30 | NUR ---
NURSE NOTES: Patient confused, on room air, no sign of shortness of breath and no distress; no sign of chest pain; IV Left-Upper arm, flushes well; Tube feeding Glucerna 1.2 running 55cc; no residual and running well; purick in place; bilateral soft restrain in place; bed at lowest position, breaks engaged, side rails up x2; will keep monitoring.
--- NOTE | 2018-12-17 07:34 | General Progress Note ---
Assessment/Plan Problem List: (1) Bipolar disorder ICD Codes: F31.9 - Bipolar disorder, unspecified SNOMED: 67995978 (2) Schizophrenia ICD Codes: F20.9 - Schizophrenia, unspecified SNOMED: 89752216 (3) Anemia ICD Codes: D64.9 - Anemia, unspecified SNOMED: 282565133 (4) Diabetes mellitus ICD Codes: E11.9 - Type 2 diabetes mellitus without complications SNOMED: 99595659 Status: stable Assessment/Plan: SUMMARY OF FINDINGS: 1. Partial antrectomy. 2. Anastomotic ulceration, status post biopsy. 3. Status post successful PEG placement. RECOMMENDATIONS: Continue G-tube feedings per RD Elevate head of bed at all times GT site care daily and as needed We will consider low-dose erythromycin for GI motility if patient has persistent high residuals given Reglan has a drug interaction. PPI PRN transfusions Electrolyte correction dc planning Subjective ROS Limited/Unobtainable: No Allergies: Coded Allergies: No Known Allergies (Unverified , 05/22/18) Objective Last 24 Hour Vital Signs Date Time Temp Pulse Resp B/P (MAP) Pulse Ox O2 Delivery O2 Flow Rate FiO2 12/17/18 04:00 98.1 102 19 149/75 (99) 95 12/17/18 00:00 97.9 101 18 151/75 (100) 95 12/16/18 21:00 Room Air 12/16/18 20:00 98.1 77 16 132/58 (82) 95 12/16/18 16:00 98.8 72 19 126/74 (91) 98 12/16/18 12:00 98.6 76 18 130/70 (90) 96 12/16/18 09:00 Room Air 12/16/18 08:00 98.1 86 19 139/69 (92) 97 Intake and Output 12/16/18 12/17/18 19:00 07:00 Intake Total 960 ml 960 ml Balance 960 ml 960 ml Free Water 300 ml 300 ml Tube Feeding 660 ml 660 ml # Voids 3 Laboratory Tests 12/17/18 05:40: White Blood Count 9.2, Red Blood Count 4.15L, Hemoglobin 9.9L, Hematocrit 30.6L , Mean Corpuscular Volume 74L, Mean Corpuscular Hemoglobin 23.8L, Mean Corpuscular Hemoglobin Concent 32.3, Red Cell Distribution Width 15.1H, Platelet Count 298, Mean Platelet Volume 5.6L, Neutrophils (%) (Auto) 74.2, Lymphocytes (%) (Auto) 18.6L, Monocytes (%) (Auto) 3.0, Eosinophils (%) (Auto) 3.4H, Basophils (%) (Auto) 0.8, Sodium Level 136, Potassium Level 4.9, Chloride Level 101, Carbon Dioxide Level 31, Anion Gap 4L, Blood Urea Nitrogen 14, Creatinine 0.5L, Estimat Glomerular Filtration Rate > 60, Glucose Level 166H, Calcium Level 9.0 Height (Feet): 5 Height (Inches): 4.00 Weight (Pounds): 110 General Appearance: alert EENT: normal ENT inspection Neck: supple Cardiovascular: normal rate Respiratory/Chest: decreased breath sounds Abdomen: normal bowel sounds, non tender, soft Extremities: non-tender Hamzah Tovar MD Dec 17, 2018 07:34
[2018-12-17 08:00] VITALS: BP 143/74
[2018-12-17] MEDS: Magnesium Oxide 400mg tab GT SCH ×3 (08:43→17:29)
[2018-12-17] MEDS: Docusate 100mg cap ORAL SCH ×3 (08:44→17:30)
--- NOTE | 2018-12-17 09:21 | General Progress Note ---
Assessment/Plan Problem List: (1) Dehydration ICD Codes: E86.0 - Dehydration SNOMED: 64031318 (2) Attention to G-tube ICD Codes: Z43.1 - Encounter for attention to gastrostomy SNOMED: 707329319, 304696745, 033275812 (3) Schizoaffective disorder, bipolar type ICD Codes: F25.0 - Schizoaffective disorder, bipolar type SNOMED: 49370790 Status: stable, progressing Assessment/Plan: gi neph f/u cbc bmp am aru eval transfer Subjective Allergies: Coded Allergies: No Known Allergies (Unverified , 05/22/18) All Systems: reviewed and negative except above Subjective confused sleepy Objective Last 24 Hour Vital Signs Date Time Temp Pulse Resp B/P (MAP) Pulse Ox O2 Delivery O2 Flow Rate FiO2 12/17/18 09:00 Room Air 12/17/18 08:00 97.8 116 20 143/74 (97) 95 12/17/18 04:00 98.1 102 19 149/75 (99) 95 12/17/18 00:00 97.9 101 18 151/75 (100) 95 12/16/18 21:00 Room Air 12/16/18 20:00 98.1 77 16 132/58 (82) 95 12/16/18 16:00 98.8 72 19 126/74 (91) 98 12/16/18 12:00 98.6 76 18 130/70 (90) 96 Intake and Output 12/16/18 12/17/18 19:00 07:00 Intake Total 960 ml 960 ml Balance 960 ml 960 ml Free Water 300 ml 300 ml Tube Feeding 660 ml 660 ml # Voids 3 Laboratory Tests 12/17/18 05:40: White Blood Count 9.2, Red Blood Count 4.15L, Hemoglobin 9.9L, Hematocrit 30.6L , Mean Corpuscular Volume 74L, Mean Corpuscular Hemoglobin 23.8L, Mean Corpuscular Hemoglobin Concent 32.3, Red Cell Distribution Width 15.1H, Platelet Count 298, Mean Platelet Volume 5.6L, Neutrophils (%) (Auto) 74.2, Lymphocytes (%) (Auto) 18.6L, Monocytes (%) (Auto) 3.0, Eosinophils (%) (Auto) 3.4H, Basophils (%) (Auto) 0.8, Sodium Level 136, Potassium Level 4.9, Chloride Level 101, Carbon Dioxide Level 31, Anion Gap 4L, Blood Urea Nitrogen 14, Creatinine 0.5L, Estimat Glomerular Filtration Rate > 60, Glucose Level 166H, Calcium Level 9.0 Height (Feet): 5 Height (Inches): 4.00 Weight (Pounds): 110 General Appearance: lethargic EENT: normal ENT inspection Neck: normal alignment Cardiovascular: normal peripheral pulses, normal rate, regular rhythm Respiratory/Chest: chest wall non-tender, lungs clear, normal breath sounds Abdomen: normal bowel sounds, non tender, soft Extremities: normal inspection Edema: no edema noted Arm (L), no edema noted Arm (R), no edema noted Leg (L), no edema noted Leg (R), no edema noted Pedal (L), no edema noted Pedal (R), no edema noted Generalized Neurologic: motor weakness Skin: normal pigmentation, warm/dry Jose Cortés DO Dec 17, 2018 09:21
--- NOTE | 2018-12-17 09:54 | NUR ---
NURSE NOTES: I communicated MD Duron regarding patient's, Ativan 2mg/ml IV Q6H PRN, the order is going to 12/18 and if MD kirk continue the order. Waiting for order.
[2018-12-17] MEDS ORDERED: LORazepam Inj 2mg/ml 1ml IM PRN (10:56)
--- NOTE | 2018-12-17 11:04 | Infectious Diseases Prog Note ---
Assessment/Plan Assessment/Plan IMPRESSION: Pseudomonas urinary tract infection. treated leukocytosis, dislodgement of the G-tube, s/p GT replacement diabetes, hypertension, dementia, hyperlipidemia, cachexia. VRE carrier RECOMMENDATION: observe off antibiotic Subjective ROS Limited/Unobtainable: Yes Neurologic: Reports: confusion, other - on restraint Allergies: Coded Allergies: No Known Allergies (Unverified , 05/22/18) Objective Vital Signs Last 24 Hour Vital Signs Date Time Temp Pulse Resp B/P (MAP) Pulse Ox O2 Delivery O2 Flow Rate FiO2 12/17/18 09:00 Room Air 12/17/18 08:00 97.8 116 20 143/74 (97) 95 12/17/18 04:00 98.1 102 19 149/75 (99) 95 12/17/18 00:00 97.9 101 18 151/75 (100) 95 12/16/18 21:00 Room Air 12/16/18 20:00 98.1 77 16 132/58 (82) 95 12/16/18 16:00 98.8 72 19 126/74 (91) 98 12/16/18 12:00 98.6 76 18 130/70 (90) 96 Height (Feet): 5 Height (Inches): 4.00 Weight (Pounds): 110 General Appearance: no acute distress, cachetic HEENT: mucous membranes moist Respiratory/Chest: lungs clear Cardiovascular: normal rate Abdomen: soft, non tender, other - GT feeding Extremities: no edema Neurologic/Psychiatric: disoriented, aphasia Laboratory Tests Test 12/17/18 05:40 White Blood Count 9.2 K/UL (4.8-10.8) Red Blood Count 4.15 M/UL (4.20-5.40) L Hemoglobin 9.9 G/DL (12.0-16.0) L Hematocrit 30.6 % (37.0-47.0) L Mean Corpuscular Volume 74 FL (80-99) L Mean Corpuscular Hemoglobin 23.8 PG (27.0-31.0) L Mean Corpuscular Hemoglobin Concent 32.3 G/DL (32.0-36.0) Red Cell Distribution Width 15.1 % (11.6-14.8) H Platelet Count 298 K/UL (150-450) Mean Platelet Volume 5.6 FL (6.5-10.1) L Neutrophils (%) (Auto) 74.2 % (45.0-75.0) Lymphocytes (%) (Auto) 18.6 % (20.0-45.0) L Monocytes (%) (Auto) 3.0 % (1.0-10.0) Eosinophils (%) (Auto) 3.4 % (0.0-3.0) H Basophils (%) (Auto) 0.8 % (0.0-2.0) Sodium Level 136 MMOL/L (136-145) Potassium Level 4.9 MMOL/L (3.5-5.1) Chloride Level 101 MMOL/L (98-107) Carbon Dioxide Level 31 MMOL/L (21-32) Anion Gap 4 mmol/L (5-15) L Blood Urea Nitrogen 14 mg/dL (7-18) Creatinine 0.5 MG/DL (0.55-1.30) L Estimat Glomerular Filtration Rate > 60 mL/min (>60) Glucose Level 166 MG/DL (74-106) H Calcium Level 9.0 MG/DL (8.5-10.1) Current Medications Medications (Trade) Dose Ordered Sig/Analilia Route PRN Reason Start Time Stop Time Status Last Admin Dose Admin Dextrose (Dextrose 50%) 25 ml Q30M PRN IV Hypoglycemia 12/14/18 14:15 01/13/19 14:14 Dextrose (Dextrose 50%) 50 ml Q30M PRN IV Hypoglycemia 12/14/18 14:15 01/13/19 14:14 Docusate Sodium (Colace) 100 mg THREE TIMES A DAY ORAL 12/15/18 13:00 01/14/19 12:59 12/17/18 08:44 Haloperidol Lactate (Haldol) 5 mg Q6H PRN IM Agitation 12/11/18 11:30 01/10/19 11:29 12/11/18 14:34 Insulin Aspart (NovoLOG) EVERY 6 HOURS SUBQ 12/14/18 18:00 01/13/19 17:59 12/17/18 06:40 Lansoprazole (Prevacid) 30 mg DAILY GT 12/16/18 09:00 01/15/19 08:59 12/17/18 08:44 Lorazepam (Ativan 2mg/ml 1ml) 2 mg Q6H PRN IM For Anxiety 12/17/18 10:56 12/24/18 10:55 Magnesium Oxide (Mag-Ox 400mg) 400 mg THREE TIMES A DAY GT 12/16/18 18:00 01/15/19 17:59 12/17/18 08:43 Metoclopramide HCl (Reglan) 5 mg EVERY 6 HOURS GT 12/15/18 18:00 01/14/19 17:59 12/17/18 06:32 Polyethylene Glycol (Miralax) 17 gm BEDTIME GT 12/15/18 21:00 01/14/19 20:59 12/16/18 21:00 Risperidone (RisperDAL) 1 mg Q8HR ORAL 12/11/18 14:00 01/10/19 13:59 12/17/18 06:32 Madhav Doty MD Dec 17, 2018 11:04
[2018-12-17 12:00] VITALS: BP 147/77
[2018-12-17] MEDS: Haloperidol 5mg/ml Inj IM PRN ×2 (13:12→20:26)
--- NOTE | 2018-12-17 13:16 | Surgery Progress Note ---
Surgery Progress Note Subjective Symptoms: improved Additional Comments leukocytosis resolved. no acute events. tolerating feeds. Objective Last 24 Hour Vital Signs Date Time Temp Pulse Resp B/P (MAP) Pulse Ox O2 Delivery O2 Flow Rate FiO2 12/17/18 12:00 98.0 113 16 147/77 (100) 97 12/17/18 09:00 Room Air 12/17/18 08:00 97.8 116 20 143/74 (97) 95 12/17/18 04:00 98.1 102 19 149/75 (99) 95 12/17/18 00:00 97.9 101 18 151/75 (100) 95 12/16/18 21:00 Room Air 12/16/18 20:00 98.1 77 16 132/58 (82) 95 12/16/18 16:00 98.8 72 19 126/74 (91) 98 I&O Intake and Output 12/16/18 12/17/18 19:00 07:00 Intake Total 960 ml 960 ml Balance 960 ml 960 ml Free Water 300 ml 300 ml Tube Feeding 660 ml 660 ml # Voids 3 Dressing: saturated Wound: clean Drains: other Cardiovascular: RSR Respiratory: clear Abdomen: soft, flat, non-tender, non-distended Extremities: no tenderness, no cyanosis Laboratory Tests Test 12/17/18 05:40 White Blood Count 9.2 K/UL (4.8-10.8) Red Blood Count 4.15 M/UL (4.20-5.40) L Hemoglobin 9.9 G/DL (12.0-16.0) L Hematocrit 30.6 % (37.0-47.0) L Mean Corpuscular Volume 74 FL (80-99) L Mean Corpuscular Hemoglobin 23.8 PG (27.0-31.0) L Mean Corpuscular Hemoglobin Concent 32.3 G/DL (32.0-36.0) Red Cell Distribution Width 15.1 % (11.6-14.8) H Platelet Count 298 K/UL (150-450) Mean Platelet Volume 5.6 FL (6.5-10.1) L Neutrophils (%) (Auto) 74.2 % (45.0-75.0) Lymphocytes (%) (Auto) 18.6 % (20.0-45.0) L Monocytes (%) (Auto) 3.0 % (1.0-10.0) Eosinophils (%) (Auto) 3.4 % (0.0-3.0) H Basophils (%) (Auto) 0.8 % (0.0-2.0) Sodium Level 136 MMOL/L (136-145) Potassium Level 4.9 MMOL/L (3.5-5.1) Chloride Level 101 MMOL/L (98-107) Carbon Dioxide Level 31 MMOL/L (21-32) Anion Gap 4 mmol/L (5-15) L Blood Urea Nitrogen 14 mg/dL (7-18) Creatinine 0.5 MG/DL (0.55-1.30) L Estimat Glomerular Filtration Rate > 60 mL/min (>60) Glucose Level 166 MG/DL (74-106) H Calcium Level 9.0 MG/DL (8.5-10.1) Plan Problems: (1) Severe protein-calorie malnutrition Assessment & Plan: needs venous access for meds and fluids very dehydrated. no feeding tube access currently cannot obtain peripheral line s/p PEG tolerating feeds and meds can be without line now d/c planning okay to d/c from surgical standpoint pending placement thank you will follow with recs (2) At high risk for aspiration (3) Schizoaffective disorder, bipolar type (4) Sepsis (5) Diabetes mellitus (6) Essential hypertension (7) Anemia (8) Schizophrenia (9) Bipolar disorder (10) Hyponatremia Wili Leger Dec 17, 2018 13:16
[2018-12-17 16:00] VITALS: BP 150/76
--- NOTE | 2018-12-17 17:32 | Nephrology Progress Note ---
Assessment/Plan Problem List: (1) Hyponatremia (2) Anemia (3) Schizoaffective disorder, bipolar type (4) Severe protein-calorie malnutrition Assessment: low BMI Assessment HypoNatremia : etilogy?? corrected Anemia Dehydration Plan Plan: DC IV fluids- Reglan GT low K, IV K ordered Anemia lewis Urine studies Monitor lytes per GI DC planning Subjective ROS Limited/Unobtainable: No Constitutional: Reports: malaise Objective Objective Last 24 Hour Vital Signs Date Time Temp Pulse Resp B/P (MAP) Pulse Ox O2 Delivery O2 Flow Rate FiO2 12/17/18 16:00 97.8 117 17 150/76 (100) 97 12/17/18 12:00 98.0 113 16 147/77 (100) 97 12/17/18 09:00 Room Air 12/17/18 08:00 97.8 116 20 143/74 (97) 95 12/17/18 04:00 98.1 102 19 149/75 (99) 95 12/17/18 00:00 97.9 101 18 151/75 (100) 95 12/16/18 21:00 Room Air 12/16/18 20:00 98.1 77 16 132/58 (82) 95 Intake and Output 12/16/18 12/17/18 19:00 07:00 Intake Total 960 ml 960 ml Balance 960 ml 960 ml Free Water 300 ml 300 ml Tube Feeding 660 ml 660 ml # Voids 3 Laboratory Tests 12/17/18 05:40: White Blood Count 9.2, Red Blood Count 4.15L, Hemoglobin 9.9L, Hematocrit 30.6L , Mean Corpuscular Volume 74L, Mean Corpuscular Hemoglobin 23.8L, Mean Corpuscular Hemoglobin Concent 32.3, Red Cell Distribution Width 15.1H, Platelet Count 298, Mean Platelet Volume 5.6L, Neutrophils (%) (Auto) 74.2, Lymphocytes (%) (Auto) 18.6L, Monocytes (%) (Auto) 3.0, Eosinophils (%) (Auto) 3.4H, Basophils (%) (Auto) 0.8, Sodium Level 136, Potassium Level 4.9, Chloride Level 101, Carbon Dioxide Level 31, Anion Gap 4L, Blood Urea Nitrogen 14, Creatinine 0.5L, Estimat Glomerular Filtration Rate > 60, Glucose Level 166H, Calcium Level 9.0 Height (Feet): 5 Height (Inches): 4.00 Weight (Pounds): 110 General Appearance: no apparent distress Objective no change Herrera Hogan MD Dec 17, 2018 17:32
--- NOTE | 2018-12-17 19:40 | NUR ---
NURSE NOTES: Received patient awake in bed, confused, agitated, no s/s of acute distress. IV access asymptomatic on saline lock. Fall and safety precautions taken, yellow socks and yellow bracelet on patient. Soft wrist restraints noted, patient scratches and attempts to pull out IV and G tube.
--- NOTE | 2018-12-17 19:41 | NUR ---
HAND-OFF: Report given to GURINDER Rogers.
[2018-12-17 20:00] VITALS: BP 145/86
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
[2018-12-17] MEDS: Miralax 17gm pkt GT SCH (22:02)
[2018-12-18] VITALS: BP 119/72
[2018-12-18 04:00] VITALS: BP 131/78
[2018-12-18] MEDS: NovoLOG Insulin Flexpen SUBQ SCH ×3 (05:52→18:19)
[2018-12-18 06:53] LABS: BASOPHILS % (AUTO) 0.7 % (0.0-2.0); EOSINOPHILS % (AUTO) 4.2 % (0.0-3.0); HEMATOCRIT 28.9 % (37.0-47.0); HEMOGLOBIN 9.3 G/DL (12.0-16.0); MEAN CORPUSCULAR VOLUME 74 FL (80-99); MONOCYTES % (AUTO) 3.5 % (1.0-10.0); NEUTROPHILS % (AUTO) 65.6 % (45.0-75.0); PLATELET COUNT 292 K/UL (150-450); RED BLOOD COUNT 3.91 M/UL (4.20-5.40); RED CELL DISTRIBUTION WIDTH 15.2 % (11.6-14.8); WHITE BLOOD COUNT 8.5 K/UL (4.8-10.8)
[2018-12-18 07:05] LABS: ANION GAP 6 mmol/L (5-15); BLOOD UREA NITROGEN 14 mg/dL (7-18); CALCIUM 8.9 MG/DL (8.5-10.1); CARBON DIOXIDE 30 MMOL/L (21-32); CHLORIDE 101 MMOL/L (98-107); CREATININE 0.4 MG/DL (0.55-1.30); POTASSIUM 5.2 MMOL/L (3.5-5.1); SODIUM 137 MMOL/L (136-145)
--- NOTE | 2018-12-18 08:20 | NUR ---
NURSE NOTES: RN received pt sleeping in bed. No acute distress or SOB. Bed in low, locked position, call light within reach. Will continue plan of care.
[2018-12-18] MEDS: Docusate 100mg cap ORAL SCH ×2 (08:29→12:27)
[2018-12-18] MEDS: Magnesium Oxide 400mg tab GT SCH ×3 (08:29→18:13)
[2018-12-18 09:00] VITALS: BP 114/59
--- NOTE | 2018-12-18 09:22 | General Progress Note ---
Assessment/Plan Problem List: (1) Dehydration ICD Codes: E86.0 - Dehydration SNOMED: 37843720 (2) Attention to G-tube ICD Codes: Z43.1 - Encounter for attention to gastrostomy SNOMED: 395201486, 284017926, 735797715 (3) Schizoaffective disorder, bipolar type ICD Codes: F25.0 - Schizoaffective disorder, bipolar type SNOMED: 58980074 Status: stable, progressing Assessment/Plan: gi neph f/u cbc bmp am aru eval transfer Subjective Constitutional: Reports: weakness Allergies: Coded Allergies: No Known Allergies (Unverified , 05/22/18) All Systems: reviewed and negative except above Subjective confused sleepy Objective Last 24 Hour Vital Signs Date Time Temp Pulse Resp B/P (MAP) Pulse Ox O2 Delivery O2 Flow Rate FiO2 12/18/18 09:00 97.8 66 18 114/59 (77) 95 12/18/18 04:00 97.2 95 16 131/78 (95) 97 12/18/18 00:00 97.6 78 18 119/72 (88) 97 12/17/18 22:47 Room Air 12/17/18 20:00 97.3 100 18 145/86 (105) 12/17/18 16:00 97.8 117 17 150/76 (100) 97 12/17/18 12:00 98.0 113 16 147/77 (100) 97 Intake and Output 12/17/18 12/18/18 18:59 06:59 Intake Total 660 ml 605 ml Balance 660 ml 605 ml Tube Feeding 660 ml 605 ml # Voids 3 # Bowel Movements 1 Laboratory Tests 12/18/18 05:40: White Blood Count 8.5, Red Blood Count 3.91L, Hemoglobin 9.3L, Hematocrit 28.9L , Mean Corpuscular Volume 74L, Mean Corpuscular Hemoglobin 23.8L, Mean Corpuscular Hemoglobin Concent 32.3, Red Cell Distribution Width 15.2H, Platelet Count 292, Mean Platelet Volume 6.6, Neutrophils (%) (Auto) 65.6, Lymphocytes (%) (Auto) 26.0, Monocytes (%) (Auto) 3.5, Eosinophils (%) (Auto) 4.2H, Basophils (%) (Auto) 0.7, Sodium Level 137, Potassium Level 5.2H, Chloride Level 101, Carbon Dioxide Level 30, Anion Gap 6, Blood Urea Nitrogen 14 , Creatinine 0.4L, Estimat Glomerular Filtration Rate > 60, Glucose Level 161H, Calcium Level 8.9 Height (Feet): 5 Height (Inches): 4.00 Weight (Pounds): 110 General Appearance: lethargic EENT: normal ENT inspection Neck: normal alignment Cardiovascular: normal peripheral pulses, normal rate, regular rhythm Respiratory/Chest: chest wall non-tender, lungs clear, normal breath sounds Abdomen: normal bowel sounds, non tender, soft Extremities: normal inspection Edema: no edema noted Arm (L), no edema noted Arm (R), no edema noted Leg (L), no edema noted Leg (R), no edema noted Pedal (L), no edema noted Pedal (R), no edema noted Generalized Neurologic: motor weakness Skin: normal pigmentation, warm/dry Jose Cortés DO Dec 18, 2018 09:22
--- NOTE | 2018-12-18 10:55 | GI Progress Note ---
Assessment/Plan Problems: (1) Bipolar disorder ICD Codes: F31.9 - Bipolar disorder, unspecified SNOMED: 90588690 (2) Schizophrenia ICD Codes: F20.9 - Schizophrenia, unspecified SNOMED: 20969962 (3) Anemia ICD Codes: D64.9 - Anemia, unspecified SNOMED: 444447982 Status: stable Status Narrative Discussed with Dr. Tovar. Assessment/Plan SUMMARY OF FINDINGS: 1. Partial antrectomy. 2. Anastomotic ulceration, status post biopsy. >> negative for H. Pylori 3. Status post successful PEG placement. RECOMMENDATIONS: Continue G-tube feedings per RD Elevate head of bed at all times GT site care daily and as needed We will consider low-dose erythromycin for GI motility if patient has persistent high residuals given Reglan has a drug interaction. PPI PRN transfusions Electrolyte correction dc planning The patient was seen and examined at bedside and all new and available data was reviewed in the patients chart. I agree with the above findings, impression and plan. (Patient seen earlier today. Signature stamp does not reflect patient encounter time.). - Hamzah Tovar MD Subjective Subjective limited Objective Last 24 Hour Vital Signs Date Time Temp Pulse Resp B/P (MAP) Pulse Ox O2 Delivery O2 Flow Rate FiO2 12/18/18 09:00 Room Air 12/18/18 09:00 97.8 66 18 114/59 (77) 95 12/18/18 04:00 97.2 95 16 131/78 (95) 97 12/18/18 00:00 97.6 78 18 119/72 (88) 97 12/17/18 22:47 Room Air 12/17/18 20:00 97.3 100 18 145/86 (105) 12/17/18 16:00 97.8 117 17 150/76 (100) 97 12/17/18 12:00 98.0 113 16 147/77 (100) 97 Intake and Output 12/17/18 12/18/18 19:00 07:00 Intake Total 660 ml 605 ml Balance 660 ml 605 ml Tube Feeding 660 ml 605 ml # Voids 3 # Bowel Movements 1 Laboratory Tests Test 12/18/18 05:40 White Blood Count 8.5 K/UL (4.8-10.8) Red Blood Count 3.91 M/UL (4.20-5.40) L Hemoglobin 9.3 G/DL (12.0-16.0) L Hematocrit 28.9 % (37.0-47.0) L Mean Corpuscular Volume 74 FL (80-99) L Mean Corpuscular Hemoglobin 23.8 PG (27.0-31.0) L Mean Corpuscular Hemoglobin Concent 32.3 G/DL (32.0-36.0) Red Cell Distribution Width 15.2 % (11.6-14.8) H Platelet Count 292 K/UL (150-450) Mean Platelet Volume 6.6 FL (6.5-10.1) Neutrophils (%) (Auto) 65.6 % (45.0-75.0) Lymphocytes (%) (Auto) 26.0 % (20.0-45.0) Monocytes (%) (Auto) 3.5 % (1.0-10.0) Eosinophils (%) (Auto) 4.2 % (0.0-3.0) H Basophils (%) (Auto) 0.7 % (0.0-2.0) Sodium Level 137 MMOL/L (136-145) Potassium Level 5.2 MMOL/L (3.5-5.1) H Chloride Level 101 MMOL/L (98-107) Carbon Dioxide Level 30 MMOL/L (21-32) Anion Gap 6 mmol/L (5-15) Blood Urea Nitrogen 14 mg/dL (7-18) Creatinine 0.4 MG/DL (0.55-1.30) L Estimat Glomerular Filtration Rate > 60 mL/min (>60) Glucose Level 161 MG/DL (74-106) H Calcium Level 8.9 MG/DL (8.5-10.1) Height (Feet): 5 Height (Inches): 4.00 Weight (Pounds): 110 General Appearance: WD/WN, no apparent distress, alert Cardiovascular: normal rate Respiratory/Chest: normal breath sounds, no respiratory distress Abdominal Exam: normal bowel sounds, non tender, soft, GT site Extremities: non-tender Abhijeet Weston [employer] Dec 18, 2018 10:55
--- NOTE | 2018-12-18 11:30 | Nephrology Progress Note ---
Assessment/Plan Problem List: (1) Hyponatremia (2) Anemia (3) Schizoaffective disorder, bipolar type (4) Severe protein-calorie malnutrition Assessment: low BMI Assessment HypoNatremia : etilogy?? corrected Anemia Dehydration Plan Plan: DC IV fluids- Reglan GT low K, IV K ordered Anemia lewis Urine studies Monitor lytes per GI DC planning Subjective ROS Limited/Unobtainable: No Constitutional: Reports: malaise, weakness Objective Objective Last 24 Hour Vital Signs Date Time Temp Pulse Resp B/P (MAP) Pulse Ox O2 Delivery O2 Flow Rate FiO2 12/18/18 09:00 Room Air 12/18/18 09:00 97.8 66 18 114/59 (77) 95 12/18/18 04:00 97.2 95 16 131/78 (95) 97 12/18/18 00:00 97.6 78 18 119/72 (88) 97 12/17/18 22:47 Room Air 12/17/18 20:00 97.3 100 18 145/86 (105) 12/17/18 16:00 97.8 117 17 150/76 (100) 97 12/17/18 12:00 98.0 113 16 147/77 (100) 97 Intake and Output 12/17/18 12/18/18 19:00 07:00 Intake Total 660 ml 605 ml Balance 660 ml 605 ml Tube Feeding 660 ml 605 ml # Voids 3 # Bowel Movements 1 Laboratory Tests 12/18/18 05:40: White Blood Count 8.5, Red Blood Count 3.91L, Hemoglobin 9.3L, Hematocrit 28.9L , Mean Corpuscular Volume 74L, Mean Corpuscular Hemoglobin 23.8L, Mean Corpuscular Hemoglobin Concent 32.3, Red Cell Distribution Width 15.2H, Platelet Count 292, Mean Platelet Volume 6.6, Neutrophils (%) (Auto) 65.6, Lymphocytes (%) (Auto) 26.0, Monocytes (%) (Auto) 3.5, Eosinophils (%) (Auto) 4.2H, Basophils (%) (Auto) 0.7, Sodium Level 137, Potassium Level 5.2H, Chloride Level 101, Carbon Dioxide Level 30, Anion Gap 6, Blood Urea Nitrogen 14 , Creatinine 0.4L, Estimat Glomerular Filtration Rate > 60, Glucose Level 161H, Calcium Level 8.9 Height (Feet): 5 Height (Inches): 4.00 Weight (Pounds): 110 General Appearance: no apparent distress Cardiovascular: normal rate Respiratory/Chest: chest wall non-tender Abdomen: soft Objective no change Herrera Hogan MD Dec 18, 2018 11:30
[2018-12-18 12:00] VITALS: BP 131/69
--- NOTE | 2018-12-18 12:41 | Infectious Diseases Prog Note ---
Assessment/Plan Assessment/Plan IMPRESSION: Pseudomonas urinary tract infection. treated leukocytosis, dislodgement of the G-tube, s/p GT replacement diabetes, hypertension, dementia, hyperlipidemia, cachexia. VRE carrier RECOMMENDATION: observe off antibiotic Subjective ROS Limited/Unobtainable: Yes Neurologic: Reports: confusion, other - on restraint Allergies: Coded Allergies: No Known Allergies (Unverified , 05/22/18) Objective Vital Signs Last 24 Hour Vital Signs Date Time Temp Pulse Resp B/P (MAP) Pulse Ox O2 Delivery O2 Flow Rate FiO2 12/18/18 12:00 97.9 64 18 131/69 (89) 97 12/18/18 09:00 Room Air 12/18/18 09:00 97.8 66 18 114/59 (77) 95 12/18/18 04:00 97.2 95 16 131/78 (95) 97 12/18/18 00:00 97.6 78 18 119/72 (88) 97 12/17/18 22:47 Room Air 12/17/18 20:00 97.3 100 18 145/86 (105) 12/17/18 16:00 97.8 117 17 150/76 (100) 97 Height (Feet): 5 Height (Inches): 4.00 Weight (Pounds): 110 General Appearance: no acute distress, cachetic HEENT: mucous membranes moist Respiratory/Chest: lungs clear Cardiovascular: normal rate Abdomen: soft, non tender, other - GT feeding Extremities: no edema Neurologic/Psychiatric: disoriented, aphasia Laboratory Tests Test 12/18/18 05:40 White Blood Count 8.5 K/UL (4.8-10.8) Red Blood Count 3.91 M/UL (4.20-5.40) L Hemoglobin 9.3 G/DL (12.0-16.0) L Hematocrit 28.9 % (37.0-47.0) L Mean Corpuscular Volume 74 FL (80-99) L Mean Corpuscular Hemoglobin 23.8 PG (27.0-31.0) L Mean Corpuscular Hemoglobin Concent 32.3 G/DL (32.0-36.0) Red Cell Distribution Width 15.2 % (11.6-14.8) H Platelet Count 292 K/UL (150-450) Mean Platelet Volume 6.6 FL (6.5-10.1) Neutrophils (%) (Auto) 65.6 % (45.0-75.0) Lymphocytes (%) (Auto) 26.0 % (20.0-45.0) Monocytes (%) (Auto) 3.5 % (1.0-10.0) Eosinophils (%) (Auto) 4.2 % (0.0-3.0) H Basophils (%) (Auto) 0.7 % (0.0-2.0) Sodium Level 137 MMOL/L (136-145) Potassium Level 5.2 MMOL/L (3.5-5.1) H Chloride Level 101 MMOL/L (98-107) Carbon Dioxide Level 30 MMOL/L (21-32) Anion Gap 6 mmol/L (5-15) Blood Urea Nitrogen 14 mg/dL (7-18) Creatinine 0.4 MG/DL (0.55-1.30) L Estimat Glomerular Filtration Rate > 60 mL/min (>60) Glucose Level 161 MG/DL (74-106) H Calcium Level 8.9 MG/DL (8.5-10.1) Current Medications Medications (Trade) Dose Ordered Sig/Analilia Route PRN Reason Start Time Stop Time Status Last Admin Dose Admin Dextrose (Dextrose 50%) 25 ml Q30M PRN IV Hypoglycemia 12/14/18 14:15 01/13/19 14:14 Dextrose (Dextrose 50%) 50 ml Q30M PRN IV Hypoglycemia 12/14/18 14:15 01/13/19 14:14 Docusate Sodium (Colace) 100 mg THREE TIMES A DAY ORAL 12/15/18 13:00 01/14/19 12:59 12/18/18 12:27 Haloperidol Lactate (Haldol) 5 mg Q6H PRN IM Agitation 12/11/18 11:30 01/10/19 11:29 12/17/18 20:26 Insulin Aspart (NovoLOG) EVERY 6 HOURS SUBQ 12/14/18 18:00 01/13/19 17:59 12/18/18 12:29 Lansoprazole (Prevacid) 30 mg DAILY GT 12/16/18 09:00 01/15/19 08:59 12/18/18 08:29 Lorazepam (Ativan 2mg/ml 1ml) 2 mg Q6H PRN IM For Anxiety 12/17/18 10:56 12/24/18 10:55 Magnesium Oxide (Mag-Ox 400mg) 400 mg THREE TIMES A DAY GT 12/16/18 18:00 01/15/19 17:59 12/18/18 12:27 Metoclopramide HCl (Reglan) 5 mg EVERY 6 HOURS GT 12/15/18 18:00 01/14/19 17:59 12/18/18 12:26 Polyethylene Glycol (Miralax) 17 gm BEDTIME GT 12/15/18 21:00 01/14/19 20:59 12/17/18 22:02 Risperidone (RisperDAL) 1 mg Q8HR ORAL 12/11/18 14:00 01/10/19 13:59 12/18/18 05:00 Madhav Doty MD Dec 18, 2018 12:40
[2018-12-18 16:00] VITALS: BP 129/76
[2018-12-18] MEDS: Docusate 100mg/10ml Liq GT SCH (17:22)
--- NOTE | 2018-12-18 17:22 | NUR ---
NURSE NOTES: PT had recent BM; holding Colace.
--- NOTE | 2018-12-18 18:56 | NUR ---
HAND-OFF: Report given to GURINDER May.
--- NOTE | 2018-12-18 19:18 | Psych Consult Progress Note ---
Psychiatry Progress Note Psychiatry Progress Note Subjective cont to be agitated and needs prns Medications Current Medications Medications (Trade) Dose Ordered Sig/Analilia Route PRN Reason Start Time Stop Time Status Last Admin Dose Admin Dextrose (Dextrose 50%) 25 ml Q30M PRN IV Hypoglycemia 12/14/18 14:15 01/13/19 14:14 Dextrose (Dextrose 50%) 50 ml Q30M PRN IV Hypoglycemia 12/14/18 14:15 01/13/19 14:14 Docusate Sodium (Colace) 100 mg THREE TIMES A DAY GT 12/18/18 18:00 01/17/19 17:59 Haloperidol Lactate (Haldol) 5 mg Q6H PRN IM Agitation 12/11/18 11:30 01/10/19 11:29 12/17/18 20:26 Insulin Aspart (NovoLOG) EVERY 6 HOURS SUBQ 12/14/18 18:00 01/13/19 17:59 12/18/18 18:19 Lansoprazole (Prevacid) 30 mg DAILY GT 12/16/18 09:00 01/15/19 08:59 12/18/18 08:29 Lorazepam (Ativan 2mg/ml 1ml) 2 mg Q6H PRN IM For Anxiety 12/17/18 10:56 12/24/18 10:55 Magnesium Oxide (Mag-Ox 400mg) 400 mg THREE TIMES A DAY GT 12/16/18 18:00 01/15/19 17:59 12/18/18 18:13 Metoclopramide HCl (Reglan) 5 mg EVERY 6 HOURS GT 12/15/18 18:00 01/14/19 17:59 12/18/18 18:13 Polyethylene Glycol (Miralax) 17 gm BEDTIME GT 12/15/18 21:00 01/14/19 20:59 12/17/18 22:02 Risperidone (RisperDAL) 1 mg Q8HR ORAL 12/11/18 14:00 01/10/19 13:59 12/18/18 14:03 Neurological/Psychiatric: Reports: anxiety, emotional problems, weakness Allergies: Coded Allergies: No Known Allergies (Unverified , 05/22/18) Objective Data Height (Feet): 5 Height (Inches): 4.00 Weight (Pounds): 110 General Appearance: alert, confused, agitated Appearance: disheveled Behavior Mannerisms: poor eye contact Mental Status Exam - Affect: constricted Mental Status Exam - Mood: agitated Mental Status Exam - Thought P: tangential, confusion Mental Status Exam - Suicidal: not present Assessment/Plan Problem List: (1) Schizoaffective disorder, bipolar type ICD Codes: F25.0 - Schizoaffective disorder, bipolar type SNOMED: 32852483 Status: stable Assessment/Plan: Risperdal 1mg po tid Ativan IM restrains. Urvashi Ash MD Dec 18, 2018 19:18
--- NOTE | 2018-12-18 19:26 | NUR ---
NURSE NOTES: Received patient awake in bed, confused, agitated, no s/s of acute distress. IV access asymptomatic on saline lock. Fall and safety precautions taken, yellow socks and yellow bracelet on patient. G tube running glucerna 1.2 at 55cc/hr. Soft wrist restraints noted, peripheral pulses strong.
--- NOTE | 2018-12-18 19:46 | NUR ---
CASE MANAGEMENT: REVIEW SI: MALNUTRITION . SEPSIS . MALFUNCTION G-TUBE EGD/PEG PLACEMENT 12/13 T 97.2 HR 64 RR 18 BP 114/59 SAT 95% ROOM AIR H/H 9.3/28.9 K 5.2 IS: REGLAN GT Q6HR MAG OX GT TID GT FEEDING MED/SURG STATUS DCP: PATIENT IS FROM [facility]
[2018-12-18 20:00] VITALS: BP 128/59
[2018-12-18] MEDS: Miralax 17gm pkt GT SCH (20:14)
--- NOTE | 2018-12-18 20:39 | Surgery Progress Note ---
Surgery Progress Note Subjective Symptoms: improved Objective Last 24 Hour Vital Signs Date Time Temp Pulse Resp B/P (MAP) Pulse Ox O2 Delivery O2 Flow Rate FiO2 12/18/18 16:00 97.6 68 18 129/76 (93) 98 12/18/18 12:00 97.9 64 18 131/69 (89) 97 12/18/18 09:00 Room Air 12/18/18 09:00 97.8 66 18 114/59 (77) 95 12/18/18 04:00 97.2 95 16 131/78 (95) 97 12/18/18 00:00 97.6 78 18 119/72 (88) 97 12/17/18 22:47 Room Air I&O Intake and Output 12/17/18 12/18/18 19:00 07:00 Intake Total 660 ml 605 ml Balance 660 ml 605 ml Tube Feeding 660 ml 605 ml # Voids 3 # Bowel Movements 1 Dressing: dry Wound: clean Drains: other Cardiovascular: RSR Respiratory: clear Abdomen: soft, flat, present bowel sounds, non-distended Extremities: no tenderness, no cyanosis Laboratory Tests Test 12/18/18 05:40 White Blood Count 8.5 K/UL (4.8-10.8) Red Blood Count 3.91 M/UL (4.20-5.40) L Hemoglobin 9.3 G/DL (12.0-16.0) L Hematocrit 28.9 % (37.0-47.0) L Mean Corpuscular Volume 74 FL (80-99) L Mean Corpuscular Hemoglobin 23.8 PG (27.0-31.0) L Mean Corpuscular Hemoglobin Concent 32.3 G/DL (32.0-36.0) Red Cell Distribution Width 15.2 % (11.6-14.8) H Platelet Count 292 K/UL (150-450) Mean Platelet Volume 6.6 FL (6.5-10.1) Neutrophils (%) (Auto) 65.6 % (45.0-75.0) Lymphocytes (%) (Auto) 26.0 % (20.0-45.0) Monocytes (%) (Auto) 3.5 % (1.0-10.0) Eosinophils (%) (Auto) 4.2 % (0.0-3.0) H Basophils (%) (Auto) 0.7 % (0.0-2.0) Sodium Level 137 MMOL/L (136-145) Potassium Level 5.2 MMOL/L (3.5-5.1) H Chloride Level 101 MMOL/L (98-107) Carbon Dioxide Level 30 MMOL/L (21-32) Anion Gap 6 mmol/L (5-15) Blood Urea Nitrogen 14 mg/dL (7-18) Creatinine 0.4 MG/DL (0.55-1.30) L Estimat Glomerular Filtration Rate > 60 mL/min (>60) Glucose Level 161 MG/DL (74-106) H Calcium Level 8.9 MG/DL (8.5-10.1) Plan Problems: (1) Severe protein-calorie malnutrition Assessment & Plan: needs venous access for meds and fluids very dehydrated. no feeding tube access currently cannot obtain peripheral line s/p PEG tolerating feeds and meds can be without line now d/c planning okay to d/c from surgical standpoint pending placement thank you will follow with recs (2) At high risk for aspiration (3) Schizoaffective disorder, bipolar type (4) Sepsis (5) Diabetes mellitus (6) Essential hypertension (7) Anemia (8) Schizophrenia (9) Bipolar disorder (10) Hyponatremia Wili Leger Dec 18, 2018 20:39
--- NOTE | 2018-12-18 23:13 | NUR ---
HAND-OFF: Report given to GURINDER Do.
--- NOTE | 2018-12-18 23:15 | NUR ---
NURSE NOTES: Received a report from GURINDER May. Pt is sleeping comfortably. No pain/discomfort noted. On room air. HOB elevated. GT feeding is running. IV site is patent and intact. B soft wrist restraints are on. Bed in lowest position. Bed alarm is on. Call light within reach. Will continue to monitor.
[2018-12-19] VITALS: BP 117/53
[2018-12-19] MEDS: NovoLOG Insulin Flexpen SUBQ SCH ×5 (00:26→23:23)
[2018-12-19 04:00] VITALS: BP 125/54
--- NOTE | 2018-12-19 06:30 | NUR ---
NURSE NOTES: Contacted Dr. Delacruz about the vaginal bleeding of the pt. Still waiting for response.
[2018-12-19 07:06] LABS: ANION GAP 4 mmol/L (5-15); BLOOD UREA NITROGEN 18 mg/dL (7-18); CALCIUM 8.8 MG/DL (8.5-10.1); CARBON DIOXIDE 31 MMOL/L (21-32); CHLORIDE 97 MMOL/L (98-107); CREATININE 0.4 MG/DL (0.55-1.30); POTASSIUM 4.9 MMOL/L (3.5-5.1); SODIUM 132 MMOL/L (136-145)
[2018-12-19 07:08] LABS: BASOPHILS % (AUTO) 1.2 % (0.0-2.0); EOSINOPHILS % (AUTO) 3.7 % (0.0-3.0); HEMATOCRIT 28.8 % (37.0-47.0); HEMOGLOBIN 9.1 G/DL (12.0-16.0); LYMPHOCYTES % (AUTO) 19.7 % (20.0-45.0); MEAN CORPUSCULAR VOLUME 74 FL (80-99); MONOCYTES % (AUTO) 5.9 % (1.0-10.0); NEUTROPHILS % (AUTO) 69.5 % (45.0-75.0); PLATELET COUNT 262 K/UL (150-450); RED BLOOD COUNT 3.92 M/UL (4.20-5.40); RED CELL DISTRIBUTION WIDTH 15.3 % (11.6-14.8); WHITE BLOOD COUNT 7.8 K/UL (4.8-10.8)
--- NOTE | 2018-12-19 07:45 | NUR ---
NURSE NOTES: Received pt A/A/O, nonverbal. flat affect. confused. potential to self-inflict. On Jackson soft wrist restraints. circulations and sensations assessed. No pain/discomfort noted. On room air. HOB elevated for aspiration precaution. gtube is intact and patent. No gastric residual noted. IV site is patent and intact. Bed in lowest position. Bed alarm and lock is on. Call light within reach. Will continue to monitor.
--- NOTE | 2018-12-19 07:45 | NUR ---
HAND-OFF: Report given to GHULAM Chadwick.
[2018-12-19 08:00] VITALS: BP 119/57
[2018-12-19] MEDS: Docusate 100mg/10ml Liq GT SCH ×3 (08:42→17:23)
[2018-12-19] MEDS: Magnesium Oxide 400mg tab GT SCH ×3 (08:42→17:23)
--- NOTE | 2018-12-19 10:29 | Infectious Diseases Prog Note ---
Assessment/Plan Assessment/Plan IMPRESSION: Pseudomonas urinary tract infection. treated leukocytosis, dislodgement of the G-tube, s/p GT replacement diabetes, hypertension, dementia, hyperlipidemia, cachexia. VRE carrier RECOMMENDATION: observe off antibiotic Subjective ROS Limited/Unobtainable: Yes Neurologic: Reports: confusion, other - on restraint Allergies: Coded Allergies: No Known Allergies (Unverified , 05/22/18) Objective Vital Signs Last 24 Hour Vital Signs Date Time Temp Pulse Resp B/P (MAP) Pulse Ox O2 Delivery O2 Flow Rate FiO2 12/19/18 08:00 98.3 71 20 119/57 (77) 100 12/19/18 04:00 98.4 73 18 125/54 (77) 96 12/19/18 00:00 98.2 71 19 117/53 (74) 96 12/18/18 22:00 Room Air 12/18/18 20:00 97.9 93 18 128/59 (82) 95 12/18/18 16:00 97.6 68 18 129/76 (93) 98 12/18/18 12:00 97.9 64 18 131/69 (89) 97 Height (Feet): 5 Height (Inches): 4.00 Weight (Pounds): 110 General Appearance: no acute distress Respiratory/Chest: lungs clear Cardiovascular: normal rate Abdomen: soft, non tender Extremities: no edema Neurologic/Psychiatric: disoriented, aphasia Laboratory Tests Test 12/19/18 05:35 White Blood Count 7.8 K/UL (4.8-10.8) Red Blood Count 3.92 M/UL (4.20-5.40) L Hemoglobin 9.1 G/DL (12.0-16.0) L Hematocrit 28.8 % (37.0-47.0) L Mean Corpuscular Volume 74 FL (80-99) L Mean Corpuscular Hemoglobin 23.3 PG (27.0-31.0) L Mean Corpuscular Hemoglobin Concent 31.6 G/DL (32.0-36.0) L Red Cell Distribution Width 15.3 % (11.6-14.8) H Platelet Count 262 K/UL (150-450) Mean Platelet Volume 5.6 FL (6.5-10.1) L Neutrophils (%) (Auto) 69.5 % (45.0-75.0) Lymphocytes (%) (Auto) 19.7 % (20.0-45.0) L Monocytes (%) (Auto) 5.9 % (1.0-10.0) Eosinophils (%) (Auto) 3.7 % (0.0-3.0) H Basophils (%) (Auto) 1.2 % (0.0-2.0) Sodium Level 132 MMOL/L (136-145) L Potassium Level 4.9 MMOL/L (3.5-5.1) Chloride Level 97 MMOL/L (98-107) L Carbon Dioxide Level 31 MMOL/L (21-32) Anion Gap 4 mmol/L (5-15) L Blood Urea Nitrogen 18 mg/dL (7-18) Creatinine 0.4 MG/DL (0.55-1.30) L Estimat Glomerular Filtration Rate > 60 mL/min (>60) Glucose Level 205 MG/DL (74-106) H Calcium Level 8.8 MG/DL (8.5-10.1) Current Medications Medications (Trade) Dose Ordered Sig/Analilia Route PRN Reason Start Time Stop Time Status Last Admin Dose Admin Dextrose (Dextrose 50%) 25 ml Q30M PRN IV Hypoglycemia 12/14/18 14:15 01/13/19 14:14 Dextrose (Dextrose 50%) 50 ml Q30M PRN IV Hypoglycemia 12/14/18 14:15 01/13/19 14:14 Docusate Sodium (Colace) 100 mg THREE TIMES A DAY GT 12/18/18 18:00 01/17/19 17:59 12/19/18 08:42 Haloperidol Lactate (Haldol) 5 mg Q6H PRN IM Agitation 12/11/18 11:30 01/10/19 11:29 12/17/18 20:26 Insulin Aspart (NovoLOG) EVERY 6 HOURS SUBQ 12/14/18 18:00 01/13/19 17:59 12/19/18 06:47 Lansoprazole (Prevacid) 30 mg DAILY GT 12/16/18 09:00 01/15/19 08:59 12/19/18 08:43 Lorazepam (Ativan 2mg/ml 1ml) 2 mg Q6H PRN IM For Anxiety 12/17/18 10:56 12/24/18 10:55 Magnesium Oxide (Mag-Ox 400mg) 400 mg THREE TIMES A DAY GT 12/16/18 18:00 01/15/19 17:59 12/19/18 08:42 Metoclopramide HCl (Reglan) 5 mg EVERY 6 HOURS GT 12/15/18 18:00 01/14/19 17:59 12/19/18 06:00 Polyethylene Glycol (Miralax) 17 gm BEDTIME GT 12/15/18 21:00 01/14/19 20:59 12/18/18 20:14 Risperidone (RisperDAL) 1 mg Q8HR ORAL 12/11/18 14:00 01/10/19 13:59 12/19/18 06:00 Madhav Doty MD Dec 19, 2018 10:29
--- NOTE | 2018-12-19 10:47 | GI Progress Note ---
Assessment/Plan Problems: (1) Bipolar disorder ICD Codes: F31.9 - Bipolar disorder, unspecified SNOMED: 25551914 (2) Schizophrenia ICD Codes: F20.9 - Schizophrenia, unspecified SNOMED: 18543854 (3) Anemia ICD Codes: D64.9 - Anemia, unspecified SNOMED: 584830821 Status: stable, unchanged Status Narrative Discussed with Dr. Tovar Assessment/Plan SUMMARY OF FINDINGS: 1. Partial antrectomy. 2. Anastomotic ulceration, status post biopsy. >> negative for H. Pylori 3. Status post successful PEG placement. RECOMMENDATIONS: Continue G-tube feedings per RD Elevate head of bed at all times GT site care daily and as needed We will consider low-dose erythromycin for GI motility if patient has persistent high residuals given Reglan has a drug interaction. PPI PRN transfusions Electrolyte correction dc planning The patient was seen and examined at bedside and all new and available data was reviewed in the patients chart. I agree with the above findings, impression and plan. (Patient seen earlier today. Signature stamp does not reflect patient encounter time.). - Hamzah Tovar MD Subjective Subjective limited Objective Last 24 Hour Vital Signs Date Time Temp Pulse Resp B/P (MAP) Pulse Ox O2 Delivery O2 Flow Rate FiO2 12/19/18 08:00 98.3 71 20 119/57 (77) 100 12/19/18 04:00 98.4 73 18 125/54 (77) 96 12/19/18 00:00 98.2 71 19 117/53 (74) 96 12/18/18 22:00 Room Air 12/18/18 20:00 97.9 93 18 128/59 (82) 95 12/18/18 16:00 97.6 68 18 129/76 (93) 98 12/18/18 12:00 97.9 64 18 131/69 (89) 97 Intake and Output 12/18/18 12/19/18 18:59 06:59 Intake Total 605 ml Balance 605 ml Tube Feeding 605 ml # Voids 4 Laboratory Tests Test 12/19/18 05:35 White Blood Count 7.8 K/UL (4.8-10.8) Red Blood Count 3.92 M/UL (4.20-5.40) L Hemoglobin 9.1 G/DL (12.0-16.0) L Hematocrit 28.8 % (37.0-47.0) L Mean Corpuscular Volume 74 FL (80-99) L Mean Corpuscular Hemoglobin 23.3 PG (27.0-31.0) L Mean Corpuscular Hemoglobin Concent 31.6 G/DL (32.0-36.0) L Red Cell Distribution Width 15.3 % (11.6-14.8) H Platelet Count 262 K/UL (150-450) Mean Platelet Volume 5.6 FL (6.5-10.1) L Neutrophils (%) (Auto) 69.5 % (45.0-75.0) Lymphocytes (%) (Auto) 19.7 % (20.0-45.0) L Monocytes (%) (Auto) 5.9 % (1.0-10.0) Eosinophils (%) (Auto) 3.7 % (0.0-3.0) H Basophils (%) (Auto) 1.2 % (0.0-2.0) Sodium Level 132 MMOL/L (136-145) L Potassium Level 4.9 MMOL/L (3.5-5.1) Chloride Level 97 MMOL/L (98-107) L Carbon Dioxide Level 31 MMOL/L (21-32) Anion Gap 4 mmol/L (5-15) L Blood Urea Nitrogen 18 mg/dL (7-18) Creatinine 0.4 MG/DL (0.55-1.30) L Estimat Glomerular Filtration Rate > 60 mL/min (>60) Glucose Level 205 MG/DL (74-106) H Calcium Level 8.8 MG/DL (8.5-10.1) Height (Feet): 5 Height (Inches): 4.00 Weight (Pounds): 110 General Appearance: no apparent distress, thin Cardiovascular: normal rate Respiratory/Chest: normal breath sounds, no respiratory distress Abdominal Exam: normal bowel sounds, non tender, soft, GT site - Clean dry and intact Extremities: non-tender Abhijeet Weston [employer] TE[employer] Dec 19, 2018 10:47
[2018-12-19 12:00] VITALS: BP 121/59
--- NOTE | 2018-12-19 12:58 | Pulmonology Progress Note ---
Assessment/Plan Problems: (1) Sepsis (2) At high risk for aspiration (3) Severe protein-calorie malnutrition (4) Diabetes mellitus (5) Essential hypertension (6) Schizophrenia (7) Bipolar disorder Assessment/Plan looks better smiling got the PEG tolerating feeding improving continue abx check cultures sliding scale dc planning. Subjective ROS Limited/Unobtainable: No Constitutional: Reports: no symptoms HEENT: Repors: no symptoms Respiratory: Reports: no symptoms Allergies: Coded Allergies: No Known Allergies (Unverified , 05/22/18) Objective Last 24 Hour Vital Signs Date Time Temp Pulse Resp B/P (MAP) Pulse Ox O2 Delivery O2 Flow Rate FiO2 12/19/18 12:00 98.3 86 18 121/59 (79) 95 12/19/18 08:00 98.3 71 20 119/57 (77) 100 12/19/18 04:00 98.4 73 18 125/54 (77) 96 12/19/18 00:00 98.2 71 19 117/53 (74) 96 12/18/18 22:00 Room Air 12/18/18 20:00 97.9 93 18 128/59 (82) 95 12/18/18 16:00 97.6 68 18 129/76 (93) 98 Intake and Output 12/18/18 12/19/18 18:59 06:59 Intake Total 605 ml Balance 605 ml Tube Feeding 605 ml # Voids 4 Objective General Appearance: WD/WN HEENT: normocephalic, atraumatic Respiratory/Chest: chest wall non-tender, normal breath sounds Cardiovascular: normal peripheral pulses, normal rate Abdomen: normal bowel sounds, soft, non tender, no organomegaly, non distended Extremities: no cyanosis Skin: no rash, no lesions, no ulcers Laboratory Tests 12/19/18 05:35: White Blood Count 7.8, Red Blood Count 3.92L, Hemoglobin 9.1L, Hematocrit 28.8L , Mean Corpuscular Volume 74L, Mean Corpuscular Hemoglobin 23.3L, Mean Corpuscular Hemoglobin Concent 31.6L, Red Cell Distribution Width 15.3H, Platelet Count 262, Mean Platelet Volume 5.6L, Neutrophils (%) (Auto) 69.5, Lymphocytes (%) (Auto) 19.7L, Monocytes (%) (Auto) 5.9, Eosinophils (%) (Auto) 3.7H, Basophils (%) (Auto) 1.2, Sodium Level 132L, Potassium Level 4.9, Chloride Level 97L, Carbon Dioxide Level 31, Anion Gap 4L, Blood Urea Nitrogen 18, Creatinine 0.4L, Estimat Glomerular Filtration Rate > 60, Glucose Level 205H , Calcium Level 8.8 Current Medications Medications (Trade) Dose Ordered Sig/Analilia Route PRN Reason Start Time Stop Time Status Last Admin Dose Admin Dextrose (Dextrose 50%) 25 ml Q30M PRN IV Hypoglycemia 12/14/18 14:15 01/13/19 14:14 Dextrose (Dextrose 50%) 50 ml Q30M PRN IV Hypoglycemia 12/14/18 14:15 01/13/19 14:14 Docusate Sodium (Colace) 100 mg THREE TIMES A DAY GT 12/18/18 18:00 01/17/19 17:59 12/19/18 12:30 Haloperidol Lactate (Haldol) 5 mg Q6H PRN IM Agitation 12/11/18 11:30 01/10/19 11:29 12/17/18 20:26 Insulin Aspart (NovoLOG) EVERY 6 HOURS SUBQ 12/14/18 18:00 01/13/19 17:59 12/19/18 12:31 Lansoprazole (Prevacid) 30 mg DAILY GT 12/16/18 09:00 01/15/19 08:59 12/19/18 08:43 Lorazepam (Ativan 2mg/ml 1ml) 2 mg Q6H PRN IM For Anxiety 12/17/18 10:56 12/24/18 10:55 Magnesium Oxide (Mag-Ox 400mg) 400 mg THREE TIMES A DAY GT 12/16/18 18:00 01/15/19 17:59 12/19/18 12:30 Metoclopramide HCl (Reglan) 5 mg EVERY 6 HOURS GT 12/15/18 18:00 01/14/19 17:59 12/19/18 12:30 Polyethylene Glycol (Miralax) 17 gm BEDTIME GT 12/15/18 21:00 01/14/19 20:59 12/18/18 20:14 Risperidone (RisperDAL) 1 mg Q8HR ORAL 12/11/18 14:00 01/10/19 13:59 12/19/18 06:00 Jaimie Delacruz MD Dec 19, 2018 12:58
--- NOTE | 2018-12-19 13:24 | NUR ---
RD ASSESSMENT & RECOMMENDATIONS SEE CARE ACTIVITY FOR COMPLETE ASSESSMENT DAILY ESTIMATED NEEDS: Needs based on DM, cardia, underweight, wound / 49kg abw 30-35 kcals/kg 4658-8262 total kcals 1.25-1.5 g protein/kg 61-74 g total protein 25-30 mL/kg 8589-6745 total fluid mLs NUTRITION DIAGNOSIS: * Swallowing difficulty R/T dysphagia as evidenced by pt is PEG dep, s/p GT replacement. * Altered nutrition related lab values R/T diabetes as eivdenced by elev POC glu (200's now 161-205) CURRENT TF:Glucerna 1.2 @ 55ml/hr x 24 hrs ENTERAL NUTRITION RECOMMENDATIONS: Glucerna 1.2 @ 55ml/hr x 24 hrs to provide 1320ml, 1584kcal, 79g prot, 1063ml free water * As able, maintain @ goal. * HOB over 30 degrees/ water flush per MD * Monitor TF tolerance closely, need for TF change -- - With cont elev residuals, rec TF CHANGE to Glucerna 1.5 goal of 40ml/hr x24 hrs for improved tolerance. - @goal will provide 960ml, 1440 kcal (98% est kcal), 79g prot (107% est pro needs), 729ml free H2O. ADDITIONAL RECOMMENDATIONS: * Calibrated bedscale wt for accurate CBW * DC D5 IVF- Pt on TF, elev BGs * Consider long acting insulin for improved BG control- BGs in the 200's * Monitor lytes, replete as needed * Skin integrity: add Cedrick 1pkt BID (multiple non-blanchable erythema) * Monitor TF tolerance closely, need for TF change
--- NOTE | 2018-12-19 14:04 | General Progress Note ---
Assessment/Plan Problem List: (1) Dehydration ICD Codes: E86.0 - Dehydration SNOMED: 82370602 (2) Attention to G-tube ICD Codes: Z43.1 - Encounter for attention to gastrostomy SNOMED: 929103026, 373215176, 712771940 (3) Schizoaffective disorder, bipolar type ICD Codes: F25.0 - Schizoaffective disorder, bipolar type SNOMED: 05471471 Status: stable, progressing Assessment/Plan: gi neph f/u dc to snf if clear Subjective Constitutional: Reports: weakness Allergies: Coded Allergies: No Known Allergies (Unverified , 05/22/18) All Systems: reviewed and negative except above Subjective confused sleepy Objective Last 24 Hour Vital Signs Date Time Temp Pulse Resp B/P (MAP) Pulse Ox O2 Delivery O2 Flow Rate FiO2 12/19/18 12:00 98.3 86 18 121/59 (79) 95 12/19/18 09:00 Room Air 12/19/18 08:00 98.3 71 20 119/57 (77) 100 12/19/18 04:00 98.4 73 18 125/54 (77) 96 12/19/18 00:00 98.2 71 19 117/53 (74) 96 12/18/18 22:00 Room Air 12/18/18 20:00 97.9 93 18 128/59 (82) 95 12/18/18 16:00 97.6 68 18 129/76 (93) 98 Intake and Output 12/18/18 12/19/18 19:00 07:00 Intake Total 605 ml Balance 605 ml Tube Feeding 605 ml # Voids 4 Laboratory Tests 12/19/18 05:35: White Blood Count 7.8, Red Blood Count 3.92L, Hemoglobin 9.1L, Hematocrit 28.8L , Mean Corpuscular Volume 74L, Mean Corpuscular Hemoglobin 23.3L, Mean Corpuscular Hemoglobin Concent 31.6L, Red Cell Distribution Width 15.3H, Platelet Count 262, Mean Platelet Volume 5.6L, Neutrophils (%) (Auto) 69.5, Lymphocytes (%) (Auto) 19.7L, Monocytes (%) (Auto) 5.9, Eosinophils (%) (Auto) 3.7H, Basophils (%) (Auto) 1.2, Sodium Level 132L, Potassium Level 4.9, Chloride Level 97L, Carbon Dioxide Level 31, Anion Gap 4L, Blood Urea Nitrogen 18, Creatinine 0.4L, Estimat Glomerular Filtration Rate > 60, Glucose Level 205H , Calcium Level 8.8 Height (Feet): 5 Height (Inches): 4.00 Weight (Pounds): 110 General Appearance: lethargic EENT: normal ENT inspection Neck: normal alignment Cardiovascular: normal peripheral pulses, normal rate, regular rhythm Respiratory/Chest: chest wall non-tender, lungs clear, normal breath sounds Abdomen: normal bowel sounds, non tender, soft Extremities: normal inspection Edema: no edema noted Arm (L), no edema noted Arm (R), no edema noted Leg (L), no edema noted Leg (R), no edema noted Pedal (L), no edema noted Pedal (R), no edema noted Generalized Neurologic: motor weakness Skin: normal pigmentation, warm/dry Jose Cortés DO Dec 19, 2018 14:04
--- NOTE | 2018-12-19 14:26 | Surgery Progress Note ---
Surgery Progress Note Subjective Additional Comments no acute events. stable. pending placement Objective Last 24 Hour Vital Signs Date Time Temp Pulse Resp B/P (MAP) Pulse Ox O2 Delivery O2 Flow Rate FiO2 12/19/18 12:00 98.3 86 18 121/59 (79) 95 12/19/18 09:00 Room Air 12/19/18 08:00 98.3 71 20 119/57 (77) 100 12/19/18 04:00 98.4 73 18 125/54 (77) 96 12/19/18 00:00 98.2 71 19 117/53 (74) 96 12/18/18 22:00 Room Air 12/18/18 20:00 97.9 93 18 128/59 (82) 95 12/18/18 16:00 97.6 68 18 129/76 (93) 98 I&O Intake and Output 12/18/18 12/19/18 19:00 07:00 Intake Total 605 ml Balance 605 ml Tube Feeding 605 ml # Voids 4 Dressing: dry Wound: clean Drains: other Cardiovascular: RSR Respiratory: clear Abdomen: soft, non-tender, present bowel sounds, non-distended Extremities: no tenderness, no cyanosis Laboratory Tests Test 12/19/18 05:35 White Blood Count 7.8 K/UL (4.8-10.8) Red Blood Count 3.92 M/UL (4.20-5.40) L Hemoglobin 9.1 G/DL (12.0-16.0) L Hematocrit 28.8 % (37.0-47.0) L Mean Corpuscular Volume 74 FL (80-99) L Mean Corpuscular Hemoglobin 23.3 PG (27.0-31.0) L Mean Corpuscular Hemoglobin Concent 31.6 G/DL (32.0-36.0) L Red Cell Distribution Width 15.3 % (11.6-14.8) H Platelet Count 262 K/UL (150-450) Mean Platelet Volume 5.6 FL (6.5-10.1) L Neutrophils (%) (Auto) 69.5 % (45.0-75.0) Lymphocytes (%) (Auto) 19.7 % (20.0-45.0) L Monocytes (%) (Auto) 5.9 % (1.0-10.0) Eosinophils (%) (Auto) 3.7 % (0.0-3.0) H Basophils (%) (Auto) 1.2 % (0.0-2.0) Sodium Level 132 MMOL/L (136-145) L Potassium Level 4.9 MMOL/L (3.5-5.1) Chloride Level 97 MMOL/L (98-107) L Carbon Dioxide Level 31 MMOL/L (21-32) Anion Gap 4 mmol/L (5-15) L Blood Urea Nitrogen 18 mg/dL (7-18) Creatinine 0.4 MG/DL (0.55-1.30) L Estimat Glomerular Filtration Rate > 60 mL/min (>60) Glucose Level 205 MG/DL (74-106) H Calcium Level 8.8 MG/DL (8.5-10.1) Plan Problems: (1) Severe protein-calorie malnutrition Assessment & Plan: needs venous access for meds and fluids very dehydrated. no feeding tube access currently cannot obtain peripheral line s/p PEG tolerating feeds and meds can be without line now d/c planning okay to d/c from surgical standpoint pending placement thank you will follow with recs (2) At high risk for aspiration (3) Schizoaffective disorder, bipolar type (4) Sepsis (5) Diabetes mellitus (6) Essential hypertension (7) Anemia (8) Schizophrenia (9) Bipolar disorder (10) Hyponatremia Wili Leger Dec 19, 2018 14:26
--- NOTE | 2018-12-19 15:08 | Nephrology Progress Note ---
Assessment/Plan Problem List: (1) Hyponatremia (2) Anemia (3) Schizoaffective disorder, bipolar type (4) Severe protein-calorie malnutrition Assessment: low BMI Assessment HypoNatremia : etilogy?? corrected Anemia Dehydration Plan Plan: monitor S na Reglan GT low K, IV K ordered Anemia lewis Urine studies Monitor lytes per GI DC planning Subjective ROS Limited/Unobtainable: No Objective Objective Last 24 Hour Vital Signs Date Time Temp Pulse Resp B/P (MAP) Pulse Ox O2 Delivery O2 Flow Rate FiO2 12/19/18 12:00 98.3 86 18 121/59 (79) 95 12/19/18 09:00 Room Air 12/19/18 08:00 98.3 71 20 119/57 (77) 100 12/19/18 04:00 98.4 73 18 125/54 (77) 96 12/19/18 00:00 98.2 71 19 117/53 (74) 96 12/18/18 22:00 Room Air 12/18/18 20:00 97.9 93 18 128/59 (82) 95 12/18/18 16:00 97.6 68 18 129/76 (93) 98 Intake and Output 12/18/18 12/19/18 19:00 07:00 Intake Total 605 ml Balance 605 ml Tube Feeding 605 ml # Voids 4 Laboratory Tests 12/19/18 05:35: White Blood Count 7.8, Red Blood Count 3.92L, Hemoglobin 9.1L, Hematocrit 28.8L , Mean Corpuscular Volume 74L, Mean Corpuscular Hemoglobin 23.3L, Mean Corpuscular Hemoglobin Concent 31.6L, Red Cell Distribution Width 15.3H, Platelet Count 262, Mean Platelet Volume 5.6L, Neutrophils (%) (Auto) 69.5, Lymphocytes (%) (Auto) 19.7L, Monocytes (%) (Auto) 5.9, Eosinophils (%) (Auto) 3.7H, Basophils (%) (Auto) 1.2, Sodium Level 132L, Potassium Level 4.9, Chloride Level 97L, Carbon Dioxide Level 31, Anion Gap 4L, Blood Urea Nitrogen 18, Creatinine 0.4L, Estimat Glomerular Filtration Rate > 60, Glucose Level 205H , Calcium Level 8.8 Height (Feet): 5 Height (Inches): 4.00 Weight (Pounds): 110 General Appearance: no apparent distress Cardiovascular: normal rate Respiratory/Chest: decreased breath sounds Abdomen: soft Objective no change Herrera Hogan MD Dec 19, 2018 15:08
[2018-12-19 16:00] VITALS: BP 137/73
--- NOTE | 2018-12-19 17:58 | NUR ---
NURSE NOTES: PATIENT CONSTANTLY RESTLESS, AND TEND TO SCRATCH STAFF AND SELF UNINTENTIONALLY. PATIENT APPEARED CONFUSED. SIDERAILS ARE UP X3. BED IN THE LOWEST POSITION. BED ALARM IS ACTIVATED. KEPT HOB ELEVATED FOR ASPIRATION PRECAUTIONS. WILL CONT TO MONITOR.
--- NOTE | 2018-12-19 19:11 | NUR ---
HAND-OFF: Report given to Christiana.
--- NOTE | 2018-12-19 19:40 | NUR ---
NURSE NOTES: Received patient from GURINDER Chadwick. Patient is in bed, resting, AAO x0. Patient is on R/A, unlabored breathing, no s/s of pain or distress noted. Patient has a patient L upper arm 20G IV saline lock. G-Tube noted on lower left abdomen running Glucerna 1.2 at 50ml/hr, abdominal binder present. Patient is on bilateral wrists restraints, order renewed 12/19 at 1000. No redness noted on wrist from restraints, pulses presents. Patient has DC order, waiting for placement, will follow up. Bed is locked at the lowest position, bed alarms active, side rails up x2, yellow socks implemented, and call light is within reach. Will continue to monitor.
[2018-12-19 20:00] VITALS: BP 150/60
[2018-12-19] MEDS: Miralax 17gm pkt GT SCH (21:23)
--- NOTE | 2018-12-19 22:16 | Psych Consult Progress Note ---
Psychiatry Progress Note Psychiatry Progress Note Medications Current Medications Medications (Trade) Dose Ordered Sig/Analilia Route PRN Reason Start Time Stop Time Status Last Admin Dose Admin Dextrose (Dextrose 50%) 25 ml Q30M PRN IV Hypoglycemia 12/14/18 14:15 01/13/19 14:14 Dextrose (Dextrose 50%) 50 ml Q30M PRN IV Hypoglycemia 12/14/18 14:15 01/13/19 14:14 Docusate Sodium (Colace) 100 mg THREE TIMES A DAY GT 12/18/18 18:00 01/17/19 17:59 12/19/18 17:23 Haloperidol Lactate (Haldol) 5 mg Q6H PRN IM Agitation 12/11/18 11:30 01/10/19 11:29 12/17/18 20:26 Insulin Aspart (NovoLOG) EVERY 6 HOURS SUBQ 12/14/18 18:00 01/13/19 17:59 12/19/18 17:24 Lansoprazole (Prevacid) 30 mg DAILY GT 12/16/18 09:00 01/15/19 08:59 12/19/18 08:43 Lorazepam (Ativan 2mg/ml 1ml) 2 mg Q6H PRN IM For Anxiety 12/17/18 10:56 12/24/18 10:55 Magnesium Oxide (Mag-Ox 400mg) 400 mg THREE TIMES A DAY GT 12/16/18 18:00 01/15/19 17:59 12/19/18 17:23 Metoclopramide HCl (Reglan) 10 mg EVERY 6 HOURS GT 12/19/18 18:00 01/14/19 17:59 12/19/18 17:23 Polyethylene Glycol (Miralax) 17 gm BEDTIME GT 12/15/18 21:00 01/14/19 20:59 12/19/18 21:23 Risperidone (RisperDAL) 1 mg Q8HR ORAL 12/11/18 14:00 01/10/19 13:59 12/19/18 21:23 Neurological/Psychiatric: Reports: anxiety, emotional problems Allergies: Coded Allergies: No Known Allergies (Unverified , 05/22/18) Objective Data Height (Feet): 5 Height (Inches): 4.00 Weight (Pounds): 110 General Appearance: alert, confused, agitated Appearance: disheveled Behavior Mannerisms: poor eye contact Mental Status Exam - Affect: constricted Mental Status Exam - Mood: anxious, agitated Mental Status Exam - Thought P: tangential, confusion, disorganized Mental Status Exam - Suicidal: not present Assessment/Plan Problem List: (1) Schizoaffective disorder, bipolar type ICD Codes: F25.0 - Schizoaffective disorder, bipolar type SNOMED: 21427253 Status: stable, progressing Assessment/Plan: Risperdal 1mg po tid Ativan IM restrains. Urvashi Ash MD Dec 19, 2018 22:16
[2018-12-19] MEDS: Haloperidol 5mg/ml Inj IM PRN (22:54)
[2018-12-20] VITALS: BP 129/76
[2018-12-20 04:00] VITALS: BP 135/74
[2018-12-20] MEDS: NovoLOG Insulin Flexpen SUBQ SCH ×3 (05:22→17:10)
[2018-12-20 07:20] LABS: EOSINOPHILS % (AUTO) 2.8 % (0.0-3.0); HEMATOCRIT 29.8 % (37.0-47.0); HEMOGLOBIN 9.4 G/DL (12.0-16.0); MEAN CORPUSCULAR VOLUME 74 FL (80-99); MONOCYTES % (AUTO) 5.2 % (1.0-10.0); PLATELET COUNT 307 K/UL (150-450); RED BLOOD COUNT 4.03 M/UL (4.20-5.40); RED CELL DISTRIBUTION WIDTH 14.9 % (11.6-14.8); WHITE BLOOD COUNT 8.9 K/UL (4.8-10.8)
[2018-12-20 07:23] LABS: ALANINE AMINOTRANSFERASE 19 U/L (12-78); ALBUMIN 2.1 G/DL (3.4-5.0); ALBUMIN/GLOBULIN RATIO 0.4 (1.0-2.7); ALKALINE PHOSPHATASE 134 U/L (46-116); ANION GAP 6 mmol/L (5-15); ASPARTATE AMINO TRANSFERASE 16 U/L (15-37); BILIRUBIN,TOTAL 0.4 MG/DL (0.2-1.0); BLOOD UREA NITROGEN 17 mg/dL (7-18); CALCIUM 9.3 MG/DL (8.5-10.1); CARBON DIOXIDE 32 MMOL/L (21-32); CHLORIDE 101 MMOL/L (98-107); CREATININE 0.5 MG/DL (0.55-1.30); SODIUM 138 MMOL/L (136-145)
--- NOTE | 2018-12-20 07:30 | NUR ---
NURSE NOTES: Received pt awake, nonverbal very agitated, and confuded, no sign of distress. On Jackson soft wrist restraints. circulations and sensations intact, No fascial grimace noted. HOB elevated for aspiration precaution. g-tube on going tolerating well, no gastric residual noted.no IV access noted. on fall and aspiration precaution, Bed in lowest position. Bed alarm and lock is on. Call light within reach. Will continue to monitor. timothy barrow
--- NOTE | 2018-12-20 07:38 | NUR ---
HAND-OFF: Report given to Betsy Thomas RN.
[2018-12-20 08:00] VITALS: BP 155/63
--- NOTE | 2018-12-20 08:10 | NUR ---
nurse notes tried to insert an IV unsuccesful, charge nurse aware, stated patient is a hard stick, timothy barrow
[2018-12-20] MEDS: Magnesium Oxide 400mg tab GT SCH ×3 (08:18→17:08)
[2018-12-20] MEDS: Docusate 100mg/10ml Liq GT SCH ×3 (08:18→17:08)
[2018-12-20] MEDS: Haloperidol 5mg/ml Inj IM PRN (08:19)
--- NOTE | 2018-12-20 09:35 | General Progress Note ---
Assessment/Plan Problem List: (1) Dehydration ICD Codes: E86.0 - Dehydration SNOMED: 69477577 (2) Attention to G-tube ICD Codes: Z43.1 - Encounter for attention to gastrostomy SNOMED: 457745557, 067668633, 755260031 (3) Schizoaffective disorder, bipolar type ICD Codes: F25.0 - Schizoaffective disorder, bipolar type SNOMED: 22693504 Status: stable, progressing Assessment/Plan: gi neph f/u dc to snf if clear Subjective Constitutional: Reports: weakness Allergies: Coded Allergies: No Known Allergies (Unverified , 05/22/18) All Systems: reviewed and negative except above Subjective confused sleepy Objective Last 24 Hour Vital Signs Date Time Temp Pulse Resp B/P (MAP) Pulse Ox O2 Delivery O2 Flow Rate FiO2 12/20/18 08:10 Room Air 12/20/18 04:00 98.3 90 18 135/74 (94) 99 12/20/18 00:00 97.4 103 18 129/76 (93) 99 12/19/18 21:00 Room Air 12/19/18 20:00 97.9 89 17 150/60 (90) 100 12/19/18 16:00 98.6 93 17 137/73 (94) 97 12/19/18 12:00 98.3 86 18 121/59 (79) 95 Intake and Output 12/19/18 12/20/18 18:59 06:59 Intake Total 990 ml 200 ml Balance 990 ml 200 ml Free Water 330 ml 150 ml Tube Feeding 660 ml 50 ml Laboratory Tests 12/20/18 06:25: White Blood Count 8.9, Red Blood Count 4.03L, Hemoglobin 9.4L, Hematocrit 29.8L , Mean Corpuscular Volume 74L, Mean Corpuscular Hemoglobin 23.3L, Mean Corpuscular Hemoglobin Concent 31.6L, Red Cell Distribution Width 14.9H, Platelet Count 307, Mean Platelet Volume 6.1L, Neutrophils (%) (Auto) 75.0, Lymphocytes (%) (Auto) 16.0L, Monocytes (%) (Auto) 5.2, Eosinophils (%) (Auto) 2.8, Basophils (%) (Auto) 1.0, Sodium Level 138, Potassium Level 5.0, Chloride Level 101, Carbon Dioxide Level 32, Anion Gap 6, Blood Urea Nitrogen 17, Creatinine 0.5L, Estimat Glomerular Filtration Rate > 60, Glucose Level 191H, Osmolality 300, Uric Acid 2.5L, Calcium Level 9.3, Phosphorus Level 4.0, Magnesium Level 1.9, Total Bilirubin 0.4, Aspartate Amino Transf (AST/SGOT) 16, Alanine Aminotransferase (ALT/SGPT) 19, Alkaline Phosphatase 134H, Total Protein 6.9, Albumin 2.1L, Globulin 4.8, Albumin/Globulin Ratio 0.4L Height (Feet): 5 Height (Inches): 4.00 Weight (Pounds): 97 General Appearance: lethargic EENT: normal ENT inspection Neck: normal alignment Cardiovascular: normal peripheral pulses, normal rate, regular rhythm Respiratory/Chest: chest wall non-tender, lungs clear, normal breath sounds Abdomen: normal bowel sounds, non tender, soft Extremities: normal inspection Edema: no edema noted Arm (L), no edema noted Arm (R), no edema noted Leg (L), no edema noted Leg (R), no edema noted Pedal (L), no edema noted Pedal (R), no edema noted Generalized Neurologic: motor weakness Skin: normal pigmentation, warm/dry Jose CortésRaina December 20, 2018 09:35
--- NOTE | 2018-12-20 10:53 | GI Progress Note ---
Assessment/Plan Problems: (1) Bipolar disorder ICD Codes: F31.9 - Bipolar disorder, unspecified SNOMED: 89736801 (2) Schizophrenia ICD Codes: F20.9 - Schizophrenia, unspecified SNOMED: 77744531 (3) Anemia ICD Codes: D64.9 - Anemia, unspecified SNOMED: 162142020 Status: stable, unchanged Status Narrative Discussed with Dr. Tovar Assessment/Plan SUMMARY OF FINDINGS: 1. Partial antrectomy. 2. Anastomotic ulceration, status post biopsy. >> negative for H. Pylori 3. Status post successful PEG placement. RECOMMENDATIONS: Continue G-tube feedings per RD Elevate head of bed at all times GT site care daily and as needed We will consider low-dose erythromycin for GI motility if patient has persistent high residuals given Reglan has a drug interaction. PPI PRN transfusions Electrolyte correction dc planning The patient was seen and examined at bedside and all new and available data was reviewed in the patients chart. I agree with the above findings, impression and plan. (Patient seen earlier today. Signature stamp does not reflect patient encounter time.). - Hamzah Tovar MD Subjective Subjective limited Objective Last 24 Hour Vital Signs Date Time Temp Pulse Resp B/P (MAP) Pulse Ox O2 Delivery O2 Flow Rate FiO2 12/20/18 08:10 Room Air 12/20/18 08:00 96.3 95 22 155/63 (93) 99 12/20/18 04:00 98.3 90 18 135/74 (94) 99 12/20/18 00:00 97.4 103 18 129/76 (93) 99 12/19/18 21:00 Room Air 12/19/18 20:00 97.9 89 17 150/60 (90) 100 12/19/18 16:00 98.6 93 17 137/73 (94) 97 12/19/18 12:00 98.3 86 18 121/59 (79) 95 Intake and Output 12/19/18 12/20/18 18:59 06:59 Intake Total 990 ml 200 ml Balance 990 ml 200 ml Free Water 330 ml 150 ml Tube Feeding 660 ml 50 ml Laboratory Tests Test 12/20/18 06:25 White Blood Count 8.9 K/UL (4.8-10.8) Red Blood Count 4.03 M/UL (4.20-5.40) L Hemoglobin 9.4 G/DL (12.0-16.0) L Hematocrit 29.8 % (37.0-47.0) L Mean Corpuscular Volume 74 FL (80-99) L Mean Corpuscular Hemoglobin 23.3 PG (27.0-31.0) L Mean Corpuscular Hemoglobin Concent 31.6 G/DL (32.0-36.0) L Red Cell Distribution Width 14.9 % (11.6-14.8) H Platelet Count 307 K/UL (150-450) Mean Platelet Volume 6.1 FL (6.5-10.1) L Neutrophils (%) (Auto) 75.0 % (45.0-75.0) Lymphocytes (%) (Auto) 16.0 % (20.0-45.0) L Monocytes (%) (Auto) 5.2 % (1.0-10.0) Eosinophils (%) (Auto) 2.8 % (0.0-3.0) Basophils (%) (Auto) 1.0 % (0.0-2.0) Sodium Level 138 MMOL/L (136-145) Potassium Level 5.0 MMOL/L (3.5-5.1) Chloride Level 101 MMOL/L (98-107) Carbon Dioxide Level 32 MMOL/L (21-32) Anion Gap 6 mmol/L (5-15) Blood Urea Nitrogen 17 mg/dL (7-18) Creatinine 0.5 MG/DL (0.55-1.30) L Estimat Glomerular Filtration Rate > 60 mL/min (>60) Glucose Level 191 MG/DL (74-106) H Osmolality 300 mOsm/kg (297-317) Uric Acid 2.5 MG/DL (2.6-7.2) L Calcium Level 9.3 MG/DL (8.5-10.1) Phosphorus Level 4.0 MG/DL (2.5-4.9) Magnesium Level 1.9 MG/DL (1.8-2.4) Total Bilirubin 0.4 MG/DL (0.2-1.0) Aspartate Amino Transf (AST/SGOT) 16 U/L (15-37) Alanine Aminotransferase (ALT/SGPT) 19 U/L (12-78) Alkaline Phosphatase 134 U/L (46-116) H Total Protein 6.9 G/DL (6.4-8.2) Albumin 2.1 G/DL (3.4-5.0) L Globulin 4.8 g/dL Albumin/Globulin Ratio 0.4 (1.0-2.7) L Height (Feet): 5 Height (Inches): 4.00 Weight (Pounds): 97 General Appearance: WD/WN, no apparent distress, alert Cardiovascular: normal rate Respiratory/Chest: normal breath sounds, no respiratory distress Abdominal Exam: normal bowel sounds, non tender, soft, GT site Extremities: non-tender Abhijeet Weston NP December 20, 2018 10:52
[2018-12-20 12:00] VITALS: BP 119/55
--- NOTE | 2018-12-20 12:56 | Infectious Diseases Prog Note ---
Assessment/Plan Assessment/Plan IMPRESSION: Pseudomonas urinary tract infection. treated leukocytosis, dislodgement of the G-tube, s/p GT replacement diabetes, hypertension, dementia, hyperlipidemia, cachexia. VRE carrier RECOMMENDATION: observe off antibiotic Agree with discharge Subjective ROS Limited/Unobtainable: Yes Neurologic: Reports: confusion, other - on restraint Allergies: Coded Allergies: No Known Allergies (Unverified , 05/22/18) Objective Vital Signs Last 24 Hour Vital Signs Date Time Temp Pulse Resp B/P (MAP) Pulse Ox O2 Delivery O2 Flow Rate FiO2 12/20/18 12:00 96.8 84 14 119/55 (76) 98 12/20/18 08:10 Room Air 12/20/18 08:00 96.3 95 22 155/63 (93) 99 12/20/18 04:00 98.3 90 18 135/74 (94) 99 12/20/18 00:00 97.4 103 18 129/76 (93) 99 12/19/18 21:00 Room Air 12/19/18 20:00 97.9 89 17 150/60 (90) 100 12/19/18 16:00 98.6 93 17 137/73 (94) 97 Height (Feet): 5 Height (Inches): 4.00 Weight (Pounds): 97 General Appearance: cachetic HEENT: mucous membranes moist Respiratory/Chest: lungs clear Cardiovascular: normal rate Abdomen: soft, non tender, other - GT feeding Extremities: no edema Neurologic/Psychiatric: disoriented, aphasia Laboratory Tests Test 12/20/18 06:25 White Blood Count 8.9 K/UL (4.8-10.8) Red Blood Count 4.03 M/UL (4.20-5.40) L Hemoglobin 9.4 G/DL (12.0-16.0) L Hematocrit 29.8 % (37.0-47.0) L Mean Corpuscular Volume 74 FL (80-99) L Mean Corpuscular Hemoglobin 23.3 PG (27.0-31.0) L Mean Corpuscular Hemoglobin Concent 31.6 G/DL (32.0-36.0) L Red Cell Distribution Width 14.9 % (11.6-14.8) H Platelet Count 307 K/UL (150-450) Mean Platelet Volume 6.1 FL (6.5-10.1) L Neutrophils (%) (Auto) 75.0 % (45.0-75.0) Lymphocytes (%) (Auto) 16.0 % (20.0-45.0) L Monocytes (%) (Auto) 5.2 % (1.0-10.0) Eosinophils (%) (Auto) 2.8 % (0.0-3.0) Basophils (%) (Auto) 1.0 % (0.0-2.0) Sodium Level 138 MMOL/L (136-145) Potassium Level 5.0 MMOL/L (3.5-5.1) Chloride Level 101 MMOL/L (98-107) Carbon Dioxide Level 32 MMOL/L (21-32) Anion Gap 6 mmol/L (5-15) Blood Urea Nitrogen 17 mg/dL (7-18) Creatinine 0.5 MG/DL (0.55-1.30) L Estimat Glomerular Filtration Rate > 60 mL/min (>60) Glucose Level 191 MG/DL (74-106) H Osmolality 300 mOsm/kg (297-317) Uric Acid 2.5 MG/DL (2.6-7.2) L Calcium Level 9.3 MG/DL (8.5-10.1) Phosphorus Level 4.0 MG/DL (2.5-4.9) Magnesium Level 1.9 MG/DL (1.8-2.4) Total Bilirubin 0.4 MG/DL (0.2-1.0) Aspartate Amino Transf (AST/SGOT) 16 U/L (15-37) Alanine Aminotransferase (ALT/SGPT) 19 U/L (12-78) Alkaline Phosphatase 134 U/L (46-116) H Total Protein 6.9 G/DL (6.4-8.2) Albumin 2.1 G/DL (3.4-5.0) L Globulin 4.8 g/dL Albumin/Globulin Ratio 0.4 (1.0-2.7) L Current Medications Medications (Trade) Dose Ordered Sig/Analilia Route PRN Reason Start Time Stop Time Status Last Admin Dose Admin Dextrose (Dextrose 50%) 25 ml Q30M PRN IV Hypoglycemia 12/14/18 14:15 01/13/19 14:14 Dextrose (Dextrose 50%) 50 ml Q30M PRN IV Hypoglycemia 12/14/18 14:15 01/13/19 14:14 Docusate Sodium (Colace) 100 mg THREE TIMES A DAY GT 12/18/18 18:00 01/17/19 17:59 12/20/18 12:27 Haloperidol Lactate (Haldol) 5 mg Q6H PRN IM Agitation 12/11/18 11:30 01/10/19 11:29 12/20/18 08:19 Insulin Aspart (NovoLOG) EVERY 6 HOURS SUBQ 12/14/18 18:00 01/13/19 17:59 12/20/18 12:53 Lansoprazole (Prevacid) 30 mg DAILY GT 12/16/18 09:00 01/15/19 08:59 12/20/18 08:19 Lorazepam (Ativan 2mg/ml 1ml) 2 mg Q6H PRN IM For Anxiety 12/17/18 10:56 12/24/18 10:55 Magnesium Oxide (Mag-Ox 400mg) 400 mg THREE TIMES A DAY GT 12/16/18 18:00 01/15/19 17:59 12/20/18 12:27 Metoclopramide HCl (Reglan) 10 mg EVERY 6 HOURS GT 12/19/18 18:00 01/14/19 17:59 12/20/18 12:27 Polyethylene Glycol (Miralax) 17 gm BEDTIME GT 12/15/18 21:00 01/14/19 20:59 12/19/18 21:23 Risperidone (RisperDAL) 1 mg Q8HR ORAL 12/11/18 14:00 01/10/19 13:59 12/20/18 05:07 Madhav Doty MD December 20, 2018 12:56
--- NOTE | 2018-12-20 13:45 | Pulmonology Progress Note ---
Assessment/Plan Problems: (1) Sepsis (2) At high risk for aspiration (3) Severe protein-calorie malnutrition (4) Diabetes mellitus (5) Essential hypertension (6) Schizophrenia (7) Bipolar disorder Assessment/Plan looks better smiling got the PEG tolerating feeding improving continue abx check cultures sliding scale dc planning. Subjective ROS Limited/Unobtainable: No Constitutional: Reports: no symptoms HEENT: Repors: no symptoms Allergies: Coded Allergies: No Known Allergies (Unverified , 05/22/18) Objective Last 24 Hour Vital Signs Date Time Temp Pulse Resp B/P (MAP) Pulse Ox O2 Delivery O2 Flow Rate FiO2 12/20/18 12:00 96.8 84 14 119/55 (76) 98 12/20/18 08:10 Room Air 12/20/18 08:00 96.3 95 22 155/63 (93) 99 12/20/18 04:00 98.3 90 18 135/74 (94) 99 12/20/18 00:00 97.4 103 18 129/76 (93) 99 12/19/18 21:00 Room Air 12/19/18 20:00 97.9 89 17 150/60 (90) 100 12/19/18 16:00 98.6 93 17 137/73 (94) 97 Intake and Output 12/19/18 12/20/18 18:59 06:59 Intake Total 990 ml 200 ml Balance 990 ml 200 ml Free Water 330 ml 150 ml Tube Feeding 660 ml 50 ml Objective General Appearance: WD/WN HEENT: normocephalic, atraumatic Respiratory/Chest: chest wall non-tender, normal breath sounds Cardiovascular: normal peripheral pulses, normal rate Abdomen: normal bowel sounds, soft, non tender, no organomegaly, non distended Extremities: no cyanosis Skin: no rash, no lesions, no ulcers Laboratory Tests 12/20/18 06:25: White Blood Count 8.9, Red Blood Count 4.03L, Hemoglobin 9.4L, Hematocrit 29.8L , Mean Corpuscular Volume 74L, Mean Corpuscular Hemoglobin 23.3L, Mean Corpuscular Hemoglobin Concent 31.6L, Red Cell Distribution Width 14.9H, Platelet Count 307, Mean Platelet Volume 6.1L, Neutrophils (%) (Auto) 75.0, Lymphocytes (%) (Auto) 16.0L, Monocytes (%) (Auto) 5.2, Eosinophils (%) (Auto) 2.8, Basophils (%) (Auto) 1.0, Sodium Level 138, Potassium Level 5.0, Chloride Level 101, Carbon Dioxide Level 32, Anion Gap 6, Blood Urea Nitrogen 17, Creatinine 0.5L, Estimat Glomerular Filtration Rate > 60, Glucose Level 191H, Osmolality 300, Uric Acid 2.5L, Calcium Level 9.3, Phosphorus Level 4.0, Magnesium Level 1.9, Total Bilirubin 0.4, Aspartate Amino Transf (AST/SGOT) 16, Alanine Aminotransferase (ALT/SGPT) 19, Alkaline Phosphatase 134H, Total Protein 6.9, Albumin 2.1L, Globulin 4.8, Albumin/Globulin Ratio 0.4L Current Medications Medications (Trade) Dose Ordered Sig/Analilia Route PRN Reason Start Time Stop Time Status Last Admin Dose Admin Dextrose (Dextrose 50%) 25 ml Q30M PRN IV Hypoglycemia 12/14/18 14:15 01/13/19 14:14 Dextrose (Dextrose 50%) 50 ml Q30M PRN IV Hypoglycemia 12/14/18 14:15 01/13/19 14:14 Docusate Sodium (Colace) 100 mg THREE TIMES A DAY GT 12/18/18 18:00 01/17/19 17:59 12/20/18 12:27 Haloperidol Lactate (Haldol) 5 mg Q6H PRN IM Agitation 12/11/18 11:30 01/10/19 11:29 12/20/18 08:19 Insulin Aspart (NovoLOG) EVERY 6 HOURS SUBQ 12/14/18 18:00 01/13/19 17:59 12/20/18 12:53 Lansoprazole (Prevacid) 30 mg DAILY GT 12/16/18 09:00 01/15/19 08:59 12/20/18 08:19 Lorazepam (Ativan 2mg/ml 1ml) 2 mg Q6H PRN IM For Anxiety 12/17/18 10:56 12/24/18 10:55 Magnesium Oxide (Mag-Ox 400mg) 400 mg THREE TIMES A DAY GT 12/16/18 18:00 01/15/19 17:59 12/20/18 12:27 Metoclopramide HCl (Reglan) 10 mg EVERY 6 HOURS GT 12/19/18 18:00 01/14/19 17:59 12/20/18 12:27 Polyethylene Glycol (Miralax) 17 gm BEDTIME GT 12/15/18 21:00 01/14/19 20:59 12/19/18 21:23 Risperidone (RisperDAL) 1 mg Q8HR ORAL 12/11/18 14:00 01/10/19 13:59 12/20/18 13:19 Jaimie Delacruz MD December 20, 2018 13:45
--- NOTE | 2018-12-20 15:05 | Nephrology Progress Note ---
Assessment/Plan Problem List: (1) Hyponatremia (2) Anemia (3) Schizoaffective disorder, bipolar type (4) Severe protein-calorie malnutrition Assessment: low BMI Assessment HypoNatremia : etilogy?? corrected Anemia Dehydration Plan Plan: monitor S na Reglan GT low K, IV K ordered Anemia lewis Urine studies Monitor lytes per GI DC planning Subjective ROS Limited/Unobtainable: No Objective Objective Last 24 Hour Vital Signs Date Time Temp Pulse Resp B/P (MAP) Pulse Ox O2 Delivery O2 Flow Rate FiO2 12/20/18 12:00 96.8 84 14 119/55 (76) 98 12/20/18 08:10 Room Air 12/20/18 08:00 96.3 95 22 155/63 (93) 99 12/20/18 04:00 98.3 90 18 135/74 (94) 99 12/20/18 00:00 97.4 103 18 129/76 (93) 99 12/19/18 21:00 Room Air 12/19/18 20:00 97.9 89 17 150/60 (90) 100 12/19/18 16:00 98.6 93 17 137/73 (94) 97 Intake and Output 12/19/18 12/20/18 18:59 06:59 Intake Total 990 ml 200 ml Balance 990 ml 200 ml Free Water 330 ml 150 ml Tube Feeding 660 ml 50 ml Laboratory Tests 12/20/18 06:25: White Blood Count 8.9, Red Blood Count 4.03L, Hemoglobin 9.4L, Hematocrit 29.8L , Mean Corpuscular Volume 74L, Mean Corpuscular Hemoglobin 23.3L, Mean Corpuscular Hemoglobin Concent 31.6L, Red Cell Distribution Width 14.9H, Platelet Count 307, Mean Platelet Volume 6.1L, Neutrophils (%) (Auto) 75.0, Lymphocytes (%) (Auto) 16.0L, Monocytes (%) (Auto) 5.2, Eosinophils (%) (Auto) 2.8, Basophils (%) (Auto) 1.0, Sodium Level 138, Potassium Level 5.0, Chloride Level 101, Carbon Dioxide Level 32, Anion Gap 6, Blood Urea Nitrogen 17, Creatinine 0.5L, Estimat Glomerular Filtration Rate > 60, Glucose Level 191H, Osmolality 300, Uric Acid 2.5L, Calcium Level 9.3, Phosphorus Level 4.0, Magnesium Level 1.9, Total Bilirubin 0.4, Aspartate Amino Transf (AST/SGOT) 16, Alanine Aminotransferase (ALT/SGPT) 19, Alkaline Phosphatase 134H, Total Protein 6.9, Albumin 2.1L, Globulin 4.8, Albumin/Globulin Ratio 0.4L Height (Feet): 5 Height (Inches): 4.00 Weight (Pounds): 97 General Appearance: no apparent distress Objective no change Herrera Hogan MD December 20, 2018 15:05
[2018-12-20 15:59] VITALS: BP 122/60
--- NOTE | 2018-12-20 19:22 | NUR ---
HAND-OFF: Report given to Yevgeniy Barriga RN, RN.
--- NOTE | 2018-12-20 19:23 | NUR ---
NURSE NOTES: Received pt from GURINDER Walker. Pt awake, nonverbal very agitated, and confused. Pt in no acute distress. Pt on bilateral soft wrist restraints. Assessed circulations and sensations deemed intact. HOB elevated for aspiration precaution. G-tube running glucerna 1.2 @ goal rate of 55cc/HR. Pt tolerating well, no gastric residual noted. No IV access noted. Bed in lowest position. Bed in lowest position, bed alarm and lock is on. Call light within reach. Will continue with plan of care.
[2018-12-20 20:00] VITALS: BP 124/101
--- NOTE | 2018-12-20 21:00 | NUR ---
NURSE NOTES: Attempted to place IV in pt but failed attempt. Pt is a hard stick. Notified charge nurse.
[2018-12-20] MEDS: Miralax 17gm pkt GT SCH (22:12)
--- NOTE | 2018-12-20 22:33 | Surgery Progress Note ---
Surgery Progress Note Subjective Symptoms: improved Objective Last 24 Hour Vital Signs Date Time Temp Pulse Resp B/P (MAP) Pulse Ox O2 Delivery O2 Flow Rate FiO2 12/20/18 15:59 97.9 92 19 122/60 (80) 97 12/20/18 12:00 96.8 84 14 119/55 (76) 98 12/20/18 08:10 Room Air 12/20/18 08:00 96.3 95 22 155/63 (93) 99 12/20/18 04:00 98.3 90 18 135/74 (94) 99 12/20/18 00:00 97.4 103 18 129/76 (93) 99 I&O Intake and Output 12/19/18 12/20/18 19:00 07:00 Intake Total 935 ml 255 ml Balance 935 ml 255 ml Free Water 330 ml 150 ml Tube Feeding 605 ml 105 ml # Bowel Movements 1 Dressing: other Wound: other Drains: other Cardiovascular: RSR Respiratory: clear Abdomen: soft, flat, non-tender, present bowel sounds Extremities: no edema, no tenderness Laboratory Tests Test 12/20/18 06:25 White Blood Count 8.9 K/UL (4.8-10.8) Red Blood Count 4.03 M/UL (4.20-5.40) L Hemoglobin 9.4 G/DL (12.0-16.0) L Hematocrit 29.8 % (37.0-47.0) L Mean Corpuscular Volume 74 FL (80-99) L Mean Corpuscular Hemoglobin 23.3 PG (27.0-31.0) L Mean Corpuscular Hemoglobin Concent 31.6 G/DL (32.0-36.0) L Red Cell Distribution Width 14.9 % (11.6-14.8) H Platelet Count 307 K/UL (150-450) Mean Platelet Volume 6.1 FL (6.5-10.1) L Neutrophils (%) (Auto) 75.0 % (45.0-75.0) Lymphocytes (%) (Auto) 16.0 % (20.0-45.0) L Monocytes (%) (Auto) 5.2 % (1.0-10.0) Eosinophils (%) (Auto) 2.8 % (0.0-3.0) Basophils (%) (Auto) 1.0 % (0.0-2.0) Sodium Level 138 MMOL/L (136-145) Potassium Level 5.0 MMOL/L (3.5-5.1) Chloride Level 101 MMOL/L (98-107) Carbon Dioxide Level 32 MMOL/L (21-32) Anion Gap 6 mmol/L (5-15) Blood Urea Nitrogen 17 mg/dL (7-18) Creatinine 0.5 MG/DL (0.55-1.30) L Estimat Glomerular Filtration Rate > 60 mL/min (>60) Glucose Level 191 MG/DL (74-106) H Osmolality 300 mOsm/kg (297-317) Uric Acid 2.5 MG/DL (2.6-7.2) L Calcium Level 9.3 MG/DL (8.5-10.1) Phosphorus Level 4.0 MG/DL (2.5-4.9) Magnesium Level 1.9 MG/DL (1.8-2.4) Total Bilirubin 0.4 MG/DL (0.2-1.0) Aspartate Amino Transf (AST/SGOT) 16 U/L (15-37) Alanine Aminotransferase (ALT/SGPT) 19 U/L (12-78) Alkaline Phosphatase 134 U/L (46-116) H Total Protein 6.9 G/DL (6.4-8.2) Albumin 2.1 G/DL (3.4-5.0) L Globulin 4.8 g/dL Albumin/Globulin Ratio 0.4 (1.0-2.7) L Plan Problems: (1) Severe protein-calorie malnutrition Assessment & Plan: needs venous access for meds and fluids very dehydrated. no feeding tube access currently cannot obtain peripheral line s/p PEG tolerating feeds and meds can be without line now d/c planning okay to d/c from surgical standpoint pending placement thank you will follow with recs (2) At high risk for aspiration (3) Schizoaffective disorder, bipolar type (4) Sepsis (5) Diabetes mellitus (6) Essential hypertension (7) Anemia (8) Schizophrenia (9) Bipolar disorder (10) Hyponatremia Wili Leger December 20, 2018 22:33
--- NOTE | 2018-12-20 22:40 | Psych Consult Progress Note ---
Psychiatry Progress Note Psychiatry Progress Note Medications Current Medications Medications (Trade) Dose Ordered Sig/Analilia Route PRN Reason Start Time Stop Time Status Last Admin Dose Admin Dextrose (Dextrose 50%) 25 ml Q30M PRN IV Hypoglycemia 12/14/18 14:15 01/13/19 14:14 Dextrose (Dextrose 50%) 50 ml Q30M PRN IV Hypoglycemia 12/14/18 14:15 01/13/19 14:14 Docusate Sodium (Colace) 100 mg THREE TIMES A DAY GT 12/18/18 18:00 01/17/19 17:59 12/20/18 17:08 Haloperidol Lactate (Haldol) 5 mg Q6H PRN IM Agitation 12/11/18 11:30 01/10/19 11:29 12/20/18 08:19 Insulin Aspart (NovoLOG) EVERY 6 HOURS SUBQ 12/14/18 18:00 01/13/19 17:59 12/20/18 17:10 Lansoprazole (Prevacid) 30 mg DAILY GT 12/16/18 09:00 01/15/19 08:59 12/20/18 08:19 Lorazepam (Ativan 2mg/ml 1ml) 2 mg Q6H PRN IM For Anxiety 12/17/18 10:56 12/24/18 10:55 Magnesium Oxide (Mag-Ox 400mg) 400 mg THREE TIMES A DAY GT 12/16/18 18:00 01/15/19 17:59 12/20/18 17:08 Metoclopramide HCl (Reglan) 10 mg EVERY 6 HOURS GT 12/19/18 18:00 01/14/19 17:59 12/20/18 17:08 Polyethylene Glycol (Miralax) 17 gm BEDTIME GT 12/15/18 21:00 01/14/19 20:59 12/20/18 22:12 Risperidone (RisperDAL) 1 mg Q8HR ORAL 12/11/18 14:00 01/10/19 13:59 12/20/18 22:12 Neurological/Psychiatric: Reports: anxiety, depressed, emotional problems Allergies: Coded Allergies: No Known Allergies (Unverified , 05/22/18) Objective Data Height (Feet): 5 Height (Inches): 4.00 Weight (Pounds): 97 General Appearance: alert, confused, agitated Appearance: disheveled Behavior Mannerisms: poor eye contact Mental Status Exam - Mood: anxious, agitated Mental Status Exam - Thought P: tangential, confusion, disorganized Mental Status Exam - Suicidal: not present Assessment/Plan Problem List: (1) Schizoaffective disorder, bipolar type ICD Codes: F25.0 - Schizoaffective disorder, bipolar type SNOMED: 77985228 Status: stable, unchanged Assessment/Plan: Risperdal 1mg po tid Ativan IM restrains. Urvashi Ash MD December 20, 2018 22:40
[2018-12-21] VITALS: BP 121/57
[2018-12-21] MEDS: NovoLOG Insulin Flexpen SUBQ SCH ×3 (00:16→11:29)
[2018-12-21 04:00] VITALS: BP 115/70
--- NOTE | 2018-12-21 07:20 | NUR ---
HAND-OFF: Report given to GURINDER Burton. Endorsed plan of care.
--- NOTE | 2018-12-21 07:39 | NUR ---
NURSE NOTES: Received patient sleeping , no sign of distress. On Jackson soft wrist restraints. circulations and sensations intact, No fascial grimace noted. HOB elevated for aspiration precaution. g-tube on going tolerating well, no gastric residual noted.no IV access noted. on fall and aspiration precaution, Bed in lowest position. Bed alarm and lock is on. Call light within reach. Will continue to monitor. timothy barrow
[2018-12-21 07:41] LABS: BASOPHILS % (AUTO) 1.3 % (0.0-2.0); EOSINOPHILS % (AUTO) 3.5 % (0.0-3.0); HEMATOCRIT 27.3 % (37.0-47.0); HEMOGLOBIN 8.6 G/DL (12.0-16.0); LYMPHOCYTES % (AUTO) 21.5 % (20.0-45.0); MEAN CORPUSCULAR VOLUME 74 FL (80-99); MONOCYTES % (AUTO) 4.5 % (1.0-10.0); NEUTROPHILS % (AUTO) 69.2 % (45.0-75.0); PLATELET COUNT 299 K/UL (150-450); RED BLOOD COUNT 3.68 M/UL (4.20-5.40); RED CELL DISTRIBUTION WIDTH 15.3 % (11.6-14.8); WHITE BLOOD COUNT 7.4 K/UL (4.8-10.8)
[2018-12-21 08:00] VITALS: BP 120/73
[2018-12-21 08:15] LABS: ANION GAP 5 mmol/L (5-15); BLOOD UREA NITROGEN 23 mg/dL (7-18); CALCIUM 8.8 MG/DL (8.5-10.1); CARBON DIOXIDE 31 MMOL/L (21-32); CHLORIDE 97 MMOL/L (98-107); CREATININE 0.5 MG/DL (0.55-1.30); POTASSIUM 4.7 MMOL/L (3.5-5.1); SODIUM 133 MMOL/L (136-145)
[2018-12-21] MEDS: Magnesium Oxide 400mg tab GT SCH ×2 (08:20→12:16)
[2018-12-21] MEDS: Docusate 100mg/10ml Liq GT SCH ×2 (08:21→12:16)
--- NOTE | 2018-12-21 10:33 | NUR ---
nurse notes tried to insert a new HL , but unsuccesfull, patient hard stick and very uncooperative timothy barrow
--- NOTE | 2018-12-21 10:50 | NUR ---
nurse notes seen by Dr Duron, made aware patient no IV access, per Dr Duron its ok not to have IV access timothy barrow
--- NOTE | 2018-12-21 10:50 | Psych Consult Progress Note ---
Psychiatry Progress Note Psychiatry Progress Note Subjective the pt agitated pulled out GT. the pt has memory impairment Medications Current Medications Medications (Trade) Dose Ordered Sig/Analilia Route PRN Reason Start Time Stop Time Status Last Admin Dose Admin Dextrose (Dextrose 50%) 25 ml Q30M PRN IV Hypoglycemia 12/14/18 14:15 01/13/19 14:14 Dextrose (Dextrose 50%) 50 ml Q30M PRN IV Hypoglycemia 12/14/18 14:15 01/13/19 14:14 Docusate Sodium (Colace) 100 mg THREE TIMES A DAY GT 12/18/18 18:00 01/17/19 17:59 12/21/18 08:21 Haloperidol Lactate (Haldol) 5 mg Q6H PRN IM Agitation 12/11/18 11:30 01/10/19 11:29 12/20/18 08:19 Insulin Aspart (NovoLOG) EVERY 6 HOURS SUBQ 12/14/18 18:00 01/13/19 17:59 12/21/18 07:06 Lansoprazole (Prevacid) 30 mg DAILY GT 12/16/18 09:00 01/15/19 08:59 12/21/18 08:20 Lorazepam (Ativan 2mg/ml 1ml) 2 mg Q6H PRN IM For Anxiety 12/17/18 10:56 12/24/18 10:55 Magnesium Oxide (Mag-Ox 400mg) 400 mg THREE TIMES A DAY GT 12/16/18 18:00 01/15/19 17:59 12/21/18 08:20 Metoclopramide HCl (Reglan) 10 mg EVERY 6 HOURS GT 12/19/18 18:00 01/14/19 17:59 12/21/18 06:02 Polyethylene Glycol (Miralax) 17 gm BEDTIME GT 12/15/18 21:00 01/14/19 20:59 12/20/18 22:12 Risperidone (RisperDAL) 1 mg Q8HR ORAL 12/11/18 14:00 01/10/19 13:59 12/21/18 06:02 Neurological/Psychiatric: Reports: anxiety, depressed Allergies: Coded Allergies: No Known Allergies (Unverified , 05/22/18) Objective Data Height (Feet): 5 Height (Inches): 4.00 Weight (Pounds): 97 General Appearance: confused, agitated, combative Appearance: disheveled Behavior Mannerisms: poor eye contact Mental Status Exam - Mood: agitated Mental Status Exam - Thought P: tangential, confusion, disorganized Mental Status Exam - Suicidal: not present Assessment/Plan Problem List: (1) Schizoaffective disorder, bipolar type ICD Codes: F25.0 - Schizoaffective disorder, bipolar type SNOMED: 75484616 (2) Dementia with behavioral disturbance ICD Codes: F03.91 - Unspecified dementia with behavioral disturbance SNOMED: 9504574652335 Status: unchanged Assessment/Plan: Risperdal 1mg po tid Ativan IM restrains. Urvashi Ash MD December 21, 2018 10:50
--- NOTE | 2018-12-21 11:37 | GI Progress Note ---
Assessment/Plan Problems: (1) Bipolar disorder ICD Codes: F31.9 - Bipolar disorder, unspecified SNOMED: 49224260 (2) Schizophrenia ICD Codes: F20.9 - Schizophrenia, unspecified SNOMED: 72237536 (3) Anemia ICD Codes: D64.9 - Anemia, unspecified SNOMED: 542747876 Status: stable, unchanged Status Narrative Discussed with Dr. Tovar. Assessment/Plan SUMMARY OF FINDINGS: 1. Partial antrectomy. 2. Anastomotic ulceration, status post biopsy. >> negative for H. Pylori 3. Status post successful PEG placement. RECOMMENDATIONS: Continue G-tube feedings per RD Elevate head of bed at all times GT site care daily and as needed consider low-dose erythromycin for GI motility if patient has persistent high residuals given Reglan has a drug interaction. PPI PRN transfusions Electrolyte correction dc planning The patient was seen and examined at bedside and all new and available data was reviewed in the patients chart. I agree with the above findings, impression and plan. (Patient seen earlier today. Signature stamp does not reflect patient encounter time.). - Hamzah Tovar MD Subjective Subjective limited Objective Last 24 Hour Vital Signs Date Time Temp Pulse Resp B/P (MAP) Pulse Ox O2 Delivery O2 Flow Rate FiO2 12/21/18 08:30 Room Air 12/21/18 08:00 97.8 69 18 120/73 (89) 99 12/21/18 04:00 97.8 67 18 115/70 (85) 100 12/21/18 00:00 97.7 84 20 121/57 (78) 96 12/20/18 21:00 Room Air 12/20/18 20:00 98.9 83 20 124/101 (109) 97 12/20/18 15:59 97.9 92 19 122/60 (80) 97 12/20/18 12:00 96.8 84 14 119/55 (76) 98 Intake and Output 12/20/18 12/21/18 19:00 07:00 Intake Total 960 ml 905 ml Output Total 300 ml Balance 960 ml 605 ml Free Water 300 ml 300 ml Tube Feeding 660 ml 605 ml Output Urine Total 300 ml # Voids 3 # Bowel Movements 1 Laboratory Tests Test 12/21/18 06:30 White Blood Count 7.4 K/UL (4.8-10.8) Red Blood Count 3.68 M/UL (4.20-5.40) L Hemoglobin 8.6 G/DL (12.0-16.0) L Hematocrit 27.3 % (37.0-47.0) L Mean Corpuscular Volume 74 FL (80-99) L Mean Corpuscular Hemoglobin 23.4 PG (27.0-31.0) L Mean Corpuscular Hemoglobin Concent 31.7 G/DL (32.0-36.0) L Red Cell Distribution Width 15.3 % (11.6-14.8) H Platelet Count 299 K/UL (150-450) Mean Platelet Volume 6.0 FL (6.5-10.1) L Neutrophils (%) (Auto) 69.2 % (45.0-75.0) Lymphocytes (%) (Auto) 21.5 % (20.0-45.0) Monocytes (%) (Auto) 4.5 % (1.0-10.0) Eosinophils (%) (Auto) 3.5 % (0.0-3.0) H Basophils (%) (Auto) 1.3 % (0.0-2.0) Sodium Level 133 MMOL/L (136-145) L Potassium Level 4.7 MMOL/L (3.5-5.1) Chloride Level 97 MMOL/L (98-107) L Carbon Dioxide Level 31 MMOL/L (21-32) Anion Gap 5 mmol/L (5-15) Blood Urea Nitrogen 23 mg/dL (7-18) H Creatinine 0.5 MG/DL (0.55-1.30) L Estimat Glomerular Filtration Rate > 60 mL/min (>60) Glucose Level 211 MG/DL (74-106) H Calcium Level 8.8 MG/DL (8.5-10.1) Height (Feet): 5 Height (Inches): 4.00 Weight (Pounds): 97 General Appearance: WD/WN, no apparent distress, alert, thin Cardiovascular: normal rate Respiratory/Chest: normal breath sounds, no respiratory distress Abdominal Exam: normal bowel sounds, non tender, soft Extremities: non-tender Abhijeet Weston NP December 21, 2018 11:37
[2018-12-21 12:00] VITALS: BP 126/78
--- NOTE | 2018-12-21 12:05 | NUR ---
FIBER TECHNICIAN NOTES PT ACCEPTED BACK TO [facility], ROOM [address] BED B. [facility] TO TRANSPORT PT. WAITING FOR OFFICIAL DC ORDER. [facility] [phone] EXT [phone] Addendum: 12/22/18 at 1630 by RUDY EVANS CM [facility]
--- NOTE | 2018-12-21 12:42 | Infectious Diseases Prog Note ---
Assessment/Plan Assessment/Plan IMPRESSION: Pseudomonas urinary tract infection. treated leukocytosis, dislodgement of the G-tube, s/p GT replacement diabetes, hypertension, dementia, hyperlipidemia, cachexia. VRE carrier RECOMMENDATION: observe off antibiotic Agree with discharge Waiting for placement Subjective ROS Limited/Unobtainable: Yes Neurologic: Reports: confusion, other - on restraint Allergies: Coded Allergies: No Known Allergies (Unverified , 05/22/18) Objective Vital Signs Last 24 Hour Vital Signs Date Time Temp Pulse Resp B/P (MAP) Pulse Ox O2 Delivery O2 Flow Rate FiO2 12/21/18 12:00 98.1 73 18 126/78 (94) 98 12/21/18 08:30 Room Air 12/21/18 08:00 97.8 69 18 120/73 (89) 99 12/21/18 04:00 97.8 67 18 115/70 (85) 100 12/21/18 00:00 97.7 84 20 121/57 (78) 96 12/20/18 21:00 Room Air 12/20/18 20:00 98.9 83 20 124/101 (109) 97 12/20/18 15:59 97.9 92 19 122/60 (80) 97 Height (Feet): 5 Height (Inches): 4.00 Weight (Pounds): 97 General Appearance: no acute distress, cachetic HEENT: mucous membranes moist Respiratory/Chest: lungs clear Cardiovascular: normal rate Abdomen: soft, non tender, other - GT feeding Extremities: no edema Neurologic/Psychiatric: disoriented, aphasia Laboratory Tests Test 12/21/18 06:30 White Blood Count 7.4 K/UL (4.8-10.8) Red Blood Count 3.68 M/UL (4.20-5.40) L Hemoglobin 8.6 G/DL (12.0-16.0) L Hematocrit 27.3 % (37.0-47.0) L Mean Corpuscular Volume 74 FL (80-99) L Mean Corpuscular Hemoglobin 23.4 PG (27.0-31.0) L Mean Corpuscular Hemoglobin Concent 31.7 G/DL (32.0-36.0) L Red Cell Distribution Width 15.3 % (11.6-14.8) H Platelet Count 299 K/UL (150-450) Mean Platelet Volume 6.0 FL (6.5-10.1) L Neutrophils (%) (Auto) 69.2 % (45.0-75.0) Lymphocytes (%) (Auto) 21.5 % (20.0-45.0) Monocytes (%) (Auto) 4.5 % (1.0-10.0) Eosinophils (%) (Auto) 3.5 % (0.0-3.0) H Basophils (%) (Auto) 1.3 % (0.0-2.0) Sodium Level 133 MMOL/L (136-145) L Potassium Level 4.7 MMOL/L (3.5-5.1) Chloride Level 97 MMOL/L (98-107) L Carbon Dioxide Level 31 MMOL/L (21-32) Anion Gap 5 mmol/L (5-15) Blood Urea Nitrogen 23 mg/dL (7-18) H Creatinine 0.5 MG/DL (0.55-1.30) L Estimat Glomerular Filtration Rate > 60 mL/min (>60) Glucose Level 211 MG/DL (74-106) H Calcium Level 8.8 MG/DL (8.5-10.1) Current Medications Medications (Trade) Dose Ordered Sig/Analilia Route PRN Reason Start Time Stop Time Status Last Admin Dose Admin Dextrose (Dextrose 50%) 25 ml Q30M PRN IV Hypoglycemia 12/14/18 14:15 01/13/19 14:14 Dextrose (Dextrose 50%) 50 ml Q30M PRN IV Hypoglycemia 12/14/18 14:15 01/13/19 14:14 Docusate Sodium (Colace) 100 mg THREE TIMES A DAY GT 12/18/18 18:00 01/17/19 17:59 12/21/18 12:16 Haloperidol Lactate (Haldol) 5 mg Q6H PRN IM Agitation 12/11/18 11:30 01/10/19 11:29 12/20/18 08:19 Insulin Aspart (NovoLOG) EVERY 6 HOURS SUBQ 12/14/18 18:00 01/13/19 17:59 12/21/18 11:29 Lansoprazole (Prevacid) 30 mg DAILY GT 12/16/18 09:00 01/15/19 08:59 12/21/18 08:20 Lorazepam (Ativan 2mg/ml 1ml) 2 mg Q6H PRN IM For Anxiety 12/17/18 10:56 12/24/18 10:55 Magnesium Oxide (Mag-Ox 400mg) 400 mg THREE TIMES A DAY GT 12/16/18 18:00 01/15/19 17:59 12/21/18 12:16 Metoclopramide HCl (Reglan) 10 mg EVERY 6 HOURS GT 12/19/18 18:00 01/14/19 17:59 12/21/18 11:28 Polyethylene Glycol (Miralax) 17 gm BEDTIME GT 12/15/18 21:00 01/14/19 20:59 12/20/18 22:12 Risperidone (RisperDAL) 1 mg Q8HR ORAL 12/11/18 14:00 01/10/19 13:59 12/21/18 06:02 Madhav Doty MD December 21, 2018 12:42
--- NOTE | 2018-12-21 12:59 | Pulmonology Progress Note ---
Assessment/Plan Problems: (1) Sepsis (2) At high risk for aspiration (3) Severe protein-calorie malnutrition (4) Diabetes mellitus (5) Essential hypertension (6) Schizophrenia (7) Bipolar disorder Assessment/Plan all reviewed looks better smiling got the PEG tolerating feeding sliding scale dc planning. Subjective ROS Limited/Unobtainable: No Constitutional: Reports: no symptoms HEENT: Repors: no symptoms Respiratory: Reports: no symptoms Allergies: Coded Allergies: No Known Allergies (Unverified , 05/22/18) Objective Last 24 Hour Vital Signs Date Time Temp Pulse Resp B/P (MAP) Pulse Ox O2 Delivery O2 Flow Rate FiO2 12/21/18 12:00 98.1 73 18 126/78 (94) 98 12/21/18 08:30 Room Air 12/21/18 08:00 97.8 69 18 120/73 (89) 99 12/21/18 04:00 97.8 67 18 115/70 (85) 100 12/21/18 00:00 97.7 84 20 121/57 (78) 96 12/20/18 21:00 Room Air 12/20/18 20:00 98.9 83 20 124/101 (109) 97 12/20/18 15:59 97.9 92 19 122/60 (80) 97 Intake and Output 12/20/18 12/21/18 18:59 06:59 Intake Total 960 ml 905 ml Output Total 300 ml Balance 960 ml 605 ml Free Water 300 ml 300 ml Tube Feeding 660 ml 605 ml Output Urine Total 300 ml # Voids 3 # Bowel Movements 1 1 Objective General Appearance: WD/WN HEENT: normocephalic, atraumatic Respiratory/Chest: chest wall non-tender, normal breath sounds Cardiovascular: normal peripheral pulses, normal rate Abdomen: normal bowel sounds, soft, non tender, no organomegaly, non distended Extremities: no cyanosis Skin: no rash, no lesions, no ulcers Laboratory Tests 12/21/18 06:30: White Blood Count 7.4, Red Blood Count 3.68L, Hemoglobin 8.6L, Hematocrit 27.3L , Mean Corpuscular Volume 74L, Mean Corpuscular Hemoglobin 23.4L, Mean Corpuscular Hemoglobin Concent 31.7L, Red Cell Distribution Width 15.3H, Platelet Count 299, Mean Platelet Volume 6.0L, Neutrophils (%) (Auto) 69.2, Lymphocytes (%) (Auto) 21.5, Monocytes (%) (Auto) 4.5, Eosinophils (%) (Auto) 3.5H, Basophils (%) (Auto) 1.3, Sodium Level 133L, Potassium Level 4.7, Chloride Level 97L, Carbon Dioxide Level 31, Anion Gap 5, Blood Urea Nitrogen 23H, Creatinine 0.5L, Estimat Glomerular Filtration Rate > 60, Glucose Level 211H, Calcium Level 8.8 Current Medications Medications (Trade) Dose Ordered Sig/Analilia Route PRN Reason Start Time Stop Time Status Last Admin Dose Admin Dextrose (Dextrose 50%) 25 ml Q30M PRN IV Hypoglycemia 12/14/18 14:15 01/13/19 14:14 Dextrose (Dextrose 50%) 50 ml Q30M PRN IV Hypoglycemia 12/14/18 14:15 01/13/19 14:14 Docusate Sodium (Colace) 100 mg THREE TIMES A DAY GT 12/18/18 18:00 01/17/19 17:59 12/21/18 12:16 Haloperidol Lactate (Haldol) 5 mg Q6H PRN IM Agitation 12/11/18 11:30 01/10/19 11:29 12/20/18 08:19 Insulin Aspart (NovoLOG) EVERY 6 HOURS SUBQ 12/14/18 18:00 01/13/19 17:59 12/21/18 11:29 Lansoprazole (Prevacid) 30 mg DAILY GT 12/16/18 09:00 01/15/19 08:59 12/21/18 08:20 Lorazepam (Ativan 2mg/ml 1ml) 2 mg Q6H PRN IM For Anxiety 12/17/18 10:56 12/24/18 10:55 Magnesium Oxide (Mag-Ox 400mg) 400 mg THREE TIMES A DAY GT 12/16/18 18:00 01/15/19 17:59 12/21/18 12:16 Metoclopramide HCl (Reglan) 10 mg EVERY 6 HOURS GT 12/19/18 18:00 01/14/19 17:59 12/21/18 11:28 Polyethylene Glycol (Miralax) 17 gm BEDTIME GT 12/15/18 21:00 01/14/19 20:59 12/20/18 22:12 Risperidone (RisperDAL) 1 mg Q8HR ORAL 12/11/18 14:00 01/10/19 13:59 12/21/18 06:02 Jaimie Delacruz MD December 21, 2018 12:59
--- NOTE | 2018-12-21 13:24 | NUR ---
RD ASSESSMENT & RECOMMENDATIONS SEE CARE ACTIVITY FOR COMPLETE ASSESSMENT DAILY ESTIMATED NEEDS: Needs based on DM, cardia, underweight, wound / 49kg abw 30-35 kcals/kg 2310-0407 total kcals 1.25-1.5 g protein/kg 61-74 g total protein 25-30 mL/kg 0339-1502 total fluid mLs NUTRITION DIAGNOSIS: * Swallowing difficulty R/T dysphagia as evidenced by pt is PEG dep, s/p GT replacement. * Altered nutrition related lab values R/T diabetes as evidenced by elev POC glu (200's now 161-205) ENTERAL NUTRITION RECOMMENDATIONS: Glucerna 1.2 @ 55ml/hr x 24 hrs to provide 1320ml, 1584kcal, 79g prot, 1063ml free water * As able, maintain @ goal. * HOB over 30 degrees/ water flush per MD * Monitor TF tolerance closly, need for TF change -- With cont elev residuals, rec TF CHANGE to Glucerna 1.5 goal of 40ml/hr x24 hrs for improved tolerance. - @goal will provide 960ml, 1440 kcal (98% est kcal), 79g prot (107% est pro needs), 729ml free H2O. ADDITIONAL RECOMMENDATIONS: * Calibrated bedscale wt for accurate CBW Bed scale reading 10# higher than adm wt. * Consider long acting insulin for improved BG control- BGs in the 200's * Monitor lytes, replete as needed * Skin integrity: add Cedrick 1pkt BID (multiple non-blanchable erythema) * Monitor TF tolerance closely, need for TF change
--- NOTE | 2018-12-21 13:48 | Surgery Progress Note ---
Surgery Progress Note Subjective Additional Comments no acute events improved comfortable tolerating feeds labs noted Objective Last 24 Hour Vital Signs Date Time Temp Pulse Resp B/P (MAP) Pulse Ox O2 Delivery O2 Flow Rate FiO2 12/21/18 12:00 98.1 73 18 126/78 (94) 98 12/21/18 08:30 Room Air 12/21/18 08:00 97.8 69 18 120/73 (89) 99 12/21/18 04:00 97.8 67 18 115/70 (85) 100 12/21/18 00:00 97.7 84 20 121/57 (78) 96 12/20/18 21:00 Room Air 12/20/18 20:00 98.9 83 20 124/101 (109) 97 12/20/18 15:59 97.9 92 19 122/60 (80) 97 I&O Intake and Output 12/20/18 12/21/18 19:00 07:00 Intake Total 960 ml 905 ml Output Total 300 ml Balance 960 ml 605 ml Free Water 300 ml 300 ml Tube Feeding 660 ml 605 ml Output Urine Total 300 ml # Voids 3 # Bowel Movements 1 Dressing: dry Wound: clean Drains: other Cardiovascular: RSR Respiratory: clear Abdomen: soft, flat, non-tender, present bowel sounds Extremities: no tenderness, no cyanosis Laboratory Tests Test 12/21/18 06:30 White Blood Count 7.4 K/UL (4.8-10.8) Red Blood Count 3.68 M/UL (4.20-5.40) L Hemoglobin 8.6 G/DL (12.0-16.0) L Hematocrit 27.3 % (37.0-47.0) L Mean Corpuscular Volume 74 FL (80-99) L Mean Corpuscular Hemoglobin 23.4 PG (27.0-31.0) L Mean Corpuscular Hemoglobin Concent 31.7 G/DL (32.0-36.0) L Red Cell Distribution Width 15.3 % (11.6-14.8) H Platelet Count 299 K/UL (150-450) Mean Platelet Volume 6.0 FL (6.5-10.1) L Neutrophils (%) (Auto) 69.2 % (45.0-75.0) Lymphocytes (%) (Auto) 21.5 % (20.0-45.0) Monocytes (%) (Auto) 4.5 % (1.0-10.0) Eosinophils (%) (Auto) 3.5 % (0.0-3.0) H Basophils (%) (Auto) 1.3 % (0.0-2.0) Sodium Level 133 MMOL/L (136-145) L Potassium Level 4.7 MMOL/L (3.5-5.1) Chloride Level 97 MMOL/L (98-107) L Carbon Dioxide Level 31 MMOL/L (21-32) Anion Gap 5 mmol/L (5-15) Blood Urea Nitrogen 23 mg/dL (7-18) H Creatinine 0.5 MG/DL (0.55-1.30) L Estimat Glomerular Filtration Rate > 60 mL/min (>60) Glucose Level 211 MG/DL (74-106) H Calcium Level 8.8 MG/DL (8.5-10.1) Plan Problems: (1) Severe protein-calorie malnutrition Assessment & Plan: needs venous access for meds and fluids very dehydrated. no feeding tube access currently cannot obtain peripheral line s/p PEG tolerating feeds and meds can be without line now d/c planning okay to d/c from surgical standpoint pending placement thank you will follow with recs (2) At high risk for aspiration (3) Schizoaffective disorder, bipolar type (4) Sepsis (5) Diabetes mellitus (6) Essential hypertension (7) Anemia (8) Schizophrenia (9) Bipolar disorder (10) Hyponatremia Wili Leger December 21, 2018 13:48
--- NOTE | 2018-12-21 13:51 | General Progress Note ---
Assessment/Plan Problem List: (1) Dehydration ICD Codes: E86.0 - Dehydration SNOMED: 99585849 (2) Attention to G-tube ICD Codes: Z43.1 - Encounter for attention to gastrostomy SNOMED: 184005359, 715803018, 227548873 (3) Schizoaffective disorder, bipolar type ICD Codes: F25.0 - Schizoaffective disorder, bipolar type SNOMED: 63506984 Status: stable, unchanged Assessment/Plan: gi neph f/u cbc bmp am dc to snf if clear Subjective Constitutional: Reports: weakness Allergies: Coded Allergies: No Known Allergies (Unverified , 05/22/18) All Systems: reviewed and negative except above Subjective confused sleepy Objective Last 24 Hour Vital Signs Date Time Temp Pulse Resp B/P (MAP) Pulse Ox O2 Delivery O2 Flow Rate FiO2 12/21/18 12:00 98.1 73 18 126/78 (94) 98 12/21/18 08:30 Room Air 12/21/18 08:00 97.8 69 18 120/73 (89) 99 12/21/18 04:00 97.8 67 18 115/70 (85) 100 12/21/18 00:00 97.7 84 20 121/57 (78) 96 12/20/18 21:00 Room Air 12/20/18 20:00 98.9 83 20 124/101 (109) 97 12/20/18 15:59 97.9 92 19 122/60 (80) 97 Intake and Output 12/20/18 12/21/18 18:59 06:59 Intake Total 960 ml 905 ml Output Total 300 ml Balance 960 ml 605 ml Free Water 300 ml 300 ml Tube Feeding 660 ml 605 ml Output Urine Total 300 ml # Voids 3 # Bowel Movements 1 1 Laboratory Tests 12/21/18 06:30: White Blood Count 7.4, Red Blood Count 3.68L, Hemoglobin 8.6L, Hematocrit 27.3L , Mean Corpuscular Volume 74L, Mean Corpuscular Hemoglobin 23.4L, Mean Corpuscular Hemoglobin Concent 31.7L, Red Cell Distribution Width 15.3H, Platelet Count 299, Mean Platelet Volume 6.0L, Neutrophils (%) (Auto) 69.2, Lymphocytes (%) (Auto) 21.5, Monocytes (%) (Auto) 4.5, Eosinophils (%) (Auto) 3.5H, Basophils (%) (Auto) 1.3, Sodium Level 133L, Potassium Level 4.7, Chloride Level 97L, Carbon Dioxide Level 31, Anion Gap 5, Blood Urea Nitrogen 23H, Creatinine 0.5L, Estimat Glomerular Filtration Rate > 60, Glucose Level 211H, Calcium Level 8.8 Height (Feet): 5 Height (Inches): 4.00 Weight (Pounds): 97 General Appearance: lethargic EENT: normal ENT inspection Neck: normal alignment Cardiovascular: normal peripheral pulses, normal rate, regular rhythm Respiratory/Chest: chest wall non-tender, lungs clear, normal breath sounds Abdomen: normal bowel sounds, non tender, soft Extremities: normal inspection Edema: no edema noted Arm (L), no edema noted Arm (R), no edema noted Leg (L), no edema noted Leg (R), no edema noted Pedal (L), no edema noted Pedal (R), no edema noted Generalized Neurologic: motor weakness Skin: normal pigmentation, warm/dry Jose Cortés DO December 21, 2018 13:51
--- NOTE | 2018-12-21 14:32 | NUR ---
WEEKLY SWALLOW/SPEECH THERAPY SUMMARY: NOT SEEN THIS WEEK DUE TO SCHEDULE CONFLICTS. SEEN FOR DYSPHAGIA, SEE SWALLOW EVAL REPORT. S/P PEG PLACEMENT SO GOALS FOR INTAKE NOT MET GOALS FOR STAFF EDUCATED/TRAINED IN ORAL CARE MET. PLAN: MOD BARIUM SWALLOW STUDY IP OR OP IF DC CONTINUE WITH PLAN OUTLINED IN SWALLOW EVAL REPORT CONTINUE WITH PEG FEEDINGS AND ORAL CARE
--- NOTE | 2018-12-21 15:33 | Nephrology Progress Note ---
Assessment/Plan Problem List: (1) Hyponatremia (2) Anemia (3) Schizoaffective disorder, bipolar type (4) Severe protein-calorie malnutrition Assessment: low BMI Assessment HypoNatremia : etilogy?? corrected Anemia Dehydration Plan Plan: monitor S na Reglan GT low K, IV K ordered Anemia lewis Urine studies Monitor lytes per GI DC planning Subjective ROS Limited/Unobtainable: No Constitutional: Reports: malaise Objective Objective Last 24 Hour Vital Signs Date Time Temp Pulse Resp B/P (MAP) Pulse Ox O2 Delivery O2 Flow Rate FiO2 12/21/18 12:00 98.1 73 18 126/78 (94) 98 12/21/18 08:30 Room Air 12/21/18 08:00 97.8 69 18 120/73 (89) 99 12/21/18 04:00 97.8 67 18 115/70 (85) 100 12/21/18 00:00 97.7 84 20 121/57 (78) 96 12/20/18 21:00 Room Air 12/20/18 20:00 98.9 83 20 124/101 (109) 97 12/20/18 15:59 97.9 92 19 122/60 (80) 97 Intake and Output 12/20/18 12/21/18 18:59 06:59 Intake Total 960 ml 905 ml Output Total 300 ml Balance 960 ml 605 ml Free Water 300 ml 300 ml Tube Feeding 660 ml 605 ml Output Urine Total 300 ml # Voids 3 # Bowel Movements 1 1 Laboratory Tests 12/21/18 06:30: White Blood Count 7.4, Red Blood Count 3.68L, Hemoglobin 8.6L, Hematocrit 27.3L , Mean Corpuscular Volume 74L, Mean Corpuscular Hemoglobin 23.4L, Mean Corpuscular Hemoglobin Concent 31.7L, Red Cell Distribution Width 15.3H, Platelet Count 299, Mean Platelet Volume 6.0L, Neutrophils (%) (Auto) 69.2, Lymphocytes (%) (Auto) 21.5, Monocytes (%) (Auto) 4.5, Eosinophils (%) (Auto) 3.5H, Basophils (%) (Auto) 1.3, Sodium Level 133L, Potassium Level 4.7, Chloride Level 97L, Carbon Dioxide Level 31, Anion Gap 5, Blood Urea Nitrogen 23H, Creatinine 0.5L, Estimat Glomerular Filtration Rate > 60, Glucose Level 211H, Calcium Level 8.8 Height (Feet): 5 Height (Inches): 4.00 Weight (Pounds): 97 General Appearance: no apparent distress Objective no change Herrera Hogan MD December 21, 2018 15:33
[2018-12-21 16:00] VITALS: BP 122/70
--- NOTE | 2018-12-21 16:33 | NUR ---
nurse notes discharge back to [facility] ,Report given Madelyn RN accordingly, patient made aware regarding plan of care timothy barrow
--- NOTE | 2018-12-21 16:51 | NUR ---
nurse notes discharged in stable condition with no belongings taken accompanied by ambulance personnel, discharged via ambulance no jada barrow rn
--- NOTE | 2018-12-21 22:22 | Psych Consult Progress Note ---
Psychiatry Progress Note Psychiatry Progress Note Subjective the pt is anxious and confused Neurological/Psychiatric: Reports: anxiety, depressed, emotional problems Allergies: Coded Allergies: No Known Allergies (Unverified , 05/22/18) Objective Data Height (Feet): 5 Height (Inches): 4.00 Weight (Pounds): 97 General Appearance: no apparent distress, alert, confused, cachetic Appearance: disheveled Behavior Mannerisms: poor eye contact Mental Status Exam - Affect: constricted Mental Status Exam - Mood: anxious, agitated Speech: slurred Mental Status Exam - Thought P: tangential, confusion, disorganized Perceptual Disturbances: hallucinations Mental Status Exam - Suicidal: not present Assessment/Plan Problem List: (1) Schizoaffective disorder, bipolar type ICD Codes: F25.0 - Schizoaffective disorder, bipolar type SNOMED: 91089964 (2) Dementia with behavioral disturbance ICD Codes: F03.91 - Unspecified dementia with behavioral disturbance SNOMED: 8055409642094 [place] I: schizoaffective do Status: stable, unchanged Assessment/Plan: Risperdal 1mg po tid Ativan IM restrains. Urvashi Ash MD December 21, 2018 22:22
--- NOTE | 2018-12-22 13:27 | Discharge Summary ---
Discharge Summary Discharge Summary _ DATE OF ADMISSION: 12/09/2018 DATE OF DISCHARGE: 12/21/2018 DISCHARGED BY: Dr. Jose Cortés CONSULTANTS: Dr. Urvashi Delacruz [facility] COURSE: Patient is a 68-year-old female, who presented to ED as feeding tube was dislodged. Unclear as to when it happened, however, stoma has closed. She has medical history significant for hypertension, hyperlipidemia, anemia, dysphasia , GERD, diabetes. History was limited due to patient's mental status. On evaluation at the ED, blood work showed WBC of 17, hemoglobin and hematocrit were stable. Sodium was low at 128, chloride 95. Anion gap 1. BUN was 27, creatinine 0.6. Urinalysis showed 5+ blood, positive nitrite, 2+ leukocyte esterase, too many to count WBC, too many to count WBC. She was then admitted for evaluation of malfunctioning G-tube, hyponatremia, and leukocytosis. Belt Dresser was consulted. Hyponatremia work-up was done. Patient was given slow gentle IV hydration. She was started on Rocephin for urine infection. Venous duplex was negative for acute DVT. ID was consulted for evaluation of G-tube. On examination, stoma site was closed and cannot be replaced. NGT was recommended for temporary feeding. Patient will eventually need PEG tube placement. She was placed on strict aspiration precautions. Unfortunately, it was difficult to place NGT due to patient's agitation. She had waxing and waning of consciousness. Patient was confused and was severely agitated. She was given Risperdal and Ativan. She was placed on restraints for safety. Patient was a difficult for peripheral venous access. Multiple attempts were made by staff. Surgeon was then called to assist with venous access. Under ultrasound guidance, a right IJ catheter was placed for temporary venous access. Patient was given IV hydration, however eventually was able to pull out IV access. Fortunately a new peripheral line was inserted. Social service was consulted regarding consent for PEG tube placement. On 12/13/2018, patient underwent EGD with PEG tube placement. Tube feeding was eventually restarted and patient was tolerating feeding well. Urine showed growth of Pseudomonas. Ceftriaxone was changed to cefepime. Antibiotic was changed to ciprofloxacin. She eventually completed antibiotic treatment and was observed off antibiotics. She was eventually discharged back to skilled nursing. FINAL DIAGNOSES: Malfunctioning G-tube status post PEG tube insertion on 12/13/2018 Hyponatremia Pseudomonas UTI Anemia Dehydration Severe protein calorie malnutrition High risk for aspiration Hypertension Hyperlipidemia Diabetes Schizoaffective disorder, bipolar type Dementia with behavioral disturbance VRE carrier DISPOSITION: Patient was discharged to a SNF. DISCHARGE MEDICATIONS: Refer to Discharge Medication List. I have been assigned to complete a discharge summary on this account, I was not involved with the patient's management. Mercy Tillman NP December 22, 2018 13:27
--- NOTE | 2018-12-28 23:05 | Physician Query ---
--------- THIS DOCUMENT IS A PERMANENT PART OF THE MEDICAL RECORD --------- PLEASE COMPLETE DOCUMENT BEFORE SIGNING Dear Dr. LAWSON Date: 12/28/18 Umbrella Frame Maker/CDS Name: Reshma Phoenix, CHRIS Exercise your independent professional judgment when responding to the query. Questions asked do not imply a particular answer is desired or expected. We greatly appreciate your clarification on this issue. CLINICAL DOCUMENTATION STATES: ' Sepsis' mentioned in progress notes by Dr. Leger, Dr. Delacruz You mentioned in your notes: "Leukocytosis" documented in........On evaluation at the ED, blood work showed WBC of 17, hemoglobin and hematocrit were stable. Sodium was low at 128, chloride 95. Anion gap 1. BUN was 27, creatinine 0.6. Urinalysis showed 5+ blood, positive nitrite, 2+ leukocyte esterase, too many to count WBC, too many to count WBC. She was then admitted for evaluation of malfunctioning G-tube, hyponatremia, and leukocytosis. FINAL DIAGNOSES: Malfunctioning G-tube status post PEG tube insertion on 12/13/2018 Hyponatremia Pseudomonas UTI Please clarify if there is an underlying cause for the 'leukocytosis?' [ ] SIRS (Systemic Inflammatory Response Syndrome) [ ] SIRS w/ Organ Dysfunction [ ] Sepsis [ ] Sepsis w/ Organ Dysfunction [ ] Septic Shock [ ] Not Applicable [ ] Other [ ] UTI [ ] Unknown Condition Present on Admission: [ ] Yes [ ] No [ ]Clinically Undeterminable Please also document in your Progress Notes and/or Discharge Summary and indicate if the condition was present on admission. TODD LAWSON D.O. DATE & TIME [facility]
== END 2018-12-21 16:49 | DRG 871 ==
LOC: EDBD 09:47 → EMR 10:20 → EDBEDREQ 11:27 → 4E 11:55 → OBSVTOIN 11:55 → INTOOBSV 11:55 → 4E 12-11 15:23
PROC: 0DH63UZ Insertion of Feeding Device into Stomach, Percutaneous Approach (ICD-10-PCS; principal; 2018-12-13 11:05)
PROC: 0DB78ZX Excision of Stomach, Pylorus, Via Natural or Artificial Opening Endoscopic, Diagnostic (ICD-10-PCS; principal; 2018-12-13 11:05)
DX: A41.9 Sepsis, unspecified organism (principal); E43 Unspecified severe protein-calorie malnutrition; K94.23 Gastrostomy malfunction; N39.0 Urinary tract infection, site not specified; E87.1 Hypo-osmolality and hyponatremia; F03.91 Unspecified dementia, unspecified severity, with behavioral disturbance; Y83.3 Surgical operation with formation of external stoma as the cause of abnormal reaction of the patient, or of later complication, without mention of misadventure at the time of the procedure; E86.0 Dehydration; I10 Essential (primary) hypertension; F25.0 Schizoaffective disorder, bipolar type; F31.9 Bipolar disorder, unspecified; R13.10 Dysphagia, unspecified; F32.9 Major depressive disorder, single episode, unspecified; F41.9 Anxiety disorder, unspecified; B96.5 Pseudomonas (aeruginosa) (mallei) (pseudomallei) as the cause of diseases classified elsewhere; Z22.1 Carrier of other intestinal infectious diseases; K28.9 Gastrojejunal ulcer, unspecified as acute or chronic, without hemorrhage or perforation
CPT/HCPCS: 36415; 74018; 80048; 80053; 81001; 82550; 82607; 82728; 82746; 82962; 82977; 83036; 83540; 83550; 83690; 83735; 83880; 83930; 83935; 84100; 84300; 84443; 84484; 84550; 85025; 85610; 85730; 86140; 87081; 87086; 87181; 93970; 94003; 94150; 96360; 96361; 99285; J1815; J8499

== ENCOUNTER 2018-12-29 21:47 | Emergency (ER) | payer MEDICARE, MEDICAID ==
[~2018-12-29] VITALS: Ht 157.5 cm; Wt 49.9 kg
[~2018-12-29 21:47] MED LIST changes: +ASPIRIN325 MG GT; +LANSOPRAZOLE30 MG GT; +MULTI-DELYN237 ML GT; +NOVOLOG100 UNITS1 SUBQ; +RISPERDAL1 MG ORAL; +VITAMIN C500 M1 GT; +ZINC SULFATE220 M1 GT
--- NOTE | 2018-12-29 21:57 | NUR ---
ED Nurse Note: pt [facility]. per [facility] pt is coming due to pulling her gtube at 1645 earlier today. pt gtube site located on abd, left upper quadrant
[2018-12-29 21:58] VITALS: BP 120/80
--- NOTE | 2018-12-29 22:00 | NUR ---
ED Nurse Note: ERMD at bedside, placed 20French gtube.
--- NOTE | 2018-12-29 22:10 | NUR ---
Spoke with Kathy at [facility]- aware of patients return back home. [facility] contacted,spoke with [phone].
--- NOTE | 2018-12-29 22:20 | NUR ---
ED Nurse Note: Gtube placement confirmed with xray
--- NOTE | 2018-12-29 22:34 | Emergency Room Report ---
History of Present Illness General Chief Complaint: Malfunctioning Gastric Tube Source: Medical Record Present Illness HPI This is a 68-year-old [facility] patient sent in for chief complaint of G- tube malfunction. She has a history of dementia and reportedly pulled out her G -tube. A Ontiveros was placed and patient was sent here. No other history can be obtained from this patient because of her dementia. No other trauma. Allergies: Coded Allergies: No Known Allergies (Unverified , 05/22/18) Patient History Past Medical History: see triage record, old chart reviewed Past Surgical History: other Pertinent Family History: none Social History: Denies: smoking Last Menstrual Period: na Now: No Immunizations: other Reviewed Nursing Documentation: PMH: Agreed; PSxH: Agreed Nursing Documentation-PMH Past Medical History: No History, Except For Hx Cardiac Problems: Yes Hx Hypertension: Yes Hx Pacemaker: No - HYPERLIPIDEMIA, DYSPHAGIA, ANEMIA, GERD, CATARAT, Hx Diabetes: Yes Hx Cancer: No Hx Gastrointestinal Problems: Yes - DYSPHAGIA, GTUBE PLACEMENT Hx Neurological Problems: No Hx Weakness: Yes - General Review of Systems All Other Systems: limited - Secondary to her dementia Physical Exam Vital Signs Date Time Temp Pulse Resp B/P (MAP) Pulse Ox O2 Delivery O2 Flow Rate FiO2 12/29/18 21:48 98.8 92 18 97 Room Air 12/29/18 21:58 120/80 Sp02 EP Interpretation: reviewed, normal General Appearance: well appearing, no apparent distress, alert, thin, Chronically Ill Head: normocephalic, atraumatic Eyes: bilateral eye PERRL, bilateral eye EOMI ENT: hearing grossly normal, normal pharynx Neck: full range of motion, supple, no meningismus Respiratory: chest non-tender, lungs clear, normal breath sounds Cardiovascular #1: regular rate, rhythm, no murmur Gastrointestinal: normal bowel sounds, non tender, no mass, no organomegaly, no bruit, non-distended, other - G-tube site is clean. No bleeding Musculoskeletal: back normal, normal range of motion Neurologic: alert Psychiatric: mood/affect normal Skin: warm/dry Procedures Additional Procedure Procedure Narrative Procedure: G-tube insertion Indication: G-tube malfunction/dislodgment Description: I deflated the Ontiveros and remove it. I place a 20 Tamazight G-tube. Inflated with 20 mL of air. Patient tolerated procedure without a problem. No complication. X-rays ordered. Medical Decision Making Diagnostic Impression: Primary Impression: Dislodged gastrostomy tube Additional Impression: Encounter for feeding tube placement ER Course Patient with G-tube dislodgment. Patient without any problem. No extravasation. Was sent back to [place] [facility]. Other X-Ray Diagnostic Results Other X-Ray Diagnostic Results : X-Ray ordered: KUB with Gastrografin # of Views/Limited Vs Complete: 1 View Indication: Pain EP Interpretation: Yes Interpretation: no soft tissue swelling, no fractures, nonspecific bowel gas , other - No extravasation Impression: Other - G-tube in good position Electronically Signed by: Clinton Weston MD Last Vital Signs Date Time Temp Pulse Resp B/P (MAP) Pulse Ox O2 Delivery O2 Flow Rate FiO2 12/29/18 21:58 98.8 96 18 120/80 97 Room Air Status: improved Disposition: XFER SNF Condition: Stable Referrals: Jose Cortés DO (PCP) Patient Instructions: Gastrostomy Tube Home Guide, Adult Additional Instructions: Follow-up with your doctor in 7 days. Return of worse. Clinton Weston MD December 29, 2018 22:34
[2018-12-29 23:55] VITALS: BP 117/83
[2018-12-30 01:20] VITALS: BP 117/83
--- NOTE | 2018-12-30 01:20 | NUR ---
ED Nurse Note: [facility] at bedside will transfer pt to [facility]. pt is aox0. skin is intact. pt shows no signs of distress. gtube intact. vss. pt had no belongings.
== END 2018-12-30 01:20 ==
LOC: EDBD 21:47 → EMR 22:03
DX: K94.29 Other complications of gastrostomy (principal); I10 Essential (primary) hypertension; E78.5 Hyperlipidemia, unspecified; K21.9 Gastro-esophageal reflux disease without esophagitis; E11.9 Type 2 diabetes mellitus without complications; F03.90 Unspecified dementia, unspecified severity, without behavioral disturbance, psychotic disturbance, mood disturbance, and anxiety
CPT/HCPCS: 74018; 99283

== ENCOUNTER 2018-12-30 16:55 | Emergency (ER) | payer MEDICARE, MEDICAID ==
[~2018-12-30] VITALS: Ht 162.6 cm; Wt 40.8 kg
[2018-12-30 16:48] VITALS: BP 110/62
[2018-12-30 16:55] VITALS: BP 110/62
--- NOTE | 2018-12-30 16:55 | NUR ---
ED Nurse Note: Patient [facility] from [facility] complaining of malfunctioning G tube, patient presents with a 20 [place] g tube, site is reddened, patient is awake however is not alert and oriented, patient is constantly moving around.
--- NOTE | 2018-12-30 17:11 | Emergency Room Report ---
History of Present Illness General Chief Complaint: Malfunctioning Gastric Tube Source: Patient, Medical Record Present Illness HPI [facility] after G-tube was accidentally removed. The patient was sent in for G-tube replacement. There was no drainage from the G- tube. Patient had not been vomiting. There was no fever. Patient had prior G- tube replacements in the past after pulling her G-tube.Ontiveros catheter was placed in stoma. Allergies: Coded Allergies: No Known Allergies (Unverified , 05/22/18) Patient History Past Medical History: see triage record Reviewed Nursing Documentation: PMH: Agreed; PSxH: Agreed Nursing Documentation-PMH Hx Cardiac Problems: Yes Hx Hypertension: Yes Hx Pacemaker: No - HYPERLIPIDEMIA, DYSPHAGIA, ANEMIA, GERD, CATARAT, Hx Diabetes: Yes Hx Cancer: No Hx Gastrointestinal Problems: Yes - DYSPHAGIA, GTUBE PLACEMENT Hx Neurological Problems: No Hx Weakness: Yes - General Review of Systems All Other Systems: limited - by poor historian Physical Exam Vital Signs Date Time Temp Pulse Resp B/P (MAP) Pulse Ox O2 Delivery O2 Flow Rate FiO2 12/30/18 16:48 98.1 70 18 97 Room Air General Appearance: well appearing, no apparent distress, alert, Chronically Ill Head: normocephalic, atraumatic ENT: hearing grossly normal Neck: full range of motion, supple Respiratory: lungs clear, no respiratory distress Gastrointestinal: normal inspection, soft, other - gtube stoma patent with minimal surrounding erythema Musculoskeletal: no calf tenderness Neurologic: alert, responsive, 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 Gastrostomy tube was replaced with sterile technique and prepped with Betadine. G-tube was replaced with a 18 Polish G-tube to 4 cm and inflated with 20 cc of sterile water.. Post procedure x-ray showed adequate gastrostomy tube placement. Patient tolerated well without complications. The [facility] was [facility] to [facility]. Patient was return for persistent vomiting, other concerns. Last Vital Signs Date Time Temp Pulse Resp B/P (MAP) Pulse Ox O2 Delivery O2 Flow Rate FiO2 12/30/18 16:48 98.1 70 18 97 Room Air Status: improved Disposition: [facility] Condition: Stable Steven Davila MD December 30, 2018 17:11
--- NOTE | 2018-12-30 17:33 | NUR ---
ER DISCHARGE NOTE: Patient is cleared to be discharged per ERMD, 18 hebrew g tube was placed at 4 cm by BETTIE Osei, G tube is patent, confirmed by Dr. Davila through X-ray, patient will be sent back to [facility] removed
--- NOTE | 2018-12-30 18:11 | Diagnostic Imaging Report ---
EXAM: XR Abdomen, 2 Views CLINICAL HISTORY: TUBE PLCMT TECHNIQUE: Frontal view of the abdomen/pelvis with upright view of the abdomen. COMPARISON: abdomen xray of 12/29/18 FINDINGS: Intraperitoneal space: No free air. Gastrointestinal tract: Enteric contrast previously seen has dissipated into several small and large bowel loops in the interval. Bones/joints: Unremarkable. Soft tissues: Metallic biliary stent remains present. Tubes, lines and devices: PEG tube remains inflated in the body of the stomach. Additional enteric contrast has been injected through the tube and opacifies the proximal stomach. IMPRESSION: PEG tube remains in the stomach.
== END 2018-12-30 17:35 ==
LOC: EDBD 16:55 → EMR 17:30
DX: Z43.1 Encounter for attention to gastrostomy (principal); I10 Essential (primary) hypertension; K21.9 Gastro-esophageal reflux disease without esophagitis; E11.9 Type 2 diabetes mellitus without complications
CPT/HCPCS: 74018; 99283